=== PATIENT | female | born 1965 | race Caucasian/White ===

== ENCOUNTER → 2016-09-17 | Outpatient (CLI) | payer OTHER ==
[~2016-09-17] MED LIST: AMLO2.5T PO; ASCO500T16 PO; ASPI325T39 PO; ASPI81TA28 PO; BUPR-79 PO; CEPH500C PO; CPR250 PO; CPR500 PO; FERR1TAB23 PO; FOLI1TAB7 PO; FOLI800T PO; FURO-85 PO; LEVO175T3 PO; LISI-729 PO; MULT-610 PO; OXYB15TA12 PO; SERT-234 PO; SERT1TAB92 PO; SIMV20TA5 PO; SNG10 PO; SOLI10TA2 PO; SULF800T23 PO; VSC/10 PO
[2016-09-17 19:59] LABS: URINE APPEARANCE CLOUDY (CLEAR); URINE BILIRUBIN NEG (NEG); URINE COLOR YELLOW; URINE EPITHELIAL CELL AUTO >30 /lpf (0-5); URINE NITRITE POS (NEG); URINE PH 5.5 (4.5-7.5); UROBILINOGEN NEG (NEG)
[2016-09-17 20:01] LABS: MANUAL MICROSCOPIC REQUIRED? NO; REVIEW REQ? YES
== END | disposition home or self-care (01) ==
LOC: C.LABSPEC 17:42
PROVIDERS: ATTEND Family Medicine
DX: Z43.5 Encounter for attention to cystostomy (principal); N31.9 Neuromuscular dysfunction of bladder, unspecified

== ENCOUNTER 2016-11-19 13:43 | Inpatient (IN) | payer OTHER ==
[~2016-11-19] VITALS: Ht 134.6 cm; Wt 94.0 kg
[~2016-11-19 13:43] MED LIST changes: -ASCO500T16 PO; -ASPI81TA28 PO; -BUPR-79 PO; -CEPH500C PO; -CPR250 PO; -CPR500 PO; -FERR1TAB23 PO; -FOLI1TAB7 PO; -FURO-85 PO; -LEVO175T3 PO; -LISI-729 PO; -MULT-610 PO; -OXYB15TA12 PO; -SERT1TAB92 PO; -SIMV20TA5 PO; -SNG10 PO; -SULF800T23 PO; -VSC/10 PO
[2016-11-19] MEDS ORDERED: OXYCODONE HCL IR 5 MG TAB (IMMEDIATE RELEASE) PO STA (15:13)
[2016-11-19] MEDS ORDERED: SODIUM CHLORIDE 0.9% 1000ML 1,000 ML IV STA (15:13)
[2016-11-19] MEDS ORDERED: ONDANSETRON INJ 2 MG/ML 2 ML VIAL IV STA (15:13)
--- NOTE | 2016-11-19 15:15 | EMERGENCY ROOM VISIT NOTE ---
History Report prepared by Peggy: Joan Castro Under the Supervision of: Dr. Olayinka Hart D.O. First contact with patient: 14:57 Chief Complaint: REFERRED BY DOCTOR Stated Complaint: KIDNEY FUNCTION TESTING, SENT BY LINDA FERNANDES History of Present Illness The patient is a 51 year old female who presents to the Emergency Room for worsening swelling of legs bilaterally, with right being greater than left. 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 Per the patient, she was sent to the ED by Dr. Fernandes for kidney function testing. The patient denies chest pain, shortness of breath, urinary symptoms, abdominal pain, or any additional complaints. The patient has a history of DVT. 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 A total of 10 systems reviewed and were otherwise negative. Past Medical & Surgical Medical Problems: (1) Anemia of chronic disease (2) Asthma, Unspecified (3) Depression (4) Depression (5) DVT (deep venous thrombosis) (6) Esophageal Reflux (7) HTN (hypertension) (8) Hx-Venous Thrombosis&Embolism (9) Hypertension (10) Hypothyroidism (11) Hypothyroidism (12) Laceration of left foot (13) MRSA (methicillin resistant Staphylococcus aureus) (14) Neurogenic bladder (15) Paraplegia (16) Spina bifida (17) Spina bifida (18) Suprapubic catheter (19) Ventricular Shunt Status Surgical Problems: (1) H/O foot surgery (2) H/O sinus surgery (3) H/O Spinal surgery (4) History of hip surgery Family History No significant family history Social History Smoking Status: Never Smoker Alcohol Use: none Drug Use: none Marital Status: single Housing Status: assisted living Occupation Status: disabled Current/Historical Medications Scheduled Amlodipine Besylate (Norvasc), 2.5 MG PO QAM Ascorbic Acid (Ascorbic Acid), 500 MG PO BID Aspirin (Aspirin Ec), 81 MG PO QAM Bupropion (Wellbutrin Sr), 150 MG PO BID Ferrous Sulfate (Iron), 325 MG PO BID Folic Acid (Folvite), 1 MG PO QAM Furosemide (Lasix), 20 MG PO QAM Levothyroxine Sodium (Levothyroxine Sodium), 175 MCG PO DAILY Lisinopril (Zestril), 5 MG PO QAM Montelukast Sod (Montelukast Sodium), 10 MG PO HS Oxybutynin Chloride (Ditropan Xl), 15 MG PO QAM Sertraline (Zoloft), 100 MG PO QAM Simvastatin (Zocor), 20 MG PO HS Allergies Coded Allergies: Penicillins (Verified Allergy, Severe, THROAT SWELLS, 07/28/16) Tramadol (Verified Allergy, Severe, Seizure, 07/28/16) Reported by PT and listed in [facility] record. Physical Exam Vital Signs Date Time Temp Pulse Resp B/P Pulse Ox O2 Delivery O2 Flow Rate FiO2 11/19/16 17:46 85 18 146/72 97 Room Air 11/19/16 15:58 88 11/19/16 15:38 88 20 129/78 98 Room Air 11/19/16 13:53 36.7 64 20 132/86 96 Room Air Physical Exam GENERAL: Patient is awake, alert, and in no acute distress. Patient is resting comfortably and showing no signs of anxiety EYES: Esotropia and disconjugate gaze noted to right eye, appears to be chronic. The conjunctivae are clear. The pupils are round and reactive. EARS, NOSE, MOUTH AND THROAT: The nose is without any evidence of any deformity. Mucous membranes are dry tongue is midline NECK: The neck is nontender and supple. RESPIRATORY: Diminished breath sounds throughout all lung kim. No tachypnea or conversational dyspnea. CARDIOVASCULAR: Regular rate and rhythm noted there no murmurs rubs or gallops normal S1 normal S2 GASTROINTESTINAL: The abdomen is soft. Bowel sounds are present in all quadrants. Abdomen is nontender MUSCULOSKELETAL/EXTREMITIES: There is no evidence of gross deformity full range of motion is noted in the hips and shoulders SKIN: Pedal edema noted bilaterally, right greater than left. No erythema. Chronic stasis changes noted. There is no obvious evidence of any rash. There are no petechiae, pallor or cyanosis noted. NEUROLOGIC: Patient is awake alert and oriented x3. Baseline according to caregiver. Medical Decision & Procedures ER Provider Diagnostic Interpretation: Radiology results as stated below per my review and radiologist interpretation: ULTRASOUND RIGHT LOWER EXTREMITY VENOUS CLINICAL HISTORY: Right leg swelling. COMPARISON STUDY: Bilateral lower extremity venous ultrasound dated 06/03/2016. TECHNIQUE: Real-time, grayscale, and color Doppler sonography of the deep veins of the right lower extremity was performed from the inguinal crease to the calf. Compression and augmentation were utilized. The Examination is degraded by large body habitus. FINDINGS: There is no sonographic evidence of deep venous thrombosis identified in the right lower extremity. The common femoral, superficial femoral, and popliteal veins are patent and normally compressible. The greater saphenous vein and the profunda femoris vein at the junction with the common femoral vein are clear. The visualized calf veins are patent. IMPRESSION: There is no sonographic evidence of deep venous thrombosis identified in the right lower extremity. Electronically signed by: Mario Mari M.D. 11/19/2016 5:14 PM Dictated Date/Time: 11/19/2016 5:13 PM CHEST ONE VIEW PORTABLE CLINICAL HISTORY: ABDOMINAL PAIN/GI dyspnea COMPARISON STUDY: 08/21/2012 FINDINGS: Poor film technically. Moderate cardiomegaly. Possible components of congestive failure versus pulmonary edema. IMPRESSION: Poor film technically in part due to patient body habitus. Moderate cardiomegaly. Pulmonary edema versus congestive failure Electronically signed by: Sherif White M.D. 11/19/2016 3:31 PM Dictated Date/Time: 11/19/2016 3:30 PM Laboratory Results 11/19/16 15:42 Red Blood Count 2.80, Mean Corpuscular Volume 94.3, Mean Corpuscular Hemoglobin 30.4, Mean Corpuscular Hemoglobin Concent 32.2, Mean Platelet Volume 9.7, Neutrophils (%) (Auto) 65.2, Lymphocytes (%) (Auto) 20.2, Monocytes (%) (Auto) 5.4, Eosinophils (%) (Auto) 8.1, Basophils (%) (Auto) 0.7, Neutrophils # (Auto) 4.97, Lymphocytes # (Auto) 1.54, Monocytes # (Auto) 0.41, Eosinophils # (Auto) 0.62, Basophils # (Auto) 0.05 11/19/16 15:42 Test 11/19/16 15:42 11/19/16 16:01 White Blood Count 7.62 K/uL (4.8-10.8) Red Blood Count 2.80 M/uL (4.2-5.4) Hemoglobin 8.5 g/dL (12.0-16.0) Hematocrit 26.4 % (37-47) Mean Corpuscular Volume 94.3 fL (80-100) Mean Corpuscular Hemoglobin 30.4 pg (25-34) Mean Corpuscular Hemoglobin Concent 32.2 g/dl (32-36) Platelet Count 311 K/uL (130-400) Mean Platelet Volume 9.7 fL (7.4-10.4) Neutrophils (%) (Auto) 65.2 % Lymphocytes (%) (Auto) 20.2 % Monocytes (%) (Auto) 5.4 % Eosinophils (%) (Auto) 8.1 % Basophils (%) (Auto) 0.7 % Neutrophils # (Auto) 4.97 K/uL (1.4-6.5) Lymphocytes # (Auto) 1.54 K/uL (1.2-3.4) Monocytes # (Auto) 0.41 K/uL (0.11-0.59) Eosinophils # (Auto) 0.62 K/uL (0-0.5) Basophils # (Auto) 0.05 K/uL (0-0.2) RDW Standard Deviation 48.4 fL (36.4-46.3) RDW Coefficient of Variation 14.0 % (11.5-14.5) Immature Granulocyte % (Auto) 0.4 % Immature Granulocyte # (Auto) 0.03 K/uL (0.00-0.02) Red Blood Cell Morphology Unremarkable Prothrombin Time 10.3 SECONDS (9.0-12.0) Prothromb Time International Ratio 1.0 (0.9-1.1) Activated Partial Thromboplast Time 26.0 SECONDS (21.0-31.0) Partial Thromboplastin Ratio 1.0 Anion Gap 8.0 mmol/L (3-11) Est Creatinine Clear Calc Drug Dose 18.3 ml/min Estimated GFR () 19.0 Estimated GFR (Non- 16.4 BUN/Creatinine Ratio 24.1 (10-20) Calcium Level 8.9 mg/dl (8.5-10.1) Magnesium Level 2.4 mg/dl (1.8-2.4) Total Bilirubin 0.3 mg/dl (0.2-1) Direct Bilirubin mg/dl (0-0.2) Aspartate Amino Transf (AST/SGOT) 16 U/L (15-37) Alanine Aminotransferase (ALT/SGPT) 17 U/L (12-78) Alkaline Phosphatase 133 U/L (45-117) Total Creatine Kinase 54 U/L (26-192) Creatine Kinase MB 0.6 ng/ml (0.5-3.6) Creatine Kinase MB Ratio 1.1 (0-3.0) Troponin I < 0.015 ng/ml (0-0.045) Total Protein 7.7 gm/dl (6.4-8.2) Albumin 3.4 gm/dl (3.4-5.0) Lipase 164 U/L (73-393) Chemistry Specimen Hemolysis Urine Color YELLOW Urine Appearance TURBID (CLEAR) Urine pH >= 9.0 (4.5-7.5) Urine Specific [place] 1.012 (1.000-1.030) Urine Protein 1+ (NEG) Urine Glucose (UA) NEG (NEG) Urine Ketones NEG (NEG) Urine Occult Blood 3+ (NEG) Urine Nitrite NEG (NEG) Urine Bilirubin NEG (NEG) Urine Urobilinogen NEG (NEG) Urine Leukocyte Esterase LARGE (NEG) Urine WBC (Auto) >30 /hpf (0-5) Urine RBC (Auto) >30 /hpf (0-4) Urine Hyaline Casts (Auto) 5-10 /lpf (0-5) Urine Epithelial Cells (Auto) >30 /lpf (0-5) Urine Bacteria (Auto) 4+ (NEG) Urine Crystals TRIPLE PHOSPHATE Urine Yeast (Auto) PRESENT (NONE PRSENT) Laboratory results per my review. Medications Administered Medications (Trade) Dose Ordered Sig/Jacky Route Start Time Stop Time Status Last Admin Dose Admin Sodium Chloride (Nss 1000ml) 1,000 ml @ 999 mls/hr Q1H1M STAT IV 11/19/16 15:13 11/19/16 16:13 DC 11/19/16 15:53 999 MLS/HR Ondansetron HCl (Zofran Inj) 4 mg NOW STAT IV 11/19/16 15:13 11/19/16 15:17 DC 11/19/16 15:54 4 MG Oxycodone HCl (Roxicodone Immediate Rel Tab) 5 mg NOW STAT PO 11/19/16 15:13 11/19/16 15:17 DC 11/19/16 15:54 5 MG Ceftriaxone Sodium (Rocephin Inj) 1 gm NOW STAT IV 11/19/16 17:30 11/19/16 17:31 DC 11/19/16 17:48 1 GM ECG Indication: other (Abnormal lab value) Rate (beats per minute): 84 Rhythm: normal sinus Findings: T-wave inversion (Anterior), no ectopy Comparison ECG Date: 08/21/12 Change: no significant change ED Course 1508: The patient was evaluated in room B5. A complete history and physical examination were performed. 1513: Ordered Oxycodone HCL 5 mg PO, Zofran Injection 4 mg IV, Sodium Chloride 1 ,000 ml @ 999 mls/hr IV. 1515: After reviewing the patient's chart, I found that the patient was sent by Dr. Fernandes for a creatinine of 3. 1730: Ordered Rocephin Injection 1 gm IV. 173: I updated the patient of the treatment plan. She is agreeable at this time. 1821: I discussed the patient's case with Dr. Stringer ([facility]). She will evaluate the patient for further management and care. Medical Decision Differential diagnosis: Etiologies such as metabolic, infection, hypo/hyperglycemia, electrolyte abnormalities, cardiac sources, intracerebral event, toxicologic, neurologic, as well as others were entertained. Nursing notes reviewed. Patient's previous electronic medical records and outside laboratory studies were also reviewed. The patient is a 51-year-old female who presented to the emergency department for an evaluation at the request of her primary care physician. The patient's found have an elevated creatinine and was sent to the emergency department. The patient is a history of a chronic suprapubic Hodge catheter. She appears to have signs of urinary tract infection on urinalysis but she does have a chronic indwelling Hodge catheter so this is difficult to decide if it's an acute infection or not. She appears improved had slowly worsening creatinine are since July of 2016. Her creatinine appears to be consistent with her previous recent draws but it appears that her creatinine was normal as of last fall. The patient is treated with IV fluids and IV antibiotics in emergency department. She was also given pain medication. I discussed her case with the on -call [facility] hospitalist group. They've agreed to evaluate the patient in the emergency department for further management and disposition. Consults Time Called: 1818 Consulting Physician: Dr. Stringer ([facility]) Returned Call: 1821 I discussed the patient's case with Dr. Stringer ([facility]). She will evaluate the patient for further management and care. Impression Primary Impression: Acute kidney injury Additional Impressions: UTI (urinary tract infection) Creatinine elevation Scribe Attestation The scribe's documentation has been prepared under my direction and personally reviewed by me in its entirety. I confirm that the note above accurately reflects all work, treatment, procedures, and medical decision making performed by me. Departure Information Dispostion Being Evaluated By Hospitalist Referrals Linda Fernandes D.OMi (PCP) Patient Instructions My [facility] Problem Qualifiers Additional Impressions: UTI (urinary tract infection) Urinary tract infection type: catheter-associated UTI Indwelling urinary catheter type: unspecified Encounter type: initial encounter Qualified Codes : T83.511A - Infection and inflammatory reaction due to indwelling urethral catheter, initial encounter; N39.0 - Urinary tract infection, site not specified
--- NOTE | 2016-11-19 15:33 | DIAGNOSTIC IMAGING REPORT ---
CHEST ONE VIEW PORTABLE CLINICAL HISTORY: ABDOMINAL PAIN/GI dyspnea COMPARISON STUDY: 08/21/2012 FINDINGS: Poor film technically. Moderate cardiomegaly. Possible components of congestive failure versus pulmonary edema. IMPRESSION: Poor film technically in part due to patient body habitus. Moderate cardiomegaly. Pulmonary edema versus congestive failure Electronically signed by: Sherif White M.D. 11/19/2016 3:31 PM Dictated Date/Time: 11/19/2016 3:30 PM
[2016-11-19] MEDS ORDERED: OXYB15TA12 PO (15:46)
[2016-11-19 16:13] LABS: BASO % 0.7 %; BASO ABS # 0.05 K/uL (0-0.2); EOS % 8.1 %; HEMATOCRIT 26.4 % (37-47); IG% 0.4 %; LYMPH % 20.2 %; LYMPH ABS # 1.54 K/uL (1.2-3.4); MEAN CELL VOLUME 94.3 fL (80-100); MEAN CORPUSCULAR HEMOGLOBIN 30.4 pg (25-34); MEAN CORPUSCULAR HGB CONC 32.2 g/dl (32-36); MEAN PLATELET VOLUME 9.7 fL (7.4-10.4); MONO % 5.4 %; NEUT % 65.2 %; PLATELET COUNT 311 K/uL (130-400); WHITE BLOOD COUNT 7.62 K/uL (4.8-10.8)
[2016-11-19 16:27] LABS: PROTHROMBIN TIME (PATIENT) 10.3 SECONDS (9.0-12.0)
[2016-11-19 16:47] LABS: COMPLETE YES
[2016-11-19 16:48] LABS: URINE APPEARANCE TURBID (CLEAR); URINE BILIRUBIN NEG (NEG); URINE COLOR YELLOW; URINE EPITHELIAL CELL AUTO >30 /lpf (0-5); URINE NITRITE NEG (NEG); URINE PH >= 9.0 (4.5-7.5); URINE SPECIFIC GRAVITY 1.012 (1.000-1.030); UROBILINOGEN NEG (NEG)
[2016-11-19 16:51] LABS: ALKALINE PHOSPHATASE 133 U/L (45-117); ALT/SGPT 17 U/L (12-78); AST/SGOT 16 U/L (15-37); BLOOD UREA NITROGEN 75 mg/dl (7-18); BUN/CREATININE RATIO 24.1 (10-20); CALCIUM 8.9 mg/dl (8.5-10.1); CARBON DIOXIDE 25 mmol/L (21-32); CHLORIDE 109 mmol/L (98-107); CKMB/CK RATIO 1.1 (0-3.0); GLUCOSE 91 mg/dl (70-99); MAGNESIUM 2.4 mg/dl (1.8-2.4); POTASSIUM 5.1 mmol/L (3.5-5.1); SODIUM 142 mmol/L (136-145)
[2016-11-19 16:55] LABS: MANUAL MICROSCOPIC REQUIRED? NO; REVIEW REQ? YES
[2016-11-19 16:56] LABS: SULFASALICYLIC ACID POS (NEG)
--- NOTE | 2016-11-19 17:16 | DIAGNOSTIC IMAGING REPORT ---
ULTRASOUND RIGHT LOWER EXTREMITY VENOUS CLINICAL HISTORY: Right leg swelling. COMPARISON STUDY: Bilateral lower extremity venous ultrasound dated 06/03/2016. TECHNIQUE: Real-time, grayscale, and color Doppler sonography of the deep veins of the right lower extremity was performed from the inguinal crease to the calf. Compression and augmentation were utilized. The Examination is degraded by large body habitus. FINDINGS: There is no sonographic evidence of deep venous thrombosis identified in the right lower extremity. The common femoral, superficial femoral, and popliteal veins are patent and normally compressible. The greater saphenous vein and the profunda femoris vein at the junction with the common femoral vein are clear. The visualized calf veins are patent. IMPRESSION: There is no sonographic evidence of deep venous thrombosis identified in the right lower extremity. Electronically signed by: Mario Mari M.D. 11/19/2016 5:14 PM Dictated Date/Time: 11/19/2016 5:13 PM
[2016-11-19] MEDS ORDERED: CEFTRIAXONE SOD INJ 1 GM ADDVIAL IV STA (17:30)
[2016-11-19] MEDS ORDERED: ACETAMINOPHEN 325 MG TAB PO PRN (18:45)
[2016-11-19] MEDS ORDERED: POLYETHYLENE (MIRALAX) 17 GM PACK PO PRN (18:45)
[2016-11-19] MEDS ORDERED: ONDANSETRON INJ 2 MG/ML 2 ML VIAL IV PRN (18:45)
[2016-11-19 20:48] VITALS: BP 136/78; PULSE 92; TEMP 36.9; O2SAT 97; Ht 134.6 cm; Wt 94.0 kg
[2016-11-19] MEDS ORDERED: LISI-729 PO (20:52)
[2016-11-19] MEDS ORDERED: FERROUS SULFATE 325 MG TAB PO SCH (21:00)
[2016-11-19] MEDS: MONTELUKAST SOD 10 MG TAB PO SCH (21:40)
[2016-11-19] MEDS: FERROUS SULFATE 325 MG TAB PO SCH (21:40)
[2016-11-19] MEDS: ASCORBIC ACID 500 MG TAB PO SCH (21:40)
[2016-11-19] MEDS: SIMVASTATIN 20 MG TAB PO SCH (21:41)
[2016-11-19] MEDS: BuPROPion SR 150 MG TABCR PO SCH (21:41)
[2016-11-19] MEDS: HEPARIN SOD 5000 UNIT/0.5 ML CARP SQ SCH (21:43)
--- NOTE | 2016-11-19 21:57 | History and Physical ---
History & Physical Date & Time of Service: Nov 19, 2016 at 21:28 Chief Complaint: Abnormal Kidney Function Primary Care Physician: Reginaldo Adair D.O. History of Present Illness 51 year old female who presents to the ER by recommendation from her PCP for abnormal kidney function. Patient was at her PCP today for routine visit and had routine labs drawn that showed creat 3.1 (noted to be 0.9 03/2016). Patient reports she has been feeling well recently. She has a suprapubic catheter in place that has been draining well. No symptoms of a UTI. She denies fever and chills. No chest pain, shortness of breath, lightheadedness, dizziness, diaphoresis, or syncopal events. She has chronic lower extremity edema which is unchanged. She denies abdominal pain, nausea, vomiting, and diarrhea. She was treated for wounds on her feet a few months ago that have since healed. Patient denies heavy NSAID use. In the ER, creat is 3.1. U/A suggests UTI. She was given IVF and Rocephin. Vitals are stable. Past Medical/Surgical History Medical Problems: (1) Anemia of chronic disease Status: Chronic (2) Asthma, Unspecified Status: Chronic (3) Depression Status: Chronic (4) Depression Status: Chronic (5) DVT (deep venous thrombosis) Status: Chronic completed Coumadin therapy (6) Esophageal Reflux Status: Chronic (7) HTN (hypertension) Status: Chronic (8) Hx-Venous Thrombosis&Embolism Status: Chronic (9) Hypertension Status: Chronic (10) Hypothyroidism Status: Chronic (11) Hypothyroidism Status: Chronic (12) Laceration of left foot Status: Resolved (13) MRSA (methicillin resistant Staphylococcus aureus) Status: Chronic (14) Neurogenic bladder Status: Chronic (15) Paraplegia Status: Chronic (16) Spina bifida Status: Chronic (17) Spina bifida Status: Chronic (18) Suprapubic catheter Status: Chronic (19) Ventricular Shunt Status Status: Chronic Surgical Problems: (1) H/O foot surgery Status: Chronic (2) H/O sinus surgery Status: Chronic (3) H/O Spinal surgery Status: Chronic (4) History of hip surgery Status: Chronic Family History FH: CAD (coronary artery disease) FATHER BROTHER Social History Smoking Status: Never Smoker Alcohol Use: none Housing status: assisted living Immunizations History of Influenza Vaccine: Yes Influenza Vaccine Date: Jun 15, 2016 History of Tetanus Vaccine?: Yes Tetanus Immunization Date: Jun 07, 2007 History of Pneumococcal: Yes Pneumococcal Date: Jun 16, 2015 History of Hepatitis B Vaccine: Yes Hepatitis Immunization Date: Oct 05, 2006 Multi-Drug Resistant Organisms History of MDRO: Yes Type of MDRO: MRSA Allergies Coded Allergies: Penicillins (Verified Allergy, Severe, THROAT SWELLS, 07/28/16) Tramadol (Verified Allergy, Severe, Seizure, 07/28/16) Reported by PT and listed in [facility] record. Home Medications Scheduled Amlodipine Besylate (Norvasc), 2.5 MG PO QAM Ascorbic Acid (Ascorbic Acid), 500 MG PO BID Aspirin (Aspirin Ec), 81 MG PO QAM Bupropion (Wellbutrin Sr), 150 MG PO BID Ferrous Sulfate (Iron), 325 MG PO BID Folic Acid (Folvite), 1 MG PO QAM Furosemide (Lasix), 20 MG PO QAM Levothyroxine Sodium (Levothyroxine Sodium), 175 MCG PO DAILY Lisinopril (Zestril), 5 MG PO QAM Montelukast Sod (Montelukast Sodium), 10 MG PO HS Oxybutynin Chloride (Ditropan Xl), 15 MG PO QAM Sertraline (Zoloft), 100 MG PO QAM Simvastatin (Zocor), 20 MG PO HS Review of Systems 10 point review of systems was completed with the pertinent positives and negatives noted per the HPI Physical Exam Vital Signs Date Time Temp Pulse Resp B/P Pulse Ox O2 Delivery O2 Flow Rate FiO2 11/19/16 17:46 85 18 146/72 97 Room Air 11/19/16 15:58 88 11/19/16 15:38 88 20 129/78 98 Room Air 11/19/16 13:53 36.7 64 20 132/86 96 Room Air General Appearance: no apparent distress Head: normocephalic Eyes: normal inspection ENT: hearing grossly normal Neck: supple, no JVD Respiratory/Chest: lungs clear, normal breath sounds, no respiratory distress Cardiovascular: regular rate, rhythm, + pertinent finding (+ edema BLLE) Abdomen/GI: normal bowel sounds, non tender, soft Genitourinary - Female: + pertinent finding (suprapubic catheter in place, draining clear yellow urine) Extremities/Musculoskelatal: + pertinent finding (underdeveloped extremities due to spina bifida) Neurologic/Psych: no motor/sensory deficits, alert, normal mood/affect, oriented x 3 Skin: normal color, warm/dry, + pertinent finding (excoriated abdominal folds) Diagnostics Laboratory Results Results Past 24 Hours Test 11/19/16 15:42 11/19/16 16:01 Range/Units White Blood Count 7.62 4.8-10.8 K/uL Red Blood Count 2.80 4.2-5.4 M/uL Hemoglobin 8.5 12.0-16.0 g/dL Hematocrit 26.4 37-47 % Mean Corpuscular Volume 94.3 80-100 fL Mean Corpuscular Hemoglobin 30.4 25-34 pg Mean Corpuscular Hemoglobin Concent 32.2 32-36 g/dl Platelet Count 311 130-400 K/uL Mean Platelet Volume 9.7 7.4-10.4 fL Neutrophils (%) (Auto) 65.2 % Lymphocytes (%) (Auto) 20.2 % Monocytes (%) (Auto) 5.4 % Eosinophils (%) (Auto) 8.1 % Basophils (%) (Auto) 0.7 % Neutrophils # (Auto) 4.97 1.4-6.5 K/uL Lymphocytes # (Auto) 1.54 1.2-3.4 K/uL Monocytes # (Auto) 0.41 0.11-0.59 K/uL Eosinophils # (Auto) 0.62 0-0.5 K/uL Basophils # (Auto) 0.05 0-0.2 K/uL RDW Standard Deviation 48.4 36.4-46.3 fL RDW Coefficient of Variation 14.0 11.5-14.5 % Immature Granulocyte % (Auto) 0.4 % Immature Granulocyte # (Auto) 0.03 0.00-0.02 K/uL Red Blood Cell Morphology Unremarkable Prothrombin Time 10.3 9.0-12.0 SECONDS Prothromb Time International Ratio 1.0 0.9-1.1 Activated Partial Thromboplast Time 26.0 21.0-31.0 SECONDS Partial Thromboplastin Ratio 1.0 Sodium Level 142 136-145 mmol/L Potassium Level 5.1 3.5-5.1 mmol/L Chloride Level 109 98-107 mmol/L Carbon Dioxide Level 25 21-32 mmol/L Anion Gap 8.0 3-11 mmol/L Blood Urea Nitrogen 75 7-18 mg/dl Creatinine 3.10 0.60-1.20 mg/dl Est Creatinine Clear Calc Drug Dose 18.3 ml/min Estimated GFR () 19.0 Estimated GFR (Non- 16.4 BUN/Creatinine Ratio 24.1 10-20 Random Glucose 91 70-99 mg/dl Calcium Level 8.9 8.5-10.1 mg/dl Magnesium Level 2.4 1.8-2.4 mg/dl Total Bilirubin 0.3 0.2-1 mg/dl Direct Bilirubin 0-0.2 mg/dl Aspartate Amino Transf (AST/SGOT) 16 15-37 U/L Alanine Aminotransferase (ALT/SGPT) 17 12-78 U/L Alkaline Phosphatase 133 45-117 U/L Total Creatine Kinase 54 26-192 U/L Creatine Kinase MB 0.6 0.5-3.6 ng/ml Creatine Kinase MB Ratio 1.1 0-3.0 Troponin I < 0.015 0-0.045 ng/ml Total Protein 7.7 6.4-8.2 gm/dl Albumin 3.4 3.4-5.0 gm/dl Lipase 164 73-393 U/L Chemistry Specimen Hemolysis Urine Color YELLOW Urine Appearance TURBID CLEAR Urine pH >= 9.0 4.5-7.5 Urine Specific [place] 1.012 1.000-1.030 Urine Protein 1+ NEG Urine Glucose (UA) NEG NEG Urine Ketones NEG NEG Urine Occult Blood 3+ NEG Urine Nitrite NEG NEG Urine Bilirubin NEG NEG Urine Urobilinogen NEG NEG Urine Leukocyte Esterase LARGE NEG Urine WBC (Auto) >30 0-5 /hpf Urine RBC (Auto) >30 0-4 /hpf Urine Hyaline Casts (Auto) 5-10 0-5 /lpf Urine Epithelial Cells (Auto) >30 0-5 /lpf Urine Bacteria (Auto) 4+ NEG Urine Crystals TRIPLE PHOSPHATE NONE PRSENT Urine Yeast (Auto) PRESENT NONE PRSENT Microbiology Results 11/19/16 Urine Culture, Received Pending Diagnostic Radiology RLE DOPPLER IMPRESSION: There is no sonographic evidence of deep venous thrombosis identified in the right lower extremity. CXR IMPRESSION: Poor film technically in part due to patient body habitus. Moderate cardiomegaly. Pulmonary edema versus congestive failure Impression Assessment and Plan ACUTE KIDNEY INJURY - admit to med/surg - on review of old records - noted patient had creats ranging from the high 1's - 4.4 in 07/2016 - noted patient was receiving amikacin and gentamicin for foot wounds at that time; no other lab results until labs done today - ? renal toxicity from aminoglycoside use; patient also on Lasix and Lisinopril - hold both - suprapubic catheter draining well - so do not suspect obstruction - no heavy NSAID use - s/p 1 liter IVF in ED, will hold on further IVF at this time - urine studies and renal US ordered - nephro consult POSSIBLE UTI - U/A suggests UTI, however ? colonization from chronic suprapubic catheter - last culture 09/2016 grew pansensitive klebsiella - empiric Rocephin for now HTN - BP controlled, holding Lisinopril due to NEMESIO - continue amlodipine HYPOTHYROIDISM - continue levothyroxine SPINA BIFIDA CHRONIC LOWER EXTREMITY EDEMA - holding Lasix due to NEMESIO - also uses compression pumps DVT PROPHYLAXIS - SQ Heparin DISPO - In my clinical judgment this beneficiary meets acute admission criteria, established by [facility], that includes being hospitalized through two midnights. I have seen and examined the patient and agree with the assessment and plan as stated above. Myke, DO Level of Care Med/Surg Resuscitation Status DO NOT RESUSCITATE VTE Prophylaxis VTE Risk Assessment Done? Y/N: Yes Risk Level: Moderate Given or contraindicated: Unfractionated heparin SQ
--- NOTE | 2016-11-19 22:50 | DIAGNOSTIC IMAGING REPORT ---
ULTRASOUND KIDNEYS AND BLADDER CLINICAL HISTORY: Acute renal insufficiency. COMPARISON STUDY: Abdominal CT dated 08/17/2012. TECHNIQUE: Real-time, grayscale, and color flow sonography of the kidneys and bladder is performed. Images are reviewed in the transverse and longitudinal planes. The examination is degraded by large body habitus. FINDINGS: Kidneys: The kidneys are atrophic. The right kidney measures 8.9 x 5.0 x 3.9 cm and the left kidney measures 6.8 x 4.8 x 3.5 cm. There is no hydronephrosis. No shadowing renal calculi are identified. There is no sonographic evidence of large contour deforming renal mass lesion. No perinephric fluid is identified. Bladder: The bladder is decompressed and could not be assessed. IMPRESSION: 1. Significantly suboptimal examination due to large body habitus. 2. The kidneys are atrophic an without evidence of hydronephrosis. 3. The bladder was decompressed and could not be assessed. Electronically signed by: Mario Mari M.D. 11/19/2016 10:48 PM Dictated Date/Time: 11/19/2016 10:46 PM
[2016-11-19 23:54] VITALS: BP 120/75; PULSE 102; TEMP 36.7; O2SAT 92
[2016-11-20] VITALS: O2SAT 97
[2016-11-20] MEDS: HEPARIN SOD 5000 UNIT/0.5 ML CARP SQ SCH ×3 (05:45→22:00)
[2016-11-20] MEDS: LEVOTHYROXINE 175 MCG TAB PO SCH (06:10)
[2016-11-20 07:17] LABS: HEMATOCRIT 23.7 % (37-47); MEAN CELL VOLUME 95.2 fL (80-100); MEAN CORPUSCULAR HEMOGLOBIN 29.7 pg (25-34); MEAN CORPUSCULAR HGB CONC 31.2 g/dl (32-36); MEAN PLATELET VOLUME 9.6 fL (7.4-10.4); PLATELET COUNT 274 K/uL (130-400); RED BLOOD COUNT 2.49 M/uL (4.2-5.4); WHITE BLOOD COUNT 7.62 K/uL (4.8-10.8)
[2016-11-20 07:37] LABS: BUN/CREATININE RATIO 25.9 (10-20); CALCIUM 8.4 mg/dl (8.5-10.1); CREATININE 2.9 mg/dl (0.60-1.20); MAGNESIUM 2.3 mg/dl (1.8-2.4); POTASSIUM 5.4 mmol/L (3.5-5.1)
[2016-11-20 07:55] VITALS: BP 137/84; PULSE 94; TEMP 36.8; O2SAT 92
[2016-11-20] MEDS ORDERED: ASPIRIN 81 MG ECTAB PO SCH (08:00)
[2016-11-20] MEDS ORDERED: SODIUM POLYST. SULF SUSP 15G/60ML PO STA (09:33)
[2016-11-20] MEDS: SERTRALINE HCL 100 MG TAB PO SCH (09:48)
[2016-11-20] MEDS: OXYBUTYNIN CHLORIDE 5 MG TABCR PO SCH (09:51)
[2016-11-20] MEDS: BuPROPion SR 150 MG TABCR PO SCH ×2 (09:51→19:40)
[2016-11-20] MEDS: ASCORBIC ACID 500 MG TAB PO SCH ×2 (09:52→19:40)
[2016-11-20] MEDS: AMLODIPINE BESYLATE 5 MG TAB PO SCH (09:52)
[2016-11-20] MEDS: FERROUS SULFATE 325 MG TAB PO SCH ×2 (09:54→19:39)
[2016-11-20] MEDS: SODIUM CHLORIDE 0.9% 1000ML 1,000 ML IV SCH ×2 (10:14→19:38)
[2016-11-20 10:30] LABS: FERRITIN 356.6 ng/ml (8.0-388.0)
[2016-11-20 10:34] VITALS: BP 118/76; PULSE 100; O2SAT 93
[2016-11-20 14:47] LABS: BUN/CREATININE RATIO 24.6 (10-20); CALCIUM 8.4 mg/dl (8.5-10.1); CREATININE 2.8 mg/dl (0.60-1.20); POTASSIUM 5.1 mmol/L (3.5-5.1)
[2016-11-20 15:57] VITALS: BP 127/78; PULSE 92; TEMP 36.9; O2SAT 95
[2016-11-20 16:00] VITALS: O2SAT 95
--- NOTE | 2016-11-20 16:38 | Progress Note ---
Internal Med Progress Note Date of Service: Nov 20, 2016. Provider Documentation: SUBJECTIVE: feels fine, denies of any discomfort, appetite is fair , no nausea /vomiting no fever or chills very pleasant OBJECTIVE: Vital Signs-as noted below Exam: General-very pleasant female , no sign of distress Eyes-sclera non icteric , PERRLA/EOMI Lungs-CTA, no wheeze or rales Heart-regular S1/S2 Abdomen-soft, non tender , supra pubic catheter present Extremities-underdeveloped extremities due to spina bifida Neuro-AAX3 , spina bifida Lab data as noted below. ASSESSMENT & PLAN: ACUTE KIDNEY INJURY - found as an abnormal lab work in office visit during routine check up - on review of old records - noted patient had creatinine ranging from the high 1's - 4.4 in 07/2016 - noted patient was receiving amikacin and gentamicin for foot wounds at that time; no other lab results until labs done today - possible renal toxicity from aminoglycoside use; -patient was also on Lasix and Lisinopril - hold both - suprapubic catheter draining well - so do not suspect obstruction - no heavy NSAID use - cont IVF NSS @ 100 ml /hr Cr gradually improving 3.1 _> 2.8 cont to follow PRP - Renal USG : IMPRESSION: 1. Significantly suboptimal examination due to large body habitus. 2. The kidneys are atrophic an without evidence of hydronephrosis. 3. The bladder was decompressed and could not be assessed. - nephro consult requested -awaiting input HYPERKALEMIA : due to above lisinopril has been on hold since admission Low K /renal diet given Kayexalate repeat PRP in afternoon improvement of K level given presentation with NEMESIO /hyperkalemia -may not be a candidate for ACEI in future POSSIBLE UTI - U/A suggests UTI, however ? colonization from chronic suprapubic catheter - last culture 09/2016 grew pansensitive klebsiella - was started on empiric Rocephin -Urine culture -possible contamination with 3 type of organisms present -repeat culture ordered DEPRESSION ; on Effexor and Zoloft mentions of having crying spell since being in hospital asking if she can see a psychiatrist while in here Psych consult requested Ativan 0.5 mg PO TID PRN for anxiety HTN - BP controlled, holding Lisinopril due to NEMESIO - continue amlodipine HYPOTHYROIDISM - continue levothyroxine SPINA BIFIDA uses Power Chair has Suprapubic catheter for chronic Neurogenic bladder resident at [facility] CHRONIC LOWER EXTREMITY EDEMA - holding Lasix due to NEMESIO - also uses compression pumps DVT PROPHYLAXIS moderate to high risk - SQ Heparin DISPOSITION lives at [facility] return to [facility] when medically stable Social service consulted for discharge assistance Vital Signs: Date Time Temp Pulse Resp B/P Pulse Ox O2 Delivery O2 Flow Rate FiO2 11/20/16 16:00 95 Room Air 11/20/16 15:57 36.9 92 18 127/78 95 Room Air 11/20/16 10:34 100 93 11/20/16 08:00 Room Air 11/20/16 07:55 36.8 94 18 137/84 92 Room Air 11/20/16 00:00 97 Room Air 11/19/16 23:54 36.7 102 20 120/75 92 Room Air 11/19/16 20:48 36.9 92 18 136/78 97 Room Air 11/19/16 17:46 85 18 146/72 97 Room Air Lab Results: Results Past 24 Hours Test 11/19/16 22:15 11/20/16 06:27 11/20/16 14:24 Range/Units Urine Random Creatinine 24.0 mg/dl Urine Random Sodium 77 mEq/L White Blood Count 7.62 4.8-10.8 K/uL Red Blood Count 2.49 4.2-5.4 M/uL Hemoglobin 7.4 12.0-16.0 g/dL Hematocrit 23.7 37-47 % Mean Corpuscular Volume 95.2 80-100 fL Mean Corpuscular Hemoglobin 29.7 25-34 pg Mean Corpuscular Hemoglobin Concent 31.2 32-36 g/dl RDW Standard Deviation 49.2 36.4-46.3 fL RDW Coefficient of Variation 14.1 11.5-14.5 % Platelet Count 274 130-400 K/uL Mean Platelet Volume 9.6 7.4-10.4 fL Sodium Level 143 144 136-145 mmol/L Potassium Level 5.4 5.1 3.5-5.1 mmol/L Chloride Level 112 113 98-107 mmol/L Carbon Dioxide Level 23 24 21-32 mmol/L Anion Gap 8.0 7.0 3-11 mmol/L Blood Urea Nitrogen 75 69 7-18 mg/dl Creatinine 2.90 2.80 0.60-1.20 mg/dl Est Creatinine Clear Calc Drug Dose 19.6 20.3 ml/min Estimated GFR () 20.6 21.5 Estimated GFR (Non- 17.7 18.5 BUN/Creatinine Ratio 25.9 24.6 10-20 Random Glucose 79 113 70-99 mg/dl Calcium Level 8.4 8.4 8.5-10.1 mg/dl Magnesium Level 2.3 1.8-2.4 mg/dl Iron Level 100 35-150 mcg/dl Total Iron Binding Capacity 209 250-450 mcg/dl Ferritin 356.6 8.0-388.0 ng/ml
[2016-11-20] MEDS ORDERED: CEFTRIAXONE SOD INJ 1 GM in DEXTROSE 5% ADD-VANTAGE 50ML 50 ML IV SCH (18:00)
[2016-11-20] MEDS ORDERED: HYDROCODONE/ACETAMOPHEN 5/325MG TAB PO ONE (20:45)
[2016-11-20] MEDS: MONTELUKAST SOD 10 MG TAB PO SCH (21:16)
[2016-11-20] MEDS: SIMVASTATIN 20 MG TAB PO SCH (21:17)
[2016-11-20 23:46] VITALS: BP 107/67; PULSE 93; TEMP 36.7; O2SAT 90
[2016-11-21] MEDS: SODIUM CHLORIDE 0.9% 1000ML 1,000 ML IV SCH (05:30)
[2016-11-21] MEDS: HEPARIN SOD 5000 UNIT/0.5 ML CARP SQ SCH ×3 (05:42→21:59)
[2016-11-21] MEDS: LEVOTHYROXINE 175 MCG TAB PO SCH (06:12)
[2016-11-21 06:52] LABS: HEMATOCRIT 23.2 % (37-47); MEAN CELL VOLUME 96.3 fL (80-100); MEAN CORPUSCULAR HEMOGLOBIN 30.7 pg (25-34); MEAN CORPUSCULAR HGB CONC 31.9 g/dl (32-36); MEAN PLATELET VOLUME 9.5 fL (7.4-10.4); PLATELET COUNT 262 K/uL (130-400); RED BLOOD COUNT 2.41 M/uL (4.2-5.4); WHITE BLOOD COUNT 7.43 K/uL (4.8-10.8)
[2016-11-21 07:25] LABS: CALCIUM 8.3 mg/dl (8.5-10.1); CREATININE 2.5 mg/dl (0.60-1.20); POTASSIUM 4.5 mmol/L (3.5-5.1)
[2016-11-21 07:45] VITALS: BP 110/64; PULSE 86; TEMP 36.9; O2SAT 97
[2016-11-21] MEDS: BuPROPion SR 150 MG TABCR PO SCH ×2 (09:09→19:33)
[2016-11-21] MEDS: ASCORBIC ACID 500 MG TAB PO SCH ×2 (09:10→19:32)
[2016-11-21] MEDS: OXYBUTYNIN CHLORIDE 5 MG TABCR PO SCH (09:10)
[2016-11-21] MEDS: SERTRALINE HCL 100 MG TAB PO SCH (09:11)
[2016-11-21] MEDS: FERROUS SULFATE 325 MG TAB PO SCH ×4 (09:11→19:32)
[2016-11-21] MEDS: AMLODIPINE BESYLATE 5 MG TAB PO SCH (09:12)
[2016-11-21] MEDS: LORAZEPAM 0.5 MG TAB PO PRN ×2 (09:40→21:58)
[2016-11-21] MEDS: DOCUSATE SODIUM 100 MG CAP PO SCH ×2 (12:01→19:32)
--- NOTE | 2016-11-21 12:53 | Psychiatric Progress Notes ---
Psychiatric Progress Note Date of Service Nov 21, 2016. Notes please see dictated consultation Dx: MDD, rec, mild; unspecified anxiety d/o 1. increase zoloft to 150mg daily 2. continue wellbutrin at home dose 3. will facilitate referral to outpatient psychiatry and therapist
--- NOTE | 2016-11-21 14:18 | PSYCHIATRIC CONSULTATION ---
DATE OF CONSULTATION: 11/21/2016 IDENTIFYING INFORMATION: This is a 51-year-old female admitted for acute kidney injury. Consultation is requested for depression. Information obtained from the patient on interview and available medical records and felt to be reliable. CHIEF COMPLAINT: "Pictures can be overwhelming." HISTORY OF PRESENT ILLNESS: The patient is admitted through the ER on recommendation of PCP for abnormal kidney function with a creatinine of 3.1. She does have a suprapubic catheter. No symptoms of UTI. Fluid resuscitated. Lasix and lisinopril held. Creatinine improving. In brief discussion with Dr. Stephens, it sounds like the patient may be discharged back to her jail today with improvement in renal function. The patient describes a history of psychiatric treatment in the past with Dr. Bernstein, who has left the area and felt that she had a good rapport with her. She has also previously been treated at the [facility] for depression and anxiety, but did not feel that that was a good fit for her. It has been a number of years since she was seeing any outpatient psychiatric providers. She believes she was started on the Zoloft several years ago, which was initially helpful for her. She was later augmented with Wellbutrin, which had a modest additional benefit, but she believes that the effect of both of these medications has sort of waned over time. She is unable to recall the last time that she felt in a normal mood in a consistent way; however, she does report that her mood can easily elevate when she is distracted, where she has things to look forward to. She denies suicidal ideation, intent or plan to harm herself or anyone else. She does report that she had some fleeting passive wish about 1 year ago in the setting of acute stressors. She does feel well cared for at the jail and endorses that staff there are her primary emotional support. She feels that her family is disappointing. She describes longstanding fear of abandonment, likely associated with abandonment by her parents at a young age when her parents left her at the hospital. She reports variable levels of anxiety and this seems to be triggered quickly by uncertainty about the future and medical circumstances. She complains that being in the hospital makes her much more anxious and inability to sleep here further amplifies her discomfort. She denies symptoms of psychosis or acute confusion. She reports good compliance with her medications as an outpatient. PAST PSYCHIATRIC HISTORY: The patient denies a history of psychiatric inpatient hospitalization. She has had outpatient therapy and psychiatrist in the past, but not in the recent years as per HPI. She is willing to consider outpatient treatment once again. Prior medications include Prozac, which she felt was not helpful; Zoloft and Wellbutrin, which have been unchanged for the past several years. She denies p.r.n. Ativan use or similar at home. PAST MEDICAL HISTORY: Anemia of chronic disease, asthma, DVT, reflux, DVT, hypertension, hypothyroidism, MRSA, neurogenic bladder, paraplegia, spina bifida suprapubic catheter, ventricular shunt, foot surgery, sinus surgery, spinal surgery, and hip surgery. ALLERGIES: TRAMADOL AND PENICILLIN. HOME MEDICATIONS: Amlodipine, ascorbic acid, aspirin, Wellbutrin-SR 150 mg p.o. b.i.d., iron sulfate, folic acid, Lasix, Synthroid, lisinopril, montelukast sodium, oxybutynin chloride, Zoloft 100 mg q.a.m. and Zocor. FAMILY HISTORY: Mom with depression. Brother with schizophrenia. Denies history of completed suicide or substance abuse in the family. Reports medical family history of cardiovascular disease. SUBSTANCE ABUSE HISTORY: The patient denies alcohol, recreational drug use or tobacco use. PERSONAL HISTORY: Completed high school. No College. Not , no children. Lives at a jail at [facility], which she likes and has been there for many years now. Denies legal problems. REVIEW OF SYSTEMS: Denies confusion. Denies psychosis. Denies suicidal or homicidal ideation. Difficulty sleeping here in the hospital. Denies such at home. MENTAL STATUS EXAMINATION: The patient is an overweight female, appearing stated age, short statured, and obese. Her hair is dyed a purplish color. Makes good eye contact. Gait is somewhat disconjugate. Speech is spontaneous. Articulation adequate. Use of language is appropriate for level of education. Thought process appears logical in response to questions and largely goal directed. Thought content negative for suicidal or homicidal ideation or delusions. No evidence of hallucinations. Affect appears relatively full. She describes her mood as "typically not too good." Insight and judgment appear fair. Impulse control is adequate. VITAL SIGNS: Temperature 36.9, pulse 86, respirations 18, and blood pressure 110/64. LABORATORIES AND STUDIES: No leukocytosis this morning. Chem panel shows a normal sodium. Her BUN is down trending at 67. Creatinine down trending now at 2.5. EGFR 21.2, which is very low. ASSESSMENT: This is a 51-year-old female with a reported history of depression and anxiety, who reports inadequately supported mood state, admixed with a multitude of medical and social stressors, which contribute to her feeling more overwhelmed. DIAGNOSES: Major depressive disorder, recurrent, mild; anxiety disorder, unspecified. PLAN: 1. For her mood and anxiety, we will increase the Zoloft to 150 mg p.o. daily. She does report initial benefit upon starting this medicine and does not believe she has ever been tried on the higher dose and denies tolerability concerns. 2. She will continue the Wellbutrin as scheduled at her outpatient dose. 3. We will attempt to facilitate outpatient psychiatric and psychotherapeutic followup. She is willing to see both a psychiatrist and therapist. It appears [facility] is probably the most appropriate service provider for her at the present time. 4. The patient's questions were answered regarding risks and benefits of medication adjustment as above. 5. The patient responded positively to brief supportive psychotherapeutic intervention at the time of interview regarding feeling overwhelmed by circumstances, appreciating that she is probably vulnerable to feeling alone and benefit from validation and emotional support by staff. PRINCE
--- NOTE | 2016-11-21 14:28 | NEPHROLOGY CONSULTATION ---
DATE OF CONSULTATION: 11/21/2016 REASON FOR CONSULT: Acute renal failure. HISTORY OF PRESENT ILLNESS: The patient is a 51-year-old female with spina bifida who was sent over to the hospital because of abnormal labs. She was at her PCP for routine visit and had routine labs drawn that showed a creatinine of 3.1, previously noted to be 0.9 in 03/2016 in [facility] labs. However, her last creatinine at [facility] on 08/06/2016 was 4.4. That was during the hospital admission for complicated urinary tract infection. At that time, she was treated with amikacin, gentamicin and her kidney function was quite abnormal in the month of July during the time period of her acute illness. I do not know why she did not have any follow up labs after the creat of 4.4 on the day of discharge. She was completely asymptomatic at the time of hospital transfer this time. She has a suprapubic catheter in place and has been draining well. Denies any fever, chills, shortness of breath, chest pain, lightheadedness, dizziness, diaphoresis or any syncopal events. She has chronic lower extremity edema, especially on the right lower extremity, which she attributes to chronic lymphedema and is unchanged. She denies having any nausea, vomiting, diarrhea or any new medicine. She is not on any antibiotics or any NSAIDs at this time. In the Emergency Department, creatinine was 3.1 and with IV fluids for 2 days, it has come down slowly to 2.5 this morning. She is drinking and eating completely normal and she desperately wants to go home for Easter dinner. PAST MEDICAL AND SURGICAL HISTORY: Anemia of chronic disease, asthma, depression, deep vein thrombosis, chronic lymphedema, history of reflux, hypertension, hypothyroidism, laceration of left foot, history of MRSA, neurogenic bladder, paraplegia, spina bifida and suprapubic catheter. FAMILY HISTORY: Positive for coronary artery disease. SOCIAL HISTORY: No smoke, no alcohol. Lives in an assisted living. ALLERGIES: Reviewed. HOME MEDICATIONS: List includes amlodipine, ascorbic acid, aspirin, bupropion, iron sulfate, folic acid, Lasix 20 mg daily, levothyroxine, lisinopril 5 daily, montelukast, oxybutynin, sertraline and Zocor. REVIEW OF SYSTEMS: As already detailed in HPI. A total of 12 systems was reviewed and negative. PHYSICAL EXAMINATION: GENERAL: She is not in any distress. She is obese. HEENT: Normocephalic, atraumatic. NECK: Supple. No jugular venous distention. CHEST: Bilateral clear to auscultation. No respiratory distress. CARDIOVASCULAR: Regular rate and rhythm. She does have chronic lower extremity edema with chronic skin changes in bilateral lower extremity, especially in the right lower leg. ABDOMEN: Soft, nontender, obese. Costovertebral angle tenderness negative. She does have a suprapubic catheter in place, which is draining clear yellow urine. NEUROLOGIC: Awake, alert and oriented. Normal speech. Moving all 4 extremities. No neuro deficit noted. SKIN: Chronic venous stasis changes. LABORATORY DATA: Sodium 145, potassium 4.5, BUN 67 and creatinine 2.5. As stated earlier at the time of admission, it was 3.10, but prior to that back in July 2016, she had a creatinine of 4.4. I do not have the ability to check her labs from July until November. According to the H and P, it was not checked. ASSESSMENT AND PLAN: Acute kidney injury: It is hard to tell this is acute kidney injury, as her creatinine last checked in August 06, 2016 was actually higher at 4.4. That was in the setting of acute infection and antibiotic exposure in the form of amikacin and gentamicin. It is quite possible that she had acute tubular necrosis in July and she is still recovering from it. So this would make it as a subacute/resolving acute renal failure. At this point, she has received enough fluid for almost 48 hours. She is eating and drinking normally. She is not in any distress. I do not think we need to keep her in the hospital and keep hydrating. Current creatinine of 2.5 might as well be her new baseline. This needs to be followed up as an outpatient, but there is nothing acute with the renal problem at this time. I would check some serological tests to be complete, especially to rule out postinfectious glomerulonephritis. I would check a C3 and C4. Her urine is always active with lots of cells and casts, but this is because she has a chronic suprapubic catheter. I would check for CHARLES, ANCA C3, C4, Bence Holly and immunofixation and this can be followed up by Dr. Mary Jo Clark, her real time operator as an outpatient. PRINCE
[2016-11-21 15:30] VITALS: BP 126/77; PULSE 78; TEMP 36.4; O2SAT 95
--- NOTE | 2016-11-21 17:03 | Progress Note ---
Internal Med Progress Note Date of Service: Nov 21, 2016. Provider Documentation: SUBJECTIVE: offers no complain feels fine , no nausea or vomiting appetite normal OBJECTIVE: Vital Signs-as noted below Exam: General-very pleasant female , no sign of distress Eyes-sclera non icteric , PERRLA/EOMI Lungs-CTA, no wheeze or rales Heart-regular S1/S2 Abdomen-soft, non tender , supra pubic catheter present Extremities-underdeveloped extremities due to spina bifida Neuro-AAX3 , spina bifida Lab data as noted below. ASSESSMENT & PLAN: ACUTE KIDNEY INJURY Cr stable at 2.5 - found as an abnormal lab work in office visit during routine check up - on review of old records - noted patient had creatinine ranging from the high 1's - 4.4 in 07/2016 - noted patient was receiving amikacin and gentamicin for foot wounds at that time; no other lab results until labs done today - possible renal toxicity from aminoglycoside use; -patient was also on Lasix and Lisinopril - hold both - suprapubic catheter draining well - so do not suspect obstruction -no report of NSAID use for pain control ( on Aspirin 81 mg PO Daily chronically ) - Renal USG : IMPRESSION: 1. Significantly suboptimal examination due to large body habitus. 2. The kidneys are atrophic an without evidence of hydronephrosis. 3. The bladder was decompressed and could not be assessed. - nephro consult requested -appreciate input -possible CKD stage 3 with approx baseline ~2 pt appears to be euvolemic recommends to D/C IVF will need repeat out pt PRP to be checked , and nephrology follow up as out pt in agreement with to discontinue Lisinopril Lasix can be resumed in AM , if renal function remains stable stable to be discharged with out pt lab work follow up and Nephrology office visit pt follows with Dr Mary Jo Clark has next 6 months follow up visit scheduled on December HYPERKALEMIA : resolved lisinopril discontinued given presentation with NEMESIO /hyperkalemia -may not be a candidate for ACEI in future POSSIBLE UTI - U/A suggests UTI, however ? colonization from chronic suprapubic catheter - last culture 09/2016 grew pansensitive klebsiella - on empiric Rocephin -Urine culture -possible contamination with 3 type of organisms present -repeat culture ordered DEPRESSION ; on Effexor and Zoloft mentions of having crying spell since being in hospital asking if she can see a psychiatrist while in here Psych consult requested appreciate input Zoloft dose increased to 150 mg PO Daily out pt follow up with Psychiatry at [facility] HTN - BP controlled, holding Lisinopril due to NEMESIO - continue amlodipine -Lasix resumed HYPOTHYROIDISM - continue levothyroxine SPINA BIFIDA uses Power Chair has Suprapubic catheter for chronic Neurogenic bladder resident at [facility] CHRONIC LOWER EXTREMITY EDEMA - Lasix will be resumed in AM if cr remains stable DVT PROPHYLAXIS moderate to high risk bed bound paraplegic due to spinal bifida - SQ Heparin DISPOSITION lives at [facility] return to [facility] possible tomorrow AM Social service consulted for discharge assistance Vital Signs: Date Time Temp Pulse Resp B/P Pulse Ox O2 Delivery O2 Flow Rate FiO2 11/22/16 11:34 36.8 90 16 92 Room Air 11/22/16 08:00 Room Air 11/22/16 07:07 36.8 90 16 122/69 92 Room Air 11/22/16 00:21 36.8 103 20 103/65 94 Room Air 11/22/16 00:00 Room Air 11/21/16 20:00 Room Air 11/21/16 16:00 Room Air 11/21/16 15:30 36.4 78 18 126/77 95 Room Air Lab Results: Results Past 24 Hours Test 11/21/16 17:20 11/22/16 06:35 Range/Units Sodium Level 143 136-145 mmol/L Potassium Level 4.2 3.5-5.1 mmol/L Chloride Level 112 98-107 mmol/L Carbon Dioxide Level 23 21-32 mmol/L Anion Gap 8.0 3-11 mmol/L Blood Urea Nitrogen 60 7-18 mg/dl Creatinine 2.50 0.60-1.20 mg/dl Est Creatinine Clear Calc Drug Dose 22.7 ml/min Estimated GFR () 24.6 Estimated GFR (Non- 21.2 BUN/Creatinine Ratio 23.8 10-20 Random Glucose 78 70-99 mg/dl Calcium Level 8.6 8.5-10.1 mg/dl Magnesium Level 1.9 1.8-2.4 mg/dl
[2016-11-21] MEDS ORDERED: NURSING VERBAL MED ORDER ONE (17:15)
[2016-11-21] MEDS: MONTELUKAST SOD 10 MG TAB PO SCH (21:59)
[2016-11-21] MEDS: SIMVASTATIN 20 MG TAB PO SCH (21:59)
[2016-11-22 00:21] VITALS: BP 103/65; PULSE 103; TEMP 36.8; O2SAT 94
[2016-11-22] MEDS: HEPARIN SOD 5000 UNIT/0.5 ML CARP SQ SCH ×2 (06:00→14:00)
[2016-11-22] MEDS: LEVOTHYROXINE 175 MCG TAB PO SCH (06:04)
[2016-11-22 07:07] VITALS: BP 122/69; PULSE 90; TEMP 36.8; O2SAT 92
[2016-11-22 07:24] LABS: BUN/CREATININE RATIO 23.8 (10-20); CALCIUM 8.6 mg/dl (8.5-10.1); CREATININE 2.5 mg/dl (0.60-1.20); MAGNESIUM 1.9 mg/dl (1.8-2.4); POTASSIUM 4.2 mmol/L (3.5-5.1)
[2016-11-22] MEDS ORDERED: SERTRALINE HCL 100 MG TAB PO SCH (08:00)
--- NOTE | 2016-11-22 08:07 | Clinical Documentation Query ---
CLINICAL DOCUMENTATION QUERY Dr. PARMAR, In your clinical opinion is this patient being managed for: ( ) Morbid Obesity with BMI of 51.9 ( ) Other explanation of clinical findings (Please Explain) ( ) Unable to determine (Please Define) ( ) Need to Discuss ( ) Not Agree The medical record reflects the following clinical findings, treatment, and risk factors. BMI: A significantly high (> 40) BMI will impact the severity of illness and risk of mortality of your patient. However, the physician must document a correlating diagnosis in the medical Record. Please clarify and document your clinical opinion in the progress notes and discharge summary. Terms such as "probable", "suspected", "likely", "questionable", "possible", or "still to be ruled out" are acceptable. IF IN AGREEMENT, YOU MUST DOCUMENT ABOVE DIAGNOSTIC STATEMENT IN DAILY PROGRESS NOTES AND DISCHARGE SUMMARY. This document is not part of the patient's record. Thank You, Queta Holly, RN [phone]
[2016-11-22] MEDS: FERROUS SULFATE 325 MG TAB PO SCH ×2 (08:37)
[2016-11-22] MEDS: BuPROPion SR 150 MG TABCR PO SCH (08:38)
[2016-11-22] MEDS: ASCORBIC ACID 500 MG TAB PO SCH (08:39)
[2016-11-22] MEDS: AMLODIPINE BESYLATE 5 MG TAB PO SCH (08:39)
[2016-11-22] MEDS: DOCUSATE SODIUM 100 MG CAP PO SCH (08:39)
[2016-11-22] MEDS: OXYBUTYNIN CHLORIDE 5 MG TABCR PO SCH (08:39)
[2016-11-22] MEDS ORDERED: SERT1TAB92 PO (11:20)
--- NOTE | 2016-11-22 11:21 | Discharge Instructions ---
Discharge Instructions Date of Service Nov 22, 2016. Admission Reason for Admission: Acute Renal Failure Discharge Discharge Diagnosis / Problem: ACUTE KIDNEY INJURY /URINARY TRACT INFECTION Discharge Goals Goal(s): Improve disease control, Diagnostic testing, Therapeutic intervention Activity Recommendations Activity Limitations: resume your previous activity . Instructions / Follow-Up Instructions / Follow-Up HOSPITAL FOLLOW UP ON 11/26/2016 # 11:[address] Lan Spear III, MD [facility] ( DR FERNANDES 'S SCHEDULE IS FULL ) LAB WORK : CBC, BASIC METABOLIC PANEL ON Tuesday11/26/16 DO NOT TAKE ADVIL , MOTRIN , NAPROXEN . IBUPROFEN AVOID NSAID'S FOR PAIN WILL CAUSE WORSENING OF YOUR KIDNEY FUNCTION MEDICATION CHANGES: LISINOPRIL DISCONTINUED NEPHROLOGY FOLLOW UP WITH DR MERLENE IRAHETA IN 2-3 WEEK, OFFICE WILL CALL WITH APPOINTMENT STARTED ON ANTIBIOTIC CIPROFLOXACIN 500 MG ONCE DAILY -FOR URINARY TRACT INFECTION NEED TO TAKE FOR 5 DAYS -SCRIPT SENT TO YOUR PHARMACY DRINK PLENTY OF FLUIDS YOUR ANTIDEPRESSANT -ZOLOFT DOSE INCREASED TO 150 MG DAILY -SCRIPT SENT TO YOUR PHARMACY OUT PATIENT PSYCHIATRY FOLLOW UP AT [facility] ON Tuesday, January 04 at 1000. Current Hospital Diet Patient's current hospital diet: Renal Diet Discharge Diet Recommended Diet: AHA Diet (Heart Healthy) Pending Studies Studies pending at discharge: yes List of pending studies: LAB : BASIC METABOLIC PANEL Medical Emergencies . Who to Call and When: Medical Emergencies: If at any time you feel your situation is an emergency, please call 911 immediately. . Non-Emergent Contact Non-Emergency issues call your: Primary Care Provider . . "Provider Documentation" section prepared by Sarahi Stephens. VTE Core Measure Inpt VTE Proph given/why not?: Unfractionated heparin SQ
[2016-11-22] MEDS ORDERED: CIPR250T5 PO (11:23)
[2016-11-22 11:34] VITALS: BP 122/69; PULSE 90; TEMP 36.8; O2SAT 92
--- NOTE | 2016-11-22 11:56 | Psychiatric Progress Notes ---
Psychiatric Progress Note Date of Service Nov 22, 2016. Notes ID: Patient reviewed with liaison nurse. initial consult completed by Dr. Rome on 11/21/16. MDD in WC bound patient with spina bifida, Zoloft increased to 150 mg CC: "I just don't want to go backwards" HPI: patient was able to share some stressors with regards to her roommate, is amenable to outpatient follow up. Denies any new issues overnight. ROS: some fatigue, no N/V/D, no OCE or tremor MSE: alert, pleasant/calm, eye contact variable, thoughts organized, no SI/HI/ castro. Imp: MDD Plan: TRELL completed for [facility] referral, agreeable to see pcp for refill Zoloft 150 mg in interim as intake not until later in December. States she remains agreeable to in home health.
[2016-11-22] MEDS ORDERED: CPR500 PO (11:59)
[2016-11-22] MEDS ORDERED: CIPROFLOXACIN 500 MG TAB PO ONE (12:00)
--- NOTE | 2016-11-22 15:19 | Discharge Summary ---
Discharge Summary Date of Service Nov 22, 2016. Discharge Summary Admission Date: Nov 19, 2016 at 18:45 Discharge Date: Nov 22, 2016 Discharge Disposition: Home with services Principal Diagnosis: ACUTE KIDNEY INJURY /URINARY TRACT INFECTION Secondary Diagnoses/Problems: Medical Problems: (1) Anemia of chronic disease Status: Chronic (2) Asthma, Unspecified Status: Chronic (3) Depression Status: Chronic (4) Depression Status: Chronic (5) DVT (deep venous thrombosis) Permanent Comment: completed Coumadin therapy Status: Chronic (6) Esophageal Reflux Status: Chronic (7) HTN (hypertension) Status: Chronic (8) Hx-Venous Thrombosis&Embolism Status: Chronic (9) Hypertension Status: Chronic (10) Hypothyroidism Status: Chronic (11) Hypothyroidism Status: Chronic (12) Laceration of left foot Status: Resolved (13) MRSA (methicillin resistant Staphylococcus aureus) Status: Chronic (14) Neurogenic bladder Status: Chronic (15) Paraplegia Status: Chronic (16) Spina bifida Status: Chronic (17) Spina bifida Status: Chronic (18) Suprapubic catheter Status: Chronic (19) Ventricular Shunt Status Status: Chronic Surgical Problems: (1) H/O foot surgery Status: Chronic (2) H/O sinus surgery Status: Chronic (3) H/O Spinal surgery Status: Chronic (4) History of hip surgery Status: Chronic Procedures: ULTRASOUND KIDNEYS AND BLADDER CLINICAL HISTORY: Acute renal insufficiency. IMPRESSION: 1. Significantly suboptimal examination due to large body habitus. 2. The kidneys are atrophic an without evidence of hydronephrosis. 3. The bladder was decompressed and could not be assessed. ULTRASOUND RIGHT LOWER EXTREMITY VENOUS CLINICAL HISTORY: Right leg swelling. IMPRESSION: There is no sonographic evidence of deep venous thrombosis identified in the right lower extremity. Consultations: NEPHROLOGY DR COSTELLO FOR NEMESIO PSYCHIATRY FOR DEPRESSION Pending Studies/Follow-Up: HOSPITAL FOLLOW UP ON 11/26/2016 # 11:[address] Lan Spear III, MD [facility] ( DR FERNANDES 'S SCHEDULE IS FULL ) LAB WORK : CBC, BASIC METABOLIC PANEL ON Tuesday11/26/16 DO NOT TAKE ADVIL , MOTRIN , NAPROXEN . IBUPROFEN AVOID NSAID'S FOR PAIN WILL CAUSE WORSENING OF YOUR KIDNEY FUNCTION MEDICATION CHANGES: LISINOPRIL DISCONTINUED NEPHROLOGY FOLLOW UP WITH DR MERLENE IRAHETA IN 2-3 WEEK, OFFICE WILL CALL WITH APPOINTMENT STARTED ON ANTIBIOTIC CIPROFLOXACIN 500 MG ONCE DAILY -FOR URINARY TRACT INFECTION NEED TO TAKE FOR 5 DAYS -SCRIPT SENT TO YOUR PHARMACY DRINK PLENTY OF FLUIDS YOUR ANTIDEPRESSANT -ZOLOFT DOSE INCREASED TO 150 MG DAILY -SCRIPT SENT TO YOUR PHARMACY OUT PATIENT PSYCHIATRY FOLLOW UP AT [facility] ON January 04 at 1000. Medication Reconciliation New Medications: Ciprofloxacin (Ciprofloxacin HCl) 500 Mg Tab 1 TAB PO DAILY, #4 TAB Sertraline HCl (Sertraline HCl) 100 Mg Tab 150 MG PO QAM for 30 Days, #30 TAB 2 Refills Continued Medications: Amlodipine Besylate (Norvasc) 2.5 Mg Tab 2.5 MG PO QAM, TAB Ascorbic Acid (Ascorbic Acid) 500 Mg Tab 500 MG PO BID, TAB Aspirin (Aspirin Ec) 81 Mg Tab 81 MG PO QAM Bupropion (Wellbutrin Sr) 150 Mg Ertab 150 MG PO BID, TAB Ferrous Sulfate (Iron) 325 Mg Tab 325 MG PO BID Folic Acid (Folvite) 1 Mg Tab 1 MG PO QAM, TAB Furosemide (Lasix) 20 Mg Tab 20 MG PO QAM, TAB Levothyroxine Sodium (Levothyroxine Sodium) 175 Mcg Tab 175 MCG PO DAILY, TAB TAKE THIS MEDICATION AT LEAST 30 MINUTES BEFORE BREAKFAST OR ANY OTHER MEDICATIONS Montelukast Sod (Montelukast Sodium) 10 Mg Tab 10 MG PO HS Oxybutynin Chloride (Ditropan Xl) 15 Mg Tab 15 MG PO QAM, TAB Simvastatin (Zocor) 20 Mg Tab 20 MG PO HS, TAB Discontinued Medications: Lisinopril (Zestril) 5 Mg Tab 5 MG PO QAM, TAB Sertraline (Zoloft) 100 Mg Tab 100 MG PO QAM, TAB Referrals At Discharge Follow up Referrals: [employer] Referral - Within 2 Weeks with Merlene Iraheta MD Physician Referral - 11/26/16 with Lan Spear III, M.D. Admission Information HPI (per Admitting provider): 51 year old female who presents to the ER by recommendation from her PCP for abnormal kidney function. Patient was at her PCP today for routine visit and had routine labs drawn that showed creat 3.1 (noted to be 0.9 03/2016). Patient reports she has been feeling well recently. She has a suprapubic catheter in place that has been draining well. No symptoms of a UTI. She denies fever and chills. No chest pain, shortness of breath, lightheadedness, dizziness, diaphoresis, or syncopal events. She has chronic lower extremity edema which is unchanged. She denies abdominal pain, nausea, vomiting, and diarrhea. She was treated for wounds on her feet a few months ago that have since healed. Patient denies heavy NSAID use. In the ER, creat is 3.1. U/A suggests UTI. She was given IVF and Rocephin. Vitals are stable. Physical Exam (per Admitting): General Appearance: no apparent distress Head: normocephalic Eyes: normal inspection ENT: hearing grossly normal Neck: supple, no JVD Respiratory/Chest: lungs clear, normal breath sounds, no respiratory distress Cardiovascular: regular rate, rhythm, + pertinent finding (+ edema BLLE) Abdomen/GI: normal bowel sounds, non tender, soft Genitourinary - Female: + pertinent finding (suprapubic catheter in place, draining clear yellow urine) Extremities/Musculoskelatal: + pertinent finding (underdeveloped extremities due to spina bifida) Neurologic/Psych: no motor/sensory deficits, alert, normal mood/affect, oriented x 3 Skin: normal color, warm/dry, + pertinent finding (excoriated abdominal folds) Hospital Course ACUTE KIDNEY INJURY with underlying possible CKD Stage 3 Cr improved 3.1 _> 2.9 -> 2.5-. 2.5 Cr stable at 2.5 -possible new baseline - found as an abnormal lab work in office visit during routine check up - on review of old records - noted patient had creatinine ranging from the high 1's - 4.4 in 07/2016 - noted patient was receiving amikacin and gentamicin for foot wounds at that time; no other lab results until labs done today - possible renal toxicity from aminoglycoside use; -patient was also on Lasix and Lisinopril - hold both - suprapubic catheter draining well - so do not suspect obstruction -no report of NSAID use for pain control ( on Aspirin 81 mg PO Daily chronically ) - Renal USG : IMPRESSION: 1. Significantly suboptimal examination due to large body habitus. 2. The kidneys are atrophic an without evidence of hydronephrosis. 3. The bladder was decompressed and could not be assessed. - nephro consult requested -appreciate input -possible CKD stage 3 with approx baseline ~2 .5 pt appears to be euvolemic will need repeat out pt PRP to be checked , and nephrology follow up as out pt in agreement with to discontinue Lisinopril Lasix resumed stable to be discharged with out pt lab work follow up and Nephrology office visit pt follows with Dr Merlene Iraheta in 2 -3 weeks HYPERKALEMIA : resolved lisinopril discontinued given presentation with NEMESIO /hyperkalemia - not be a candidate for ACEI in future ANEMIA OF CHRONIC DISEASE : HB in ~ 7.4 normal MCV , iron study ; Fe 100 -wnl /Ferritin 356 -wnl /TIBC 209 L- suggestive of AOCD possible due to CKD cont Fe supplement repeat CBC as out pt follow up with Nephrology for possible Erythropoietin tx as out pt UTI in a setting of chronic indwelling Hodge catheter with Neurogenic bladder -urine culture -gram negative bacilli PO Ciprofloxacin 500 mg daily ( dose adjusted based on renal clearance GFR < 30 ) complete 5 days course DEPRESSION ; on Effexor and Zoloft mentions of having crying spell since being in hospital asking if she can see a psychiatrist while in here Psych consult requested appreciate input Zoloft dose increased to 150 mg PO Daily out pt follow up scheduled with Psychiatry at [facility] HTN - BP controlled,Lisinopril D/nakia due to Hyperkalemia /NEMESIO - continue amlodipine -Lasix resumed HYPOTHYROIDISM - continue levothyroxine SPINA BIFIDA uses Power Chair has Suprapubic catheter for chronic Neurogenic bladder resident at [facility] CHRONIC LOWER EXTREMITY EDEMA - Lasix will be resumed in AM if cr remains stable DVT PROPHYLAXIS moderate to high risk bed bound paraplegic due to spinal bifida - SQ Heparin DISPOSITION lives at [facility] return to [facility] today Total time spent on discharge = 40 MINS This includes examination of the patient, discharge planning, medication reconciliation, and communication with other providers. Discharge Instructions Discharge Instructions Date of Service Nov 22, 2016. Admission Reason for Admission: Acute Renal Failure Discharge Discharge Diagnosis / Problem: ACUTE KIDNEY INJURY /URINARY TRACT INFECTION Discharge Goals Goal(s): Improve disease control, Diagnostic testing, Therapeutic intervention Activity Recommendations Activity Limitations: resume your previous activity . Instructions / Follow-Up Instructions / Follow-Up HOSPITAL FOLLOW UP ON 11/26/2016 # 11:[address] Lan Spear III, MD [facility] ( DR FERNANDES 'S SCHEDULE IS FULL ) LAB WORK : CBC, BASIC METABOLIC PANEL ON Tuesday11/26/16 DO NOT TAKE ADVIL , MOTRIN , NAPROXEN . IBUPROFEN AVOID NSAID'S FOR PAIN WILL CAUSE WORSENING OF YOUR KIDNEY FUNCTION MEDICATION CHANGES: LISINOPRIL DISCONTINUED NEPHROLOGY FOLLOW UP WITH DR MERLENE IRAHETA IN 2-3 WEEK, OFFICE WILL CALL WITH APPOINTMENT STARTED ON ANTIBIOTIC CIPROFLOXACIN 500 MG ONCE DAILY -FOR URINARY TRACT INFECTION NEED TO TAKE FOR 5 DAYS -SCRIPT SENT TO YOUR PHARMACY DRINK PLENTY OF FLUIDS YOUR ANTIDEPRESSANT -ZOLOFT DOSE INCREASED TO 150 MG DAILY -SCRIPT SENT TO YOUR PHARMACY OUT PATIENT PSYCHIATRY FOLLOW UP AT [facility] ON Tuesday, January 04 at 1000. Current Hospital Diet Patient's current hospital diet: Renal Diet Discharge Diet Recommended Diet: AHA Diet (Heart Healthy) Pending Studies Studies pending at discharge: yes List of pending studies: LAB : BASIC METABOLIC PANEL Medical Emergencies . Who to Call and When: Medical Emergencies: If at any time you feel your situation is an emergency, please call 911 immediately. . Non-Emergent Contact Non-Emergency issues call your: Primary Care Provider . . "Provider Documentation" section prepared by Sarahi Stephens. VTE Core Measure Inpt VTE Proph given/why not?: Unfractionated heparin SQ Additional Copies To Lan Spear III, M.D. Andersen, Stacy L., MD
== END 2016-11-22 14:12 | disposition home health service (06) | DRG 699 ==
LOC: ENRESERVDT → ENRESERVTM → C.EDB 13:44 → C.MS4W 18:45 → EDBEDREQ 19:02
PROVIDERS: ADMIT Hospitalist; ATTEND Hospitalist
DX: T83.518A Infection and inflammatory reaction due to other urinary catheter, initial encounter (principal); G82.20 Paraplegia, unspecified; Z68.43 Body mass index [BMI] 50.0-59.9, adult; N39.0 Urinary tract infection, site not specified; N17.9 Acute kidney failure, unspecified; Y73.2 Prosthetic and other implants, materials and accessory gastroenterology and urology devices associated with adverse incidents; E87.5 Hyperkalemia; I12.9 Hypertensive chronic kidney disease with stage 1 through stage 4 chronic kidney disease, or unspecified chronic kidney disease; N18.3 Chronic kidney disease, stage 3 (moderate); T36.5X5A Adverse effect of aminoglycosides, initial encounter; F32.9 Major depressive disorder, single episode, unspecified; F41.9 Anxiety disorder, unspecified; N31.9 Neuromuscular dysfunction of bladder, unspecified; D63.8 Anemia in other chronic diseases classified elsewhere; Q05.9 Spina bifida, unspecified; J45.909 Unspecified asthma, uncomplicated; E03.9 Hypothyroidism, unspecified; I89.0 Lymphedema, not elsewhere classified; E66.9 Obesity, unspecified; Z66 Do not resuscitate; Z99.3 Dependence on wheelchair; Z74.01 Bed confinement status; Z86.718 Personal history of other venous thrombosis and embolism; Z86.14 Personal history of Methicillin resistant Staphylococcus aureus infection; Z81.8 Family history of other mental and behavioral disorders; Z79.82 Long term (current) use of aspirin; Z79.899 Other long term (current) drug therapy

== ENCOUNTER 2017-01-10 12:56 | Emergency (ER) | payer OTHER ==
[~2017-01-10] VITALS: Ht 134.6 cm; Wt 97.9 kg
[~2017-01-10 12:56] MED LIST changes: -AMLO2.5T PO; -ASPI325T39 PO; +CPR500 PO; -FOLI800T PO; +OXYB15TA12 PO; -SERT-234 PO; +SERT1TAB92 PO; -SOLI10TA2 PO
[2017-01-10 12:59] VITALS: Ht 134.6 cm; Wt 97.9 kg
[2017-01-10 13:38] LABS: BASO % 0.6 %; BASO ABS # 0.04 K/uL (0-0.2); COMPLETE YES; EOS % 5.9 %; HEMATOCRIT 31.2 % (37-47); IG% 0.3 %; LYMPH % 18.8 %; LYMPH ABS # 1.36 K/uL (1.2-3.4); MEAN CELL VOLUME 96.9 fL (80-100); MEAN CORPUSCULAR HEMOGLOBIN 29.2 pg (25-34); MEAN CORPUSCULAR HGB CONC 30.1 g/dl (32-36); MEAN PLATELET VOLUME 8.9 fL (7.4-10.4); MONO % 7.3 %; NEUT % 67.1 %; PLATELET COUNT 287 K/uL (130-400); RED BLOOD COUNT 3.22 M/uL (4.2-5.4); WHITE BLOOD COUNT 7.24 K/uL (4.8-10.8)
[2017-01-10 13:56] LABS: ALT/SGPT 23 U/L (12-78); AST/SGOT 13 U/L (15-37); BLOOD UREA NITROGEN 30 mg/dl (7-18); BUN/CREATININE RATIO 19.9 (10-20); CALCIUM 9.2 mg/dl (8.5-10.1); CARBON DIOXIDE 32 mmol/L (21-32); CHLORIDE 105 mmol/L (98-107); GLUCOSE 75 mg/dl (70-99); SODIUM 142 mmol/L (136-145)
[2017-01-10 13:59] LABS: ALKALINE PHOSPHATASE 148 U/L (45-117)
--- NOTE | 2017-01-10 14:41 | EMERGENCY ROOM VISIT NOTE ---
History Report prepared by Peggy: Montse Olivares Under the Supervision of: Dr. Drew Denise M.D. First contact with patient: 13:21 Chief Complaint: FLANK PAIN Stated Complaint: FLANK PAIN History of Present Illness The patient is a 51 year old female who presents to the Emergency Room with complaints of constant flank pain beginning a few days ago. Girard notes some lower abdominal pain and states that it feels like previous UTIs that she has had. She has had a Hodge catheter in place for the past year. She states that it was recently changed 3 days ago. The patient also notes that she woke up this morning with swelling and redness of her right leg, which she states is new. She rates her current pain as a 10/10 in severity. She denies chest pain, shortness of breath, fever, chills, nausea, and vomiting. Source of History: patient Onset: a few days ago Position: other (flank) Symptom Intensity: 10/10 Timing: constant Associated Symptoms: + abdominal pain, + urinary symptoms, No fevers, No chills, No chest pain, No SOB, No nausea, No vomiting Note: Pt notes swelling and redness of the right leg. Review of Systems See HPI for pertinent positives & negatives. A total of 10 systems reviewed and were otherwise negative. Past Medical & Surgical Medical Problems: (1) Anemia of chronic disease (2) Asthma, Unspecified (3) Depression (4) Depression (5) DVT (deep venous thrombosis) (6) Esophageal Reflux (7) HTN (hypertension) (8) Hx-Venous Thrombosis&Embolism (9) Hypertension (10) Hypothyroidism (11) Hypothyroidism (12) Laceration of left foot (13) MRSA (methicillin resistant Staphylococcus aureus) (14) Neurogenic bladder (15) Paraplegia (16) Spina bifida (17) Spina bifida (18) Suprapubic catheter (19) Ventricular Shunt Status Surgical Problems: (1) H/O foot surgery (2) H/O sinus surgery (3) H/O Spinal surgery (4) History of hip surgery Family History FH: CAD (coronary artery disease) FATHER BROTHER Social History Smoking Status: Never Smoker Alcohol Use: none Housing Status: assisted living Occupation Status: employed Current/Historical Medications Scheduled Amlodipine Besylate (Norvasc), 2.5 MG PO QAM Ascorbic Acid (Ascorbic Acid), 500 MG PO BID Aspirin (Aspirin Ec), 81 MG PO QAM Bupropion (Wellbutrin Sr), 150 MG PO BID Ferrous Sulfate (Iron), 325 MG PO BID Folic Acid (Folvite), 1 MG PO QAM Furosemide (Lasix), 20 MG PO QAM Levothyroxine Sodium (Levothyroxine Sodium), 175 MCG PO DAILY Montelukast Sod (Montelukast Sodium), 10 MG PO HS Multiple Vitamins W/ Minerals (Centrum Adults), 1 TAB PO DAILY Sertraline HCl (Sertraline HCl), 150 MG PO QAM Simvastatin (Zocor), 20 MG PO HS Solifenacin Succinate (Vesicare), 10 MG PO DAILY Sulfa/Trimethoprim (Bactrim Ds 800MG/160MG), 1 TAB PO BID Allergies Coded Allergies: Penicillins (Verified Allergy, Severe, THROAT SWELLS, 01/10/17) Tramadol (Verified Allergy, Severe, Seizure, 01/10/17) Reported by PT and listed in [facility] record. Physical Exam Vital Signs Date Time Temp Pulse Resp B/P (MAP) Pulse Ox O2 Delivery O2 Flow Rate FiO2 01/10/17 18:40 86 16 132/89 98 01/10/17 17:36 36.8 90 14 144/84 99 Room Air 01/10/17 16:27 96 14 159/88 99 01/10/17 15:00 36.8 70 14 184/74 94 Room Air 01/10/17 12:59 36.8 76 20 182/99 94 Room Air Physical Exam GENERAL: Patient is a healthy-appearing well-nourished 51 year old female. HEAD: Normocephalic atraumatic EYES: Ocular movements intact pupils equal and react to light OROPHARYNX mucous membranes are moist no exudates present no erythema or edema present NECK: Supple no nuchal rigidity CHEST: Good equal expansion LUNGS: Clear and equal to auscultation CARDIAC: Normal S1 and S2 ABDOMEN: Soft, suprapubic abdominal tenderness, no guarding. Hodge catheter in place. BACK: No CVA tenderness EXTREMITIES: Chronic venostasis changes to the right lower extremity, no evidence of cellulitis. No pitting edema. NEURO: Patient is following commands is answering questions appropriately. Alert and oriented x3 Cranial Nerves 2-12 grossly intact Medical Decision & Procedures ER Provider Diagnostic Interpretation: Radiology results as stated below per my review and radiologist interpretation: ULTRASOUND RIGHT LOWER EXTREMITY VENOUS CLINICAL HISTORY: Right leg swelling. COMPARISON STUDY: Right lower extremity venous ultrasound dated 11/19/2016. TECHNIQUE: Real-time, grayscale, and color Doppler sonography of the deep veins of the right lower extremity was performed from the inguinal crease to the calf. Compression and augmentation were utilized. FINDINGS: There is no sonographic evidence of deep venous thrombosis identified in the right lower extremity. The common femoral, superficial femoral, and popliteal veins are patent and normally compressible. The greater saphenous vein and the profunda femoris vein at the junction with the common femoral vein are clear. The visualized calf veins are patent. IMPRESSION: There is no sonographic evidence of deep venous thrombosis identified in the right lower extremity. Electronically signed by: Mario Mari M.D. 01/10/2017 4:15 PM Dictated Date/Time: 01/10/2017 4:15 PM ABDOMEN AND PELVIS CT WITHOUT CONTRAST CT DOSE: 909.71 mGycm HISTORY: Pain Pt c/o BL pain TECHNIQUE: Multiaxial CT images of the abdomen and pelvis were performed without the use of intravenous and oral contrast according to the standard department stone protocol. COMPARISON STUDY: None. FINDINGS: Mild bibasilar interstitial change. 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 Evidence for fusion-type procedure of the low thoracic through lumbosacral spine. Resolution is compromised due to patient somatic and respiratory motion. Kidneys demonstrate a nonobstructing calcification lower pole left kidney. No evidence renal hydronephrosis. Liver and spleen are grossly unremarkable. Increased fecal load within the colon. Probable Hodge catheter with evidence for a partial bladder prolapse. The bladder Hodge catheter is within the components of the prolapsed bladder. Increased fecal load within the colon. Considerable fecal material extrinsic to the patient within the gluteal crease. IMPRESSION: 1. Limited study due to patient motion and body habitus. 2. Considerable congenital deformity and postoperative change at the lumbosacral spine and bony pelvis. 3. Increased fecal load within the colon. 4. Partial bladder prolapse 5. Considerable fecal material within the gluteal crease region. 6. Nonobstructing lower pole left renal calcification. Electronically signed by: Sherif White M.D. 01/10/2017 4:35 PM Dictated Date/Time: 01/10/2017 4:27 PM Laboratory Results 01/10/17 13:15 Red Blood Count 3.22, Mean Corpuscular Volume 96.9, Mean Corpuscular Hemoglobin 29.2, Mean Corpuscular Hemoglobin Concent 30.1, Mean Platelet Volume 8.9, Neutrophils (%) (Auto) 67.1, Lymphocytes (%) (Auto) 18.8, Monocytes (%) (Auto) 7.3, Eosinophils (%) (Auto) 5.9, Basophils (%) (Auto) 0.6, Neutrophils # (Auto) 4.86, Lymphocytes # (Auto) 1.36, Monocytes # (Auto) 0.53, Eosinophils # (Auto) 0.43, Basophils # (Auto) 0.04 01/10/17 13:15 Test 01/10/17 13:15 01/10/17 17:00 White Blood Count 7.24 K/uL (4.8-10.8) Red Blood Count 3.22 M/uL (4.2-5.4) Hemoglobin 9.4 g/dL (12.0-16.0) Hematocrit 31.2 % (37-47) Mean Corpuscular Volume 96.9 fL (80-100) Mean Corpuscular Hemoglobin 29.2 pg (25-34) Mean Corpuscular Hemoglobin Concent 30.1 g/dl (32-36) Platelet Count 287 K/uL (130-400) Mean Platelet Volume 8.9 fL (7.4-10.4) Neutrophils (%) (Auto) 67.1 % Lymphocytes (%) (Auto) 18.8 % Monocytes (%) (Auto) 7.3 % Eosinophils (%) (Auto) 5.9 % Basophils (%) (Auto) 0.6 % Neutrophils # (Auto) 4.86 K/uL (1.4-6.5) Lymphocytes # (Auto) 1.36 K/uL (1.2-3.4) Monocytes # (Auto) 0.53 K/uL (0.11-0.59) Eosinophils # (Auto) 0.43 K/uL (0-0.5) Basophils # (Auto) 0.04 K/uL (0-0.2) RDW Standard Deviation 45.1 fL (36.4-46.3) RDW Coefficient of Variation 12.6 % (11.5-14.5) Immature Granulocyte % (Auto) 0.3 % Immature Granulocyte # (Auto) 0.02 K/uL (0.00-0.02) Anion Gap 5.0 mmol/L (3-11) Est Creatinine Clear Calc Drug Dose 38.9 ml/min Estimated GFR () 45.6 Estimated GFR (Non- 39.4 BUN/Creatinine Ratio 19.9 (10-20) Calcium Level 9.2 mg/dl (8.5-10.1) Total Bilirubin 0.3 mg/dl (0.2-1) Direct Bilirubin < 0.1 mg/dl (0-0.2) Aspartate Amino Transf (AST/SGOT) 13 U/L (15-37) Alanine Aminotransferase (ALT/SGPT) 23 U/L (12-78) Alkaline Phosphatase 148 U/L (45-117) Total Protein 7.8 gm/dl (6.4-8.2) Albumin 3.4 gm/dl (3.4-5.0) Lipase 83 U/L (73-393) Urine Color YELLOW Urine Appearance CLOUDY (CLEAR) Urine pH 8.5 (4.5-7.5) Urine Specific Parker 1.010 (1.000-1.030) Urine Protein NEG (NEG) Urine Glucose (UA) NEG (NEG) Urine Ketones NEG (NEG) Urine Occult Blood TRACE (NEG) Urine Nitrite POS (NEG) Urine Bilirubin NEG (NEG) Urine Urobilinogen NEG (NEG) Urine Leukocyte Esterase LARGE (NEG) Urine WBC (Auto) 10-30 /hpf (0-5) Urine RBC (Auto) 0-4 /hpf (0-4) Urine Hyaline Casts (Auto) 1-5 /lpf (0-5) Urine Epithelial Cells (Auto) >30 /lpf (0-5) Urine Bacteria (Auto) 4+ (NEG) Urine Crystals TRIPLE PHOSPHATE Urine Yeast (Auto) (NONE PRSENT) Labs reviewed by ED physician. Medications Administered Medications (Trade) Dose Ordered Sig/Jacky Route Start Time Stop Time Status Last Admin Dose Admin Morphine Sulfate (MoRPHine SULFATE INJ) 6 mg NOW STAT IV 01/10/17 15:31 01/10/17 15:32 DC 01/10/17 16:27 6 MG Ondansetron HCl (Zofran Inj) 4 mg NOW STAT IV 01/10/17 15:31 01/10/17 15:32 DC 01/10/17 16:26 4 MG Ceftriaxone Sodium (Rocephin Inj) 1 gm NOW STAT IV 01/10/17 17:11 01/10/17 17:13 DC 01/10/17 17:32 1 GM Trimethoprim/ Sulfamethoxazole (Septra Ds 800/ 160MG Tab) 1 tab NOW STAT PO 01/10/17 17:11 01/10/17 17:13 DC 01/10/17 17:32 1 TAB Magnesium Citrate (Citrate Of Magnesia Soln) 296 ml NOW STAT PO 01/10/17 17:17 01/10/17 17:19 DC 01/10/17 17:32 296 ML ED Course 1321: Past medical records reviewed. The patient was evaluated in room B3B. A complete history and physical examination was performed. 1531: Zofran 4 mg IV, Morphine sulfate 6 mg IV 1711: Trimethoprim/Sulfamethoxazole 1 tab PO, Rocephin 1 gm IV 1712: I reassessed the patient at this time. She is feeling better and resting comfortably. I discussed the results and treatment plan with the patient. I answered all pertaining questions that she had. She expressed understanding and verbalized agreement. The patient will be discharged home. 1717: Magnesium Citrate 296 ml PO Medical Decision Etiologies such as appendicitis, diverticulitis, PUD, biliary pathology, UTI, pancreatitis, obstruction, mesenteric ischemia, aortic pathology, infections, inflammatory bowel disease, renal colic, as well as others were entertained. Medication Reconciliation: I attest that I have personally reviewed the patient' s current medication list. Blood Pressure Screening: Patient was found to have an elevated blood pressure and was referred to their primary care doctor for recheck and further treatment. This is a 51-year-old female who presents emergency department complaining of right lower 70 swelling. This does not reveal any evidence of a DVT. The patient is also complaining of abdominal pain. She is constipated on CAT scan. She does appear to have urinary tract infection. For this reason the patient was given Bactrim. I believe the patient can be safely sent home on magnesium citrate for follow-up with primary care physician. Patient was in agreement with the treatment plan. Impression Primary Impression: UTI (urinary tract infection) Additional Impressions: Left flank pain Constipation Scribe Attestation The scribe's documentation has been prepared under my direction and personally reviewed by me in its entirety. I confirm that the note above accurately reflects all work, treatment, procedures, and medical decision making performed by me. Departure Information Dispostion Home / Self-Care Prescriptions Sulfa/Trimethoprim (Bactrim Ds 800MG/160MG) Tab 1 TAB PO BID for 10 Days, #20 TAB Prov: Drew Denise MD 01/10/17 Referrals Reginaldo Adair D.Dale (PCP) Forms HOME CARE DOCUMENTATION FORM, IMPORTANT VISIT INFORMATION, School Instructions, Work Instructions Patient Instructions Diet Clear Liquid Dc, ED Constipation, ED UTI Cystitis Female, My [facility] Additional Instructions Take 1/2 bottle of Mag Citrate Repeat second half in six hours Clear liquid diet next 48 hours You were found to have an elevated blood pressure today (>120 sytolic or >90 diastolic). Per medicare guidelines, you need to follow up with this blood pressure screening with your Primary Care Physician (PCP). For a new PCP call [phone]. You received narcotic or benzodiazepene medication while in the emergency room today. Do not drive, operate heavy machinery, or drink alcohol under the influence of this medication. Take 600 mg Ibuprofen every 6 hours Take Percocet for breakthrough pain Culture results are usually available in approx 48 hours You have been examined and treated today on an emergency basis only. This is not a substitute for, or an effort to provide, complete comprehensive medical care. It is impossible to recognize and treat all injuries or illnesses in a single emergency department visit. It is therefore important that you follow up closely with Dr Adair. Call as soon as possible for an appointment. Thank you for your time and consideration. I look forward to speaking with you again soon. Please don't hesitate to call us if you have any questions. Problem Qualifiers Primary Impression: UTI (urinary tract infection) Urinary tract infection type: acute cystitis Hematuria presence: without hematuria Qualified Codes: N30.00 - Acute cystitis without hematuria Additional Impressions: Constipation Constipation type: unspecified constipation type Qualified Codes: K59.00 - Constipation, unspecified
[2017-01-10] MEDS ORDERED: ONDANSETRON INJ 2 MG/ML 2 ML VIAL IV STA (15:31)
[2017-01-10] MEDS ORDERED: MoRPHine SULFATE 10 MG/ML CARP/VIAL IV STA (15:31)
--- NOTE | 2017-01-10 16:17 | DIAGNOSTIC IMAGING REPORT ---
ULTRASOUND RIGHT LOWER EXTREMITY VENOUS CLINICAL HISTORY: Right leg swelling. COMPARISON STUDY: Right lower extremity venous ultrasound dated 11/19/2016. TECHNIQUE: Real-time, grayscale, and color Doppler sonography of the deep veins of the right lower extremity was performed from the inguinal crease to the calf. Compression and augmentation were utilized. FINDINGS: There is no sonographic evidence of deep venous thrombosis identified in the right lower extremity. The common femoral, superficial femoral, and popliteal veins are patent and normally compressible. The greater saphenous vein and the profunda femoris vein at the junction with the common femoral vein are clear. The visualized calf veins are patent. IMPRESSION: There is no sonographic evidence of deep venous thrombosis identified in the right lower extremity. Electronically signed by: Mario Mari M.D. 01/10/2017 4:15 PM Dictated Date/Time: 01/10/2017 4:15 PM
--- NOTE | 2017-01-10 16:36 | DIAGNOSTIC IMAGING REPORT ---
ABDOMEN AND PELVIS CT WITHOUT CONTRAST CT DOSE: 909.71 mGycm HISTORY: Pain Pt c/o BL pain TECHNIQUE: Multiaxial CT images of the abdomen and pelvis were performed without the use of intravenous and oral contrast according to the standard department stone protocol. COMPARISON STUDY: None. FINDINGS: Mild bibasilar interstitial change. 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 Evidence for fusion-type procedure of the low thoracic through lumbosacral spine. Resolution is compromised due to patient somatic and respiratory motion. Kidneys demonstrate a nonobstructing calcification lower pole left kidney. No evidence renal hydronephrosis. Liver and spleen are grossly unremarkable. Increased fecal load within the colon. Probable Hodge catheter with evidence for a partial bladder prolapse. The bladder Hodge catheter is within the components of the prolapsed bladder. Increased fecal load within the colon. Considerable fecal material extrinsic to the patient within the gluteal crease. IMPRESSION: 1. Limited study due to patient motion and body habitus. 2. Considerable congenital deformity and postoperative change at the lumbosacral spine and bony pelvis. 3. Increased fecal load within the colon. 4. Partial bladder prolapse 5. Considerable fecal material within the gluteal crease region. 6. Nonobstructing lower pole left renal calcification. Electronically signed by: Sherif White M.D. 01/10/2017 4:35 PM Dictated Date/Time: 01/10/2017 4:27 PM
[2017-01-10] MEDS ORDERED: CEFTRIAXONE SOD INJ 1 GM ADDVIAL IV STA (17:11)
[2017-01-10] MEDS ORDERED: SULFAMETHOXAZOLE/TRIMETHOPRIM DS 800/160MG TAB PO STA (17:11)
[2017-01-10] MEDS ORDERED: MAGNESIUM CITRATE 296 ML/BTL PO STA (17:17)
[2017-01-10 17:21] LABS: URINE APPEARANCE CLOUDY (CLEAR); URINE BILIRUBIN NEG (NEG); URINE COLOR YELLOW; URINE EPITHELIAL CELL AUTO >30 /lpf (0-5); URINE NITRITE POS (NEG); URINE PH 8.5 (4.5-7.5); UROBILINOGEN NEG (NEG); ZZURINE CULT IF INDIC CATH YES
[2017-01-10] MEDS ORDERED: SULF800T23 PO (17:21)
[2017-01-10 17:31] LABS: MANUAL MICROSCOPIC REQUIRED? NO; REVIEW REQ? YES
[2017-01-10 17:36] VITALS: TEMP 36.8
[2017-01-10 18:40] VITALS: BP 132/89; PULSE 86; O2SAT 98
== END 2017-01-10 18:43 | disposition home or self-care (01) ==
LOC: EDBD 12:56 → C.EDB 12:57
DX: N30.00 Acute cystitis without hematuria (principal); R10.9 Unspecified abdominal pain; K59.00 Constipation, unspecified; J45.909 Unspecified asthma, uncomplicated; F32.9 Major depressive disorder, single episode, unspecified; Z86.718 Personal history of other venous thrombosis and embolism; K21.9 Gastro-esophageal reflux disease without esophagitis; M79.89 Other specified soft tissue disorders; I10 Essential (primary) hypertension; E03.9 Hypothyroidism, unspecified; Z86.14 Personal history of Methicillin resistant Staphylococcus aureus infection; G82.20 Paraplegia, unspecified; Q05.9 Spina bifida, unspecified; Z82.49 Family history of ischemic heart disease and other diseases of the circulatory system; Z79.82 Long term (current) use of aspirin; Z79.899 Other long term (current) drug therapy

== ENCOUNTER 2017-03-29 09:28 | Emergency (ER) | payer OTHER ==
[~2017-03-29] VITALS: Ht 134.6 cm; Wt 94.5 kg
[~2017-03-29 09:28] MED LIST changes: -CPR500 PO; -OXYB15TA12 PO
[2017-03-29 09:45] VITALS: TEMP 36.8; Ht 134.6 cm; Wt 94.5 kg
[2017-03-29] MEDS ORDERED: CEPHALEXIN MONOHYDRATE 250 MG CAP PO STA (10:08)
--- NOTE | 2017-03-29 10:49 | DIAGNOSTIC IMAGING REPORT ---
LEFT TOE(S) MIN 2 VIEWS CLINICAL HISTORY: 51 years-old Female presenting with Left 1st toe trauma with laceration. TECHNIQUE: Frontal, oblique, and lateral views of the left first toe were obtained. COMPARISON: 11/08/2015. 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 No evidence of significant progression in osseous erosion. No acute fracture or subluxation. No radiographic evidence of soft tissue abnormality. IMPRESSION: Chronic changes of the distal phalanx and interphalangeal joint of the first toe. No acute osseous injury. Electronically signed by: Jesus David M.D. 03/29/2017 10:48 AM Dictated Date/Time: 03/29/2017 10:45 AM
--- NOTE | 2017-03-29 12:32 | EMERGENCY ROOM VISIT NOTE ---
ED Visit Note First contact with patient: 10:00 That the 51-year-old female with a laceration to her left great toe was fully evaluated by Atif Katz PA-C. Please see his note. I also independently evaluated the patient. The wound was sutured. The patient was treated with prophylactic antibiotics.
[2017-03-29] MEDS ORDERED: CEPH500C PO (12:43)
--- NOTE | 2017-03-29 12:45 | EMERGENCY ROOM VISIT NOTE ---
ED Visit Note First contact with patient: 10:00 Chief Complaint: "Deep cut on left toe". History of Present Illness: This patient is a 51-year-old female who presents to the Emergency Department via private vehicle accompanied by caregiver for evaluation of their left great toe laceration. Patient sustained the laceration while operating her wheelchair, when she actually struck her toe off of an object. She is unaware that this that happened until today when she noted bleeding from the region. She believed that the injury occurred yesterday around 4:30 to 5 PM. She denies any fevers or chills. She denies any pain. Her tetanus is up-to-date. Medications: As noted below Allergies: Penicillin tramadol PMH: As noted below SHx: Patient lives locally a [place]. ROS: All pertinent positive and negative review of systems are appropriately documented in the History of Present Illness. Physical Exam: VITAL SIGNS - Vital signs and nursing notes were reviewed. Stable. GENERAL -51-year-old female appearing her stated age who is in no acute distress. Communicates well with provider and answers questions appropriately. SKIN - There is a 2.5 cm long laceration noted to the left great toe. The edges gape apart with traction. No foreign bodies appreciated. Upon further examination there are no deep structures including vessel, tendon, or bony structures appreciated. There is no active bleeding noted. MUSCULOSKELETAL - no range of motion. NEUROLOGIC - no sensation. VASCULAR - Capillary refill was brisk. IMAGING: LEFT TOE(S) MIN 2 VIEWS CLINICAL HISTORY: 51 years-old Female presenting with Left 1st toe trauma with laceration. TECHNIQUE: Frontal, oblique, and lateral views of the left first toe were obtained. COMPARISON: 11/08/2015. 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 No evidence of significant progression in osseous erosion. No acute fracture or subluxation. No radiographic evidence of soft tissue abnormality. IMPRESSION: Chronic changes of the distal phalanx and interphalangeal joint of the first toe. No acute osseous injury. Electronically signed by: Jesus David M.D. 03/29/2017 10:48 AM Dictated Date/Time: 03/29/2017 10:45 AM ED Course: Patient was seen and evaluated by myself. Risks and benefits of performing primary wound closure versus no repair were discussed with the patient who verbalizes understanding. Verbal consent was obtained prior to performing the procedure. An x-ray was obtained to rule out fracture. No acute fracture noted as above. Wound was thoroughly irrigated, and there was no need to anesthetized the patient has no sensation in this region. This is chronic for her. At this time I will closed loosely with 2 , 5-0 nylon sutures. This was after the wound was thoroughly irrigated with normal saline and Betadine. She will be discharged home on Keflex, and was given 500 mg times one here. This is to prevent infection. She is to follow-up with guarding today's visit. She is to return with worsening. She was educated upon worrisome symptoms which to return, had questions answered, and was discharged home in good condition. In evaluation treatment this patient the following differential diagnoses entertained: Fracture, laceration, among others. Patient was hypertensive upon her arrival, but this had decreased upon departure. She is to follow-up with her family doctor. Problem List Medical Problems: (1) Anemia of chronic disease Status: Chronic (2) Asthma, Unspecified Status: Chronic (3) Depression Status: Chronic (4) Depression Status: Chronic (5) DVT (deep venous thrombosis) Permanent Comment: completed Coumadin therapy Status: Chronic (6) Esophageal Reflux Status: Chronic (7) HTN (hypertension) Status: Chronic (8) Hx-Venous Thrombosis&Embolism Status: Chronic (9) Hypertension Status: Chronic (10) Hypothyroidism Status: Chronic (11) Hypothyroidism Status: Chronic (12) Laceration of left foot Status: Resolved (13) MRSA (methicillin resistant Staphylococcus aureus) Status: Chronic (14) Neurogenic bladder Status: Chronic (15) Paraplegia Status: Chronic (16) Spina bifida Status: Chronic (17) Spina bifida Status: Chronic (18) Suprapubic catheter Status: Chronic (19) Ventricular Shunt Status Status: Chronic Surgical Problems: (1) H/O foot surgery Status: Chronic (2) H/O sinus surgery Status: Chronic (3) H/O Spinal surgery Status: Chronic (4) History of hip surgery Status: Chronic Current/Historical Medications Scheduled Amlodipine Besylate (Norvasc), 2.5 MG PO QAM Ascorbic Acid (Ascorbic Acid), 500 MG PO BID Aspirin (Aspirin Ec), 81 MG PO QAM Bupropion (Wellbutrin Sr), 150 MG PO BID Cephalexin Monohydrate (Keflex), 500 MG PO TID Ferrous Sulfate (Iron), 325 MG PO BID Folic Acid (Folvite), 1 MG PO QAM Furosemide (Lasix), 20 MG PO QAM Levothyroxine Sodium (Levothyroxine Sodium), 175 MCG PO DAILY Montelukast Sod (Montelukast Sodium), 10 MG PO HS Multiple Vitamins W/ Minerals (Centrum Adults), 1 TAB PO DAILY Sertraline HCl (Sertraline HCl), 150 MG PO QAM Simvastatin (Zocor), 20 MG PO HS Solifenacin Succinate (Vesicare), 10 MG PO DAILY Allergies Coded Allergies: Penicillins (Verified Allergy, Severe, THROAT SWELLS, 01/10/17) Tramadol (Verified Allergy, Severe, Seizure, 01/10/17) Reported by PT and listed in [facility] record. Vital Signs Date Time Temp Pulse Resp B/P (MAP) Pulse Ox O2 Delivery O2 Flow Rate FiO2 03/29/17 13:08 72 18 156/93 97 03/29/17 09:45 36.8 77 18 169/102 95 Room Air Medications Administered Medications (Trade) Dose Ordered Sig/Jacky Route Start Time Stop Time Status Last Admin Dose Admin Cephalexin Monohydrate (Keflex Cap) 500 mg NOW STAT PO 03/29/17 10:08 03/29/17 10:09 DC 03/29/17 10:23 500 MG Departure Information Impression Primary Impression: Laceration Dispostion Home / Self-Care Condition GOOD Prescriptions Cephalexin Monohydrate (Keflex) 500 Mg Cap 500 MG PO TID for 7 Days, #21 CAP Prov: Atif Katz PA-C 03/29/17 Referrals Reginaldo Adair, D.OMi (PCP) Patient Instructions My [facility] Additional Instructions Discharge Instructions: You have received 2 sutures on your toe. These sutures are NOT dissolvable and WILL need to be removed by a health care provider in 12-14 days. You can return to the Emergency Department or contact your Primary Care Provider to have the sutures removed. Because of the amount of time the wound was open to the air, I will recommend Keflex. This is an antibiotic to help prevent infection. This is one tablet every 8 hours. As we discussed you have indicated that you're able to take this medication despite your penicillin allergy. Please take your next dose at bedtime tonight. Proper wound care is essential for adequate wound healing and infection prevention. You can shower and clean the wound with soap and water. Do not scour over the wound, pat dry with a towel. Do not submerse the wound (i.e. bathe or dish wash) until the sutures have been removed. You can use an antibiotic ointment with a dressing over the wound for the next 3-4 days. After this time you may leave the wound dry and open to the air but can also be covered with a dry gauze pad. If crust develops over the wound you can use a Q- tip to apply a 1:1 peroxide:water solution to clean the wound. Look for signs of infection of the wound including: increased pain, swelling, foul discharge, streaking, or increased temperature. If any of these are noticed you should return to the Emergency Department for further assessment and treatment. As with any laceration you may have received nerve damage to the surrounding tissues. This damage may or may not be permanent. You should keep the area covered with sunscreen for the first 6 months to 1 year when at risk for exposure to help minimize scarring. You can also use scar reducing creams or Vitamin E oil to help minimize scarring. If no signs of improvement in healing please follow up with wound care center as we discussed. Return to the emergency department if your symptoms worsen despite treatment course outlined above.
[2017-03-29] MEDS ORDERED: FERR1TAB23 PO (12:49)
[2017-03-29 13:08] VITALS: BP 156/93; PULSE 72; O2SAT 97
[2017-03-29] MEDS ORDERED: BUPR-79 PO (13:17)
[2017-03-29] MEDS ORDERED: MULT-610 PO (14:52)
[2017-03-29] MEDS ORDERED: VSC/10 PO (14:52)
[2017-03-29] MEDS ORDERED: SNG10 PO (15:38)
[2017-03-29] MEDS ORDERED: ASCO500T16 PO (15:43)
[2017-03-29] MEDS ORDERED: FOLI1TAB7 PO (15:46)
[2017-03-29] MEDS ORDERED: ASPI81TA28 PO (15:46)
[2017-03-29] MEDS ORDERED: AMLO2.5T PO (15:46)
[2017-03-29] MEDS ORDERED: FURO-85 PO (15:46)
[2017-03-29] MEDS ORDERED: LEVO175T3 PO (20:44)
[2017-03-29] MEDS ORDERED: SIMV20TA5 PO (20:52)
== END 2017-03-29 13:15 | disposition home or self-care (01) ==
LOC: C.EDA 10:29
DX: S91.112A Laceration without foreign body of left great toe without damage to nail, initial encounter (principal); W22.8XXA Striking against or struck by other objects, initial encounter; D64.9 Anemia, unspecified; J45.909 Unspecified asthma, uncomplicated; F32.9 Major depressive disorder, single episode, unspecified; K21.9 Gastro-esophageal reflux disease without esophagitis; I10 Essential (primary) hypertension; E03.9 Hypothyroidism, unspecified; N31.9 Neuromuscular dysfunction of bladder, unspecified; G82.20 Paraplegia, unspecified; Q05.9 Spina bifida, unspecified; Z98.2 Presence of cerebrospinal fluid drainage device; Z86.14 Personal history of Methicillin resistant Staphylococcus aureus infection; Z86.718 Personal history of other venous thrombosis and embolism; Z79.82 Long term (current) use of aspirin

== ENCOUNTER 2017-09-06 13:11 | Inpatient (IN) | payer OTHER ==
[~2017-09-06] VITALS: Ht 134.6 cm; Wt 114.6 kg
[~2017-09-06 13:11] MED LIST changes: +AMLO2.5T PO; +ASCO500T16 PO; +ASPI81TA28 PO; +BUPR-79 PO; +FERR1TAB23 PO; +FOLI1TAB8 PO; +FURO-85 PO; +LEVO175T3 PO; +MULT-610 PO; +SIMV20TA5 PO; +SNG10 PO; +VSC/10 PO
--- NOTE | 2017-09-06 13:42 | EMERGENCY ROOM VISIT NOTE ---
History Report prepared by Peggy: Josefa Almanzar Under the Supervision of: Dr. Gene Piña M.D. First contact with patient: 13:30 Chief Complaint: SHORTNESS OF BREATH Stated Complaint: BREATHING DIFFICULTY Nursing Triage Summary: Cough, generalized weakness, shortness of breath Pt resides in a group, possibly exposed to the flu. History of Present Illness The patient is a 52 year old female who presents to the Emergency Room brought in by EMS with complaints of persistent shortness of breath SYNCHRONIZER. She also notes a productive cough with sputum and generalized weakness. She currently resides in a intermediate and may have been exposed to the flu. She notes a baseline Hodge catheter, because her bladder will not drain on its own. She notes baseline bilateral leg swelling. She uses a lymphatic pump on her legs. Source of History: patient Onset: SYNCHRONIZER Position: other (global ) Quality: other (shortness of breath) Timing: other (persistent) Associated Symptoms: + cough (productive cough with sputum), + weakness ( general) Note: She notes baseline bilateral leg swelling. Review of Systems See HPI for pertinent positives and negatives. A total of ten systems were reviewed and were otherwise negative. Past Medical & Surgical Medical Problems: (1) Anemia of chronic disease (2) Asthma, Unspecified (3) CKD (chronic kidney disease), stage IV (4) Depression (5) Depression (6) DVT (deep venous thrombosis) (7) Esophageal Reflux (8) HTN (hypertension) (9) Hx-Venous Thrombosis&Embolism (10) Hypertension (11) Hypothyroidism (12) Hypothyroidism (13) Laceration of left foot (14) Lymphedema (15) MRSA (methicillin resistant Staphylococcus aureus) (16) Neurogenic bladder (17) Paraplegia (18) Restrictive airway disease (19) Spina bifida (20) Spina bifida (21) Suprapubic catheter (22) Ventricular Shunt Status Surgical Problems: (1) H/O foot surgery (2) H/O sinus surgery (3) H/O Spinal surgery (4) History of hip surgery Family History FH: CAD (coronary artery disease) FATHER BROTHER Social History Smoking Status: Never Smoker Smokeless Tobacco Use: No Alcohol Use: none Marital Status: single Housing Status: assisted living Occupation Status: employed Current/Historical Medications Scheduled Amlodipine Besylate (Amlodipine Besylate), 5 MG PO DAILY Ascorbic Acid (Ascorbic Acid), 500 MG PO BID Aspirin (Aspirin Ec), 81 MG PO QAM Ferrous Sulfate (Iron), 325 MG PO BID Folic Acid (Folvite), 1 MG PO QAM Furosemide (Lasix), 20 MG PO QAM Levothyroxine Sodium (Levothyroxine Sodium), 200 MCG PO DAILY Montelukast Sod (Montelukast Sodium), 10 MG PO HS Multiple Vitamins W/ Minerals (Centrum Adults), 1 TAB PO DAILY Sennosides (Senna-Lax), 1 TAB PO DAILY Sertraline HCl (Sertraline HCl), 150 MG PO QAM Simvastatin (Zocor), 20 MG PO HS Solifenacin Succinate (Vesicare), 10 MG PO DAILY Vortioxetine HBr (Trintellix), 5 MG PO HS Scheduled PRN Albuterol Sulf (Proventil 0.083% 2.5MG/3ML), 2.5 MG INH QID PRN for SOB/Wheezing Allergies Coded Allergies: Penicillins (Verified Allergy, Severe, THROAT SWELLS, 09/06/17) Tramadol (Verified Allergy, Severe, Seizure, 09/06/17) Reported by PT and listed in [facility] record. Physical Exam Vital Signs Date Time Temp Pulse Resp B/P (MAP) Pulse Ox O2 Delivery O2 Flow Rate FiO2 09/06/17 15:30 97 14 164/77 95 Room Air 09/06/17 14:55 102 20 111/71 100 Nebulizer 09/06/17 14:04 90 95 Diffusion Mask 09/06/17 13:55 85 09/06/17 13:52 94 Nasal Cannula 3.0 09/06/17 13:34 94 Nasal Cannula 2.0 09/06/17 13:25 37.3 90 18 133/79 86 Room Air 09/06/17 13:25 86 Room Air Physical Exam GENERAL: Awake, alert, well-appearing, in no distress HENT: Normocephalic, atraumatic. Oropharynx has dry cracked mucus membranes. EYES: Normal conjunctiva. Sclera non-icteric. NECK: Supple. No nuchal rigidity. FROM. No JVD. RESPIRATORY: Diffuse wheezes and rhonchi throughout. CARDIAC: Regular rate, normal rhythm. Extremities warm and well perfused. Pulses equal. ABDOMEN: Soft, non-distended. No tenderness to palpation. No rebound or guarding. No masses. RECTAL: Deferred. MUSCULOSKELETAL: Chest examination reveals no tenderness. The back is symmetrical on inspection without obvious abnormality. There is no CVA tenderness to palpation. No joint edema. LOWER EXTREMITIES: Calves are equal size bilaterally and non-tender. 2+ bilateral pitting edema. No discoloration. NEURO: Normal sensorium. No sensory or motor deficits noted. SKIN: No rash or jaundice noted. Medical Decision & Procedures ER Provider Diagnostic Interpretation: Radiology results as stated below per my review and radiologist interpretation: CHEST ONE VIEW PORTABLE CLINICAL HISTORY: 52 years-old Female presenting with CHEST PAIN. TECHNIQUE: Portable upright AP view of the chest was obtained. COMPARISON: 11/19/2016. FINDINGS: Evaluation limited by suboptimal image quality 0.24 penetration secondary to the patient's body avid is and portable technique. Persistent prominence of the cardiac silhouette and mediastinum. Pulmonary vascular prominence. Apparent diffuse increased density of the lungs. Evaluation for focal infiltrate is limited. No large pleural effusion or pneumothorax. Degenerative changes of the right glenohumeral joint. An implanted device is noted along the left cervical region, unchanged. IMPRESSION: 1. Cardiomegaly with suggestion of volume overload. Pulmonary edema cannot be excluded. Highly limited examination. Electronically signed by: Jesus David M.D. 09/06/2017 2:05 PM Dictated Date/Time: 09/06/2017 2:03 PM Laboratory Results Test 09/06/17 14:00 09/06/17 14:02 09/06/17 15:10 09/06/17 17:15 Influenza Type A (RT-PCR) Neg for Influ A (NEG) Influenza Type A Antigen Neg for Influ A (NEG) Influenza Type B Antigen Neg for Influ B (NEG) Influenza Type B (RT-PCR) Neg for Influ B (NEG) Immature Granulocyte % (Auto) 0.2 % White Blood Count 4.93 K/uL (4.8-10.8) Red Blood Count 3.23 M/uL (4.2-5.4) Hemoglobin 9.7 g/dL (12.0-16.0) Hematocrit 31.6 % (37-47) Mean Corpuscular Volume 97.8 fL (80-100) Mean Corpuscular Hemoglobin 30.0 pg (25-34) Mean Corpuscular Hemoglobin Concent 30.7 g/dl (32-36) Platelet Count 270 K/uL (130-400) Mean Platelet Volume 9.5 fL (7.4-10.4) Neutrophils (%) (Auto) 61.8 % Lymphocytes (%) (Auto) 21.1 % Monocytes (%) (Auto) 12.8 % Eosinophils (%) (Auto) 3.7 % Basophils (%) (Auto) 0.4 % Neutrophils # (Auto) 3.05 K/uL (1.4-6.5) Lymphocytes # (Auto) 1.04 K/uL (1.2-3.4) Monocytes # (Auto) 0.63 K/uL (0.11-0.59) Eosinophils # (Auto) 0.18 K/uL (0-0.5) Basophils # (Auto) 0.02 K/uL (0-0.2) Immature Granulocyte # (Auto) 0.01 K/uL (0.00-0.02) Total Bilirubin 0.2 mg/dl (0.2-1) Direct Bilirubin < 0.1 mg/dl (0-0.2) Aspartate Amino Transf (AST/SGOT) 15 U/L (15-37) Alanine Aminotransferase (ALT/SGPT) 21 U/L (12-78) Alkaline Phosphatase 129 U/L (45-117) Pro-B-Type Natriuretic Peptide 292 pg/ml (0-900) Total Protein 7.4 gm/dl (6.4-8.2) Albumin 3.1 gm/dl (3.4-5.0) Lipase 133 U/L (73-393) Venous Blood pH 7.31 (7.36-7.41) Venous Blood Partial Pressure CO2 63 mmHg (38.0-50.0) Venous Blood Partial Pressure O2 43 mmHg Venous Blood HCO3 31 mmol/L Venous Blood Oxygen Saturation 73.7 % Venous Blood Base Excess 3.3 mEq/L Urine Color YELLOW Urine Appearance CLEAR (CLEAR) Urine pH 7.0 (4.5-7.5) Urine Specific [place] 1.011 (1.000-1.030) Urine Protein NEG (NEG) Urine Glucose (UA) NEG (NEG) Urine Ketones NEG (NEG) Urine Occult Blood NEG (NEG) Urine Nitrite POS (NEG) Urine Bilirubin NEG (NEG) Urine Urobilinogen NEG (NEG) Urine Leukocyte Esterase LARGE (NEG) Urine WBC (Auto) 10-30 /hpf (0-5) Urine RBC (Auto) 0-4 /hpf (0-4) Urine Hyaline Casts (Auto) 1-5 /lpf (0-5) Urine Epithelial Cells (Auto) 5-10 /lpf (0-5) Urine Bacteria (Auto) 2+ (NEG) Laboratory results reviewed by me Medications Administered Medications (Trade) Dose Ordered Sig/Jacky Route Start Time Stop Time Status Last Admin Dose Admin Albuterol/ Ipratropium (Duoneb) 12 ml ONE ONCE INH 09/06/17 13:45 09/06/17 13:46 DC 09/06/17 14:03 12 ML Methylprednisolone Sodium Succinate (Solu-Medrol IV) 125 mg NOW STAT IV 09/06/17 13:43 09/06/17 13:47 DC 09/06/17 14:29 125 MG Magnesium Sulfate (Magnesium Sulfate) 2 gm NOW STAT IV 09/06/17 13:43 09/06/17 13:47 DC 09/06/17 14:29 2 GM Furosemide (Lasix Inj) 20 mg NOW STAT IV 09/06/17 14:58 09/06/17 15:00 DC 09/06/17 15:26 20 MG Azithromycin 500 mg/Dextrose 255 ml @ 125 mls/hr ONE STAT IV 09/06/17 16:22 09/06/17 18:24 DC 09/06/17 16:43 125 MLS/HR ECG Indication: SOB/dyspnea Rate (beats per minute): 89 Rhythm: normal sinus Findings: T-wave inversion (Anterior), other (Normal axis. ) Change: Patient's electrocardiogram interpreted by me. ED Course 1334: The patient was evaluated in room B4B. A complete history and physical exam was performed. 1620: I reassessed the patient at this time. She is resting. I discussed the results and treatment plan with the patient. I answered all pertaining questions that she had. She expressed understanding and verbalized agreement. The patient will be further evaluated. 1629: I spoke with Daron Barrios PA-C. We discussed the patients case. The patient will be evaluated by the [facility] for further management. Medical Decision I reviewed the patient's past medical history, medications, and the nursing notes as described above. Differential diagnosis: Etiologies such as infections, reactive airway disease, pneumonia, pneumothorax , COPD, CHF, cardiac ischemia, pulmonary embolism, musculoskeletal, gastrointestinal, as well as others were entertained. The patient is a 52-year-old woman with a past medical history of CKD, asthma presents to the emergency Department with worsening cough congestion shortness of breath per hpi. An arrival the patient is uncomfortable but no acute distress, afebrile, with a new oxygen requirement of 2 L but otherwise stable vital signs. Chest x-ray with questionable volume overload. Labs notable for hypercapnia in the 60s and pH of 7.3 WBC within normal limits. Cr at baseline. Patient given steroids, nebs with improvement. The patient's significant exacerbation of her asthma will treat additionally with azithromycin. Flu negative. Given Lasix given mild fluid overload on chest x-ray however BNP within normal limits. UA pending. Case was discussed with Daron Gutierrez, who will admit the patient for further management. Medication Reconcilliation Current Medication List: was personally reviewed by me Blood Pressure Screening Patient's blood pressure: Elevated blood pressure Blood pressure disposition: Elevated BP felt to be situational Consults Time Called: 1622 Consulting Physician: Daron Barrios PA-C Returned Call: 1625 I spoke with Daron Barrios PA-C. We discussed the patients case. The patient will be evaluated by the [facility] for further management. Impression Primary Impression: Asthma exacerbation Additional Impressions: Hypoxia Hypercapnia Scribe Attestation The scribe's documentation has been prepared under my direction and personally reviewed by me in its entirety. I confirm that the note above accurately reflects all work, treatment, procedures, and medical decision making performed by me. Departure Information Dispostion Being Evaluated By Hospitalist Referrals Reginaldo Adair D.O. (PCP) Patient Instructions My [facility] Problem Qualifiers
[2017-09-06] MEDS ORDERED: METHYLPREDNISOLONE 125 MG VIAL IV STA (13:43)
[2017-09-06] MEDS ORDERED: MAGNESIUM SULFATE 1GM / D5W 1 GM BAG IV STA (13:43)
[2017-09-06] MEDS ORDERED: ALBUT/IPRATROP 3MG/0.5MG NEB 3 ML VIAL INH ONE (13:45)
[2017-09-06] MEDS ORDERED: VORT1TAB PO (13:50)
[2017-09-06] MEDS ORDERED: LEVO200T6 PO (13:50)
[2017-09-06 14:04] VITALS: PULSE 90; O2SAT 95
--- NOTE | 2017-09-06 14:06 | DIAGNOSTIC IMAGING REPORT ---
CHEST ONE VIEW PORTABLE CLINICAL HISTORY: 52 years-old Female presenting with CHEST PAIN. TECHNIQUE: Portable upright AP view of the chest was obtained. COMPARISON: 11/19/2016. FINDINGS: Evaluation limited by suboptimal image quality 0.24 penetration secondary to the patient's body avid is and portable technique. Persistent prominence of the cardiac silhouette and mediastinum. Pulmonary vascular prominence. Apparent diffuse increased density of the lungs. Evaluation for focal infiltrate is limited. No large pleural effusion or pneumothorax. Degenerative changes of the right glenohumeral joint. An implanted device is noted along the left cervical region, unchanged. IMPRESSION: 1. Cardiomegaly with suggestion of volume overload. Pulmonary edema cannot be excluded. Highly limited examination. Electronically signed by: Jesus David M.D. 09/06/2017 2:05 PM Dictated Date/Time: 09/06/2017 2:03 PM
[2017-09-06] MEDS ORDERED: WLLSR/200 PO (14:20)
[2017-09-06 14:23] LABS: BASO % 0.4 %; BASO ABS # 0.02 K/uL (0-0.2); EOS % 3.7 %; EOS ABS # 0.18 K/uL (0-0.5); HEMATOCRIT 31.6 % (37-47); HEMOGLOBIN 9.7 g/dL (12.0-16.0); IG# 0.01 K/uL (0.00-0.02); LYMPH % 21.1 %; LYMPH ABS # 1.04 K/uL (1.2-3.4); MEAN CELL VOLUME 97.8 fL (80-100); MEAN CORPUSCULAR HGB CONC 30.7 g/dl (32-36); MEAN PLATELET VOLUME 9.5 fL (7.4-10.4); MONO % 12.8 %; MONO ABS # 0.63 K/uL (0.11-0.59); NEUT % 61.8 %; NEUT ABS # 3.05 K/uL (1.4-6.5); PLATELET COUNT 270 K/uL (130-400); RED CELL DISTRIBUTION WIDTH SD 50.7 fL (36.4-46.3); WHITE BLOOD COUNT 4.93 K/uL (4.8-10.8)
[2017-09-06 14:41] LABS: ALBUMIN 3.1 gm/dl (3.4-5.0); ALT/SGPT 21 U/L (12-78); AST/SGOT 15 U/L (15-37); BLOOD UREA NITROGEN 32 mg/dl (7-18); CALCIUM 8.6 mg/dl (8.5-10.1); CARBON DIOXIDE 33 mmol/L (21-32); CREATININE 1.47 mg/dl (0.60-1.20); GLUCOSE 97 mg/dl (70-99); LIPASE 133 U/L (73-393); POTASSIUM 3.7 mmol/L (3.5-5.1); SODIUM 141 mmol/L (136-145)
[2017-09-06 14:47] LABS: ALKALINE PHOSPHATASE 129 U/L (45-117); TOTAL PROTEIN 7.4 gm/dl (6.4-8.2)
[2017-09-06 14:47] LABS: INFLUENZA B ANTIGEN Neg for Influ B (NEG)
[2017-09-06] MEDS ORDERED: FUROSEMIDE 40 MG/4 ML VIAL IV STA (14:58)
[2017-09-06] MEDS ORDERED: AZITHROMYCIN IV 500 MG in DEXTROSE 5% 250ML 250 ML IV STA (16:22)
[2017-09-06] MEDS ORDERED: ONDANSETRON INJ 2 MG/ML 2 ML VIAL IV PRN (17:30)
[2017-09-06] MEDS ORDERED: ALBINS/ INH (17:40)
[2017-09-06] MEDS ORDERED: NRV5 PO (17:40)
[2017-09-06] MEDS ORDERED: SENN-56 PO (17:40)
[2017-09-06 18:12] LABS: INFLUENZA A PCR Neg for Influ A (NEG); INFLUENZA B PCR Neg for Influ B (NEG)
--- NOTE | 2017-09-06 19:07 | History and Physical ---
History & Physical Date & Time of Service: Sep 06, 2017 ~ 17:00 Chief Complaint: Breathing Difficulty Primary Care Physician: Reginaldo Adair D.O. History of Present Illness 52 year old female who presented to the ED with shortness of breath. Patient reports she woke up around 0300 with shortness of breath and cough. Symptoms have progressed throughout the day. She reports the cough has been non productive. No fevers, chills, body aches, chills, or rigors. She denies chest pain. No lightheadedness, dizziness, diaphoresis, or syncopal events. Patient has history of lymphedema and uses pumps twice a day. She feels like her edema is at baseline. No abdominal pain, nausea, vomiting, or diarrhea. She has a chronic supra pubic catheter in place and reports urine has been clear yellow. In the ED, patient was found to be hypoxic on room air at 88%. This improved with oxygen 2L via NC. She received IV steroids and neb treatment and reports improvement in her symptoms. CXR suggests volume overload. She was also given Lasix 20mg IV. CXR is clear and rapid influenza swab is negative. Past Medical/Surgical History Medical Problems: (1) Anemia of chronic disease Status: Chronic (2) Asthma, Unspecified Status: Chronic (3) CKD (chronic kidney disease), stage IV Status: Chronic (4) Depression Status: Chronic (5) Depression Status: Chronic (6) DVT (deep venous thrombosis) Permanent Comment: completed Coumadin therapy Status: Chronic (7) Esophageal Reflux Status: Chronic (8) HTN (hypertension) Status: Chronic (9) Hx-Venous Thrombosis&Embolism Status: Chronic (10) Hypertension Status: Chronic (11) Hypothyroidism Status: Chronic (12) Hypothyroidism Status: Chronic (13) Laceration of left foot Status: Resolved (14) Lymphedema Status: Chronic (15) MRSA (methicillin resistant Staphylococcus aureus) Status: Chronic (16) Neurogenic bladder Status: Chronic (17) Paraplegia Status: Chronic (18) Restrictive airway disease Status: Chronic (19) Spina bifida Status: Chronic (20) Spina bifida Status: Chronic (21) Suprapubic catheter Status: Chronic (22) Ventricular Shunt Status Status: Chronic Surgical Problems: (1) H/O foot surgery Status: Chronic (2) H/O sinus surgery Status: Chronic (3) H/O Spinal surgery Status: Chronic (4) History of hip surgery Status: Chronic Family History FH: CAD (coronary artery disease) FATHER BROTHER Social History Smoking Status: Never Smoker Alcohol Use: none Housing status: other (longterm) Immunizations History of Influenza Vaccine: Yes Influenza Vaccine Date: May 16, 2017 History of Tetanus Vaccine?: Yes Tetanus Immunization Date: May 18, 2017 History of Pneumococcal: Yes Pneumococcal Date: Jun 16, 2017 History of Hepatitis B Vaccine: Yes Hepatitis Immunization Date: Oct 05, 2006 Multi-Drug Resistant Organisms History of MDRO: Yes Type of MDRO: MRSA Allergies Coded Allergies: Penicillins (Verified Allergy, Severe, THROAT SWELLS, 09/06/17) Tramadol (Verified Allergy, Severe, Seizure, 09/06/17) Reported by PT and listed in [facility] record. Home Medications Scheduled Amlodipine Besylate (Amlodipine Besylate), 5 MG PO DAILY Ascorbic Acid (Ascorbic Acid), 500 MG PO BID Aspirin (Aspirin Ec), 81 MG PO QAM Ferrous Sulfate (Iron), 325 MG PO BID Folic Acid (Folvite), 1 MG PO QAM Furosemide (Lasix), 20 MG PO QAM Levothyroxine Sodium (Levothyroxine Sodium), 200 MCG PO DAILY Montelukast Sod (Montelukast Sodium), 10 MG PO HS Multiple Vitamins W/ Minerals (Centrum Adults), 1 TAB PO DAILY Sennosides (Senna-Lax), 1 TAB PO DAILY Sertraline HCl (Sertraline HCl), 150 MG PO QAM Simvastatin (Zocor), 20 MG PO HS Solifenacin Succinate (Vesicare), 10 MG PO DAILY Vortioxetine HBr (Trintellix), 5 MG PO HS Scheduled PRN Albuterol Sulf (Proventil 0.083% 2.5MG/3ML), 2.5 MG INH QID PRN for SOB/Wheezing Review of Systems ROS per HPI, all other systems reviewed and negative Physical Exam Vital Signs Date Time Temp Pulse Resp B/P (MAP) Pulse Ox O2 Delivery O2 Flow Rate FiO2 09/06/17 17:47 101 09/06/17 17:21 102 24 135/77 96 Oxymask 09/06/17 15:30 97 14 164/77 95 Room Air 09/06/17 14:55 102 20 111/71 100 Nebulizer 09/06/17 14:04 90 95 Diffusion Mask 09/06/17 13:55 85 09/06/17 13:52 94 Nasal Cannula 3.0 09/06/17 13:34 94 Nasal Cannula 2.0 09/06/17 13:25 37.3 90 18 133/79 86 Room Air 09/06/17 13:25 86 Room Air General Appearance: WD/WN, no apparent distress, + obese Head: normocephalic, atraumatic Eyes: normal inspection, EOMI, sclerae normal ENT: hearing grossly normal, + pertinent finding (mucous membranes moist) Neck: supple, no JVD, trachea midline Respiratory/Chest: no respiratory distress, + decreased breath sounds, + wheezing (expiratory throughout all lung kim), + pertinent finding (harsh, dry cough noted) Cardiovascular: normal peripheral pulses, + tachycardia (regular rhythm), + pertinent finding (+4 edema BLLE) Abdomen/GI: normal bowel sounds, non tender, soft, no organomegaly, + distended Genitourinary - Female: + pertinent finding (suprpubic catheter in place draining clear yellow urine) Extremities/Musculoskelatal: no calf tenderness, normal capillary refill, + pertinent finding (shortened BLLE) Neurologic/Psych: no motor/sensory deficits, alert, oriented x 3, + pertinent finding (anxious) Skin: normal color, warm/dry Diagnostics Laboratory Results Results Past 24 Hours Test 09/06/17 14:00 09/06/17 14:02 09/06/17 15:10 09/06/17 17:15 Range/Units Influenza Type A (RT-PCR) Neg for Influ A NEG Influenza Type A Antigen Neg for Influ A NEG Influenza Type B Antigen Neg for Influ B NEG Influenza Type B (RT-PCR) Neg for Influ B NEG White Blood Count 4.93 4.8-10.8 K/uL Red Blood Count 3.23 4.2-5.4 M/uL Hemoglobin 9.7 12.0-16.0 g/dL Hematocrit 31.6 37-47 % Mean Corpuscular Volume 97.8 80-100 fL Mean Corpuscular Hemoglobin 30.0 25-34 pg Mean Corpuscular Hemoglobin Concent 30.7 32-36 g/dl Platelet Count 270 130-400 K/uL Mean Platelet Volume 9.5 7.4-10.4 fL Neutrophils (%) (Auto) 61.8 % Lymphocytes (%) (Auto) 21.1 % Monocytes (%) (Auto) 12.8 % Eosinophils (%) (Auto) 3.7 % Basophils (%) (Auto) 0.4 % Neutrophils # (Auto) 3.05 1.4-6.5 K/uL Lymphocytes # (Auto) 1.04 1.2-3.4 K/uL Monocytes # (Auto) 0.63 0.11-0.59 K/uL Eosinophils # (Auto) 0.18 0-0.5 K/uL Basophils # (Auto) 0.02 0-0.2 K/uL RDW Standard Deviation 50.7 36.4-46.3 fL RDW Coefficient of Variation 14.0 11.5-14.5 % Immature Granulocyte % (Auto) 0.2 % Immature Granulocyte # (Auto) 0.01 0.00-0.02 K/uL Sodium Level 141 136-145 mmol/L Potassium Level 3.7 3.5-5.1 mmol/L Chloride Level 105 98-107 mmol/L Carbon Dioxide Level 33 21-32 mmol/L Anion Gap 3.0 3-11 mmol/L Blood Urea Nitrogen 32 7-18 mg/dl Creatinine 1.47 0.60-1.20 mg/dl Est Creatinine Clear Calc Drug Dose 37.7 ml/min Estimated GFR () 46.4 Estimated GFR (Non- 40.1 BUN/Creatinine Ratio 21.4 10-20 Random Glucose 97 70-99 mg/dl Calcium Level 8.6 8.5-10.1 mg/dl Total Bilirubin 0.2 0.2-1 mg/dl Direct Bilirubin < 0.1 0-0.2 mg/dl Aspartate Amino Transf (AST/SGOT) 15 15-37 U/L Alanine Aminotransferase (ALT/SGPT) 21 12-78 U/L Alkaline Phosphatase 129 45-117 U/L Troponin I < 0.015 0-0.045 ng/ml Pro-B-Type Natriuretic Peptide 292 0-900 pg/ml Total Protein 7.4 6.4-8.2 gm/dl Albumin 3.1 3.4-5.0 gm/dl Lipase 133 73-393 U/L Venous Blood pH 7.31 7.36-7.41 Venous Blood Partial Pressure CO2 63 38.0-50.0 mmHg Venous Blood Partial Pressure O2 43 mmHg Venous Blood HCO3 31 mmol/L Venous Blood Oxygen Saturation 73.7 % Venous Blood Base Excess 3.3 mEq/L Urine Color YELLOW Urine Appearance CLEAR CLEAR Urine pH 7.0 4.5-7.5 Urine Specific [place] 1.011 1.000-1.030 Urine Protein NEG NEG Urine Glucose (UA) NEG NEG Urine Ketones NEG NEG Urine Occult Blood NEG NEG Urine Nitrite POS NEG Urine Bilirubin NEG NEG Urine Urobilinogen NEG NEG Urine Leukocyte Esterase LARGE NEG Urine WBC (Auto) 10-30 0-5 /hpf Urine RBC (Auto) 0-4 0-4 /hpf Urine Hyaline Casts (Auto) 1-5 0-5 /lpf Urine Epithelial Cells (Auto) 5-10 0-5 /lpf Urine Bacteria (Auto) 2+ NEG Test 09/06/17 17:26 Range/Units Microbiology Results 09/06/17 Urine Culture, Received Pending Diagnostic Radiology CXR IMPRESSION: 1. Cardiomegaly with suggestion of volume overload. Pulmonary edema cannot be excluded. Highly limited examination. Impression Assessment and Plan ACUTE HYPOXIC RESPIRATORY FAILURE BRONCHITIS VOLUME OVERLOAD HX RESTRICTIVE LUNG DISEASE - admit to tele - patient presenting with shortness of breath and cough that started around 0300 and was found to be hypoxic on room air at 88% - saturating well on 2L NC - CXR in the ED suggests volume overload - s/p Lasix 20mg IV in the ED, will continue with Lasix 20mg IV BID - update echo, cycle cardiac enzymes, I/Os, daily weights - also has significant wheezing and harsh cough on exam; influenza rapid and PCR negative; ? bronchitis - hx of restrictive lung disease, likely obesity hypoventilation - s/p azithromycin in the ED, will continue with to complete 5 day course - s/p solumedrol 125mg IV in the ED, will start Prednisone 40mg PO tomorrow x 5 days - if patient does not improve with above treatments, could consider PE work up ABNORMAL U/A - patient has chronic suprapubic catheter - urine is clear yellow on exam - ? colonization - no leukocytosis or fever - follow culture, consider ID input HTN - BP controlled, continue amlodipine HYPOTHYROIDISM - continue levothyroxine CKD STAGE IV - baseline creat runs in the mid - high 1's - creat noted to be 1.4 today - continue to monitor, avoid nephrotoxic agents when able ANEMIA - due to CKD - baseline ~ 9.0, noted to be 9.7 today ANXIETY, DEPRESSION - continue Trintellix and sertraline HX SPINA BIFIDA DVT PROPHYLAXIS - SQ Heparin CODE STATUS - Patient is a DNR as per my discussion with her. DISPO - In my clinical judgment this beneficiary meets acute admission criteria, established by [facility], that includes being hospitalized through two midnights. ADDENDUM: I saw the patient in room 234 Presented with shortness of breath/cough, likely acute bronchitis there is some wheezing on exam Plan is for prednisone 40mg x5 days, Azithromycin x 5 days total duonebs There is also volume overload noted on exam, likely secondary to obesity hypoventilation for now, will do IV Lasix 20mg BID and monitor will get an updated echo abnormal UA - she has a chronic suprapubic catheter possibly a colonization will hold off on starting abx. for this; follow cultures, may need ID involved VTE Prophylaxis VTE Risk Assessment Done? Y/N: Yes Risk Level: Moderate
[2017-09-06 19:14] VITALS: BP 171/79; PULSE 106; TEMP 37.4; O2SAT 91
[2017-09-06 19:47] VITALS: BP 147/79; PULSE 97; TEMP 37.4; O2SAT 91; Ht 134.6 cm; Wt 114.6 kg
[2017-09-06 20:00] VITALS: PULSE 97; O2SAT 96
[2017-09-06 20:05] LABS: PTT PATIENT 27.3 SECONDS (21.0-31.0)
[2017-09-06] MEDS ORDERED: VORTIOXETINE HBR PO SCH (21:00)
[2017-09-06] MEDS: SIMVASTATIN 20 MG TAB PO SCH (21:08)
[2017-09-06] MEDS: ASCORBIC ACID 500 MG TAB PO SCH (21:09)
[2017-09-06] MEDS: MONTELUKAST SOD 10 MG TAB PO SCH (21:09)
[2017-09-06] MEDS: ALBUT/IPRATROP 3MG/0.5MG NEB 3 ML VIAL INH SCH (21:09)
[2017-09-06] MEDS: FERROUS SULFATE 325 MG TAB PO SCH (21:09)
[2017-09-06] MEDS: HEPARIN SOD 5000 UNIT/0.5 ML CARP SQ SCH (23:10)
[2017-09-07] VITALS (11 sets, daily range): BP systolic 97–127; BP diastolic 61–78; PULSE 84–97; TEMP 36.7–38.1; O2SAT 88–98
[2017-09-07] MEDS: ALBUT/IPRATROP 3MG/0.5MG NEB 3 ML VIAL INH SCH ×4 (01:20→18:59)
[2017-09-07 06:05] LABS: HEMATOCRIT 29.1 % (37-47); HEMOGLOBIN 9.1 g/dL (12.0-16.0); MEAN CORPUSCULAR HEMOGLOBIN 30.6 pg (25-34); MEAN CORPUSCULAR HGB CONC 31.3 g/dl (32-36); MEAN PLATELET VOLUME 9.5 fL (7.4-10.4); PLATELET COUNT 243 K/uL (130-400); RED CELL DISTRIBUTION WIDTH CV 14.1 % (11.5-14.5); RED CELL DISTRIBUTION WIDTH SD 50.7 fL (36.4-46.3); WHITE BLOOD COUNT 5.25 K/uL (4.8-10.8)
[2017-09-07 06:39] LABS: CREATININE 1.39 mg/dl (0.60-1.20)
[2017-09-07 06:40] LABS: CALCIUM 8.5 mg/dl (8.5-10.1); POTASSIUM 3.5 mmol/L (3.5-5.1)
[2017-09-07] MEDS: LEVOTHYROXINE 200 MCG TAB PO SCH (06:40)
[2017-09-07] MEDS: HEPARIN SOD 5000 UNIT/0.5 ML CARP SQ SCH ×3 (06:47→19:55)
[2017-09-07] MEDS: FUROSEMIDE INJ 20 MG in SYRINGE 0 ML IV SCH ×2 (06:48→18:01)
--- NOTE | 2017-09-07 07:18 | Clinical Documentation Query ---
CLINICAL DOCUMENTATION QUERY 52 year old female who presents to the Emergency Room brought in by EMS with complaints of persistent shortness of breath Query #1/2 In your clinical opinion is this patient being managed for: ( ) Suspected Acute diastolic CHF evidenced by fluid volume overload treated & hypoxia with IV Lasix ( ) Suspected Acute systolic CHF evidenced by fluid volume overload & hypoxia treated with IV Lasix ( X ) Not Agree ( ) Other explanation of clinical findings (Please Explain) ( ) Unable to determine (Please Define) ( ) Need to Discuss The medical record reflects the following clinical findings, treatment, and risk factors. Clinical Indicators: Hypoxia 88%, Tachycardia 102, CXR with cardiomegaly with suggestion of volume overload. Pulmonary edema cannot be excluded. Treatment: IV Lasix, I/O's, daily weights, telemetry, Risk Factors: Age, cardiomegaly, CKD, HTN, obesity, Query #2/2 In your clinical opinion is this patient being managed for: ( X ) Mild persistent asthma with exacerbation ( ) Moderate persistent asthma with exacerbation ( ) Severe persistent asthma with exacerbation ( ) Not Agree ( ) Other explanation of clinical findings (Please Explain) ( ) Unable to determine (Please Define) ( ) Need to Discuss The medical record reflects the following clinical findings, treatment, and risk factors. Clinical Indicators: Per ED physician assessment patient had wheezes and rhonchi throughout all lung kim. Hypoxia of 88% Treatment: O2, IV Solumedrol, IV Azithromycin, Duonebs, Risk Factors: Age, asthma, ?CHF, bronchitis Please clarify and document your clinical opinion in the progress notes and discharge summary. Terms such as "probable", "suspected", "likely", "questionable", "possible", or "still to be ruled out" are acceptable. IF IN AGREEMENT, YOU MUST DOCUMENT ABOVE DIAGNOSTIC STATEMENT IN DAILY PROGRESS NOTES AND DISCHARGE SUMMARY. This document is not part of the patient's record. Mild Persistent Asthma: People with mild persistent asthma typically have asthma symptoms that occur almost weekly, but a single controller medication is usually sufficient to gain control. Asthma severity is classified as mild persistent asthma when: *asthma symptoms occur more than 2 days per week, but not daily *wake up from asthma 3 to 4 nights per month *use rescue inhaler more than 2 days per week, but not daily *have only minor interference with daily activities *have a FEV1 greater than 80% of predicted or normal lung function most of the time Moderate Persistent Asthma: People with moderate persistent asthma typically have asthma symptoms that occur almost daily, but they are able to gain control of the asthma exacerbation with two medications. Asthma severity is classified as moderate persistent asthma when: *have asthma symptoms daily. *wake up from asthma more than one night per week, but not every night. *use rescue inhaler daily. *asthma moderately interferes with daily activities. *have a FEV1 greater than 60% but less than 80% of predicted Severe Persistent Asthma: People with severe persistent asthma typically have daily asthma symptoms despite attempting to gain control with more than 2 controller medications. Asthma severity is classified as severe persistent asthma when: *have asthma symptoms throughout the day *wake up from asthma nightly *use rescue inhaler multiple times per day *have extreme interference with daily activities *have a FEV1 less than 60% of predicted NHLBI Guidelines for the Diagnosis and Management of Asthma Thank You, Jorge Valero, RN [phone]
[2017-09-07] MEDS: SENNA 8.6 MG TAB PO SCH (07:45)
[2017-09-07] MEDS: AZITHROMYCIN 250 MG TAB PO SCH (07:45)
[2017-09-07] MEDS: AMLODIPINE BESYLATE 5 MG TAB PO SCH (07:45)
[2017-09-07] MEDS: SERTRALINE HCL 50 MG TAB PO SCH (07:45)
[2017-09-07] MEDS: ASCORBIC ACID 500 MG TAB PO SCH ×2 (07:46→19:53)
[2017-09-07] MEDS: FERROUS SULFATE 325 MG TAB PO SCH ×2 (07:46→19:51)
[2017-09-07] MEDS: ASPIRIN 81 MG ECTAB PO SCH (07:46)
[2017-09-07] MEDS: CEROVITE ADV FORMULA TAB PO SCH (07:46)
[2017-09-07] MEDS ORDERED: NON-FORMULARY MEDICATION (Solifenacin Succinate (Vesicare) 10 MG) PO SCH (09:00)
[2017-09-07] MEDS: ACETAMINOPHEN 325 MG TAB PO PRN (15:30)
[2017-09-07] MEDS ORDERED: PERFLUTREN LIPID MICROSPHERE (DEFINITY) IV ONE (15:32)
[2017-09-07] MEDS: SIMVASTATIN 20 MG TAB PO SCH (19:52)
[2017-09-07] MEDS: MONTELUKAST SOD 10 MG TAB PO SCH (19:52)
--- NOTE | 2017-09-07 20:17 | Progress Note ---
Medicine Progress Note Date & Time of Visit: Sep 07, 2017 at 18:40 . Subjective CC: Follow-up visit for cough and dyspnea. HPI: Feels a little better. Cough and SOB improved. Low grade fever. ROS: General- as noted above in HPI Resp- as noted above in HPI Cardiac- no chest pain, chronic edema GI- no nausea, no vomiting, no diarrhea - suprapubic catheter . Objective Last 8 Hrs Date Time Temp Pulse Resp B/P (MAP) Pulse Ox O2 Delivery O2 Flow Rate FiO2 09/07/17 20:00 Oxymask 2.0 09/07/17 19:54 37.1 97 20 97/61 (73) 89 Room Air 09/07/17 18:59 85 16 97 Diffusion Mask 1.0 09/07/17 16:00 38.1 93 20 126/68 (87) 90 Oxymask 2.0 09/07/17 16:00 Oxymask 2.0 09/07/17 14:52 85 96 Diffusion Mask 2.0 Physical Exam: General- lying in bed; no distress Lungs- scattered rhonchi; diffuse wheezing; no respiratory distress Cardiovascular- RRR; no gallop; neck veins difficult to assess; chronic- appearing edema lower extremities Abdomen- + bowel sounds, soft, nontender; suprapubic catheter Extremities- no cyanosis; no calf tenderness Neuro- alert, oriented Skin- warm & dry; chronic venous stasis changes lower extremities . Laboratory Results: Last 24 Hours Test 09/07/17 01:52 09/07/17 05:46 Troponin I < 0.015 ng/ml White Blood Count 5.25 K/uL Red Blood Count 2.97 M/uL Hemoglobin 9.1 g/dL Hematocrit 29.1 % Mean Corpuscular Volume 98.0 fL Mean Corpuscular Hemoglobin 30.6 pg Mean Corpuscular Hemoglobin Concent 31.3 g/dl RDW Standard Deviation 50.7 fL RDW Coefficient of Variation 14.1 % Platelet Count 243 K/uL Mean Platelet Volume 9.5 fL Sodium Level 140 mmol/L Potassium Level 3.5 mmol/L Chloride Level 104 mmol/L Carbon Dioxide Level 31 mmol/L Anion Gap 5.0 mmol/L Blood Urea Nitrogen 33 mg/dl Creatinine 1.39 mg/dl Est Creatinine Clear Calc Drug Dose 39.8 ml/min Estimated GFR () 49.7 Estimated GFR (Non- 42.9 BUN/Creatinine Ratio 23.5 Random Glucose 103 mg/dl Calcium Level 8.5 mg/dl Assessment & Plan EXACERBATION ASTHMA / COUGH / SOB Chest x-ray interpreted as possible pulmonary vascular congestion, but BNP normal. Suspect lower respiratory tract infection- bronchitis or interstitial pneumonitis. Continue Rx with azithromycin and steroids. HYPERTENSION Continue amlodipine. CKD III Serum creatine today = 1.39. Follow. HYPOTHYROIDISM Continue levothyroxine. NEUROGENIC BLADDER S/P suprapubic catheter placement. BACTERURIA Probable colonization from suprapubic catheter. Does not require Rx. VTE PROPHYLAXIS SQ heparin. DISPOSITION Expected discharge to home. Family Medicine follow-up with Dr. Reginaldo Adair. . Current Inpatient Medications: Current Inpatient Medications Medications (Trade) Dose Ordered Sig/Jacky Route Start Time Stop Time Status Last Admin Dose Admin Heparin Sodium (Porcine) (Heparin Sq 5000 Unit/0.5ml) 5,000 unit Q8 SQ 09/06/17 22:00 10/06/17 21:59 09/07/17 19:55 5,000 UNIT Acetaminophen (Tylenol Tab) 650 mg Q4H PRN PO 09/06/17 17:30 10/06/17 17:29 09/07/17 15:30 650 MG Ondansetron HCl (Zofran Inj) 4 mg Q6H PRN IV 09/06/17 17:30 10/06/17 17:29 Furosemide 20 mg/ Syringe 2 ml @ 4 mls/min Q12H IV 09/07/17 06:00 10/07/17 05:59 09/07/17 18:01 4 MLS/MIN Prednisone (PredniSONE TAB) 40 mg DAILY PO 09/07/17 09:00 09/11/17 09:01 09/07/17 07:46 40 MG Albuterol/ Ipratropium (Duoneb) 3 ml Q6R INH 09/06/17 21:00 10/06/17 20:59 09/07/17 18:59 3 ML Azithromycin (Zithromax Tab) 250 mg QAM PO 09/07/17 09:00 09/10/17 09:01 09/07/17 07:45 250 MG Amlodipine Besylate (Norvasc Tab) 5 mg DAILY PO 09/07/17 09:00 3/2/18 08:59 09/07/17 07:45 5 MG Ascorbic Acid (Vitamin C Tab) 500 mg BID PO 09/06/17 21:00 10/06/17 20:59 09/07/17 19:53 500 MG Aspirin (Ecotrin Tab) 81 mg QAM PO 09/07/17 09:00 10/07/17 08:59 09/07/17 07:46 81 MG Folic Acid (Folvite Tab) 1 mg QAM PO 09/07/17 09:00 10/07/17 08:59 09/07/17 07:46 1 MG Levothyroxine Sodium (Synthroid Tab) 200 mcg DAILYBB PO 09/07/17 06:00 10/07/17 05:59 09/07/17 06:40 200 MCG Montelukast Sodium (Singulair Tab) 10 mg HS PO 09/06/17 21:00 10/06/17 20:59 09/07/17 19:52 10 MG Multivitamins/ Minerals (Multivitamin W/ Minerals Tab) 1 tab DAILY PO 09/07/17 09:00 10/07/17 08:59 09/07/17 07:46 1 TAB Senna (Senokot Tab) 8.6 mg DAILY PO 09/07/17 09:00 10/07/17 08:59 09/07/17 07:45 8.6 MG Sertraline HCl (Zoloft Tab) 150 mg QAM PO 09/07/17 09:00 10/07/17 08:59 09/07/17 07:45 150 MG Simvastatin (Zocor Tab) 20 mg HS PO 09/06/17 21:00 10/06/17 20:59 09/07/17 19:52 20 MG Ferrous Sulfate (Feosol Tab) 325 mg BID PO 09/06/17 21:00 10/06/17 20:59 09/07/17 19:51 325 MG Miscellaneous Information (Order Awaiting Action) 1 ea QS N/A 09/07/17 00:00 10/07/17 00:00 Miscellaneous Information (Order Awaiting Action) 1 ea QS N/A 09/07/17 00:00 10/07/17 00:00
[2017-09-08] VITALS (15 sets, daily range): BP systolic 102–154; BP diastolic 64–85; PULSE 73–87; TEMP 36.8–37.2; O2SAT 89–100
[2017-09-08] MEDS: ALBUT/IPRATROP 3MG/0.5MG NEB 3 ML VIAL INH SCH ×4 (02:31→19:20)
--- NOTE | 2017-09-08 05:33 | Clinical Documentation Query ---
CLINICAL DOCUMENTATION QUERY In your clinical opinion is this patient being managed for: ( ) Mild persistent asthma with exacerbation ( ) Moderate persistent asthma with exacerbation ( ) Severe persistent asthma with exacerbation ( ) Not Agree ( ) Other explanation of clinical findings (Please Explain) ( ) Unable to determine (Please Define) ( ) Need to Discuss UNCERTAIN. WILL TRY TO CLARIFY AND DOCUMENT INDICATED. THANKS. The medical record reflects the following clinical findings, treatment, and risk factors. Clinical Indicators: Per ED physician assessment patient had wheezes and rhonchi throughout all lung kim. Hypoxia of 88% Treatment: O2, IV Solumedrol, IV Azithromycin, Duonebs, Risk Factors: Age, asthma, ?CHF, bronchitis Please clarify and document your clinical opinion in the progress notes and discharge summary. Terms such as "probable", "suspected", "likely", "questionable", "possible", or "still to be ruled out" are acceptable. IF IN AGREEMENT, YOU MUST DOCUMENT ABOVE DIAGNOSTIC STATEMENT IN DAILY PROGRESS NOTES AND DISCHARGE SUMMARY. This document is not part of the patient's record. The addition of the type of asthma will not only lend specificity to the patient's diagnosis, but may qualify as a reimbursable diagnosis for an [facility] assignment. Mild Persistent Asthma: People with mild persistent asthma typically have asthma symptoms that occur almost weekly, but a single controller medication is usually sufficient to gain control. Asthma severity is classified as mild persistent asthma when: *asthma symptoms occur more than 2 days per week, but not daily *wake up from asthma 3 to 4 nights per month *use rescue inhaler more than 2 days per week, but not daily *have only minor interference with daily activities *have a FEV1 greater than 80% of predicted or normal lung function most of the time Moderate Persistent Asthma: People with moderate persistent asthma typically have asthma symptoms that occur almost daily, but they are able to gain control of the asthma exacerbation with two medications. Asthma severity is classified as moderate persistent asthma when: *have asthma symptoms daily. *wake up from asthma more than one night per week, but not every night. *use rescue inhaler daily. *asthma moderately interferes with daily activities. *have a FEV1 greater than 60% but less than 80% of predicted Severe Persistent Asthma: People with severe persistent asthma typically have daily asthma symptoms despite attempting to gain control with more than 2 controller medications. Asthma severity is classified as severe persistent asthma when: *have asthma symptoms throughout the day *wake up from asthma nightly *use rescue inhaler multiple times per day *have extreme interference with daily activities *have a FEV1 less than 60% of predicted NHLBI Guidelines for the Diagnosis and Management of Asthma Thank You, Jorge Valero RN [phone]
[2017-09-08] MEDS: LEVOTHYROXINE 200 MCG TAB PO SCH (06:23)
[2017-09-08] MEDS: HEPARIN SOD 5000 UNIT/0.5 ML CARP SQ SCH ×3 (06:25→22:11)
[2017-09-08] MEDS: FUROSEMIDE INJ 20 MG in SYRINGE 0 ML IV SCH ×2 (06:26→19:19)
[2017-09-08 06:40] LABS: HEMATOCRIT 29.7 % (37-47); HEMOGLOBIN 9.2 g/dL (12.0-16.0); MEAN CELL VOLUME 98.7 fL (80-100); MEAN CORPUSCULAR HEMOGLOBIN 30.6 pg (25-34); MEAN PLATELET VOLUME 9.4 fL (7.4-10.4); PLATELET COUNT 247 K/uL (130-400); RED CELL DISTRIBUTION WIDTH CV 14.3 % (11.5-14.5); RED CELL DISTRIBUTION WIDTH SD 51.5 fL (36.4-46.3); WHITE BLOOD COUNT 5.65 K/uL (4.8-10.8)
[2017-09-08 07:09] LABS: CALCIUM 8.5 mg/dl (8.5-10.1); CREATININE 1.62 mg/dl (0.60-1.20); POTASSIUM 3.7 mmol/L (3.5-5.1)
--- NOTE | 2017-09-08 07:31 | DIAGNOSTIC IMAGING REPORT ---
CHEST ONE VIEW PORTABLE CLINICAL HISTORY: cough, SOB COMPARISON STUDY: 09/06/2017 FINDINGS: The heart is mildly enlarged. There is diffuse elevation of the interstitium, consistent with pulmonary vascular congestion. There is no focal pulmonary consolidation. There are calcifications within the left neck, likely secondary to a prior ventriculoperitoneal shunt.[ IMPRESSION: 1. Technically limited study. 2. Diffuse elevation of the interstitium, likely secondary to pulmonary vascular congestion. Electronically signed by: Jamshid Palmer M.D. 09/08/2017 7:30 AM Dictated Date/Time: 09/08/2017 7:28 AM
[2017-09-08] MEDS ORDERED: SODIUM CHLORIDE 0.9% 1000ML 1,000 ML IV SCH (07:45)
[2017-09-08] MEDS: CEROVITE ADV FORMULA TAB PO SCH (08:09)
[2017-09-08] MEDS: AMLODIPINE BESYLATE 5 MG TAB PO SCH (08:10)
[2017-09-08] MEDS: SENNA 8.6 MG TAB PO SCH (08:10)
[2017-09-08] MEDS: ASCORBIC ACID 500 MG TAB PO SCH ×2 (08:10→20:34)
[2017-09-08] MEDS: SERTRALINE HCL 50 MG TAB PO SCH (08:10)
[2017-09-08] MEDS: ASPIRIN 81 MG ECTAB PO SCH (08:11)
[2017-09-08] MEDS: AZITHROMYCIN 250 MG TAB PO SCH (08:11)
[2017-09-08] MEDS: FERROUS SULFATE 325 MG TAB PO SCH ×2 (08:11→20:34)
[2017-09-08] MEDS: ACETAMINOPHEN 325 MG TAB PO PRN (14:10)
--- NOTE | 2017-09-08 15:15 | ECHOCARDIOGRAM REPORT ---
*NOTICE TO RECEIVING [facility] This information is strictly Confidential and protected under [place] law. [place] law prohibits you from making any further disclosure of this information unless further disclosure is expressly permitted by the written consent of the person to whom it pertains or is authorized by law. A general authorization for the release of medical or other information is not sufficient for this purpose. Hospital accepts no responsibility if the information is made available to any other person, INCLUDING THE PATIENT. Interpretation Summary * Name: RONNELL CALDERON Study Date: 09/07/2017 03:10 PM BP: 125/76 mmHg * Patient Location: S234 HR: 94 * : 1965 (M/d/yyyy) Gender: Female Height: 53 in * Age: 52 yrs Ethnicity: CA Weight: 203 lb * Ordering Physician: JULIANNE PAYNE CRNP * Performed By: Comfort Amaral RCS * * Reason For Study: VOLUME OVERLOAD * BSA: 1.7 m2 * The study was technically limited. * Grossly normal valvular structure and function. * -- Conclusions -- * The study was technically limited. * The left ventricle is not well visualized. * The left ventricular ejection fraction is grossly normal. * Grossly normal valvular structure and function. Procedure Details * A complete two-dimensional transthoracic echocardiogram was performed (2D, M-mode, Doppler and color flow Doppler). * The study was technically difficult. * There were technical limitations due to patient'sPoor acoustic windows secondary to severe lung disease. * A contrast injection of Definity was performed to improve assessment of LV function. * Contrast was injected into an intravenous site in the right arm. * One vial of Definity ultrasound contrast was diluted in normal saline to a total volume of 10 ml. A total of '2' ml of solution was administered during imaging. * Lot # [id number] of Definity utilized for procedure. * Expiration date AUG 26. * The attending nurse who injected the contrast agent was VISH NASCIMENTO RN. Left Ventricle * The left ventricle is not well visualized. * The left ventricle is grossly normal size. * The left ventricular ejection fraction is grossly normal. Right Ventricle * The right ventricle is not well visualized. Atria * The left atrium is not well visualized. * Right atrium not well visualized. Mitral Valve * The mitral valve is not well visualized. * The mitral valve is grossly normal. * Significant mitral regurgitation is absent. Tricuspid Valve * The tricuspid valve is not well visualized. * Significant tricuspid regurgitation is absent. Pulmonic Valve * The pulmonic valve is not well visualized. Great Vessels * The aortic root and proximal ascending aorta are normal sized. MMode 2D Measurements and Calculations IVSd 0.93 cm IVSs 1.2 cm LVIDd 4.9 cm LVIDs 3.8 cm LVPWd 0.98 cm LVPWs 1.2 cm IVS/LVPW 0.95 FS 21.4 % EDV(Teich) 112.2 ml ESV(Teich) 63.6 ml EF(Teich) 43.3 % EDV(cubed) 116.8 ml ESV(cubed) 56.7 ml EF(cubed) 51.4 % % IVS thick 25.0 % % LVPW thick 27.9 % LV mass(C)d 163.7 grams LV mass(C)dI 95.3 grams/m\S\2 LV mass(C)s 156.1 grams LV mass(C)sI 90.9 grams/m\S\2 SV(Teich) 48.5 ml SI(Teich) 28.3 ml/m\S\2 SV(cubed) 60.0 ml SI(cubed) 35.0 ml/m\S\2 Ao root diam 2.6 cm Ao root area 5.4 cm\S\2 LA dimension 2.4 cm LA/Ao 0.91 Doppler Measurements and Calculations MV E max esperanza 83.6 cm/sec MV A max esperanza 96.5 cm/sec MV E/A 0.87 MV P1/2t max esperanza 103.5 cm/sec MV P1/2t 71.7 msec MVA(P1/2t) 3.1 cm\S\2 MV dec slope 422.9 cm/sec\S\2 MV dec time 0.22 sec Ao V2 max 168.2 cm/sec Ao max PG 11.3 mmHg Ao max PG (full) 5.5 mmHg LV V1 max PG 5.9 mmHg LV V1 max 121.0 cm/sec PA V2 max 105.3 cm/sec PA max PG 4.4 mmHg
[2017-09-08] MEDS: LEVALBUTEROL 0.63MG/3 ML NEB INH PRN (17:55)
[2017-09-08] MEDS: MONTELUKAST SOD 10 MG TAB PO SCH (20:34)
[2017-09-08] MEDS: SIMVASTATIN 20 MG TAB PO SCH (20:34)
--- NOTE | 2017-09-08 20:42 | Progress Note ---
Medicine Progress Note Date & Time of Visit: Sep 08, 2017 at 19:40 . Subjective CC: Follow-up visit for cough and dyspnea. HPI: Paroxysms of coughing, but overall feeling a little better. Tires easily. Last fever yesterday afternoon. ROS: General- as noted above in HPI Resp- as noted above in HPI Cardiac- no chest pain GI- no nausea, no vomiting, no diarrhea - suprapubic cath . Objective Last 8 Hrs Date Time Temp Pulse Resp B/P (MAP) Pulse Ox O2 Delivery O2 Flow Rate FiO2 09/08/17 19:32 37.0 80 20 110/69 (83) 97 Oxymask 3.0 09/08/17 17:56 84 16 98 Mask 3.0 09/08/17 16:00 95 Oxymask 3.0 09/08/17 15:51 37.2 87 20 134/76 (95) 95 Oxymask 3.0 09/08/17 14:28 81 16 98 Mask 3.0 Physical Exam: General- lying in bed; no distress Lungs- scattered rhonchi; diffuse wheezing; no respiratory distress Cardiovascular- RRR; no gallop; neck veins difficult to assess; chronic- appearing 3+ edema lower extremities Abdomen- + bowel sounds, soft, nontender; suprapubic catheter Extremities- no cyanosis; no calf tenderness Neuro- alert, oriented Skin- warm & dry; chronic venous stasis changes lower extremities . Laboratory Results: Last 24 Hours Test 09/08/17 06:01 White Blood Count 5.65 K/uL Red Blood Count 3.01 M/uL Hemoglobin 9.2 g/dL Hematocrit 29.7 % Mean Corpuscular Volume 98.7 fL Mean Corpuscular Hemoglobin 30.6 pg Mean Corpuscular Hemoglobin Concent 31.0 g/dl RDW Standard Deviation 51.5 fL RDW Coefficient of Variation 14.3 % Platelet Count 247 K/uL Mean Platelet Volume 9.4 fL Sodium Level 139 mmol/L Potassium Level 3.7 mmol/L Chloride Level 103 mmol/L Carbon Dioxide Level 32 mmol/L Anion Gap 4.0 mmol/L Blood Urea Nitrogen 39 mg/dl Creatinine 1.62 mg/dl Est Creatinine Clear Calc Drug Dose 37.8 ml/min Estimated GFR () 41.3 Estimated GFR (Non- 35.6 BUN/Creatinine Ratio 23.9 Random Glucose 80 mg/dl Calcium Level 8.5 mg/dl Assessment & Plan EXACERBATION ASTHMA / COUGH / SOB Chest x-ray interpreted as possible pulmonary vascular congestion, but BNP normal. Echo limited study. Suspect lower respiratory tract infection- bronchitis or interstitial pneumonitis. CT discussed- patient does not feel that she could tolerate it due to back discomfort. Continue Rx with azithromycin and steroids. Add nebs. Add guaifenesin syrup during the day + Hycodan syrup HS. HYPERTENSION Continue amlodipine. CKD III Serum creatine today = 1.62. Follow. HYPOTHYROIDISM Continue levothyroxine. NEUROGENIC BLADDER S/P suprapubic catheter placement. BACTERURIA Probable colonization from suprapubic catheter. Does not require Rx. VTE PROPHYLAXIS SQ heparin. DISPOSITION Expected discharge to home. Family Medicine follow-up with Dr. Reginaldo Adair. . Current Inpatient Medications: Current Inpatient Medications Medications (Trade) Dose Ordered Sig/Jacky Route Start Time Stop Time Status Last Admin Dose Admin Heparin Sodium (Porcine) (Heparin Sq 5000 Unit/0.5ml) 5,000 unit Q8 SQ 09/06/17 22:00 10/06/17 21:59 09/08/17 14:10 5,000 UNIT Acetaminophen (Tylenol Tab) 650 mg Q4H PRN PO 09/06/17 17:30 10/06/17 17:29 09/08/17 14:10 650 MG Ondansetron HCl (Zofran Inj) 4 mg Q6H PRN IV 09/06/17 17:30 10/06/17 17:29 Furosemide 20 mg/ Syringe 2 ml @ 4 mls/min Q12H IV 09/07/17 06:00 10/07/17 05:59 09/08/17 19:19 4 MLS/MIN Prednisone (PredniSONE TAB) 40 mg DAILY PO 09/07/17 09:00 09/11/17 09:01 09/08/17 08:10 40 MG Albuterol/ Ipratropium (Duoneb) 3 ml Q6R INH 09/06/17 21:00 10/06/17 20:59 09/08/17 19:20 3 ML Azithromycin (Zithromax Tab) 250 mg QAM PO 09/07/17 09:00 09/10/17 09:01 09/08/17 08:11 250 MG Amlodipine Besylate (Norvasc Tab) 5 mg DAILY PO 09/07/17 09:00 10/07/17 08:59 09/08/17 08:10 5 MG Ascorbic Acid (Vitamin C Tab) 500 mg BID PO 09/06/17 21:00 10/06/17 20:59 09/08/17 20:34 500 MG Aspirin (Ecotrin Tab) 81 mg QAM PO 09/07/17 09:00 10/07/17 08:59 09/08/17 08:11 81 MG Folic Acid (Folvite Tab) 1 mg QAM PO 09/07/17 09:00 10/07/17 08:59 09/08/17 08:11 1 MG Levothyroxine Sodium (Synthroid Tab) 200 mcg DAILYBB PO 09/07/17 06:00 10/07/17 05:59 09/08/17 06:23 200 MCG Montelukast Sodium (Singulair Tab) 10 mg HS PO 09/06/17 21:00 10/06/17 20:59 09/08/17 20:34 10 MG Multivitamins/ Minerals (Multivitamin W/ Minerals Tab) 1 tab DAILY PO 09/07/17 09:00 10/07/17 08:59 09/08/17 08:09 1 TAB Senna (Senokot Tab) 8.6 mg DAILY PO 09/07/17 09:00 10/07/17 08:59 09/08/17 08:10 8.6 MG Sertraline HCl (Zoloft Tab) 150 mg QAM PO 09/07/17 09:00 10/07/17 08:59 09/08/17 08:10 150 MG Simvastatin (Zocor Tab) 20 mg HS PO 09/06/17 21:00 10/06/17 20:59 09/08/17 20:34 20 MG Ferrous Sulfate (Feosol Tab) 325 mg BID PO 09/06/17 21:00 10/06/17 20:59 09/08/17 20:34 325 MG Miscellaneous Information (Order Awaiting Action) 1 ea QS N/A 09/07/17 00:00 10/07/17 00:00 Miscellaneous Information (Order Awaiting Action) 1 ea QS N/A 09/07/17 00:00 10/07/17 00:00 Levalbuterol (Xopenex 0.63 Mg/ 3 Ml Neb) 0.63 mg Q4R PRN INH 09/08/17 18:00 10/08/17 17:59 09/08/17 17:55 0.63 MG Hydrocodone Bit/ Homatropine Methylb (Hycodan Syrup) 5 ml HS PO 09/08/17 21:00 09/22/17 20:59 UNV Guaifenesin (Robitussin Sugar Free Syrup) 100 mg TID@0700,1100,1600 PRN PO 09/08/17 20:45 10/08/17 20:44 UNV
[2017-09-08] MEDS: HYDROCODONE/HOMATROPINE SYRUP 5MG/1.5MG 5ML UDP PO SCH (22:10)
[2017-09-09] VITALS (10 sets, daily range): BP systolic 112–145; BP diastolic 66–81; PULSE 72–98; TEMP 36.7–37.4; O2SAT 93–98
[2017-09-09] MEDS: ALBUT/IPRATROP 3MG/0.5MG NEB 3 ML VIAL INH SCH ×4 (01:40→16:14)
[2017-09-09] MEDS: GUAIFENESIN SUGAR FREE 100 MG/5 ML UDC PO PRN ×2 (03:55→12:23)
[2017-09-09] MEDS: LEVOTHYROXINE 200 MCG TAB PO SCH (06:10)
[2017-09-09] MEDS: FUROSEMIDE INJ 20 MG in SYRINGE 0 ML IV SCH ×2 (06:10→17:45)
[2017-09-09] MEDS: HEPARIN SOD 5000 UNIT/0.5 ML CARP SQ SCH ×3 (06:12→21:06)
[2017-09-09 06:14] LABS: HEMATOCRIT 29.9 % (37-47); HEMOGLOBIN 9.1 g/dL (12.0-16.0); MEAN CORPUSCULAR HEMOGLOBIN 30.4 pg (25-34); MEAN CORPUSCULAR HGB CONC 30.4 g/dl (32-36); MEAN PLATELET VOLUME 9.4 fL (7.4-10.4); PLATELET COUNT 222 K/uL (130-400); RED CELL DISTRIBUTION WIDTH CV 14.1 % (11.5-14.5); RED CELL DISTRIBUTION WIDTH SD 51.7 fL (36.4-46.3); WHITE BLOOD COUNT 6.01 K/uL (4.8-10.8)
[2017-09-09 06:55] LABS: CALCIUM 8.5 mg/dl (8.5-10.1); CREATININE 1.7 mg/dl (0.60-1.20); POTASSIUM 3.8 mmol/L (3.5-5.1)
[2017-09-09] MEDS ORDERED: NSS + 20MEQ KCL 1000ML 1,000 ML IV SCH (07:30)
[2017-09-09] MEDS: FERROUS SULFATE 325 MG TAB PO SCH ×2 (09:20→21:03)
[2017-09-09] MEDS: ASCORBIC ACID 500 MG TAB PO SCH ×2 (09:22→21:04)
[2017-09-09] MEDS: ASPIRIN 81 MG ECTAB PO SCH (09:22)
[2017-09-09] MEDS: CEROVITE ADV FORMULA TAB PO SCH (09:22)
[2017-09-09] MEDS: AZITHROMYCIN 250 MG TAB PO SCH (09:22)
[2017-09-09] MEDS: AMLODIPINE BESYLATE 5 MG TAB PO SCH (09:22)
[2017-09-09] MEDS: SENNA 8.6 MG TAB PO SCH (09:23)
[2017-09-09] MEDS: SERTRALINE HCL 50 MG TAB PO SCH (09:23)
[2017-09-09] MEDS: ACETAMINOPHEN 325 MG TAB PO PRN (12:23)
--- NOTE | 2017-09-09 20:37 | Progress Note ---
Medicine Progress Note Date & Time of Visit: Sep 09, 2017 at 16:30 . Subjective CC: Follow-up visit for cough and dyspnea. HPI: Feeling better, but still coughing. Still requiring O2. Afebrile. ROS: General- as noted above in HPI Resp- as noted above in HPI Cardiac- no chest pain GI- no nausea, no vomiting, no diarrhea - suprapubic cath . Objective Last 8 Hrs Date Time Temp Pulse Resp B/P (MAP) Pulse Ox O2 Delivery O2 Flow Rate FiO2 09/09/17 20:24 Oxymask 3.0 09/09/17 19:48 37.2 98 20 121/66 (84) 93 Nasal Cannula 3.0 09/09/17 16:15 86 16 97 Mask 4.0 09/09/17 16:00 Oxymask 3.0 09/09/17 15:17 37.4 88 20 134/80 (98) 94 Oxymask Physical Exam: General- lying in bed; no distress Lungs- scattered rhonchi; diffuse wheezing; no respiratory distress Cardiovascular- RRR; no gallop; neck veins difficult to assess; chronic- appearing 3+ edema lower extremities Abdomen- + bowel sounds, soft, nontender; suprapubic catheter Extremities- no cyanosis; no calf tenderness Neuro- alert, oriented Skin- warm & dry; chronic venous stasis changes lower extremities . Laboratory Results: Last 24 Hours Test 09/09/17 05:47 White Blood Count 6.01 K/uL Red Blood Count 2.99 M/uL Hemoglobin 9.1 g/dL Hematocrit 29.9 % Mean Corpuscular Volume 100.0 fL Mean Corpuscular Hemoglobin 30.4 pg Mean Corpuscular Hemoglobin Concent 30.4 g/dl RDW Standard Deviation 51.7 fL RDW Coefficient of Variation 14.1 % Platelet Count 222 K/uL Mean Platelet Volume 9.4 fL Sodium Level 140 mmol/L Potassium Level 3.8 mmol/L Chloride Level 104 mmol/L Carbon Dioxide Level 32 mmol/L Anion Gap 4.0 mmol/L Blood Urea Nitrogen 46 mg/dl Creatinine 1.70 mg/dl Est Creatinine Clear Calc Drug Dose 36.6 ml/min Estimated GFR () 38.9 Estimated GFR (Non- 33.6 BUN/Creatinine Ratio 26.8 Random Glucose 81 mg/dl Calcium Level 8.5 mg/dl Assessment & Plan EXACERBATION ASTHMA / COUGH / SOB Chest x-ray interpreted as possible pulmonary vascular congestion, but BNP normal. Echo limited study. Suspect lower respiratory tract infection- bronchitis or interstitial pneumonitis. CT discussed- patient does not feel that she could tolerate it due to back discomfort. Continue Rx with azithromycin and steroids. Add nebs. Add guaifenesin syrup during the day + Hycodan syrup HS. HYPERTENSION Continue amlodipine. CKD III Serum creatine today = 1.7. Hold furosemide. IV fluids. Follow. HYPOTHYROIDISM Continue levothyroxine. NEUROGENIC BLADDER S/P suprapubic catheter placement. BACTERURIA Probable colonization from suprapubic catheter. Does not require Rx. VTE PROPHYLAXIS SQ heparin. DISPOSITION Expected discharge to home. Family Medicine follow-up with Dr. Reginaldo Adair. . Current Inpatient Medications: Current Inpatient Medications Medications (Trade) Dose Ordered Sig/Jacky Route Start Time Stop Time Status Last Admin Dose Admin Heparin Sodium (Porcine) (Heparin Sq 5000 Unit/0.5ml) 5,000 unit Q8 SQ 09/06/17 22:00 10/06/17 21:59 09/09/17 15:30 5,000 UNIT Acetaminophen (Tylenol Tab) 650 mg Q4H PRN PO 09/06/17 17:30 10/06/17 17:29 09/09/17 12:23 650 MG Ondansetron HCl (Zofran Inj) 4 mg Q6H PRN IV 09/06/17 17:30 10/06/17 17:29 Furosemide 20 mg/ Syringe 2 ml @ 4 mls/min Q12H IV 09/07/17 06:00 10/07/17 05:59 09/09/17 17:45 4 MLS/MIN Prednisone (PredniSONE TAB) 40 mg DAILY PO 09/07/17 09:00 09/11/17 09:01 09/09/17 09:22 40 MG Albuterol/ Ipratropium (Duoneb) 3 ml Q6R INH 09/06/17 21:00 10/06/17 20:59 09/09/17 16:14 3 ML Azithromycin (Zithromax Tab) 250 mg QAM PO 09/07/17 09:00 09/10/17 09:01 09/09/17 09:22 250 MG Amlodipine Besylate (Norvasc Tab) 5 mg DAILY PO 09/07/17 09:00 10/07/17 08:59 09/09/17 09:22 5 MG Ascorbic Acid (Vitamin C Tab) 500 mg BID PO 09/06/17 21:00 10/06/17 20:59 09/09/17 09:22 500 MG Aspirin (Ecotrin Tab) 81 mg QAM PO 09/07/17 09:00 10/07/17 08:59 09/09/17 09:22 81 MG Folic Acid (Folvite Tab) 1 mg QAM PO 09/07/17 09:00 10/07/17 08:59 09/09/17 09:21 1 MG Levothyroxine Sodium (Synthroid Tab) 200 mcg DAILYBB PO 09/07/17 06:00 10/07/17 05:59 09/09/17 06:10 200 MCG Montelukast Sodium (Singulair Tab) 10 mg HS PO 09/06/17 21:00 10/06/17 20:59 09/08/17 20:34 10 MG Multivitamins/ Minerals (Multivitamin W/ Minerals Tab) 1 tab DAILY PO 09/07/17 09:00 10/07/17 08:59 09/09/17 09:22 1 TAB Senna (Senokot Tab) 8.6 mg DAILY PO 09/07/17 09:00 10/07/17 08:59 09/09/17 09:23 8.6 MG Sertraline HCl (Zoloft Tab) 150 mg QAM PO 09/07/17 09:00 10/07/17 08:59 09/09/17 09:23 150 MG Simvastatin (Zocor Tab) 20 mg HS PO 09/06/17 21:00 10/06/17 20:59 09/08/17 20:34 20 MG Ferrous Sulfate (Feosol Tab) 325 mg BID PO 09/06/17 21:00 10/06/17 20:59 09/09/17 09:20 325 MG Miscellaneous Information (Order Awaiting Action) 1 ea QS N/A 09/07/17 00:00 10/07/17 00:00 Miscellaneous Information (Order Awaiting Action) 1 ea QS N/A 09/07/17 00:00 10/07/17 00:00 Levalbuterol (Xopenex 0.63 Mg/ 3 Ml Neb) 0.63 mg Q4R PRN INH 09/08/17 18:00 10/08/17 17:59 09/08/17 17:55 0.63 MG Hydrocodone Bit/ Homatropine Methylb (Hycodan Syrup) 5 ml HS PO 09/08/17 21:00 09/22/17 20:59 09/08/17 22:10 5 ML Guaifenesin (Robitussin Sugar Free Syrup) 100 mg TID@0700,1100,1600 PRN PO 09/08/17 20:45 10/08/17 20:44 09/09/17 12:23 100 MG
[2017-09-09] MEDS: MONTELUKAST SOD 10 MG TAB PO SCH (21:03)
[2017-09-09] MEDS: SIMVASTATIN 20 MG TAB PO SCH (21:03)
[2017-09-09] MEDS: HYDROCODONE/HOMATROPINE SYRUP 5MG/1.5MG 5ML UDP PO SCH (21:08)
[2017-09-10] VITALS (11 sets, daily range): BP systolic 100–134; BP diastolic 59–78; PULSE 71–105; TEMP 35.4–37.1; O2SAT 88–99
[2017-09-10] MEDS: ALBUT/IPRATROP 3MG/0.5MG NEB 3 ML VIAL INH SCH ×6 (02:03→23:06)
[2017-09-10] MEDS: LEVOTHYROXINE 200 MCG TAB PO SCH (06:24)
[2017-09-10] MEDS: HEPARIN SOD 5000 UNIT/0.5 ML CARP SQ SCH ×3 (06:25→21:20)
[2017-09-10 07:21] LABS: CALCIUM 8.2 mg/dl (8.5-10.1); CREATININE 1.71 mg/dl (0.60-1.20); POTASSIUM 3.9 mmol/L (3.5-5.1)
[2017-09-10] MEDS: SENNA 8.6 MG TAB PO SCH (08:00)
[2017-09-10] MEDS ORDERED: METHYLPREDNISOLONE IV 40 MG in SYRINGE 0 ML IV ONE (08:00)
[2017-09-10] MEDS: ASCORBIC ACID 500 MG TAB PO SCH ×2 (08:30→21:13)
[2017-09-10] MEDS: AZITHROMYCIN 250 MG TAB PO SCH (08:36)
[2017-09-10] MEDS: AMLODIPINE BESYLATE 5 MG TAB PO SCH (08:37)
[2017-09-10] MEDS: CEROVITE ADV FORMULA TAB PO SCH (08:38)
[2017-09-10] MEDS: SERTRALINE HCL 50 MG TAB PO SCH (08:38)
[2017-09-10] MEDS: FERROUS SULFATE 325 MG TAB PO SCH ×2 (08:38→21:12)
[2017-09-10] MEDS: ASPIRIN 81 MG ECTAB PO SCH (08:41)
[2017-09-10] MEDS: GUAIFENESIN SUGAR FREE 100 MG/5 ML UDC PO PRN (08:49)
[2017-09-10] MEDS: GUAIFENESIN SUGAR FREE 200 MG/10 ML UDC PO PRN ×2 (12:40→18:11)
[2017-09-10] MEDS: METHYLPREDNISOLONE IV 40 MG in SYRINGE 0 ML IV SCH ×2 (14:01→21:13)
[2017-09-10] MEDS ORDERED: NSS + 20MEQ KCL 1000ML 1,000 ML IV SCH (16:00)
--- NOTE | 2017-09-10 18:55 | Progress Note ---
Medicine Progress Note Date & Time of Visit: Sep 10, 2017 at 14:20 . Subjective CC: Follow-up visit for cough and dyspnea. HPI: Persistent cough, sometimes severe paroxysms. Still requiring O2. No fever, chills. ROS: General- as noted above in HPI Resp- as noted above in HPI Cardiac- no chest pain GI- no nausea, no vomiting, no diarrhea - suprapubic cath . Objective Last 8 Hrs Date Time Temp Pulse Resp B/P (MAP) Pulse Ox O2 Delivery O2 Flow Rate FiO2 09/10/17 16:00 97 Mask 3.0 09/10/17 15:57 37.1 105 20 116/73 (87) 97 Nasal Cannula 4.0 09/10/17 14:28 96 16 99 Mask 6.0 09/10/17 12:24 71 16 97 Mask 3.0 Physical Exam: General- lying in bed; no distress Lungs- scattered rhonchi; diffuse wheezing; no respiratory distress Cardiovascular- RRR; no gallop; neck veins difficult to assess; chronic- appearing 3+ edema lower extremities Abdomen- + bowel sounds, soft, nontender; suprapubic catheter Extremities- no cyanosis; no calf tenderness Neuro- alert, oriented Skin- warm & dry; chronic venous stasis changes lower extremities . Laboratory Results: Last 24 Hours Test 09/10/17 06:09 Sodium Level 141 mmol/L Potassium Level 3.9 mmol/L Chloride Level 105 mmol/L Carbon Dioxide Level 31 mmol/L Anion Gap 5.0 mmol/L Blood Urea Nitrogen 46 mg/dl Creatinine 1.71 mg/dl Est Creatinine Clear Calc Drug Dose 36.9 ml/min Estimated GFR () 38.7 Estimated GFR (Non- 33.4 BUN/Creatinine Ratio 27.1 Random Glucose 79 mg/dl Calcium Level 8.2 mg/dl Assessment & Plan EXACERBATION ASTHMA / COUGH / SOB Chest x-ray interpreted as possible pulmonary vascular congestion, but BNP normal. Echo limited study. Suspect lower respiratory tract infection- bronchitis or interstitial pneumonitis. CT discussed- patient does not feel that she could tolerate it due to back discomfort. Treated with course of azithromycin without improvement. Try doxycycline. IV methylprednisolone. Continue nebs. Continue guaifenesin syrup during the day + Hycodan syrup HS. Flutter valve. HYPERTENSION Continue amlodipine. CKD III Serum creatine today = 1.7. Holding furosemide. IV fluids. Follow. HYPOTHYROIDISM Continue levothyroxine. NEUROGENIC BLADDER S/P suprapubic catheter placement. BACTERURIA Probable colonization from suprapubic catheter. Does not require Rx. VTE PROPHYLAXIS SQ heparin. DISPOSITION Expected discharge to home. Family Medicine follow-up with Dr. Reginaldo Adair. . Current Inpatient Medications: Current Inpatient Medications Medications (Trade) Dose Ordered Sig/Jacky Route Start Time Stop Time Status Last Admin Dose Admin Heparin Sodium (Porcine) (Heparin Sq 5000 Unit/0.5ml) 5,000 unit Q8 SQ 09/06/17 22:00 10/06/17 21:59 09/10/17 14:01 5,000 UNIT Acetaminophen (Tylenol Tab) 650 mg Q4H PRN PO 09/06/17 17:30 10/06/17 17:29 09/09/17 12:23 650 MG Ondansetron HCl (Zofran Inj) 4 mg Q6H PRN IV 09/06/17 17:30 10/06/17 17:29 Albuterol/ Ipratropium (Duoneb) 3 ml Q6R INH 09/06/17 21:00 10/06/17 20:59 09/10/17 14:12 3 ML Amlodipine Besylate (Norvasc Tab) 5 mg DAILY PO 09/07/17 09:00 10/07/17 08:59 09/10/17 08:37 5 MG Ascorbic Acid (Vitamin C Tab) 500 mg BID PO 09/06/17 21:00 10/06/17 20:59 09/10/17 08:30 500 MG Aspirin (Ecotrin Tab) 81 mg QAM PO 09/07/17 09:00 10/07/17 08:59 09/10/17 08:41 81 MG Folic Acid (Folvite Tab) 1 mg QAM PO 09/07/17 09:00 10/07/17 08:59 09/10/17 08:36 1 MG Levothyroxine Sodium (Synthroid Tab) 200 mcg DAILYBB PO 09/07/17 06:00 10/07/17 05:59 09/10/17 06:24 200 MCG Montelukast Sodium (Singulair Tab) 10 mg HS PO 09/06/17 21:00 10/06/17 20:59 09/09/17 21:03 10 MG Multivitamins/ Minerals (Multivitamin W/ Minerals Tab) 1 tab DAILY PO 09/07/17 09:00 10/07/17 08:59 09/10/17 08:38 1 TAB Senna (Senokot Tab) 8.6 mg DAILY PO 09/07/17 09:00 10/07/17 08:59 09/09/17 09:23 8.6 MG Sertraline HCl (Zoloft Tab) 150 mg QAM PO 09/07/17 09:00 10/07/17 08:59 09/10/17 08:38 150 MG Simvastatin (Zocor Tab) 20 mg HS PO 09/06/17 21:00 10/06/17 20:59 09/09/17 21:03 20 MG Ferrous Sulfate (Feosol Tab) 325 mg BID PO 09/06/17 21:00 10/06/17 20:59 09/10/17 08:38 325 MG Miscellaneous Information (Order Awaiting Action) 1 ea QS N/A 09/07/17 00:00 10/07/17 00:00 Miscellaneous Information (Order Awaiting Action) 1 ea QS N/A 09/07/17 00:00 10/07/17 00:00 Levalbuterol (Xopenex 0.63 Mg/ 3 Ml Neb) 0.63 mg Q4R PRN INH 09/08/17 18:00 10/08/17 17:59 09/08/17 17:55 0.63 MG Hydrocodone Bit/ Homatropine Methylb (Hycodan Syrup) 5 ml HS PO 09/08/17 21:00 09/22/17 20:59 09/09/17 21:08 5 ML Methylprednisolone Sodium Succinate 40 mg/Syringe 0.64 ml @ 1.5 mls/min Q8H IV 09/10/17 14:00 10/10/17 13:59 09/10/17 14:01 1.5 MLS/MIN Guaifenesin (Robitussin Sugar Free Syrup) 200 mg TID@0700,1100,1600 PRN PO 09/10/17 11:45 10/08/17 20:44 09/10/17 18:11 200 MG Doxycycline Hyclate (Vibramycin Cap) 100 mg BID PO 09/10/17 20:00 09/17/17 19:59 Potassium Chloride/Sodium Chloride 1,000 ml @ 125 mls/hr Q8H IV 09/10/17 16:00 09/10/17 23:59 09/10/17 18:25 125 MLS/HR
[2017-09-10] MEDS: MONTELUKAST SOD 10 MG TAB PO SCH (21:13)
[2017-09-10] MEDS: DOXYCYCLINE HYCLATE 100 MG CAP PO SCH (21:13)
[2017-09-10] MEDS: SIMVASTATIN 20 MG TAB PO SCH (21:13)
[2017-09-10] MEDS: HYDROCODONE/HOMATROPINE SYRUP 5MG/1.5MG 5ML UDP PO SCH (21:13)
[2017-09-11] VITALS (12 sets, daily range): BP systolic 135–159; BP diastolic 70–84; PULSE 71–100; TEMP 36.3–36.8; O2SAT 96–99
[2017-09-11] MEDS: ALBUT/IPRATROP 3MG/0.5MG NEB 3 ML VIAL INH SCH ×6 (01:41→23:16)
[2017-09-11] MEDS: METHYLPREDNISOLONE IV 40 MG in SYRINGE 0 ML IV SCH ×3 (05:45→21:04)
[2017-09-11] MEDS: LEVOTHYROXINE 200 MCG TAB PO SCH (05:45)
[2017-09-11] MEDS: HEPARIN SOD 5000 UNIT/0.5 ML CARP SQ SCH (06:00)
--- NOTE | 2017-09-11 06:23 | Progress Note ---
Internal Med Progress Note Date of Service: Sep 11, 2017. Provider Documentation: Made aware by RN of bloody spot on patient gown from heparin injection site from last night. Currently no active bleeding as per RN. Hold heparin subcutaneous, aspirin for now until CBC results known. SCDs interim for DVT prophylaxis . Will relay to AM provider. Vital Signs: Date Time Temp Pulse Resp B/P (MAP) Pulse Ox O2 Delivery O2 Flow Rate FiO2 09/11/17 07:42 36.3 86 20 147/80 (102) 97 Oxymask 2.0 09/11/17 07:02 71 16 98 Mask 2.0 09/11/17 06:20 36.6 87 20 135/84 (101) 98 Nasal Cannula 3.0 09/11/17 01:43 73 16 98 Mask 3.0 09/11/17 00:10 Oxymask 3.0 09/10/17 23:48 35.4 85 20 134/78 (96) 98 Nasal Cannula 3.0 09/10/17 23:07 84 16 98 Mask 3.0 09/10/17 19:28 90 16 99 Mask 3.0 09/10/17 19:15 Oxymask 3.0 09/10/17 16:00 97 Mask 3.0 09/10/17 15:57 37.1 105 20 116/73 (87) 97 Nasal Cannula 4.0 09/10/17 14:28 96 16 99 Mask 6.0 09/10/17 12:24 71 16 97 Mask 3.0 Lab Results: Results Past 24 Hours Test 09/11/17 05:31 09/11/17 06:55 Range/Units Sodium Level 140 136-145 mmol/L Potassium Level 4.8 3.5-5.1 mmol/L Chloride Level 106 98-107 mmol/L Carbon Dioxide Level 30 21-32 mmol/L Anion Gap 4.0 3-11 mmol/L Blood Urea Nitrogen 47 7-18 mg/dl Creatinine 1.65 0.60-1.20 mg/dl Est Creatinine Clear Calc Drug Dose 38.3 ml/min Estimated GFR () 40.4 Estimated GFR (Non- 34.8 BUN/Creatinine Ratio 28.2 10-20 Random Glucose 130 70-99 mg/dl Calcium Level 8.2 8.5-10.1 mg/dl White Blood Count 5.01 4.8-10.8 K/uL Red Blood Count 3.00 4.2-5.4 M/uL Hemoglobin 9.2 12.0-16.0 g/dL Hematocrit 30.3 37-47 % Mean Corpuscular Volume 101.0 80-100 fL Mean Corpuscular Hemoglobin 30.7 25-34 pg Mean Corpuscular Hemoglobin Concent 30.4 32-36 g/dl Platelet Count 220 130-400 K/uL Mean Platelet Volume 9.5 7.4-10.4 fL Neutrophils (%) (Auto) 64.5 % Lymphocytes (%) (Auto) 25.1 % Monocytes (%) (Auto) 9.4 % Eosinophils (%) (Auto) 0.0 % Basophils (%) (Auto) 0.2 % Neutrophils # (Auto) 3.23 1.4-6.5 K/uL Lymphocytes # (Auto) 1.26 1.2-3.4 K/uL Monocytes # (Auto) 0.47 0.11-0.59 K/uL Eosinophils # (Auto) 0.00 0-0.5 K/uL Basophils # (Auto) 0.01 0-0.2 K/uL RDW Standard Deviation 52.4 36.4-46.3 fL RDW Coefficient of Variation 14.2 11.5-14.5 % Immature Granulocyte % (Auto) 0.8 % Immature Granulocyte # (Auto) 0.04 0.00-0.02 K/uL
[2017-09-11 06:41] LABS: CALCIUM 8.2 mg/dl (8.5-10.1); CREATININE 1.65 mg/dl (0.60-1.20); POTASSIUM 4.8 mmol/L (3.5-5.1)
[2017-09-11 07:04] LABS: BASO % 0.2 %; BASO ABS # 0.01 K/uL (0-0.2); HEMATOCRIT 30.3 % (37-47); HEMOGLOBIN 9.2 g/dL (12.0-16.0); IG# 0.04 K/uL (0.00-0.02); LYMPH % 25.1 %; LYMPH ABS # 1.26 K/uL (1.2-3.4); MEAN CORPUSCULAR HEMOGLOBIN 30.7 pg (25-34); MEAN CORPUSCULAR HGB CONC 30.4 g/dl (32-36); MEAN PLATELET VOLUME 9.5 fL (7.4-10.4); MONO % 9.4 %; MONO ABS # 0.47 K/uL (0.11-0.59); NEUT % 64.5 %; NEUT ABS # 3.23 K/uL (1.4-6.5); PLATELET COUNT 220 K/uL (130-400); RED CELL DISTRIBUTION WIDTH CV 14.2 % (11.5-14.5); RED CELL DISTRIBUTION WIDTH SD 52.4 fL (36.4-46.3); WHITE BLOOD COUNT 5.01 K/uL (4.8-10.8)
[2017-09-11] MEDS: SENNA 8.6 MG TAB PO SCH (08:00)
[2017-09-11] MEDS: GUAIFENESIN SUGAR FREE 200 MG/10 ML UDC PO PRN ×2 (09:08→12:41)
[2017-09-11] MEDS: DOXYCYCLINE HYCLATE 100 MG CAP PO SCH ×2 (09:09→21:00)
[2017-09-11] MEDS: SERTRALINE HCL 50 MG TAB PO SCH (09:10)
[2017-09-11] MEDS: CEROVITE ADV FORMULA TAB PO SCH (09:11)
[2017-09-11] MEDS: FERROUS SULFATE 325 MG TAB PO SCH ×2 (09:12→21:01)
[2017-09-11] MEDS: AMLODIPINE BESYLATE 5 MG TAB PO SCH (09:12)
[2017-09-11] MEDS: ASCORBIC ACID 500 MG TAB PO SCH ×2 (09:12→21:02)
[2017-09-11] MEDS ORDERED: NURSING VERBAL MED ORDER ONE (09:30)
[2017-09-11] MEDS ORDERED: MICONAZOLE NITRATE POWDER 43 GM EXT PRN (09:30)
--- NOTE | 2017-09-11 19:50 | Progress Note ---
Medicine Progress Note Date & Time of Visit: Sep 11, 2017 at 16:30 . Subjective CC: Follow-up visit for cough and dyspnea. HPI: Cough somewhat better. No fever, chills. Had some bleeding at SQ heparin site this morning. ROS: General- as noted above in HPI Resp- as noted above in HPI Cardiac- no chest pain GI- no nausea, no vomiting, no diarrhea - suprapubic cath . Objective Last 8 Hrs Date Time Temp Pulse Resp B/P (MAP) Pulse Ox O2 Delivery O2 Flow Rate FiO2 09/11/17 19:49 96 16 99 Mask 6.0 09/11/17 16:35 36.8 93 20 159/70 (99) 96 Nasal Cannula 6.0 09/11/17 16:00 96 Oxymask 3.0 09/11/17 14:23 96 16 99 Mask 6.0 Physical Exam: General- lying in bed; no distress Lungs- scattered rhonchi; diffuse wheezing; no respiratory distress Cardiovascular- RRR; no gallop; neck veins difficult to assess; chronic- appearing 3+ edema lower extremities Abdomen- + bowel sounds, soft, nontender; suprapubic catheter Extremities- no cyanosis; no calf tenderness Neuro- alert, oriented Skin- warm & dry; chronic venous stasis changes lower extremities . Laboratory Results: Last 24 Hours Test 09/11/17 05:31 09/11/17 06:55 Sodium Level 140 mmol/L Potassium Level 4.8 mmol/L Chloride Level 106 mmol/L Carbon Dioxide Level 30 mmol/L Anion Gap 4.0 mmol/L Blood Urea Nitrogen 47 mg/dl Creatinine 1.65 mg/dl Est Creatinine Clear Calc Drug Dose 38.3 ml/min Estimated GFR () 40.4 Estimated GFR (Non- 34.8 BUN/Creatinine Ratio 28.2 Random Glucose 130 mg/dl Calcium Level 8.2 mg/dl White Blood Count 5.01 K/uL Red Blood Count 3.00 M/uL Hemoglobin 9.2 g/dL Hematocrit 30.3 % Mean Corpuscular Volume 101.0 fL Mean Corpuscular Hemoglobin 30.7 pg Mean Corpuscular Hemoglobin Concent 30.4 g/dl Platelet Count 220 K/uL Mean Platelet Volume 9.5 fL Neutrophils (%) (Auto) 64.5 % Lymphocytes (%) (Auto) 25.1 % Monocytes (%) (Auto) 9.4 % Eosinophils (%) (Auto) 0.0 % Basophils (%) (Auto) 0.2 % Neutrophils # (Auto) 3.23 K/uL Lymphocytes # (Auto) 1.26 K/uL Monocytes # (Auto) 0.47 K/uL Eosinophils # (Auto) 0.00 K/uL Basophils # (Auto) 0.01 K/uL RDW Standard Deviation 52.4 fL RDW Coefficient of Variation 14.2 % Immature Granulocyte % (Auto) 0.8 % Immature Granulocyte # (Auto) 0.04 K/uL Assessment & Plan EXACERBATION ASTHMA / COUGH / SOB Chest x-ray interpreted as possible pulmonary vascular congestion, but BNP normal. Echo limited study. Suspect lower respiratory tract infection- bronchitis or interstitial pneumonitis. CT discussed- patient does not feel that she could tolerate it due to back discomfort. Treated with course of azithromycin without improvement. Antibiotic therapy changed to doxycycline. Changed from prednisone to IV methylprednisolone. Continue nebs. Continue guaifenesin syrup during the day + Hycodan syrup HS. Flutter valve. HYPERTENSION Continue amlodipine. CKD III Serum creatine today = 1.65. Holding furosemide. IV fluids. Follow. HYPOTHYROIDISM Continue levothyroxine. NEUROGENIC BLADDER S/P suprapubic catheter placement. BACTERURIA Probable colonization from suprapubic catheter. Does not require Rx. VTE PROPHYLAXIS Change from SQ heparin to SQ enoxaparin. DISPOSITION Expected discharge to home. Family Medicine follow-up with Dr. Reginaldo Adair. . Current Inpatient Medications: Current Inpatient Medications Medications (Trade) Dose Ordered Sig/Jacky Route Start Time Stop Time Status Last Admin Dose Admin Acetaminophen (Tylenol Tab) 650 mg Q4H PRN PO 09/06/17 17:30 10/06/17 17:29 09/09/17 12:23 650 MG Ondansetron HCl (Zofran Inj) 4 mg Q6H PRN IV 09/06/17 17:30 10/06/17 17:29 Albuterol/ Ipratropium (Duoneb) 3 ml Q6R INH 09/06/17 21:00 10/06/17 20:59 09/11/17 19:46 3 ML Amlodipine Besylate (Norvasc Tab) 5 mg DAILY PO 09/07/17 09:00 10/07/17 08:59 09/11/17 09:12 5 MG Ascorbic Acid (Vitamin C Tab) 500 mg BID PO 09/06/17 21:00 10/06/17 20:59 09/11/17 09:12 500 MG Aspirin (Ecotrin Tab) 81 mg QAM PO 09/07/17 09:00 10/07/17 08:59 Future Hold 09/10/17 08:41 81 MG Folic Acid (Folvite Tab) 1 mg QAM PO 09/07/17 09:00 10/07/17 08:59 09/11/17 09:11 1 MG Levothyroxine Sodium (Synthroid Tab) 200 mcg DAILYBB PO 09/07/17 06:00 10/07/17 05:59 09/11/17 05:45 200 MCG Montelukast Sodium (Singulair Tab) 10 mg HS PO 09/06/17 21:00 10/06/17 20:59 09/10/17 21:13 10 MG Multivitamins/ Minerals (Multivitamin W/ Minerals Tab) 1 tab DAILY PO 09/07/17 09:00 10/07/17 08:59 09/11/17 09:11 1 TAB Senna (Senokot Tab) 8.6 mg DAILY PO 09/07/17 09:00 10/07/17 08:59 09/09/17 09:23 8.6 MG Sertraline HCl (Zoloft Tab) 150 mg QAM PO 09/07/17 09:00 10/07/17 08:59 09/11/17 09:10 150 MG Simvastatin (Zocor Tab) 20 mg HS PO 09/06/17 21:00 10/06/17 20:59 09/10/17 21:13 20 MG Ferrous Sulfate (Feosol Tab) 325 mg BID PO 09/06/17 21:00 10/06/17 20:59 09/11/17 09:12 325 MG Miscellaneous Information (Order Awaiting Action) 1 ea QS N/A 09/07/17 00:00 10/07/17 00:00 Miscellaneous Information (Order Awaiting Action) 1 ea QS N/A 09/07/17 00:00 10/07/17 00:00 Levalbuterol (Xopenex 0.63 Mg/ 3 Ml Neb) 0.63 mg Q4R PRN INH 09/08/17 18:00 3/3/18 17:59 09/08/17 17:55 0.63 MG Hydrocodone Bit/ Homatropine Methylb (Hycodan Syrup) 5 ml HS PO 09/08/17 21:00 09/22/17 20:59 09/10/17 21:13 5 ML Methylprednisolone Sodium Succinate 40 mg/Syringe 0.64 ml @ 1.5 mls/min Q8H IV 09/10/17 14:00 10/10/17 13:59 09/11/17 15:17 1.5 MLS/MIN Guaifenesin (Robitussin Sugar Free Syrup) 200 mg TID@0700,1100,1600 PRN PO 09/10/17 11:45 10/08/17 20:44 09/11/17 12:41 200 MG Doxycycline Hyclate (Vibramycin Cap) 100 mg BID PO 09/10/17 20:00 09/17/17 19:59 09/11/17 09:09 100 MG Miconazole Nitrate (Desenex Powder) 1 appln UD PRN EXT 09/11/17 09:30 10/11/17 09:29 Enoxaparin Sodium (Lovenox Inj) 30 mg QAM SQ 09/12/17 08:00 10/12/17 07:59
[2017-09-11] MEDS: HYDROCODONE/HOMATROPINE SYRUP 5MG/1.5MG 5ML UDP PO SCH (20:59)
[2017-09-11] MEDS: MONTELUKAST SOD 10 MG TAB PO SCH (21:02)
[2017-09-11] MEDS: SIMVASTATIN 20 MG TAB PO SCH (21:03)
[2017-09-12] VITALS (7 sets, daily range): BP systolic 131–148; BP diastolic 75–85; PULSE 88–107; TEMP 36.5–36.8; O2SAT 92–98
[2017-09-12] MEDS: ALBUT/IPRATROP 3MG/0.5MG NEB 3 ML VIAL INH SCH ×4 (01:50→19:35)
[2017-09-12] MEDS: METHYLPREDNISOLONE IV 40 MG in SYRINGE 0 ML IV SCH ×3 (06:26→22:48)
[2017-09-12] MEDS: LEVOTHYROXINE 200 MCG TAB PO SCH (06:27)
[2017-09-12 06:38] LABS: HEMATOCRIT 30.6 % (37-47); HEMOGLOBIN 9.3 g/dL (12.0-16.0); MEAN CORPUSCULAR HEMOGLOBIN 30.7 pg (25-34); MEAN CORPUSCULAR HGB CONC 30.4 g/dl (32-36); MEAN PLATELET VOLUME 9.9 fL (7.4-10.4); PLATELET COUNT 238 K/uL (130-400); RED CELL DISTRIBUTION WIDTH SD 51.3 fL (36.4-46.3); WHITE BLOOD COUNT 7.53 K/uL (4.8-10.8)
[2017-09-12 07:21] LABS: CALCIUM 8.5 mg/dl (8.5-10.1); CREATININE 1.49 mg/dl (0.60-1.20); POTASSIUM 4.6 mmol/L (3.5-5.1)
[2017-09-12] MEDS: FERROUS SULFATE 325 MG TAB PO SCH ×2 (08:33→20:34)
[2017-09-12] MEDS: AMLODIPINE BESYLATE 5 MG TAB PO SCH (08:33)
[2017-09-12] MEDS: DOXYCYCLINE HYCLATE 100 MG CAP PO SCH ×2 (08:33→20:35)
[2017-09-12] MEDS: ASCORBIC ACID 500 MG TAB PO SCH ×2 (08:34→20:34)
[2017-09-12] MEDS: SERTRALINE HCL 50 MG TAB PO SCH (08:34)
[2017-09-12] MEDS: CEROVITE ADV FORMULA TAB PO SCH (08:34)
[2017-09-12] MEDS: SENNA 8.6 MG TAB PO SCH ×2 (08:34→08:40)
[2017-09-12] MEDS: GUAIFENESIN SUGAR FREE 200 MG/10 ML UDC PO PRN (08:35)
[2017-09-12] MEDS: ENOXAPARIN 30 MG/0.3 ML SYR SQ SCH (08:45)
--- NOTE | 2017-09-12 16:22 | Pulmonary Consultation ---
History General Date of Service: Sep 12, 2017. Chief Complaint: SHortness of breath with hypoxia Stated Complaint: Shortness Of Breath HPI The patient is a 52 year old female who presents to [facility] with complaints of Shortness Of Breath. The patient's primary care provider is Reginaldo Adair D.O.. Patient with hx of spina bifida and asthma. Presented with bronchitis type symptoms. Was started on Azithromycin and due to no significant improvement, was changed to Doxycycline 100 mg PO BID. Patient has no hx of tobacco abuse. Urine is growing pansensitive pseudomonas. Patient lives in a detention and is restricted to bed and transfers to an electric wheel chair. She does have a history of LE DVT but that was many years ago. She is unaware of any coagulopathy or genetic hx of thrombotic disease. She is not on chronic anticoagulation as an outpatient. She is on 6 L/min via nasal cannula. She is starting to have some clear sputum but in limited quantities. She denies hemoptysis. She denies fever, chills, sweats, rigors. Historian: patient Review of Systems A total of 12 systems was reviewed and is negative other than as listed above in the HPI All Other Symptoms All Other Systems: Reviewed and Negative Past Medical History Past Medical History: Medical Problems: Anemia of chronic disease Asthma, Unspecified CKD (chronic kidney disease), stage IV Depression DVT (deep venous thrombosis) many years ago Esophageal Reflux HTN (hypertension) Hx-Venous Thrombosis&Embolism Hypertension Hypothyroidism Hypothyroidism Laceration of left foot Lymphedema MRSA (methicillin resistant Staphylococcus aureus) Neurogenic bladder Paraplegia Restrictive airway disease Spina bifida Suprapubic catheter Ventricular Shunt Status Past Surgical History: Surgical Problems: H/O foot surgery H/O sinus surgery H/O Spinal surgery History of hip surgery Family History FH: CAD (coronary artery disease) FATHER BROTHER Social History Hx Tobacco Use In Past Year?: No Smoking Status: Never Smoker Alcohol: never Drug Use: none Marital status: single Housing status: other (detention) Immunizations History of Influenza Vaccine: Yes Influenza Vaccine Date: May 16, 2017 History of Tetanus Vaccine?: Yes Tetanus Immunization Date: May 18, 2017 History of Pneumococcal: Yes Pneumococcal Date: Jun 16, 2017 History of Hepatitis B Vaccine: Yes Hepatitis Immunization Date: Oct 05, 2006 History of MDRO History of MDRO: Yes Type of MDRO: MRSA Allergies Coded Allergies: Penicillins (Verified Allergy, Severe, THROAT SWELLS, 09/06/17) Tramadol (Verified Allergy, Severe, Seizure, 09/06/17) Reported by PT and listed in [facility] record. Current Medications Reported Home Medications Medications Dose Route/Sig Max Daily Dose Days Date Category Senna-Lax (Sennosides) 8.6 Mg Tab 1 Tab PO DAILY 09/06/17 Reported Proventil 0.083% 2.5MG/3ML (Albuterol Sulf) 2.5 Mg/3 Ml Nebu 2.5 Mg INH QID PRN 09/06/17 Reported Amlodipine Besylate 5 Mg Tab 5 Mg PO DAILY 09/06/17 Reported Trintellix (Vortioxetine HBr) 5 Mg Tab 5 Mg PO HS 09/06/17 Reported Levothyroxine Sodium 200 Mcg Tab 200 Mcg PO DAILY 09/06/17 Reported Centrum Adults (Multiple Vitamins W/ Minerals) 1 Tab Tab 1 Tab PO DAILY 01/10/17 Reported Vesicare (Solifenacin Succinate) 10 Mg Tab 10 Mg PO DAILY 01/10/17 Reported Sertraline HCl 100 Mg Tab 150 Mg PO QAM 30 11/22/16 Rx Lasix (Furosemide) 20 Mg Tab 20 Mg PO QAM 11/19/16 Reported Folvite (Folic Acid) 1 Mg Tab 1 Mg PO QAM 11/19/16 Reported Aspirin Ec (Aspirin) 81 Mg Tab 81 Mg PO QAM 11/19/16 Reported Zocor (Simvastatin) 20 Mg Tab 20 Mg PO HS 06/03/16 Reported Iron (Ferrous Sulfate) 325 Mg Tab 325 Mg PO BID 03/24/16 Reported Ascorbic Acid 500 Mg Tab 500 Mg PO BID 07/22/14 Reported Montelukast Sodium (Montelukast Sod) 10 Mg Tab 10 Mg PO HS 07/22/14 Reported Physical Physical Exam Vital Signs: Date Time Temp Pulse Resp B/P (MAP) Pulse Ox O2 Delivery O2 Flow Rate FiO2 09/12/17 16:13 36.6 88 18 143/79 (100) 95 Nasal Cannula 3.0 09/12/17 14:33 92 16 97 Mask 6.0 09/12/17 08:41 36.5 88 20 148/85 (106) 96 Oxymask 3.0 09/12/17 08:40 Oxymask 3.0 09/12/17 07:03 88 16 92 Mask 4.0 09/12/17 00:00 Oxymask 3.0 09/11/17 23:18 87 16 98 Mask 4.0 09/11/17 23:00 36.7 89 22 154/71 (98) 96 Nasal Cannula 3.0 09/11/17 20:00 Oxymask 3.0 09/11/17 19:49 96 16 99 Mask 6.0 09/11/17 16:35 36.8 93 20 159/70 (99) 96 Nasal Cannula 6.0 Weight in Kilograms: 114.2 GENERAL : No acute distress EYES: No icterus, gaze conjugate NOSE: No evidence of epistaxis MOUTH: No lesions or candidiasis NECK: Supple LUNGS: Decreased breath sounds at the bases. Otherwise, generally clear to auscultation HEART: Regular, rate controlled ABDOMEN: Soft, NT, ND, BS Present EXTREMITIES: No LE edema, pedal pulses intact. Paraplegia of the lower extremities NEURO: [facility] Labs Results Past 24 Hours Test 09/12/17 05:57 Range/Units White Blood Count 7.53 4.8-10.8 K/uL Red Blood Count 3.03 4.2-5.4 M/uL Hemoglobin 9.3 12.0-16.0 g/dL Hematocrit 30.6 37-47 % Mean Corpuscular Volume 101.0 80-100 fL Mean Corpuscular Hemoglobin 30.7 25-34 pg Mean Corpuscular Hemoglobin Concent 30.4 32-36 g/dl RDW Standard Deviation 51.3 36.4-46.3 fL RDW Coefficient of Variation 14.0 11.5-14.5 % Platelet Count 238 130-400 K/uL Mean Platelet Volume 9.9 7.4-10.4 fL Sodium Level 139 136-145 mmol/L Potassium Level 4.6 3.5-5.1 mmol/L Chloride Level 104 98-107 mmol/L Carbon Dioxide Level 31 21-32 mmol/L Anion Gap 4.0 3-11 mmol/L Blood Urea Nitrogen 51 7-18 mg/dl Creatinine 1.49 0.60-1.20 mg/dl Est Creatinine Clear Calc Drug Dose 43.1 ml/min Estimated GFR () 45.7 Estimated GFR (Non- 39.4 BUN/Creatinine Ratio 34.4 10-20 Random Glucose 118 70-99 mg/dl Calcium Level 8.5 8.5-10.1 mg/dl Diagnostic Radiology CHEST ONE VIEW PORTABLE CLINICAL HISTORY: cough, SOB COMPARISON STUDY: 09/06/2017 FINDINGS: The heart is mildly enlarged. There is diffuse elevation of the interstitium, consistent with pulmonary vascular congestion. There is no focal pulmonary consolidation. There are calcifications within the left neck, likely secondary to a prior ventriculoperitoneal shunt.[ IMPRESSION: 1. Technically limited study. 2. Diffuse elevation of the interstitium, likely secondary to pulmonary vascular congestion. Impression Assessment and Plan HYPOXIA * Chest x-ray with limited evaluation due to motion artifact and positioning * No apparent infiltrate * Negative for influenza A and B with antigen as well as PCR studies * Patient does have hypoxia and has had increased supplemental oxygen needs * Currently patient is on 4 L/m via nasal cannula and saturating the low to mid 90s * No chest pain or tightness patient does feel as if she has difficulty expectorating sputum * Patient with little benefit from flutter valve * Continue with bronchodilators * Add percussion module to bed * Obtain sputum culture * Urine culture with pseudomonas aeruginosa and Escherichia coli * We will check a Pro calcitonin level with a.m. labs * Follow clinically ASTHMA * Treating for asthma exacerbation with no status asthmaticus * Changed from prednisone to methylprednisolone due to increased hypoxia * No bronchospasms on exam * Aeration in all lung kim but decreased at the bases * Continue Singulair * Continue bronchodilators every 6 scheduled and when necessary DVT PROPHYLAXIS * Enoxaparin at renal dose of 30 mg subcutaneous daily * Patient is nonambulatory or many years Thank you for including us in the care of this patient. Please refer to Dr. Gutierrez's addendum for further recommendations Physician Supervision Note: I was present with Dr. Mario Garg PA-C during the history and exam. I discussed the case with him and agree with the findings and plan as documented in the note. Any exceptions or clarifications are listed here: Continue steroids, bronchodilators Chest PT to mobilize the secretions Body habitus is a major obstacle DVT prophylaxis Documented By: Carlos Gutierrez MD
[2017-09-12] MEDS: HYDROCODONE/HOMATROPINE SYRUP 5MG/1.5MG 5ML UDP PO SCH (20:33)
[2017-09-12] MEDS: MONTELUKAST SOD 10 MG TAB PO SCH (20:36)
[2017-09-12] MEDS: SIMVASTATIN 20 MG TAB PO SCH (20:36)
--- NOTE | 2017-09-12 20:37 | Progress Note ---
Medicine Progress Note Date & Time of Visit: Sep 12, 2017 at 10:00 . Subjective CC: Follow-up visit for cough and dyspnea. HPI: Persistent congested cough. Dyspneic with minimal exertion. No fever, chills. ROS: General- as noted above in HPI Resp- as noted above in HPI Cardiac- no chest pain GI- no nausea, no vomiting, no diarrhea - suprapubic cath . Objective Last 8 Hrs Date Time Temp Pulse Resp B/P (MAP) Pulse Ox O2 Delivery O2 Flow Rate FiO2 09/12/17 19:36 107 20 93 Room Air 09/12/17 16:13 36.6 88 18 143/79 (100) 95 Nasal Cannula 3.0 09/12/17 16:00 97 Oxymask 3.0 09/12/17 14:33 92 16 97 Mask 6.0 Physical Exam: General- lying in bed; no distress Lungs- scattered rhonchi; diffuse moderate wheezing; no respiratory distress Cardiovascular- RRR; no gallop; neck veins difficult to assess; chronic- appearing 3+ edema lower extremities Abdomen- + bowel sounds, soft, nontender; suprapubic catheter Extremities- no cyanosis; no calf tenderness Neuro- alert, oriented Skin- warm & dry; chronic venous stasis changes lower extremities . Laboratory Results: Last 24 Hours Test 09/12/17 05:57 White Blood Count 7.53 K/uL Red Blood Count 3.03 M/uL Hemoglobin 9.3 g/dL Hematocrit 30.6 % Mean Corpuscular Volume 101.0 fL Mean Corpuscular Hemoglobin 30.7 pg Mean Corpuscular Hemoglobin Concent 30.4 g/dl RDW Standard Deviation 51.3 fL RDW Coefficient of Variation 14.0 % Platelet Count 238 K/uL Mean Platelet Volume 9.9 fL Sodium Level 139 mmol/L Potassium Level 4.6 mmol/L Chloride Level 104 mmol/L Carbon Dioxide Level 31 mmol/L Anion Gap 4.0 mmol/L Blood Urea Nitrogen 51 mg/dl Creatinine 1.49 mg/dl Est Creatinine Clear Calc Drug Dose 43.1 ml/min Estimated GFR () 45.7 Estimated GFR (Non- 39.4 BUN/Creatinine Ratio 34.4 Random Glucose 118 mg/dl Calcium Level 8.5 mg/dl Assessment & Plan EXACERBATION ASTHMA / COUGH / SOB Chest x-ray interpreted as possible pulmonary vascular congestion, but BNP normal. Echo limited study. Suspect lower respiratory tract infection- bronchitis or interstitial pneumonitis. CT discussed- patient does not feel that she could tolerate it due to back discomfort. Treated with course of azithromycin without improvement. Antibiotic therapy changed to doxycycline. Changed from prednisone to IV methylprednisolone. Continue nebs. Continue guaifenesin syrup during the day + Hycodan syrup HS. Flutter valve. Ongoing chest congestion and dyspnea. Consult Pulmonary Medicine. HYPERTENSION Continue amlodipine. CKD III Serum creatine today = 1.49. Holding furosemide. IV fluids. Follow. HYPOTHYROIDISM Continue levothyroxine. NEUROGENIC BLADDER S/P suprapubic catheter placement. BACTERURIA Probable colonization from suprapubic catheter. Does not require Rx. VTE PROPHYLAXIS Changed from SQ heparin to SQ enoxaparin. DISPOSITION Expected discharge to home. Family Medicine follow-up with Dr. Reginaldo Adair. . Current Inpatient Medications: Current Inpatient Medications Medications (Trade) Dose Ordered Sig/Jacky Route Start Time Stop Time Status Last Admin Dose Admin Acetaminophen (Tylenol Tab) 650 mg Q4H PRN PO 09/06/17 17:30 10/06/17 17:29 09/09/17 12:23 650 MG Ondansetron HCl (Zofran Inj) 4 mg Q6H PRN IV 09/06/17 17:30 10/06/17 17:29 Albuterol/ Ipratropium (Duoneb) 3 ml Q6R INH 09/06/17 21:00 10/06/17 20:59 09/12/17 19:35 3 ML Amlodipine Besylate (Norvasc Tab) 5 mg DAILY PO 09/07/17 09:00 10/07/17 08:59 09/12/17 08:33 5 MG Ascorbic Acid (Vitamin C Tab) 500 mg BID PO 09/06/17 21:00 10/06/17 20:59 09/12/17 08:34 500 MG Aspirin (Ecotrin Tab) 81 mg QAM PO 09/07/17 09:00 10/07/17 08:59 Future Hold 09/10/17 08:41 81 MG Folic Acid (Folvite Tab) 1 mg QAM PO 09/07/17 09:00 10/07/17 08:59 09/12/17 08:34 1 MG Levothyroxine Sodium (Synthroid Tab) 200 mcg DAILYBB PO 09/07/17 06:00 10/07/17 05:59 09/12/17 06:27 200 MCG Montelukast Sodium (Singulair Tab) 10 mg HS PO 09/06/17 21:00 10/06/17 20:59 09/11/17 21:02 10 MG Multivitamins/ Minerals (Multivitamin W/ Minerals Tab) 1 tab DAILY PO 09/07/17 09:00 10/07/17 08:59 09/12/17 08:34 1 TAB Senna (Senokot Tab) 8.6 mg DAILY PO 09/07/17 09:00 10/07/17 08:59 09/09/17 09:23 8.6 MG Sertraline HCl (Zoloft Tab) 150 mg QAM PO 09/07/17 09:00 10/07/17 08:59 09/12/17 08:34 150 MG Simvastatin (Zocor Tab) 20 mg HS PO 09/06/17 21:00 10/06/17 20:59 09/11/17 21:03 20 MG Ferrous Sulfate (Feosol Tab) 325 mg BID PO 09/06/17 21:00 10/06/17 20:59 09/12/17 08:33 325 MG Miscellaneous Information (Order Awaiting Action) 1 ea QS N/A 09/07/17 00:00 10/07/17 00:00 Miscellaneous Information (Order Awaiting Action) 1 ea QS N/A 09/07/17 00:00 10/07/17 00:00 Levalbuterol (Xopenex 0.63 Mg/ 3 Ml Neb) 0.63 mg Q4R PRN INH 09/08/17 18:00 10/08/17 17:59 09/08/17 17:55 0.63 MG Hydrocodone Bit/ Homatropine Methylb (Hycodan Syrup) 5 ml HS PO 09/08/17 21:00 09/22/17 20:59 09/11/17 20:59 5 ML Methylprednisolone Sodium Succinate 40 mg/Syringe 0.64 ml @ 1.5 mls/min Q8H IV 09/10/17 14:00 10/10/17 13:59 09/12/17 14:06 1.5 MLS/MIN Guaifenesin (Robitussin Sugar Free Syrup) 200 mg TID@0700,1100,1600 PRN PO 09/10/17 11:45 10/08/17 20:44 09/12/17 08:35 200 MG Doxycycline Hyclate (Vibramycin Cap) 100 mg BID PO 09/10/17 20:00 09/17/17 19:59 09/12/17 08:33 100 MG Miconazole Nitrate (Desenex Powder) 1 appln UD PRN EXT 09/11/17 09:30 10/11/17 09:29 Enoxaparin Sodium (Lovenox Inj) 30 mg QAM SQ 09/12/17 08:00 10/12/17 07:59 09/12/17 08:45 30 MG
[2017-09-13] VITALS (10 sets, daily range): BP systolic 134–175; BP diastolic 75–112; PULSE 85–98; TEMP 36.8–37; O2SAT 95–100
[2017-09-13] MEDS: ALBUT/IPRATROP 3MG/0.5MG NEB 3 ML VIAL INH SCH ×5 (01:48→19:10)
[2017-09-13] MEDS: GUAIFENESIN SUGAR FREE 200 MG/10 ML UDC PO PRN ×3 (02:20→23:23)
[2017-09-13] MEDS: LEVOTHYROXINE 200 MCG TAB PO SCH (06:27)
[2017-09-13] MEDS: METHYLPREDNISOLONE IV 40 MG in SYRINGE 0 ML IV SCH ×3 (06:27→21:12)
[2017-09-13 07:13] LABS: HEMATOCRIT 31.6 % (37-47); HEMOGLOBIN 9.5 g/dL (12.0-16.0); MEAN CORPUSCULAR HEMOGLOBIN 30.1 pg (25-34); MEAN CORPUSCULAR HGB CONC 30.1 g/dl (32-36); PLATELET COUNT 252 K/uL (130-400); RED CELL DISTRIBUTION WIDTH CV 13.8 % (11.5-14.5); RED CELL DISTRIBUTION WIDTH SD 50.7 fL (36.4-46.3); WHITE BLOOD COUNT 6.71 K/uL (4.8-10.8)
--- NOTE | 2017-09-13 07:19 | Pulmonology Progress Note ---
Pulmonary Progress Note Date of Service Sep 13, 2017. Attending Dr. Gutierrez Subjective Patient seen and examined at bedside. She continues with expiratory wheezes throughout. She is using her flutter valve with minimal sputum production. Nursing unable to collect any sputum samples overnight. Patient has refused percussion module and is currently refusing other modalities of pulmonary toilet. Saturating 96% on 3 L/m by nasal cannula. Will titrate to 2 L and monitor clinically. Discussed with respiratory therapy. They will monitor as well. Patient denies any fever or chills. No chest pain or tightness. She states that she slept okay last night. No nausea vomiting or diarrhea. Objective Vital Signs - as noted below Laboratory Data - as noted below Physical Exam: General - NAD. Grumpy Eyes - No icterus, gaze conjugate ENT - Mucosa moist, no lesions or candidiasis. Oxymask in place at 3 L/m Neck - Supple, no stridor Lungs - bibasilar rales. No rhonchi appreciated. Diffuse wheezes in all lung kim. Heart - Regular, rate controlled. No appreciation of murmur gallop or rub Abdomen - Soft, NT, ND, BS present Neuro - A&OX3 Assessment & Plan HYPOXIA * Chest x-ray with limited evaluation due to motion artifact and positioning. No apparent infiltrate * Negative for influenza A and B with antigen as well as PCR studies - last checked 09/06/17 * Patient does have hypoxia and has had increased supplemental oxygen needs - was able to titrate from 4 L/m yesterday to 2 L/m today * Still with difficulty expectorating sputum * Patient with little benefit from flutter valve. Patient refused percussion module for bed. * Continue with bronchodilators or pulmonary toileting * Unable to obtain sputum culture and patient other she indicates that she is having clear sputum production * Urine culture with pseudomonas aeruginosa and Escherichia coli * Pro calcitonin level is negative. Patient received five days of azithromycin. Currently on day four of doxycycline * Consider rechecking PCR for influenza as patient continues with flulike symptoms ASTHMA * Treating for asthma exacerbation with no status asthmaticus * Changed from prednisone to methylprednisolone due to increased hypoxia * No bronchospasms on exam * Aeration in all lung kim but decreased at the bases. Poor effort this morning * Continue Singulair * Continue bronchodilators every 6 scheduled and when necessary * Pro calcitonin level is negative DVT PROPHYLAXIS * Enoxaparin at renal dose of 30 mg subcutaneous daily * Patient is nonambulatory or many years Thank you for including us in the care of this patient. We will continue to follow along with you Data Medications: Current Inpatient Medications Medications (Trade) Dose Ordered Sig/Jacky Route Start Time Stop Time Status Last Admin Dose Admin Acetaminophen (Tylenol Tab) 650 mg Q4H PRN PO 09/06/17 17:30 10/06/17 17:29 09/09/17 12:23 650 MG Ondansetron HCl (Zofran Inj) 4 mg Q6H PRN IV 09/06/17 17:30 10/06/17 17:29 Albuterol/ Ipratropium (Duoneb) 3 ml Q6R INH 09/06/17 21:00 10/06/17 20:59 09/13/17 07:12 3 ML Amlodipine Besylate (Norvasc Tab) 5 mg DAILY PO 09/07/17 09:00 10/07/17 08:59 09/12/17 08:33 5 MG Ascorbic Acid (Vitamin C Tab) 500 mg BID PO 09/06/17 21:00 10/06/17 20:59 09/12/17 20:34 500 MG Aspirin (Ecotrin Tab) 81 mg QAM PO 09/07/17 09:00 10/07/17 08:59 Future Hold 09/10/17 08:41 81 MG Folic Acid (Folvite Tab) 1 mg QAM PO 09/07/17 09:00 10/07/17 08:59 09/12/17 08:34 1 MG Levothyroxine Sodium (Synthroid Tab) 200 mcg DAILYBB PO 09/07/17 06:00 10/07/17 05:59 09/13/17 06:27 200 MCG Montelukast Sodium (Singulair Tab) 10 mg HS PO 09/06/17 21:00 10/06/17 20:59 09/12/17 20:36 10 MG Multivitamins/ Minerals (Multivitamin W/ Minerals Tab) 1 tab DAILY PO 09/07/17 09:00 10/07/17 08:59 09/12/17 08:34 1 TAB Senna (Senokot Tab) 8.6 mg DAILY PO 09/07/17 09:00 10/07/17 08:59 09/09/17 09:23 8.6 MG Sertraline HCl (Zoloft Tab) 150 mg QAM PO 09/07/17 09:00 10/07/17 08:59 09/12/17 08:34 150 MG Simvastatin (Zocor Tab) 20 mg HS PO 09/06/17 21:00 10/06/17 20:59 09/12/17 20:36 20 MG Ferrous Sulfate (Feosol Tab) 325 mg BID PO 09/06/17 21:00 10/06/17 20:59 09/12/17 20:34 325 MG Miscellaneous Information (Order Awaiting Action) 1 ea QS N/A 09/07/17 00:00 10/07/17 00:00 Miscellaneous Information (Order Awaiting Action) 1 ea QS N/A 09/07/17 00:00 10/07/17 00:00 Levalbuterol (Xopenex 0.63 Mg/ 3 Ml Neb) 0.63 mg Q4R PRN INH 09/08/17 18:00 10/08/17 17:59 09/08/17 17:55 0.63 MG Hydrocodone Bit/ Homatropine Methylb (Hycodan Syrup) 5 ml HS PO 09/08/17 21:00 09/22/17 20:59 09/12/17 20:33 5 ML Methylprednisolone Sodium Succinate 40 mg/Syringe 0.64 ml @ 1.5 mls/min Q8H IV 09/10/17 14:00 10/10/17 13:59 09/13/17 06:27 1.5 MLS/MIN Guaifenesin (Robitussin Sugar Free Syrup) 200 mg TID@0700,1100,1600 PRN PO 09/10/17 11:45 10/08/17 20:44 09/13/17 02:20 200 MG Doxycycline Hyclate (Vibramycin Cap) 100 mg BID PO 09/10/17 20:00 09/17/17 19:59 09/12/17 20:35 100 MG Miconazole Nitrate (Desenex Powder) 1 appln UD PRN EXT 09/11/17 09:30 10/11/17 09:29 Enoxaparin Sodium (Lovenox Inj) 30 mg QAM SQ 09/12/17 08:00 10/12/17 07:59 09/12/17 08:45 30 MG Vital Signs: Date Time Temp Pulse Resp B/P (MAP) Pulse Ox O2 Delivery O2 Flow Rate FiO2 09/13/17 00:00 Oxymask 09/12/17 23:43 36.8 97 18 131/75 (93) 98 Oxymask 4.0 09/12/17 19:36 107 20 93 Room Air 09/12/17 16:13 36.6 88 18 143/79 (100) 95 Oxymask 3.0 09/12/17 16:00 97 Oxymask 3.0 09/12/17 14:33 92 16 97 Mask 6.0 09/12/17 08:41 36.5 88 20 148/85 (106) 96 Oxymask 3.0 09/12/17 08:40 Oxymask 3.0 Laboratory Results: Last 24 Hours Test 09/13/17 06:44 White Blood Count 6.71 K/uL Red Blood Count 3.16 M/uL Hemoglobin 9.5 g/dL Hematocrit 31.6 % Mean Corpuscular Volume 100.0 fL Mean Corpuscular Hemoglobin 30.1 pg Mean Corpuscular Hemoglobin Concent 30.1 g/dl Platelet Count 252 K/uL Mean Platelet Volume 10.0 fL RDW Standard Deviation 50.7 fL RDW Coefficient of Variation 13.8 %
[2017-09-13 07:35] LABS: BASO % 0.1 %; BASO ABS # 0.01 K/uL (0-0.2); IG# 0.12 K/uL (0.00-0.02); LYMPH % 19.7 %; LYMPH ABS # 1.32 K/uL (1.2-3.4); MONO % 4.9 %; MONO ABS # 0.33 K/uL (0.11-0.59); NEUT % 73.5 %; NEUT ABS # 4.93 K/uL (1.4-6.5)
[2017-09-13 07:42] LABS: CALCIUM 8.5 mg/dl (8.5-10.1); CREATININE 1.48 mg/dl (0.60-1.20); POTASSIUM 4.7 mmol/L (3.5-5.1)
[2017-09-13] MEDS: FERROUS SULFATE 325 MG TAB PO SCH ×2 (08:27→20:15)
[2017-09-13] MEDS: SENNA 8.6 MG TAB PO SCH (08:29)
[2017-09-13] MEDS: SERTRALINE HCL 50 MG TAB PO SCH (08:29)
[2017-09-13] MEDS: CEROVITE ADV FORMULA TAB PO SCH (08:30)
[2017-09-13] MEDS: DOXYCYCLINE HYCLATE 100 MG CAP PO SCH ×2 (08:31→20:15)
[2017-09-13] MEDS: AMLODIPINE BESYLATE 5 MG TAB PO SCH (08:32)
[2017-09-13] MEDS: ASCORBIC ACID 500 MG TAB PO SCH ×2 (08:33→20:17)
[2017-09-13] MEDS: ENOXAPARIN 30 MG/0.3 ML SYR SQ SCH (08:35)
[2017-09-13] MEDS: SIMVASTATIN 20 MG TAB PO SCH (20:16)
[2017-09-13] MEDS: MONTELUKAST SOD 10 MG TAB PO SCH (20:16)
--- NOTE | 2017-09-13 20:37 | Progress Note ---
Medicine Progress Note Date & Time of Visit: Sep 13, 2017 at 20:37. Subjective CC: Follow-up visit for cough and dyspnea. HPI: Persistent chest congestion and nonproductive cough. Using flutter valve. No fever, chills. ROS: General- as noted above in HPI Resp- as noted above in HPI Cardiac- no chest pain GI- no nausea, no vomiting, no diarrhea - suprapubic cath . Objective Last 8 Hrs Date Time Temp Pulse Resp B/P (MAP) Pulse Ox O2 Delivery O2 Flow Rate FiO2 09/13/17 19:10 88 16 98 Mask 1.0 09/13/17 16:35 90 16 98 Mask 1.0 09/13/17 16:00 96 Oxymask 2.0 09/13/17 15:59 36.9 90 14 144/84 (104) 96 Room Air 09/13/17 14:20 92 16 98 Mask 2.0 Physical Exam: General- sitting in bed; no distress Lungs- scattered rhonchi; diffuse moderate wheezing; no respiratory distress Cardiovascular- RRR; no gallop; neck veins difficult to assess; chronic- appearing 3+ edema lower extremities Abdomen- + bowel sounds, soft, nontender; suprapubic catheter Extremities- no cyanosis; no calf tenderness Neuro- alert, oriented Skin- warm & dry; chronic venous stasis changes lower extremities Psych- seems to be discouraged . Laboratory Results: Last 24 Hours Test 09/13/17 06:44 White Blood Count 6.71 K/uL Red Blood Count 3.16 M/uL Hemoglobin 9.5 g/dL Hematocrit 31.6 % Mean Corpuscular Volume 100.0 fL Mean Corpuscular Hemoglobin 30.1 pg Mean Corpuscular Hemoglobin Concent 30.1 g/dl Platelet Count 252 K/uL Mean Platelet Volume 10.0 fL Neutrophils (%) (Auto) 73.5 % Lymphocytes (%) (Auto) 19.7 % Monocytes (%) (Auto) 4.9 % Eosinophils (%) (Auto) 0.0 % Basophils (%) (Auto) 0.1 % Neutrophils # (Auto) 4.93 K/uL Lymphocytes # (Auto) 1.32 K/uL Monocytes # (Auto) 0.33 K/uL Eosinophils # (Auto) 0.00 K/uL Basophils # (Auto) 0.01 K/uL RDW Standard Deviation 50.7 fL RDW Coefficient of Variation 13.8 % Immature Granulocyte % (Auto) 1.8 % Immature Granulocyte # (Auto) 0.12 K/uL Sodium Level 140 mmol/L Potassium Level 4.7 mmol/L Chloride Level 105 mmol/L Carbon Dioxide Level 29 mmol/L Anion Gap 6.0 mmol/L Blood Urea Nitrogen 56 mg/dl Creatinine 1.48 mg/dl Est Creatinine Clear Calc Drug Dose 43.5 ml/min Estimated GFR () 46.0 Estimated GFR (Non- 39.7 BUN/Creatinine Ratio 37.8 Random Glucose 108 mg/dl Calcium Level 8.5 mg/dl Procalcitonin 0.13 ng/ml Assessment & Plan EXACERBATION ASTHMA / COUGH / SOB Chest x-ray interpreted as possible pulmonary vascular congestion, but BNP normal. Echo limited study. Suspect lower respiratory tract infection- bronchitis or interstitial pneumonitis. CT discussed- patient does not feel that she could tolerate it due to back discomfort. Treated with course of azithromycin without improvement. Antibiotic therapy changed to doxycycline. Changed from prednisone to IV methylprednisolone. Continue nebs. Continue guaifenesin syrup during the day + Hycodan syrup HS. Flutter valve. Ongoing chest congestion and dyspnea. Pulmonary Medicine consulted for their input. Chest PT / percussion recommended, but patient refused. Procalcitonin normal. No sputum produced for gram stain, C&S. HYPERTENSION Continue amlodipine. CKD III Serum creatine today = 1.48. Holding furosemide. IV fluids. Follow. HYPOTHYROIDISM Continue levothyroxine. NEUROGENIC BLADDER S/P suprapubic catheter placement. BACTERURIA Probable colonization from suprapubic catheter. Does not require Rx. VTE PROPHYLAXIS Changed from SQ heparin to SQ enoxaparin. DISPOSITION Expected discharge to home. Family Medicine follow-up with Dr. Reginaldo Adair. . Current Inpatient Medications: Current Inpatient Medications Medications (Trade) Dose Ordered Sig/Jacky Route Start Time Stop Time Status Last Admin Dose Admin Acetaminophen (Tylenol Tab) 650 mg Q4H PRN PO 09/06/17 17:30 10/06/17 17:29 09/09/17 12:23 650 MG Ondansetron HCl (Zofran Inj) 4 mg Q6H PRN IV 09/06/17 17:30 10/06/17 17:29 Albuterol/ Ipratropium (Duoneb) 3 ml Q6R INH 09/06/17 21:00 10/06/17 20:59 09/13/17 19:10 3 ML Amlodipine Besylate (Norvasc Tab) 5 mg DAILY PO 09/07/17 09:00 10/07/17 08:59 09/13/17 08:32 5 MG Ascorbic Acid (Vitamin C Tab) 500 mg BID PO 09/06/17 21:00 10/06/17 20:59 09/13/17 20:17 500 MG Aspirin (Ecotrin Tab) 81 mg QAM PO 09/07/17 09:00 10/07/17 08:59 Future Hold 09/10/17 08:41 81 MG Folic Acid (Folvite Tab) 1 mg QAM PO 09/07/17 09:00 10/07/17 08:59 09/13/17 08:33 1 MG Levothyroxine Sodium (Synthroid Tab) 200 mcg DAILYBB PO 09/07/17 06:00 10/07/17 05:59 09/13/17 06:27 200 MCG Montelukast Sodium (Singulair Tab) 10 mg HS PO 09/06/17 21:00 10/06/17 20:59 09/13/17 20:16 10 MG Multivitamins/ Minerals (Multivitamin W/ Minerals Tab) 1 tab DAILY PO 09/07/17 09:00 10/07/17 08:59 09/13/17 08:30 1 TAB Senna (Senokot Tab) 8.6 mg DAILY PO 09/07/17 09:00 10/07/17 08:59 09/13/17 08:29 8.6 MG Sertraline HCl (Zoloft Tab) 150 mg QAM PO 09/07/17 09:00 10/07/17 08:59 09/13/17 08:29 150 MG Simvastatin (Zocor Tab) 20 mg HS PO 09/06/17 21:00 10/06/17 20:59 09/13/17 20:16 20 MG Ferrous Sulfate (Feosol Tab) 325 mg BID PO 09/06/17 21:00 10/06/17 20:59 09/13/17 20:15 325 MG Miscellaneous Information (Order Awaiting Action) 1 ea QS N/A 09/07/17 00:00 10/07/17 00:00 Miscellaneous Information (Order Awaiting Action) 1 ea QS N/A 09/07/17 00:00 10/07/17 00:00 Levalbuterol (Xopenex 0.63 Mg/ 3 Ml Neb) 0.63 mg Q4R PRN INH 09/08/17 18:00 10/08/17 17:59 09/08/17 17:55 0.63 MG Hydrocodone Bit/ Homatropine Methylb (Hycodan Syrup) 5 ml HS PO 09/08/17 21:00 09/22/17 20:59 09/12/17 20:33 5 ML Methylprednisolone Sodium Succinate 40 mg/Syringe 0.64 ml @ 1.5 mls/min Q8H IV 09/10/17 14:00 10/10/17 13:59 09/13/17 14:16 1.5 MLS/MIN Guaifenesin (Robitussin Sugar Free Syrup) 200 mg TID@0700,1100,1600 PRN PO 09/10/17 11:45 10/08/17 20:44 09/13/17 09:00 200 MG Doxycycline Hyclate (Vibramycin Cap) 100 mg BID PO 09/10/17 20:00 09/17/17 19:59 09/13/17 20:15 100 MG Miconazole Nitrate (Desenex Powder) 1 appln UD PRN EXT 09/11/17 09:30 10/11/17 09:29 Enoxaparin Sodium (Lovenox Inj) 30 mg QAM SQ 09/12/17 08:00 10/12/17 07:59 09/13/17 08:35 30 MG
[2017-09-13] MEDS: HYDROCODONE/HOMATROPINE SYRUP 5MG/1.5MG 5ML UDP PO SCH (21:11)
[2017-09-14] VITALS (10 sets, daily range): BP systolic 126–149; BP diastolic 70–76; PULSE 10–100; TEMP 36.5–36.8; O2SAT 92–98
[2017-09-14] MEDS: ALBUT/IPRATROP 3MG/0.5MG NEB 3 ML VIAL INH SCH ×4 (01:13→18:57)
[2017-09-14] MEDS: METHYLPREDNISOLONE IV 40 MG in SYRINGE 0 ML IV SCH (05:47)
[2017-09-14] MEDS: LEVOTHYROXINE 200 MCG TAB PO SCH (05:47)
[2017-09-14] MEDS: CEROVITE ADV FORMULA TAB PO SCH (08:29)
[2017-09-14] MEDS: AMLODIPINE BESYLATE 5 MG TAB PO SCH (08:30)
[2017-09-14] MEDS: FERROUS SULFATE 325 MG TAB PO SCH ×2 (08:30→20:48)
[2017-09-14] MEDS: SERTRALINE HCL 50 MG TAB PO SCH (08:30)
[2017-09-14] MEDS: DOXYCYCLINE HYCLATE 100 MG CAP PO SCH ×2 (08:30→22:09)
[2017-09-14] MEDS: SENNA 8.6 MG TAB PO SCH (08:30)
[2017-09-14] MEDS: GUAIFENESIN SUGAR FREE 200 MG/10 ML UDC PO PRN (08:31)
[2017-09-14] MEDS: ASCORBIC ACID 500 MG TAB PO SCH ×2 (08:31→20:50)
[2017-09-14] MEDS: ENOXAPARIN 30 MG/0.3 ML SYR SQ SCH (09:17)
[2017-09-14] MEDS: ACETAMINOPHEN 325 MG TAB PO PRN (13:00)
[2017-09-14 13:12] LABS: INFLUENZA A PCR Neg for Influ A (NEG); INFLUENZA B PCR Neg for Influ B (NEG)
[2017-09-14] MEDS: METHYLPREDNISOLONE 20 MG in SYRINGE 0 ML IV SCH ×2 (13:44→20:49)
[2017-09-14] MEDS ORDERED: METHYLPREDNISOLONE 1000 MG/16 ML IV SCH (14:00)
[2017-09-14] MEDS: MONTELUKAST SOD 10 MG TAB PO SCH (20:48)
[2017-09-14] MEDS: HYDROCODONE/HOMATROPINE SYRUP 5MG/1.5MG 5ML UDP PO SCH (20:48)
[2017-09-14] MEDS: SIMVASTATIN 20 MG TAB PO SCH (20:49)
--- NOTE | 2017-09-14 20:58 | Progress Note ---
Medicine Progress Note Date & Time of Visit: Sep 14, 2017 at 09:30 . Subjective CC: Follow-up visit for cough and dyspnea. HPI: Intermittent chest congestion. No CP or SOB. No fever, chills. ROS: General- as noted above in HPI Resp- as noted above in HPI Cardiac- no chest pain GI- no nausea, no vomiting, no diarrhea - suprapubic cath . Objective Last 8 Hrs Date Time Temp Pulse Resp B/P (MAP) Pulse Ox O2 Delivery O2 Flow Rate FiO2 09/14/17 18:57 92 16 92 Room Air 09/14/17 17:15 92 Room Air 09/14/17 15:12 36.8 100 16 126/70 (88) 92 Room Air 09/14/17 14:00 10 16 97 Mask 2.0 09/14/17 13:50 93 Room Air Physical Exam: General- sitting in bed; no distress Lungs- scattered rhonchi; diffuse mild-moderate wheezing; no respiratory distress Cardiovascular- RRR; no gallop; neck veins difficult to assess; chronic- appearing 3+ edema lower extremities Abdomen- + bowel sounds, soft, nontender; suprapubic catheter Extremities- no cyanosis; no calf tenderness Neuro- alert, oriented Skin- warm & dry; chronic venous stasis changes lower extremities . Laboratory Results: Last 24 Hours Test 09/14/17 11:00 Influenza Type A (RT-PCR) Neg for Influ A Influenza Type B (RT-PCR) Neg for Influ B Assessment & Plan EXACERBATION ASTHMA / COUGH / SOB Chest x-ray interpreted as possible pulmonary vascular congestion, but BNP normal. Echo limited study. Suspect lower respiratory tract infection- bronchitis or interstitial pneumonitis. CT discussed- patient does not feel that she could tolerate it due to back discomfort. Treated with course of azithromycin without improvement. Antibiotic therapy changed to doxycycline. Changed from prednisone to IV methylprednisolone. Continue nebs. Continue guaifenesin syrup during the day + Hycodan syrup HS. Flutter valve ordered. Ongoing chest congestion and dyspnea. Pulmonary Medicine consulted for their input. Chest PT / percussion recommended, but patient refused. Procalcitonin normal. No sputum produced for gram stain, C&S. Repeat M[employer] BREAKER swab for influenza negative. Tapering steroids. HYPERTENSION Continue amlodipine. CKD III Serum yesterday was 1.48. Holding furosemide. IV fluids. Follow. HYPOTHYROIDISM Continue levothyroxine. NEUROGENIC BLADDER S/P suprapubic catheter placement. BACTERURIA Probable colonization from suprapubic catheter. Does not require Rx. VTE PROPHYLAXIS Changed from SQ heparin to SQ enoxaparin. DISPOSITION Expected discharge to home. Family Medicine follow-up with Dr. Reginaldo Adair. . Current Inpatient Medications: Current Inpatient Medications Medications (Trade) Dose Ordered Sig/Jacky Route Start Time Stop Time Status Last Admin Dose Admin Acetaminophen (Tylenol Tab) 650 mg Q4H PRN PO 09/06/17 17:30 10/06/17 17:29 09/14/17 13:00 650 MG Ondansetron HCl (Zofran Inj) 4 mg Q6H PRN IV 09/06/17 17:30 10/06/17 17:29 Albuterol/ Ipratropium (Duoneb) 3 ml Q6R INH 09/06/17 21:00 10/06/17 20:59 09/14/17 18:57 3 ML Amlodipine Besylate (Norvasc Tab) 5 mg DAILY PO 09/07/17 09:00 10/07/17 08:59 09/14/17 08:30 5 MG Ascorbic Acid (Vitamin C Tab) 500 mg BID PO 09/06/17 21:00 10/06/17 20:59 09/14/17 20:50 500 MG Aspirin (Ecotrin Tab) 81 mg QAM PO 09/07/17 09:00 10/07/17 08:59 Future Hold 09/10/17 08:41 81 MG Folic Acid (Folvite Tab) 1 mg QAM PO 09/07/17 09:00 10/07/17 08:59 09/14/17 08:31 1 MG Levothyroxine Sodium (Synthroid Tab) 200 mcg DAILYBB PO 09/07/17 06:00 10/07/17 05:59 09/14/17 05:47 200 MCG Montelukast Sodium (Singulair Tab) 10 mg HS PO 09/06/17 21:00 10/06/17 20:59 09/14/17 20:48 10 MG Multivitamins/ Minerals (Multivitamin W/ Minerals Tab) 1 tab DAILY PO 09/07/17 09:00 10/07/17 08:59 09/14/17 08:29 1 TAB Senna (Senokot Tab) 8.6 mg DAILY PO 09/07/17 09:00 10/07/17 08:59 09/13/17 08:29 8.6 MG Sertraline HCl (Zoloft Tab) 150 mg QAM PO 09/07/17 09:00 10/07/17 08:59 09/14/17 08:30 150 MG Simvastatin (Zocor Tab) 20 mg HS PO 09/06/17 21:00 10/06/17 20:59 09/14/17 20:49 20 MG Ferrous Sulfate (Feosol Tab) 325 mg BID PO 09/06/17 21:00 10/06/17 20:59 09/14/17 20:48 325 MG Miscellaneous Information (Order Awaiting Action) 1 ea QS N/A 09/07/17 00:00 10/07/17 00:00 Miscellaneous Information (Order Awaiting Action) 1 ea QS N/A 09/07/17 00:00 10/07/17 00:00 Levalbuterol (Xopenex 0.63 Mg/ 3 Ml Neb) 0.63 mg Q4R PRN INH 09/08/17 18:00 10/08/17 17:59 09/08/17 17:55 0.63 MG Hydrocodone Bit/ Homatropine Methylb (Hycodan Syrup) 5 ml HS PO 09/08/17 21:00 09/22/17 20:59 09/14/17 20:48 5 ML Guaifenesin (Robitussin Sugar Free Syrup) 200 mg TID@0700,1100,1600 PRN PO 09/10/17 11:45 10/08/17 20:44 09/14/17 08:31 200 MG Doxycycline Hyclate (Vibramycin Cap) 100 mg BID PO 09/10/17 20:00 09/17/17 19:59 09/14/17 08:30 100 MG Miconazole Nitrate (Desenex Powder) 1 appln UD PRN EXT 09/11/17 09:30 10/11/17 09:29 Enoxaparin Sodium (Lovenox Inj) 30 mg QAM SQ 09/12/17 08:00 10/12/17 07:59 09/14/17 09:17 30 MG Prednisone (PredniSONE TAB) 40 mg DAILY PO 09/15/17 08:00 10/15/17 07:59 Methylprednisolone Sodium Succinate 20 mg/Syringe 0.32 ml @ 1.5 mls/min Q8H IV 09/14/17 14:00 09/14/17 22:01 09/14/17 20:49 1.5 MLS/MIN
[2017-09-15] VITALS (10 sets, daily range): BP systolic 139–150; BP diastolic 76; PULSE 77–94; TEMP 36.5–36.6; O2SAT 90–98
[2017-09-15] MEDS: LEVALBUTEROL 0.63MG/3 ML NEB INH PRN (00:53)
[2017-09-15] MEDS: ALBUT/IPRATROP 3MG/0.5MG NEB 3 ML VIAL INH SCH ×5 (02:08→23:55)
[2017-09-15] MEDS: LEVOTHYROXINE 200 MCG TAB PO SCH (06:25)
[2017-09-15] MEDS: AMLODIPINE BESYLATE 5 MG TAB PO SCH (07:55)
[2017-09-15] MEDS: FERROUS SULFATE 325 MG TAB PO SCH ×2 (07:55→20:31)
[2017-09-15] MEDS: CEROVITE ADV FORMULA TAB PO SCH (07:55)
[2017-09-15] MEDS: SERTRALINE HCL 50 MG TAB PO SCH (07:55)
[2017-09-15] MEDS: DOXYCYCLINE HYCLATE 100 MG CAP PO SCH ×2 (07:55→20:31)
[2017-09-15] MEDS: SENNA 8.6 MG TAB PO SCH (07:56)
[2017-09-15] MEDS: ASCORBIC ACID 500 MG TAB PO SCH ×2 (07:56→20:34)
[2017-09-15] MEDS: ENOXAPARIN 30 MG/0.3 ML SYR SQ SCH (07:56)
--- NOTE | 2017-09-15 19:48 | Progress Note ---
Medicine Progress Note Date & Time of Visit: Sep 15, 2017 at 12:10 . Subjective CC: Follow-up visit for cough and dyspnea. HPI: Intermittent chest congestion. Wearing oxymask most of the time even though O2 sats have been OK. No CP or SOB. No fever, chills. Doesn't feel like she is ready for DC today. ROS: General- as noted above in HPI Resp- as noted above in HPI Cardiac- no chest pain GI- no nausea, no vomiting, no diarrhea - suprapubic cath . Objective Last 8 Hrs Date Time Temp Pulse Resp B/P (MAP) Pulse Ox O2 Delivery O2 Flow Rate FiO2 09/15/17 19:01 92 18 92 Room Air 09/15/17 16:00 Room Air 09/15/17 15:33 36.6 94 18 150/76 (100) 90 Room Air 09/15/17 14:07 88 16 93 Room Air 09/15/17 13:57 92 Room Air Physical Exam: General- sitting in bed; no distress Lungs- few scattered rhonchi; diffuse mildheezing; no respiratory distress Cardiovascular- RRR; no gallop; neck veins difficult to assess; chronic- appearing 3+ edema lower extremities Abdomen- + bowel sounds, soft, nontender; suprapubic catheter Extremities- no cyanosis; no calf tenderness Neuro- alert, oriented Skin- warm & dry; chronic venous stasis changes lower extremities . Laboratory Results: Date/Time Source Procedure Growth Status 09/14/17 21:00 Sputum Expectorated Sputum Gram Stain - Final Resulted 09/14/17 21:00 Sputum Expectorated Sputum Sputum Culture - Preliminary MODERATE NORMAL JUJU Present, Final ... Resulted Assessment & Plan EXACERBATION ASTHMA / COUGH / SOB Chest x-ray interpreted as possible pulmonary vascular congestion, but BNP normal. Echo limited study. Suspect lower respiratory tract infection- bronchitis or interstitial pneumonitis. CT discussed- patient does not feel that she could tolerate it due to back discomfort. Treated with course of azithromycin without improvement. Antibiotic therapy changed to doxycycline. Changed from prednisone to IV methylprednisolone. Continue nebs. Continue guaifenesin syrup during the day + Hycodan syrup HS. Flutter valve ordered. Ongoing chest congestion and dyspnea. Pulmonary Medicine consulted for their input. Chest PT / percussion recommended, but patient refused. Procalcitonin normal. No sputum produced for gram stain, C&S. Repeat [employer] swab for influenza negative. Tapering steroids. Appears that supplemental O2 no longer necessary, but pt feels that she needs it. Wean O2 as tolerated. HYPERTENSION Continue amlodipine. CKD III Serum 09/13 was 1.48. Holding furosemide. IV fluids. Follow. HYPOTHYROIDISM Continue levothyroxine. NEUROGENIC BLADDER S/P suprapubic catheter placement. BACTERURIA Probable colonization from suprapubic catheter. Does not require Rx. VTE PROPHYLAXIS Changed from SQ heparin to SQ enoxaparin. DISPOSITION Expected discharge to home. Family Medicine follow-up with Dr. Reginaldo Adair. . Current Inpatient Medications: Current Inpatient Medications Medications (Trade) Dose Ordered Sig/Jacky Route Start Time Stop Time Status Last Admin Dose Admin Acetaminophen (Tylenol Tab) 650 mg Q4H PRN PO 09/06/17 17:30 10/06/17 17:29 09/14/17 13:00 650 MG Ondansetron HCl (Zofran Inj) 4 mg Q6H PRN IV 09/06/17 17:30 10/06/17 17:29 Albuterol/ Ipratropium (Duoneb) 3 ml Q6R INH 09/06/17 21:00 10/06/17 20:59 09/15/17 19:00 3 ML Amlodipine Besylate (Norvasc Tab) 5 mg DAILY PO 09/07/17 09:00 10/07/17 08:59 09/15/17 07:55 5 MG Ascorbic Acid (Vitamin C Tab) 500 mg BID PO 09/06/17 21:00 10/06/17 20:59 09/15/17 07:56 500 MG Aspirin (Ecotrin Tab) 81 mg QAM PO 09/07/17 09:00 10/07/17 08:59 Future Hold 09/10/17 08:41 81 MG Folic Acid (Folvite Tab) 1 mg QAM PO 09/07/17 09:00 10/07/17 08:59 09/15/17 07:56 1 MG Levothyroxine Sodium (Synthroid Tab) 200 mcg DAILYBB PO 09/07/17 06:00 10/07/17 05:59 09/15/17 06:25 200 MCG Montelukast Sodium (Singulair Tab) 10 mg HS PO 09/06/17 21:00 10/06/17 20:59 09/14/17 20:48 10 MG Multivitamins/ Minerals (Multivitamin W/ Minerals Tab) 1 tab DAILY PO 09/07/17 09:00 10/07/17 08:59 09/15/17 07:55 1 TAB Senna (Senokot Tab) 8.6 mg DAILY PO 09/07/17 09:00 10/07/17 08:59 09/13/17 08:29 8.6 MG Sertraline HCl (Zoloft Tab) 150 mg QAM PO 09/07/17 09:00 10/07/17 08:59 09/15/17 07:55 150 MG Simvastatin (Zocor Tab) 20 mg HS PO 09/06/17 21:00 10/06/17 20:59 09/14/17 20:49 20 MG Ferrous Sulfate (Feosol Tab) 325 mg BID PO 09/06/17 21:00 10/06/17 20:59 09/15/17 07:55 325 MG Miscellaneous Information (Order Awaiting Action) 1 ea QS N/A 09/07/17 00:00 10/07/17 00:00 Miscellaneous Information (Order Awaiting Action) 1 ea QS N/A 09/07/17 00:00 10/07/17 00:00 Levalbuterol (Xopenex 0.63 Mg/ 3 Ml Neb) 0.63 mg Q4R PRN INH 09/08/17 18:00 10/08/17 17:59 09/15/17 00:53 0.63 MG Hydrocodone Bit/ Homatropine Methylb (Hycodan Syrup) 5 ml HS PO 09/08/17 21:00 09/22/17 20:59 09/14/17 20:48 5 ML Guaifenesin (Robitussin Sugar Free Syrup) 200 mg TID@0700,1100,1600 PRN PO 09/10/17 11:45 10/08/17 20:44 09/14/17 08:31 200 MG Doxycycline Hyclate (Vibramycin Cap) 100 mg BID PO 09/10/17 20:00 09/17/17 19:59 09/15/17 07:55 100 MG Miconazole Nitrate (Desenex Powder) 1 appln UD PRN EXT 09/11/17 09:30 10/11/17 09:29 Enoxaparin Sodium (Lovenox Inj) 30 mg QAM SQ 09/12/17 08:00 10/12/17 07:59 09/15/17 07:56 30 MG Prednisone (PredniSONE TAB) 40 mg DAILY PO 09/15/17 08:00 10/15/17 07:59 09/15/17 08:32 40 MG
[2017-09-15] MEDS: HYDROCODONE/HOMATROPINE SYRUP 5MG/1.5MG 5ML UDP PO SCH (20:31)
[2017-09-15] MEDS: MONTELUKAST SOD 10 MG TAB PO SCH (20:32)
[2017-09-15] MEDS: SIMVASTATIN 20 MG TAB PO SCH (20:33)
[2017-09-16] VITALS (7 sets, daily range): BP systolic 128–149; BP diastolic 70–78; PULSE 3–100; TEMP 36.6–36.8; O2SAT 90–99
[2017-09-16] MEDS: LEVALBUTEROL 0.63MG/3 ML NEB INH PRN ×2 (02:08→09:32)
[2017-09-16] MEDS: LEVOTHYROXINE 200 MCG TAB PO SCH (06:02)
[2017-09-16] MEDS: ALBUT/IPRATROP 3MG/0.5MG NEB 3 ML VIAL INH SCH (06:52)
[2017-09-16] MEDS: SENNA 8.6 MG TAB PO SCH (08:00)
--- NOTE | 2017-09-16 08:00 | Progress Note ---
Medicine Progress Note Date & Time of Visit: Sep 16, 2017 at 07:45 . Subjective CC: Follow-up visit for cough and dyspnea. HPI: Intermittent cough, no worse. O2 sats good on RA. No CP or SOB. No fever, chills. Ready for DC. ROS: General- as noted above in HPI Resp- as noted above in HPI Cardiac- no chest pain GI- no nausea, no vomiting, no diarrhea - suprapubic cath . Objective Last 8 Hrs Date Time Temp Pulse Resp B/P (MAP) Pulse Ox O2 Delivery O2 Flow Rate FiO2 09/16/17 06:54 100 18 95 Room Air 09/16/17 02:09 90 18 94 Room Air 09/16/17 00:00 36.8 92 20 149/78 (101) 92 Room Air 09/16/17 00:00 Room Air Physical Exam: General- sitting in bed; no distress Lungs- diffuse mild wheezing; no respiratory distress Cardiovascular- RRR; no gallop; neck veins difficult to assess; chronic- appearing 3+ edema lower extremities Abdomen- + bowel sounds, soft, nontender; suprapubic catheter Extremities- no cyanosis; no calf tenderness Neuro- alert, oriented Skin- warm & dry; chronic venous stasis changes lower extremities . Assessment & Plan EXACERBATION ASTHMA / COUGH / SOB Chest x-ray interpreted as possible pulmonary vascular congestion, but BNP normal. Echo limited study. Suspect lower respiratory tract infection- bronchitis or interstitial pneumonitis. CT discussed- patient does not feel that she could tolerate it due to back discomfort. Treated with course of azithromycin without improvement. Antibiotic therapy changed to doxycycline. Changed from prednisone to IV methylprednisolone. Continue nebs. Continue guaifenesin syrup during the day + Hycodan syrup HS. Flutter valve ordered. Ongoing chest congestion and dyspnea. Pulmonary Medicine consulted for their input. Chest PT / percussion recommended, but patient refused. Procalcitonin normal. No sputum produced for gram stain, C&S. 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 Tapering steroids. Weaned off O2. Sats good on RA. HYPERTENSION Continue amlodipine. CKD III Serum 2/ was 1.48. Held furosemide. IV fluids. Follow. HYPOTHYROIDISM Continue levothyroxine. NEUROGENIC BLADDER S/P suprapubic catheter placement. BACTERURIA Probable colonization from suprapubic catheter. Does not require Rx. VTE PROPHYLAXIS Changed from SQ heparin to SQ enoxaparin. DISPOSITION Discharge to home. Family Medicine follow-up with Dr. Reginaldo Adair. . Current Inpatient Medications: Current Inpatient Medications Medications (Trade) Dose Ordered Sig/Jacky Route Start Time Stop Time Status Last Admin Dose Admin Acetaminophen (Tylenol Tab) 650 mg Q4H PRN PO 09/06/17 17:30 10/06/17 17:29 09/14/17 13:00 650 MG Ondansetron HCl (Zofran Inj) 4 mg Q6H PRN IV 09/06/17 17:30 10/06/17 17:29 Albuterol/ Ipratropium (Duoneb) 3 ml Q6R INH 09/06/17 21:00 10/06/17 20:59 09/16/17 06:52 3 ML Amlodipine Besylate (Norvasc Tab) 5 mg DAILY PO 09/07/17 09:00 10/07/17 08:59 09/15/17 07:55 5 MG Ascorbic Acid (Vitamin C Tab) 500 mg BID PO 09/06/17 21:00 10/06/17 20:59 09/15/17 20:34 500 MG Aspirin (Ecotrin Tab) 81 mg QAM PO 09/07/17 09:00 10/07/17 08:59 Future Hold 09/10/17 08:41 81 MG Folic Acid (Folvite Tab) 1 mg QAM PO 09/07/17 09:00 10/07/17 08:59 09/15/17 07:56 1 MG Levothyroxine Sodium (Synthroid Tab) 200 mcg DAILYBB PO 09/07/17 06:00 10/07/17 05:59 09/16/17 06:02 200 MCG Montelukast Sodium (Singulair Tab) 10 mg HS PO 09/06/17 21:00 10/06/17 20:59 09/15/17 20:32 10 MG Multivitamins/ Minerals (Multivitamin W/ Minerals Tab) 1 tab DAILY PO 09/07/17 09:00 10/07/17 08:59 09/15/17 07:55 1 TAB Senna (Senokot Tab) 8.6 mg DAILY PO 09/07/17 09:00 10/07/17 08:59 09/13/17 08:29 8.6 MG Sertraline HCl (Zoloft Tab) 150 mg QAM PO 09/07/17 09:00 10/07/17 08:59 09/15/17 07:55 150 MG Simvastatin (Zocor Tab) 20 mg HS PO 09/06/17 21:00 10/06/17 20:59 09/15/17 20:33 20 MG Ferrous Sulfate (Feosol Tab) 325 mg BID PO 09/06/17 21:00 10/06/17 20:59 09/15/17 20:31 325 MG Miscellaneous Information (Order Awaiting Action) 1 ea QS N/A 09/07/17 00:00 10/07/17 00:00 Miscellaneous Information (Order Awaiting Action) 1 ea QS N/A 09/07/17 00:00 10/07/17 00:00 Levalbuterol (Xopenex 0.63 Mg/ 3 Ml Neb) 0.63 mg Q4R PRN INH 09/08/17 18:00 10/08/17 17:59 09/16/17 02:08 0.63 MG Hydrocodone Bit/ Homatropine Methylb (Hycodan Syrup) 5 ml HS PO 09/08/17 21:00 09/22/17 20:59 09/15/17 20:31 5 ML Guaifenesin (Robitussin Sugar Free Syrup) 200 mg TID@0700,1100,1600 PRN PO 09/10/17 11:45 10/08/17 20:44 09/14/17 08:31 200 MG Doxycycline Hyclate (Vibramycin Cap) 100 mg BID PO 09/10/17 20:00 09/17/17 19:59 09/15/17 20:31 100 MG Miconazole Nitrate (Desenex Powder) 1 appln UD PRN EXT 09/11/17 09:30 10/11/17 09:29 Enoxaparin Sodium (Lovenox Inj) 30 mg QAM SQ 09/12/17 08:00 10/12/17 07:59 09/15/17 07:56 30 MG Prednisone (PredniSONE TAB) 40 mg DAILY PO 09/15/17 08:00 10/15/17 07:59 09/15/17 08:32 40 MG
[2017-09-16] MEDS ORDERED: PRED10TA PO (08:04)
[2017-09-16] MEDS ORDERED: RBTUDL5 PO (08:04)
[2017-09-16] MEDS ORDERED: DXY100 PO (08:05)
[2017-09-16] MEDS: ASCORBIC ACID 500 MG TAB PO SCH (08:08)
[2017-09-16] MEDS: FERROUS SULFATE 325 MG TAB PO SCH (08:09)
[2017-09-16] MEDS: DOXYCYCLINE HYCLATE 100 MG CAP PO SCH (08:09)
[2017-09-16] MEDS: AMLODIPINE BESYLATE 5 MG TAB PO SCH (08:09)
[2017-09-16] MEDS: ENOXAPARIN 30 MG/0.3 ML SYR SQ SCH (08:09)
[2017-09-16] MEDS: SERTRALINE HCL 50 MG TAB PO SCH (08:09)
[2017-09-16] MEDS: CEROVITE ADV FORMULA TAB PO SCH (08:09)
--- NOTE | 2017-09-16 08:50 | Discharge Summary ---
Discharge Summary Date of Service Sep 16, 2017. Discharge Summary Admission Date: Sep 06, 2017 at 17:20 Discharge Date: Sep 16, 2017 Discharge Disposition: Home with services Principal Diagnosis: asthmatic bronchitis . Secondary Diagnoses/Problems: Chronic and Resolved Medical Problems: (1) Anemia of chronic disease Status: Chronic (2) Asthma, Unspecified Status: Chronic (3) CKD (chronic kidney disease), stage III Status: Chronic (4) Depression Status: Chronic (6) Esophageal Reflux Status: Chronic (7) History of DVT (deep vein thrombosis) Status: Chronic (8) History of MRSA infection Permanent Comment: wound infection 2009 Status: Chronic (9) HTN (hypertension) Status: Chronic (11) Hypertension Status: Chronic (12) Hypothyroidism Status: Chronic (15) Lymphedema Status: Chronic (16) Neurogenic bladder Status: Chronic (17) Paraplegia Status: Chronic (18) Restrictive airway disease Status: Chronic (19) Spina bifida Status: Chronic (21) Suprapubic catheter Status: Chronic (22) Ventricular Shunt Status Status: Chronic Surgical Problems: (1) H/O foot surgery Status: Chronic (2) H/O sinus surgery Status: Chronic (3) H/O Spinal surgery Status: Chronic (4) History of hip surgery Status: Chronic . Consultations: Pulmonary Medicine . Medication Reconciliation New Medications: Guaifenesin (Robitussin) 100 Mg/5 Ml Rufina 5 ML PO Q6H PRN for chest congestion, #1 BTL no prescription necessary Prednisone Tab (Prednisone) 10 Mg Tab 0 PO UD, #20 TAB Taper [id number] Doxycycline Hyclate (Doxycycline Hyclate) 100 Mg Cap 100 MG PO BID, #2 CAP Continued Medications: Albuterol Sulf (Proventil 0.083% 2.5MG/3ML) 2.5 Mg/3 Ml Nebu 2.5 MG INH QID PRN for SOB/Wheezing, EA Amlodipine Besylate (Amlodipine Besylate) 5 Mg Tab 5 MG PO DAILY, TAB Ascorbic Acid (Ascorbic Acid) 500 Mg Tab 500 MG PO BID, TAB Aspirin (Aspirin Ec) 81 Mg Tab 81 MG PO QAM Ferrous Sulfate (Iron) 325 Mg Tab 325 MG PO BID Folic Acid (Folvite) 1 Mg Tab 1 MG PO QAM, TAB Furosemide (Lasix) 20 Mg Tab 20 MG PO QAM, TAB Levothyroxine Sodium (Levothyroxine Sodium) 200 Mcg Tab 200 MCG PO DAILY Montelukast Sod (Montelukast Sodium) 10 Mg Tab 10 MG PO HS Multiple Vitamins W/ Minerals (Centrum Adults) 1 Tab Tab 1 TAB PO DAILY Sennosides (Senna-Lax) 8.6 Mg Tab 1 TAB PO DAILY Sertraline HCl (Sertraline HCl) 100 Mg Tab 150 MG PO QAM for 30 Days, #30 TAB 2 Refills Simvastatin (Zocor) 20 Mg Tab 20 MG PO HS, TAB Solifenacin Succinate (Vesicare) 10 Mg Tab 10 MG PO DAILY, TAB Vortioxetine HBr (Trintellix) 5 Mg Tab 5 MG PO HS Admission Information HPI (per Admitting provider): 52 year old female who presented to the ED with shortness of breath. Patient reports she woke up around 0300 with shortness of breath and cough. Symptoms have progressed throughout the day. She reports the cough has been non productive. No fevers, chills, body aches, chills, or rigors. She denies chest pain. No lightheadedness, dizziness, diaphoresis, or syncopal events. Patient has history of lymphedema and uses pumps twice a day. She feels like her edema is at baseline. No abdominal pain, nausea, vomiting, or diarrhea. She has a chronic supra pubic catheter in place and reports urine has been clear yellow. In the ED, patient was found to be hypoxic on room air at 88%. This improved with oxygen 2L via NC. She received IV steroids and neb treatment and reports improvement in her symptoms. CXR suggests volume overload. She was also given Lasix 20mg IV. CXR is clear and rapid influenza swab is negative. Physical Exam (per Admitting): General Appearance: WD/WN, no apparent distress, + obese Head: normocephalic, atraumatic Eyes: normal inspection, EOMI, sclerae normal ENT: hearing grossly normal, + pertinent finding (mucous membranes moist) Neck: supple, no JVD, trachea midline Respiratory/Chest: no respiratory distress, + decreased breath sounds, + wheezing (expiratory throughout all lung kim), + pertinent finding (harsh, dry cough noted) Cardiovascular: normal peripheral pulses, + tachycardia (regular rhythm), + pertinent finding (+4 edema BLLE) Abdomen/GI: normal bowel sounds, non tender, soft, no organomegaly, + distended Genitourinary - Female: + pertinent finding (suprpubic catheter in place draining clear yellow urine) Extremities/Musculoskelatal: no calf tenderness, normal capillary refill, + pertinent finding (shortened BLLE) Neurologic/Psych: no motor/sensory deficits, alert, oriented x 3, + pertinent finding (anxious) Skin: normal color, warm/dry Hospital Course EXACERBATION ASTHMA / COUGH / SOB Chest x-ray at time of admission interpreted as possible pulmonary vascular congestion, but BNP normal. Echo limited study. Suspected lower respiratory tract infection- bronchitis or possible pneumonia. CT discussed- patient does not feel that she could tolerate it due to back discomfort. Treated with course of azithromycin without improvement. Antibiotic therapy changed to doxycycline. Received steroids and nebs. Flutter valve ordered. Ongoing chest congestion and dyspnea. Pulmonary Medicine consulted for their input. Chest PT / percussion recommended, but patient refused. Procalcitonin normal. No sputum produced for gram stain, C&S. 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 Tapering steroids. Weaned off O2. Sats good on RA. Discharged on doxycycline to complete 7 day course of therapy, prednisone taper , nebs. HYPERTENSION Continue amlodipine. CKD III Serum 09/13 was 1.48. Follow. HYPOTHYROIDISM Continue levothyroxine. NEUROGENIC BLADDER S/P suprapubic catheter placement. BACTERURIA Probable colonization from suprapubic catheter. Does not require treatment at this time. VTE PROPHYLAXIS Initially received SQ heparin, then changed to SQ enoxaparin. DISPOSITION Discharged to home. Family Medicine follow-up with Dr. Reginaldo Adair. . Total time spent on discharge = 40 min. This includes examination of the patient, discharge planning, medication reconciliation, and communication with other providers. . Discharge Instructions Date of Service Sep 16, 2017. Admission Reason for Admission: bronchitis . Discharge Discharge Diagnosis / Problem: bronchitis Discharge Goals Goal(s): Improve disease control Activity Recommendations Activity Limitations: resume your previous activity . Instructions / Follow-Up Instructions / Follow-Up APPOINTMENTS: FAMILY MEDICINE 09/22/2017 1:10 PM Reginaldo Adair, DO OTHER INSTRUCTIONS: Take doxycycline 100 mg twice a day for 2 more doses. Use Robitussin (plain) 1 tsp every 6 hours as needed for cough. Take prednisone as instructed: 40 mg for 2 days 30 mg for 2 days 20 mg for 2 days 10 mg for 2 days then stop Seek medical attention if you have: * temperature above 101 * chest pain or trouble breathing * abdominal pain, nausea, vomiting * diarrhea, dark stools or bloody stools * any unanswered questions or concerns Call 911 if symptoms are severe. Call if you have any questions or problems. My cell # is [phone]. You can also reach a [facility] hospitalist on duty at [facility] 24 hours a day by calling [phone]. Please take good care of yourself. Lan Ferrera . Current Hospital Diet Patient's current hospital diet: AHA Diet (Heart Healthy), Low Sodium Diet (2gm Na) Discharge Diet Recommended Diet: AHA Diet (Heart Healthy) Pending Studies Studies pending at discharge: no Medical Emergencies . Who to Call and When: Medical Emergencies: If at any time you feel your situation is an emergency, please call 911 immediately. . Non-Emergent Contact Non-Emergency issues call your: Primary Care Provider, Hospital Doctor . . "Provider Documentation" section prepared by Lan Ferrera. . VTE Core Measure Inpt VTE Proph given/why not?: Enoxaparin (Lovenox)SQ <Electronically signed by Lan Ferrera M.D.> Signed: 09/16/17 0848 Signed: The status of this report is Signed * If report status is Draft, the document has not been finalized by the responsible provider. .
--- NOTE | 2017-09-19 11:02 | EDITING REQUIRED CODING QUERY ---
CODING QUERY To promote full compliance with coding requirements relating to patient care, provider participation is requested in all cases of medical coder uncertainty. Please assist us with the question(s) below: Coding Question(s): The H&P documents Acute Hypoxic Respiratory Failure,however, there is no documentation of this diagnosis in the remainder of the record or on the Discharge Summary. Please clarify below, in your clinical opinion. ( ) Acute Hypoxic Respiratory Failure ( x) There was NO Acute Hypoxic Respiratory Failure PATIENT HAD HYPOXIA WITH SATS LOW 86%, BUT RR WAS 18 AND SHE WAS DESCRIBED IN NO DISTRESS. DID NOT MEET CRITERIA PER MY UNDERSTANDING OF CODING TERMINOLOGY. Physician's Response(s): Thank you Clari Diaz Principal Diagnosis: "_that condition established after study, to be chiefly responsible for occasioning the admission of the patient to the hospital for care." Co-Existing Principal Diagnosis: "_when two or more diagnoses equally meet the criteria for principal diagnosis as determined by the circumstances of admission, diagnostic work up, and/or therapy provided, and the Alphabetic Index, Tabular List, or another coding guideline does not provide sequencing direction, any one of the diagnoses may be sequenced first." "When the physician has documented what appears to be a current diagnosis in the body of the record, but has not included the diagnosis in the final diagnostic statement, the physician should be asked whether the diagnosis should be added." ([facility] 2 QTR90. p3-4)
--- NOTE | 2017-09-19 11:06 | EDITING REQUIRED CODING QUERY ---
CODING QUERY To promote full compliance with coding requirements relating to patient care, provider participation is requested in all cases of grant manager uncertainty. Please assist us with the question(s) below: Coding Question(s): The Discharge Summary documents possible pneumonia. Please clarify below, in your clinical opinion, regarding the possible pneumonia. ( ) Pneumonia, unspecified ( ) Pneumonia, interstitial ( X) Pneumonia, Other: Specify___possible TREATED FOR LOWER RESPIRATORY TRACT INFECTION, POSSIBLE PNEUMONIA. CHEST X-RAY WAS VERY DIFFICULT TO INTERPRET. APOLOGIES FOR THE AMBIGUITY, BUT IT IS IMPOSSIBLE TO SAY WITH CERTAINTY. Physician's Response(s): Thank you Clari Diaz Principal Diagnosis: "_that condition established after study, to be chiefly responsible for occasioning the admission of the patient to the hospital for care." Co-Existing Principal Diagnosis: "_when two or more diagnoses equally meet the criteria for principal diagnosis as determined by the circumstances of admission, diagnostic work up, and/or therapy provided, and the Alphabetic Index, Tabular List, or another coding guideline does not provide sequencing direction, any one of the diagnoses may be sequenced first." "When the physician has documented what appears to be a current diagnosis in the body of the record, but has not included the diagnosis in the final diagnostic statement, the physician should be asked whether the diagnosis should be added." ([facility] 2 QTR90. p3-4)
== END 2017-09-16 13:30 | disposition home or self-care (01) | DRG 202 ==
LOC: EDBD 13:11 → C.EDB 13:13 → C.2T 17:20 → ENRESERV 18:01 → C.4E 09-09 22:31
PROVIDERS: ADMIT Family Medicine; ATTEND Internal Medicine
DX: J45.901 Unspecified asthma with (acute) exacerbation (principal); J18.9 Pneumonia, unspecified organism; G82.20 Paraplegia, unspecified; E66.2 Morbid (severe) obesity with alveolar hypoventilation; Z68.44 Body mass index [BMI] 60.0-69.9, adult; R09.02 Hypoxemia; J20.9 Acute bronchitis, unspecified; R82.71 Bacteriuria; N31.9 Neuromuscular dysfunction of bladder, unspecified; I12.9 Hypertensive chronic kidney disease with stage 1 through stage 4 chronic kidney disease, or unspecified chronic kidney disease; I89.0 Lymphedema, not elsewhere classified; N18.3 Chronic kidney disease, stage 3 (moderate); D63.1 Anemia in chronic kidney disease; F32.9 Major depressive disorder, single episode, unspecified; Q05.9 Spina bifida, unspecified; F41.9 Anxiety disorder, unspecified; Z66 Do not resuscitate; K21.9 Gastro-esophageal reflux disease without esophagitis; E03.9 Hypothyroidism, unspecified; Z51.81 Encounter for therapeutic drug level monitoring; Z79.899 Other long term (current) drug therapy; Z79.82 Long term (current) use of aspirin; Z86.14 Personal history of Methicillin resistant Staphylococcus aureus infection; Z86.718 Personal history of other venous thrombosis and embolism; Z82.49 Family history of ischemic heart disease and other diseases of the circulatory system; Z88.0 Allergy status to penicillin; Z88.5 Allergy status to narcotic agent

== ENCOUNTER 2018-02-25 19:37 | Inpatient (IN) | payer OTHER ==
[~2018-02-25] VITALS: Ht 134.6 cm; Wt 105.7 kg
[~2018-02-25 19:37] MED LIST changes: +ACET-1256 PO; -AMLO2.5T PO; +FLM4 PO; -LEVO175T3 PO; +LEVO200T6 PO; +NRV5 PO; +SENN-56 PO; +SERT-234 PO; -SERT1TAB92 PO; +TAMS0.4C38 PO; +VORT1TAB PO
[2018-02-25] MEDS ORDERED: SODIUM CHLORIDE 0.9% 1000ML 1,000 ML IV ONE (20:15)
--- NOTE | 2018-02-25 20:24 | EMERGENCY ROOM VISIT NOTE ---
History First contact with patient: 19:47 Chief Complaint: URINARY SYMPTOMS Stated Complaint: urinary symptoms Nursing Triage Summary: Patient is a resident at [facility]. Patient has a suprapubic catheter. Patient was here a few days ago for bloody urine and kidney stones in the right kidney. After her visit, patient reports that she was unable to eat and drink well due to nausea. Patient reports that the nausea and pain have passed. She has been "fine" today. Patient has no complaints. History of Present Illness The patient is a 52 year old female who presents to the Emergency Room with complaints of possible dehydration. The patient has a history of spina bifida. Some of the history was taken from the patient's sister and caregiver. The patient was reportedly discharged from the hospital 3 days ago for a ureteral stone and sepsis. The patient, who makes her own medical decisions, refused care from urology. A PICC line was placed. She was sent home on Invanz. Since returning to [facility], she has not been eating or drinking well. The patient currently has no complaints. She denies any nausea or pain. No fever or chills. The patient has a history of a chronic indwelling catheter Review of Systems 10 system review performed and negative unless noted in HPI or below Past Medical/Surgical History Medical Problems: (1) Anemia of chronic disease (2) Asthma, Unspecified (3) CKD (chronic kidney disease), stage IV (4) Complicated UTI (urinary tract infection) (5) Depression (6) Depression (7) Esophageal Reflux (8) History of DVT (deep vein thrombosis) (9) History of MRSA infection (10) HTN (hypertension) (11) Hx-Venous Thrombosis&Embolism (12) Hypertension (13) Hypothyroidism (14) Hypothyroidism (15) Laceration of left foot (16) Lymphedema (17) Neurogenic bladder (18) Paraplegia (19) Restrictive airway disease (20) Spina bifida (21) Spina bifida (22) Suprapubic catheter (23) Ureteral calculus (24) Ventricular Shunt Status Surgical Problems: (1) H/O foot surgery (2) H/O sinus surgery (3) H/O Spinal surgery (4) History of hip surgery Family History FH: CAD (coronary artery disease) FATHER BROTHER Social History Smoking Status: Never Smoker Alcohol Use: none Marital Status: single Housing Status: assisted living Occupation Status: disabled Current/Historical Medications Scheduled Acetaminophen (Tylenol), 2 TAB PO Q6 Amlodipine Besylate (Amlodipine Besylate), 5 MG PO DAILY Ascorbic Acid (Ascorbic Acid), 500 MG PO BID Aspirin (Aspirin Ec), 81 MG PO QAM Bupropion (Wellbutrin Sr), 150 MG PO DAILY Ferrous Sulfate (Iron), 325 MG PO BID Folic Acid (Folvite), 1 MG PO QAM Furosemide (Lasix), 20 MG PO QAM Levothyroxine Sodium (Levothyroxine Sodium), 1 TAB PO DAILY Montelukast Sod (Montelukast Sodium), 10 MG PO HS Multiple Vitamins W/ Minerals (Centrum Adults), 1 TAB PO DAILY Sennosides (Senna-Lax), 1 TAB PO DAILY Sertraline (Zoloft), 150 MG PO DAILY Simvastatin (Zocor), 20 MG PO HS Solifenacin Succinate (Vesicare), 10 MG PO DAILY Tamsulosin Hcl (Flomax), 0.4 MG PO DAILY Vortioxetine HBr (Trintellix), 5 MG PO DAILY Physical Exam Vital Signs Date Time Temp Pulse Resp B/P (MAP) Pulse Ox O2 Delivery O2 Flow Rate FiO2 02/25/18 22:07 92 18 161/106 93 Room Air 02/25/18 21:23 90 20 176/87 91 Room Air 02/25/18 19:40 37.2 94 20 156/85 89 Room Air Physical Exam VITALS: Vitals are noted on the nurse's note and reviewed by myself. Vital signs stable. GENERAL: 52-year-old female, in no acute distress, nondiaphoretic, well- developed well-nourished. SKIN: The skin was without rashes, erythema, edema, or bruising. There is no tenting of the skin. HEAD: Normocephalic atraumatic. EYES:. Conjunctivae without injection, sclerae without icterus. Extraocular movements intact. MOUTH: Mucous membranes slightly dry NECK: Supple without nuchal rigidity. No lymphadenopathy. Cervical spine is nontender. No JVD. HEART: Systolic murmur, regular rhythm LUNGS: Clear to auscultation bilaterally without wheezes, rales or rhonchi. No accessory muscle use. ABDOMEN: Positive bowel sounds x 4.Soft, nontender, without organomegaly. No guarding or rebound tenderness. No CVA tenderness noted bilaterally. MUSCULOSKELETAL: No pitting edema or erythema/warmth appreciated in the legs bilaterally. NEURO: Patient was alert and oriented to person place and time. Normal sensation to touch. No focal neurological deficits. Medical Decision & Procedures ER Provider Diagnostic Interpretation: The patient refused a KUB Laboratory Results Test 02/25/18 19:45 02/25/18 20:29 Urine Color YELLOW Urine Appearance TURBID (CLEAR) Urine pH 5.5 (4.5-7.5) Urine Specific [place] 1.014 (1.000-1.030) Urine Protein 1+ (NEG) Urine Glucose (UA) NEG (NEG) Urine Ketones NEG (NEG) Urine Occult Blood 3+ (NEG) Urine Nitrite NEG (NEG) Urine Bilirubin NEG (NEG) Urine Urobilinogen NEG (NEG) Urine Leukocyte Esterase LARGE (NEG) Urine WBC (Auto) >30 /hpf (0-5) Urine RBC (Auto) 10-30 /hpf (0-4) Urine Hyaline Casts (Auto) 0 /lpf (0-5) Urine Epithelial Cells (Auto) >30 /lpf (0-5) Urine Bacteria (Auto) NEG (NEG) Urine Pathogenic Casts /lpf (0) Urine Yeast (Auto) (NONE PRSENT) Magnesium Level 2.1 mg/dl (1.8-2.4) Total Bilirubin 0.2 mg/dl (0.2-1) Direct Bilirubin 0.1 mg/dl (0-0.2) Aspartate Amino Transf (AST/SGOT) 19 U/L (15-37) Alanine Aminotransferase (ALT/SGPT) 16 U/L (12-78) Alkaline Phosphatase 101 U/L (45-117) Troponin I < 0.015 ng/ml (0-0.045) Total Protein 7.3 gm/dl (6.4-8.2) Albumin 2.4 gm/dl (3.4-5.0) Lipase 49 U/L (73-393) Thyroid Stimulating Hormone (TSH) 21.600 uIu/ml (0.300-4.500) Free Thyroxine 1.02 ng/dl (0.80-1.60) Medications Administered Medications (Trade) Dose Ordered Sig/Jacky Route Start Time Stop Time Status Last Admin Dose Admin Sodium Chloride 1,000 ml @ 999 mls/hr Q1H1M ONCE IV 02/25/18 20:15 02/25/18 21:15 DC 02/25/18 20:12 999 MLS/HR Potassium Chloride (Klor-Con M10) 40 meq NOW STAT PO 02/25/18 21:35 02/25/18 21:36 DC 02/25/18 21:53 40 MEQ ED Course The patient was seen and examined Labs were drawn She declined pain medication or nausea medication She was hydrated with 1 L of normal saline Upon reevaluation, the patient was resting comfortably. We discussed her workup. She voiced understanding. We had a lengthy discussion regarding the need for urologic intervention for this kidney stone. We thoroughly reviewed the risks of not proceeding with treatment. She voiced understanding. After approximately 30 minutes worth of discussion, the patient agreed to urologic intervention/admission to the hospital The case was discussed with case management and the [facility] service. They kindly agreed to admit the patient for further treatment Medical Decision Differential diagnosis: Dehydration, electrolyte imbalance, sepsis, ureteral stone, refusal of care This patient is a 52-year-old female presents to the emergency department from [facility] for possible dehydration as she has not been eating well. She has a known ureteral kidney stone and was recently admitted for sepsis. The patient refused urologic intervention; therefore, the patient was discharged home on IV antibiotics. The patient, after a lengthy discussion tonight, is in agreement to proceed with admission to the hospital and urologic intervention. This chart was completed in part utilizing [employer] Speech Voice Recognition software. Attempts were made to minimize the grammatical errors, random word insertions, pronoun errors and incomplete sentences. Any formal questions or concerns about the content, text or information contained within the body of this dictation should be directly addressed to the provider for clarification. Impression Primary Impression: Dehydration Additional Impression: Urinary tract infection Departure Information Dispostion Other ([facility]) Condition FAIR Referrals Reginaldo Adair D.O. (PCP) Lew Reich MD Patient Instructions My [facility] Additional Instructions You were evaluated in the emergency department for possible dehydration and infection. We have recommended that you be admitted to the hospital for a urologic procedure. You have a kidney stone that needs to be removed. You also have an infection that is serious. At this time, you have declined admission to the hospital and surgical intervention It is VERY important to follow-up with urology as soon as possible. Please call Tuesday morning for a follow-up appointment. A number has been provided. Please continue current IV antibiotics. Please do not hesitate to return to the emergency department with any new or concerning symptoms or if you change your mind about care Problem Qualifiers
--- NOTE | 2018-02-25 20:42 | EMERGENCY ROOM VISIT NOTE ---
ED Visit Note First contact with patient: 19:47 I have personally seen and evaluated the patient with the physician front desk assistant. I agree with the diagnostic/management decisions and have personally been involved in these decisions and agree with the diagnosis.
[2018-02-25 21:00] LABS: BASO % 0.4 %; BASO ABS # 0.05 K/uL (0-0.2); EOS % 2.8 %; EOS ABS # 0.39 K/uL (0-0.5); HEMOGLOBIN 9.2 g/dL (12.0-16.0); IG# 0.66 K/uL (0.00-0.02); LYMPH % 12.3 %; LYMPH ABS # 1.74 K/uL (1.2-3.4); MEAN CELL VOLUME 92.1 fL (80-100); MEAN CORPUSCULAR HEMOGLOBIN 29.2 pg (25-34); MEAN CORPUSCULAR HGB CONC 31.7 g/dl (32-36); MEAN PLATELET VOLUME 9.3 fL (7.4-10.4); MONO % 5.9 %; MONO ABS # 0.83 K/uL (0.11-0.59); NEUT % 73.9 %; NEUT ABS # 10.45 K/uL (1.4-6.5); PLATELET COUNT 459 K/uL (130-400); RED CELL DISTRIBUTION WIDTH CV 15.3 % (11.5-14.5); RED CELL DISTRIBUTION WIDTH SD 51.5 fL (36.4-46.3); WHITE BLOOD COUNT 14.12 K/uL (4.8-10.8)
[2018-02-25 21:09] LABS: BLOOD UREA NITROGEN 29 mg/dl (7-18); CALCIUM 8.6 mg/dl (8.5-10.1); CARBON DIOXIDE 26 mmol/L (21-32); CREATININE 2.17 mg/dl (0.60-1.20); GLUCOSE 89 mg/dl (70-99); POTASSIUM 3.3 mmol/L (3.5-5.1); SODIUM 137 mmol/L (136-145)
[2018-02-25] MEDS ORDERED: POTASSIUM CHLORIDE 10 MEQ TABCR PO STA (21:35)
--- NOTE | 2018-02-25 22:47 | DIAGNOSTIC IMAGING REPORT ---
CHEST ONE VIEW PORTABLE HISTORY: 52 years-old Female low o2 acute hypoxia COMPARISON: Chest radiograph 02/20/2018 TECHNIQUE: Portable AP view of the chest FINDINGS: Cardiac silhouette is enlarged. Pulmonary vascular congestion with bilateral interstitial coarsening. Segmental left basilar opacities favor atelectasis. Lungs are hypoinflated. No pneumothorax or large pleural effusion. Degenerative changes of the shoulders and spine. Unchanged linear calcification of the left neck suggesting vascular calcification. Fusion changes about the spine. IMPRESSION: Cardiomegaly with pulmonary vascular congestion and unchanged interstitial coarsening suggesting pulmonary edema. The above report was generated using voice recognition software. It may contain grammatical, syntax or spelling errors. Electronically signed by: Forrest Armstrong M.D. 02/25/2018 10:45 PM Dictated Date/Time: 02/25/2018 10:43 PM
[2018-02-25 23:14] LABS: ALBUMIN 2.4 gm/dl (3.4-5.0); ALKALINE PHOSPHATASE 101 U/L (45-117); ALT/SGPT 16 U/L (12-78); AST/SGOT 19 U/L (15-37); LIPASE 49 U/L (73-393); TOTAL PROTEIN 7.3 gm/dl (6.4-8.2)
[2018-02-25] MEDS ORDERED: AMLODIPINE BESYLATE 5 MG TAB PO ONE (23:29)
[2018-02-25] MEDS ORDERED: LEVALBUTEROL/IPRATROPIUM NEB INH PRN (23:30)
[2018-02-25] MEDS ORDERED: PROCHLORPERAZINE INJ 5 MG in SYRINGE 4 ML IV PRN (23:30)
[2018-02-25] MEDS ORDERED: OXYCODONE/ACETAMINOPHEN 5-325 TAB PO PRN (23:30)
[2018-02-25] MEDS ORDERED: ACETAMINOPHEN 325 MG TAB PO PRN (23:30)
[2018-02-25] MEDS ORDERED: LORAZEPAM 2 MG/ML 1 ML VIAL IV PRN (23:30)
[2018-02-25] MEDS ORDERED: HYDROmorphone INJ 0.5 MG/0.5 ML SYR IV PRN (23:30)
[2018-02-26] VITALS (12 sets, daily range): BP systolic 134–162; BP diastolic 80–106; PULSE 73–100; TEMP 36.6–37; O2SAT 91–98; Ht 134.6 cm; Wt 105.7 kg
[2018-02-26] MEDS ORDERED: LEVALBUTEROL/IPRATROPIUM NEB INH STA (00:54)
[2018-02-26] MEDS ORDERED: FUROSEMIDE INJ 40 MG in SYRINGE 0 ML IV STA (01:12)
[2018-02-26] MEDS ORDERED: IPRATROPIUM BROMIDE NEB SOLN 0.02% 2.5 ML VIAL INH STA (01:29)
[2018-02-26] MEDS ORDERED: LEVALBUTEROL 1.25MG/0.5ML NEB INH STA (01:29)
[2018-02-26] MEDS ORDERED: LEVALBUTEROL 1.25MG/0.5ML NEB INH PRN (01:30)
[2018-02-26] MEDS ORDERED: IPRATROPIUM BROMIDE NEB SOLN 0.02% 2.5 ML VIAL INH PRN (01:30)
--- NOTE | 2018-02-26 01:40 | HISTORY & PHYSICAL EXAMINATION ---
DATE OF ADMISSION: 02/25/[address] Adair. CHIEF COMPLAINT: Nausea. HISTORY OF PRESENT ILLNESS: Medical history significant for hypertension, hypothyroidism, pseudoseizures as per records, history of MRSA, chronic indwelling Hodge catheter secondary to neurogenic bladder, spina bifida, hx DVT as per records, history of MRSA as per records. CRI (baseline crea 2) Recent confinement 02/16/2018 to 02/23/2018 for complicated UTI secondary to obstructive uropathy, 11 mm calculus proximal right ureter. Patient refused urologic procedure. Cultures grew Proteus. Patient discharged on IV Ertapenem course as per ID recommendation being given at [facility]. Patient also noted to have congestion on x-ray and an elevated D-dimer. PE workup could not be completed secondary to inability to tolerate procedures. Patient was on IV heparin temporarily, later discontinued. Home Lasix continued for congestion symptoms. At home, patient not eating as much. Intermittent right-sided lower achy abdominal pain. No hematuria. Patient denies chest pain, shortness of breath, fever, chills. Bronchitis cough symptoms improving as per patient. PCP recommended bringing patient to the ER. MEDICAL HISTORY: As above. 2D echo from August 2017 showed grossly normal EF. SURGICAL HISTORY: Foot surgery, sinus surgery, spinal surgery, hip surgery, urologic procedures. HOME MEDICATIONS: Include ertapenem course, Zocor, VESIcare, Zoloft, Flomax, Trintellix, Folvite, Lasix, levothyroxine, montelukast, aspirin, Tylenol, amlodipine, Wellbutrin, iron. ALLERGIES: TO TRAMADOL, PENICILLIN. FAMILY HISTORY: heart disease, schizophrenia. PERSONAL SOCIAL HISTORY: Nonsmoker. No chronic intake of alcoholic beverages. Disabled. REVIEW OF SYSTEMS: As per HPI. All 10 systems reviewed. All other ROS negative. PHYSICAL EXAMINATION: VITAL SIGNS: Blood pressure was noted to be 156/85, pulse rate 94, RR 20, T 37 O2 sats 89 on room air later 92 RA. GENERAL: Noted to be obese, uncomfortable, no respiratory distress. Covered with blankets. SKIN: Pallor, warm. HEENT: Pale palpebral conjunctivae. No ptosis. Dry mucosa. NECK: Short, supple. CHEST: Decreased effort. No tenderness. HEART: RRR. No murmur. ABDOMEN: Some distention, nontender. EXTREMITIES: Minimal LE edema, no tenderness. NEUROLOGIC: Coherent. No gross focality except for absent strength in lower extremities. LABORATORY DATA: Hemoglobin 9.2, white cell count 14, platelets 200. Sodium 137, K 3.3 potassium 4, chloride 102, creatinine 2.17, glucose was noted to be 89. TSH 21.6. Troponin negative UA occult blood large WBC esterase. Chest x-ray as per my interpretation showed congestion ASSESSMENT: 1. Complicated urinary tract infection secondary to obstructive uropathy. hx neurogenic bladder, chronic indwelling Hodge catheter Persistent symptoms. Patient not septic. hx Proteus mirabilis on recent urine cultures, ongoing IV Ertapenem Rx Patient refused surgery last visit. Patient amenable to undergoing surgery now, but would like further explanation as to nature of procedure, anesthesia, etc. 2. Hypertension, elevated secondary to discomfort/anxiety. 3. Pulmonary congestion on CXR Present since 09/08/17 CXR Intermittent hypoxemia noted at the ER sans patient dyspnea/fluid retention complaints 4. chronic renal insufficiency. Creatinine at baseline. 5. Chronic anemia, baseline hemoglobin 8-9 hemoglobin at baseline. 6. History pseudoseizures as per records. 7. Hypothyroidism, elevated TSH 8. Hx MRSA. PLAN: [facility] repeat urine cultures Continue Ertapenem for now. Urology consult. RE renal colic IV Lasix 1 dose now PT and OT eval. Check other TFTs. May need adjustment of Levothyroxine dose. DVT prophylaxis, Heparin subQ. DNR. MTDD
[2018-02-26] MEDS ORDERED: NURSING VERBAL MED ORDER ONE ×2 (02:15→18:00)
[2018-02-26] MEDS ORDERED: LORAZEPAM INJ 0.5 MG in SYRINGE 0.75 ML IV PRN (03:00)
[2018-02-26] MEDS ORDERED: LEVOTHYROXINE 200 MCG TAB PO SCH (06:00)
[2018-02-26] MEDS: HEPARIN SOD 5000 UNIT/0.5 ML CARP SQ SCH ×3 (06:08→21:09)
[2018-02-26 07:18] LABS: BASO % 0.2 %; BASO ABS # 0.03 K/uL (0-0.2); EOS % 2.6 %; EOS ABS # 0.36 K/uL (0-0.5); HEMATOCRIT 28.9 % (37-47); HEMOGLOBIN 9.1 g/dL (12.0-16.0); IG# 0.51 K/uL (0.00-0.02); LYMPH % 8.9 %; LYMPH ABS # 1.22 K/uL (1.2-3.4); MEAN CELL VOLUME 92.9 fL (80-100); MEAN CORPUSCULAR HEMOGLOBIN 29.3 pg (25-34); MEAN CORPUSCULAR HGB CONC 31.5 g/dl (32-36); MEAN PLATELET VOLUME 9.2 fL (7.4-10.4); MONO % 5.4 %; MONO ABS # 0.74 K/uL (0.11-0.59); NEUT % 79.2 %; NEUT ABS # 10.81 K/uL (1.4-6.5); PLATELET COUNT 423 K/uL (130-400); RED CELL DISTRIBUTION WIDTH CV 15.4 % (11.5-14.5); RED CELL DISTRIBUTION WIDTH SD 52.2 fL (36.4-46.3); WHITE BLOOD COUNT 13.67 K/uL (4.8-10.8)
[2018-02-26 07:56] LABS: CALCIUM 8.4 mg/dl (8.5-10.1); CREATININE 2.17 mg/dl (0.60-1.20); POTASSIUM 3.9 mmol/L (3.5-5.1)
[2018-02-26] MEDS: ASPIRIN 81 MG ECTAB PO SCH (08:39)
[2018-02-26] MEDS: BuPROPion SR 150 MG TABCR PO SCH (08:39)
[2018-02-26] MEDS: CEROVITE ADV FORMULA TAB PO SCH (08:39)
[2018-02-26] MEDS: SENNA 8.6 MG TAB PO SCH (08:40)
[2018-02-26] MEDS: SERTRALINE HCL 100 MG TAB PO SCH (08:40)
[2018-02-26] MEDS: TAMSULOSIN HCL 0.4 MG CAP PO SCH (08:40)
[2018-02-26] MEDS: FERROUS SULFATE 325 MG TAB PO SCH ×2 (08:40→20:34)
[2018-02-26] MEDS: ERTAPENEM IV 500 MG in SODIUM CHLORIDE 0.9% 50 ML IV SCH (08:48)
[2018-02-26] MEDS ORDERED: CEFTRIAXONE SOD INJ 1 GM in DEXTROSE 5% ADD-VANTAGE 50ML 50 ML IV SCH (09:00)
[2018-02-26] MEDS ORDERED: AMLODIPINE BESYLATE 5 MG TAB PO SCH (09:00)
[2018-02-26] MEDS ORDERED: ERTAPENEM CONSULT ACTIVE PRN (09:00)
--- NOTE | 2018-02-26 11:23 | Urology Consultation ---
History General Date of Service: Feb 26, 2018. Chief Complaint: right ureteral stone Primary Care Physician: Reginaldo Adair D.O. Pt seen a urologist before?: Yes If yes, why?: urinary incontinence and ureteral stone History of Present Illness I am asked by Dr Arthur to evaluate and treat patient for right ureteral stone. She bounced back after an admission for the same issue. She refused surgery at that time. She has continued to have poor appetite and nausea. She is willing to consider surgery now with several restrictions. She will not consent to any airway, LMA or GET. SHe has had surgery in the past. Imaging Imaging: CT Laboratory Results Past 24 Hours Test 02/25/18 19:45 02/25/18 20:29 02/26/18 07:00 Range/Units Urine Color YELLOW Urine Appearance TURBID CLEAR Urine pH 5.5 4.5-7.5 Urine Specific [place] 1.014 1.000-1.030 Urine Protein 1+ NEG Urine Glucose (UA) NEG NEG Urine Ketones NEG NEG Urine Occult Blood 3+ NEG Urine Nitrite NEG NEG Urine Bilirubin NEG NEG Urine Urobilinogen NEG NEG Urine Leukocyte Esterase LARGE NEG Urine WBC (Auto) >30 0-5 /hpf Urine RBC (Auto) 10-30 0-4 /hpf Urine Hyaline Casts (Auto) 0 0-5 /lpf Urine Epithelial Cells (Auto) >30 0-5 /lpf Urine Bacteria (Auto) NEG NEG Urine Pathogenic Casts 0 /lpf Urine Yeast (Auto) NONE PRSENT White Blood Count 14.12 13.67 4.8-10.8 K/uL Red Blood Count 3.15 3.11 4.2-5.4 M/uL Hemoglobin 9.2 9.1 12.0-16.0 g/dL Hematocrit 29.0 28.9 37-47 % Mean Corpuscular Volume 92.1 92.9 80-100 fL Mean Corpuscular Hemoglobin 29.2 29.3 25-34 pg Mean Corpuscular Hemoglobin Concent 31.7 31.5 32-36 g/dl Platelet Count 459 423 130-400 K/uL Mean Platelet Volume 9.3 9.2 7.4-10.4 fL Neutrophils (%) (Auto) 73.9 79.2 % Lymphocytes (%) (Auto) 12.3 8.9 % Monocytes (%) (Auto) 5.9 5.4 % Eosinophils (%) (Auto) 2.8 2.6 % Basophils (%) (Auto) 0.4 0.2 % Neutrophils # (Auto) 10.45 10.81 1.4-6.5 K/uL Lymphocytes # (Auto) 1.74 1.22 1.2-3.4 K/uL Monocytes # (Auto) 0.83 0.74 0.11-0.59 K/uL Eosinophils # (Auto) 0.39 0.36 0-0.5 K/uL Basophils # (Auto) 0.05 0.03 0-0.2 K/uL RDW Standard Deviation 51.5 52.2 36.4-46.3 fL RDW Coefficient of Variation 15.3 15.4 11.5-14.5 % Immature Granulocyte % (Auto) 4.7 3.7 % Immature Granulocyte # (Auto) 0.66 0.51 0.00-0.02 K/uL Sodium Level 137 138 136-145 mmol/L Potassium Level 3.3 3.9 3.5-5.1 mmol/L Chloride Level 102 104 98-107 mmol/L Carbon Dioxide Level 26 25 21-32 mmol/L Anion Gap 9.0 9.0 3-11 mmol/L Blood Urea Nitrogen 29 27 7-18 mg/dl Creatinine 2.17 2.17 0.60-1.20 mg/dl Est Creatinine Clear Calc Drug Dose 28.3 28.0 ml/min Estimated GFR () 29.0 29.0 Estimated GFR (Non- 25.0 25.0 BUN/Creatinine Ratio 13.5 12.6 10-20 Random Glucose 89 92 70-99 mg/dl Calcium Level 8.6 8.4 8.5-10.1 mg/dl Magnesium Level 2.1 1.8-2.4 mg/dl Total Bilirubin 0.2 0.2-1 mg/dl Direct Bilirubin 0.1 0-0.2 mg/dl Aspartate Amino Transf (AST/SGOT) 19 15-37 U/L Alanine Aminotransferase (ALT/SGPT) 16 12-78 U/L Alkaline Phosphatase 101 45-117 U/L Troponin I < 0.015 0-0.045 ng/ml Total Protein 7.3 6.4-8.2 gm/dl Albumin 2.4 3.4-5.0 gm/dl Lipase 49 73-393 U/L Thyroid Stimulating Hormone (TSH) 21.600 0.300-4.500 uIu/ml Free Thyroxine 1.02 0.80-1.60 ng/dl Total Triiodothyronine 0.21 0.60-1.81 ng/ml Microbiology Results 02/25/18 Urine Culture, Received Pending Labs were reviewed and are within normal limits unless listed below. Labs are available in the chart and at [facility] Problem List Medical Problems: (1) Acute kidney injury Status: Acute (2) NEMESIO (acute kidney injury) Status: Acute (3) Asthma, Unspecified Status: Chronic (4) Constipation Status: Acute (5) Creatinine elevation Status: Acute (6) Dehydration Status: Acute (7) Depression Status: Chronic (8) Encounter for suprapubic catheter care Status: Acute (9) Esophageal Reflux Status: Chronic (10) Hx-Venous Thrombosis&Embolism Status: Chronic (11) Hypertension Status: Chronic (12) Hypothyroidism Status: Chronic (13) Laceration Status: Acute (14) Left flank pain Status: Acute (15) Right thigh pain Status: Acute (16) Spina bifida Status: Chronic (17) UTI (urinary tract infection) Status: Acute (18) UTI (urinary tract infection) Status: Acute (19) Ventricular Shunt Status Status: Chronic Past History seizure, other (spina bifida, acute on chronic renal insufficiency, othro surgeries, [facility] general counsel- shunt ) Family History FH: CAD (coronary artery disease) FATHER BROTHER Social History Hx Tobacco Use In Past Year?: No Smoking: non-smoker Alcohol: never Drug use: none Marital status: single Housing status: lives alone, other Occupation status: disabled Immunizations History of Influenza Vaccine: Yes Influenza Vaccine Date: May 16, 2017 History of Tetanus Vaccine?: Yes Tetanus Immunization Date: May 18, 2017 History of Pneumococcal: Yes Pneumococcal Date: Jun 16, 2017 History of Hepatitis B Vaccine: Yes Hepatitis Immunization Date: Oct 05, 2006 History of MDRO Yes Type of MDRO: MRSA Allergies Coded Allergies: Penicillins (Verified Allergy, Severe, THROAT SWELLS, 02/25/18) Tramadol (Verified Allergy, Severe, Seizure, 02/25/18) Reported by PT and listed in [facility] record. Medications Home Medications: Home Meds and Scripts Medications Dose Route/Sig Max Daily Dose Days Date Category Dose Instructions Flomax (Tamsulosin Hcl) 0.4 Mg Cap 0.4 Mg PO DAILY 02/24/18 Reported Amlodipine Besylate 5 Mg Tab 5 Mg PO DAILY 02/16/18 Reported Trintellix (Vortioxetine HBr) 5 Mg Tab 5 Mg PO DAILY 02/16/18 Reported Tylenol (Acetaminophen) 500 Mg Tab 2 Tab PO Q6 2 02/16/18 Reported Wellbutrin Sr (Bupropion HCl) 150 Mg Ertab 150 Mg PO DAILY 02/16/18 Reported Levothyroxine Sodium 200 Mcg Tab 1 Tab PO DAILY 90 02/16/18 Reported 30 MINUTES BEFORE BREAKFAST OR OTHER MEDS Centrum Adults (Multiple Vitamins W/ Minerals) 1 Tab Tab 1 Tab PO DAILY 01/15/18 Reported Zoloft (Sertraline HCl) 100 Mg Tab 150 Mg PO DAILY 01/15/18 Reported Senna-Lax (Sennosides) 8.6 Mg Tab 1 Tab PO DAILY 09/06/17 Reported Vesicare (Solifenacin Succinate) 10 Mg Tab 10 Mg PO DAILY 01/10/17 Reported Lasix (Furosemide) 20 Mg Tab 20 Mg PO QAM 11/19/16 Reported Folvite (Folic Acid) 1 Mg Tab 1 Mg PO QAM 11/19/16 Reported Aspirin Ec (Aspirin) 81 Mg Tab 81 Mg PO QAM 11/19/16 Reported Zocor (Simvastatin) 20 Mg Tab 20 Mg PO HS 06/03/16 Reported Iron (Ferrous Sulfate) 325 Mg Tab 325 Mg PO BID 03/24/16 Reported Ascorbic Acid 500 Mg Tab 500 Mg PO BID 07/22/14 Reported Montelukast Sodium (Montelukast Sod) 10 Mg Tab 10 Mg PO HS 07/22/14 Reported Inpatient Medications: Current Inpatient Medications Medications (Trade) Dose Ordered Sig/Jacky Route Start Time Stop Time Status Last Admin Dose Admin Heparin Sodium (Porcine) (Heparin Sq 5000 Unit/0.5ml) 5,000 unit Q8H SQ 02/26/18 06:00 03/28/18 05:59 02/26/18 06:08 5,000 UNIT Acetaminophen (Tylenol Tab) 650 mg Q4H PRN PO 02/25/18 23:30 03/27/18 23:29 Oxycodone/ Acetaminophen (Percocet 5-325mg Tab) 1 tab Q6H PRN PO 02/25/18 23:30 03/11/18 23:29 Hydromorphone HCl (Dilaudid Inj) 0.5 mg Q3H PRN IV 02/25/18 23:30 03/11/18 23:29 Prochlorperazine Edisylate 5 mg/ Syringe 5 ml @ 5 mls/min Q6H PRN IV 02/25/18 23:30 03/27/18 23:29 Lorazepam (Ativan Inj) 0.5 mg Q4H PRN IV 02/25/18 23:30 03/27/18 23:29 Amlodipine Besylate (Norvasc Tab) 5 mg DAILY PO 02/26/18 09:00 03/28/18 08:59 02/26/18 08:40 5 MG Aspirin (Ecotrin Tab) 81 mg QAM PO 02/26/18 09:00 03/28/18 08:59 02/26/18 08:39 81 MG Bupropion HCl (Wellbutrin-Sr Tab) 150 mg DAILY PO 02/26/18 09:00 03/28/18 08:59 02/26/18 08:39 150 MG Folic Acid (Folvite Tab) 1 mg QAM PO 02/26/18 09:00 03/28/18 08:59 02/26/18 08:40 1 MG Levothyroxine Sodium (Synthroid Tab) 200 mcg DAILYBB PO 02/26/18 06:00 03/28/18 05:59 02/26/18 06:02 200 MCG Montelukast Sodium (Singulair Tab) 10 mg HS PO 02/26/18 21:00 03/28/18 20:59 Multivitamins/ Minerals (Multivitamin W/ Minerals Tab) 1 tab DAILY PO 02/26/18 09:00 03/28/18 08:59 02/26/18 08:39 1 TAB Senna (Senokot Tab) 8.6 mg DAILY PO 02/26/18 09:00 03/28/18 08:59 02/26/18 08:40 8.6 MG Sertraline HCl (Zoloft Tab) 150 mg DAILY PO 02/26/18 09:00 03/28/18 08:59 02/26/18 08:40 150 MG Simvastatin (Zocor Tab) 20 mg HS PO 02/26/18 21:00 03/28/18 20:59 Tamsulosin HCl (Flomax Cap) 0.4 mg DAILY PO 02/26/18 09:00 03/28/18 08:59 02/26/18 08:40 0.4 MG Ferrous Sulfate (Feosol Tab) 325 mg BID PO 02/26/18 09:00 03/28/18 08:59 02/26/18 08:40 325 MG Ertapenem (Consult) 1 ea UD PRN N/A 02/26/18 09:00 03/28/18 08:59 Ipratropium Nitro (Atrovent 0.02% 0.5MG/2.5ML Neb) 0.5 mg Q4H PRN INH 02/26/18 01:30 03/28/18 01:29 Levalbuterol (Xopenex 1.25MG/ 0.5ML Neb) 1.25 mg Q4H PRN INH 02/26/18 01:30 03/28/18 01:29 Heparin Sodium (Porcine) (Heparin 10 Unit/ ml 5 ml Flush) 5 ml PRN PRN FLUSH 02/26/18 02:15 03/28/18 02:14 02/26/18 09:33 5 ML Lorazepam 0.5 mg/ Syringe 1 ml @ 1 mls/min Q4H PRN IV 02/26/18 03:00 03/28/18 02:59 Ertapenem 500 mg/ Sodium Chloride 55 ml @ 110 mls/hr Q24H IV 02/26/18 08:00 03/08/18 07:59 02/26/18 08:48 110 MLS/HR Solifenacin (Vesicare) 10 mg DAILY PO 02/26/18 10:30 03/28/18 10:29 Vortioxetine (Trintellix) 5 mg QDD PO 02/26/18 17:45 03/28/18 17:44 Review of Systems Review of Systems Constitutional: No fever, No chills Endocrine: + tired/sluggish, No excessive thirst, No too hot, No too cold Gastrointestinal: + abdominal pain, + nausea, No vomiting, No constipation, No diarrhea Respiratory: + shortness of breath, + chronic cough, No coughing up blood Female : + leaking urine, + infections, + kidney stones, No frequent urination, No painful urination, No urinary retention Physical Exam Vital Signs: Vital Signs Past 12 Hours Date Time Temp Pulse Resp B/P (MAP) Pulse Ox O2 Delivery O2 Flow Rate FiO2 02/26/18 08:30 Room Air 02/26/18 07:50 36.9 97 16 140/89 (106) 98 Oxymask 2.0 02/26/18 06:00 97 134/80 (98) 02/26/18 02:20 153/87 (109) 02/26/18 02:04 73 16 97 Mask 2.0 02/26/18 00:25 37.0 98 16 160/81 96 Mask 2.0 02/26/18 00:10 Oxymask 02/26/18 00:04 98 18 166/95 89 Physical Exam: General Appearance: WD/WN, no apparent distress, + obese Eyes: bilateral eyes normal inspection ENT: hearing grossly normal Neck: no adenopathy, trachea midline Respiratory/Chest: no accessory muscle use, + decreased breath sounds Cardiovascular: regular rate, rhythm, no edema Neurologic/Psychiatric: alert, oriented x 3 Skin: normal color, warm/dry, no rash Assessment & Plan Assessment & Plan 11mm right ureteral stone unlikely to pass, but clinically seems to have moved lower since original ct scan over a week ago. Plan cysto right stent and possibly a ureteroscopy laser litho basket stone extraction She refuses any oral tube air management so this will be a very light anesthetic. As she tolerated lying flat in ER a month ago for her suprapubic tube placement I suspect she will not tolerate this well and will have a lot of pain from surgery and positioning and have clearly communicated that to her. She considered her options and opt to proceed for attempt under light sedation.
--- NOTE | 2018-02-26 11:28 | Progress Note ---
Internal Med Progress Note Date of Service: Feb 26, 2018. Provider Documentation: SUBJECTIVE: Seen and examined at bedside Patient had Cystoscopy, right ureteroscopy and stent placement earlier today States feeling well after the procedure Denies chest pain, SOB, dizziness, nausea, flank pain No complains OBJECTIVE: Vital Signs-as noted below General Appearance:Moderately built and nourished, no apparent distress Head: normocephalic, Atraumatic Eyes: normal inspection, EOMI, PERRL Neck: supple, Trachea midline Respiratory/Chest: Normal breath sounds, CTA Cardiovascular: S1, S2, No murmur Abdomen/GI:Soft, Non tender, Bowel sounds present :Suprapubic catheter Extremities/Musculoskelatal:normal inspection, 2+ b/l edema Neurologic/Psych:AAOX3, +Paraplegia Skin: normal color, warm Lab data as noted below. ASSESSMENT & PLAN: Complicated UTI (Chronic indwelling suprapubic catheter last changed 01/15/18 ) Obstructive Uropathy Spina bifida, neurogenic bladder Prior admission::CT abd: obstructing 11 mm calculus in the proximal right ureter with moderate right hydronephrosis; Additional large calculus at the lower pole the right kidney extending into the renal pelvis Refused Urological procedure during prior admission S/P Cystoscopy, right ureteroscopy and stent placement POD # 0 Appreciate Urology Input Continue IV Ertapenem for now Prior admission Urine Culture: Proteus Renal stone could not be extracted May need prolonged course of antibiotics and follow up with ID and Urology upon discharge Acute kidney injury in setting of CKD IV 2/2 Obstructive Uropathy Monitor renal function Consider Nephrology consult if no improvement Transient Hypoxia CXR: suggestive of vascular congestion H/O Asthma Received IV Lasix Continue home Nebs, Singular Resume Lasix as able Oxygen PRN Spina bifida, with paraplegia re-positioning frequently to prevent bed ulcers Depression Continue Wellbutrin, Zoloft, Trintellix HTN Continue amlodipine Hypothyroidism Continue levothyroxine HLD Continue statin Hypothyroidism TSH elevated, Normal Free T4 Needs repeat Thyroid function tests as outpatient once infection is controlled Continue levothyroxine DVT Px: SQ heparin Code status: DNR/DNI Disposition: Plan to discharge to [facility] when medically stable Vital Signs: Date Time Temp Pulse Resp B/P (MAP) Pulse Ox O2 Delivery O2 Flow Rate FiO2 02/26/18 13:59 89 16 162/84 (110) 93 Room Air 02/26/18 13:29 92 18 157/90 (112) 93 Room Air 02/26/18 13:04 36.7 88 20 156/106 (123) 92 Room Air 02/26/18 13:03 92 Room Air 02/26/18 12:45 36.5 90 16 157/92 96 Room Air 02/26/18 12:35 96 16 139/102 96 Room Air 02/26/18 12:27 36.5 101 16 135/109 100 Oxymask 10 02/26/18 08:30 Room Air 02/26/18 07:50 36.9 97 16 140/89 (106) 98 Oxymask 2.0 02/26/18 06:00 97 134/80 (98) 02/26/18 02:20 153/87 (109) 02/26/18 02:04 73 16 97 Mask 2.0 02/26/18 00:25 37.0 98 16 160/81 96 Mask 2.0 02/26/18 00:10 Oxymask 02/26/18 00:04 98 18 166/95 89 02/25/18 22:07 92 18 161/106 93 Room Air 02/25/18 21:23 90 20 176/87 91 Room Air 02/25/18 19:40 37.2 94 20 156/85 89 Room Air Lab Results: Results Past 24 Hours Test 02/25/18 19:45 02/25/18 20:29 02/26/18 07:00 Range/Units Urine Color YELLOW Urine Appearance TURBID CLEAR Urine pH 5.5 4.5-7.5 Urine Specific [place] 1.014 1.000-1.030 Urine Protein 1+ NEG Urine Glucose (UA) NEG NEG Urine Ketones NEG NEG Urine Occult Blood 3+ NEG Urine Nitrite NEG NEG Urine Bilirubin NEG NEG Urine Urobilinogen NEG NEG Urine Leukocyte Esterase LARGE NEG Urine WBC (Auto) >30 0-5 /hpf Urine RBC (Auto) 10-30 0-4 /hpf Urine Hyaline Casts (Auto) 0 0-5 /lpf Urine Epithelial Cells (Auto) >30 0-5 /lpf Urine Bacteria (Auto) NEG NEG Urine Pathogenic Casts 0 /lpf Urine Yeast (Auto) NONE PRSENT White Blood Count 14.12 13.67 4.8-10.8 K/uL Red Blood Count 3.15 3.11 4.2-5.4 M/uL Hemoglobin 9.2 9.1 12.0-16.0 g/dL Hematocrit 29.0 28.9 37-47 % Mean Corpuscular Volume 92.1 92.9 80-100 fL Mean Corpuscular Hemoglobin 29.2 29.3 25-34 pg Mean Corpuscular Hemoglobin Concent 31.7 31.5 32-36 g/dl Platelet Count 459 423 130-400 K/uL Mean Platelet Volume 9.3 9.2 7.4-10.4 fL Neutrophils (%) (Auto) 73.9 79.2 % Lymphocytes (%) (Auto) 12.3 8.9 % Monocytes (%) (Auto) 5.9 5.4 % Eosinophils (%) (Auto) 2.8 2.6 % Basophils (%) (Auto) 0.4 0.2 % Neutrophils # (Auto) 10.45 10.81 1.4-6.5 K/uL Lymphocytes # (Auto) 1.74 1.22 1.2-3.4 K/uL Monocytes # (Auto) 0.83 0.74 0.11-0.59 K/uL Eosinophils # (Auto) 0.39 0.36 0-0.5 K/uL Basophils # (Auto) 0.05 0.03 0-0.2 K/uL RDW Standard Deviation 51.5 52.2 36.4-46.3 fL RDW Coefficient of Variation 15.3 15.4 11.5-14.5 % Immature Granulocyte % (Auto) 4.7 3.7 % Immature Granulocyte # (Auto) 0.66 0.51 0.00-0.02 K/uL Sodium Level 137 138 136-145 mmol/L Potassium Level 3.3 3.9 3.5-5.1 mmol/L Chloride Level 102 104 98-107 mmol/L Carbon Dioxide Level 26 25 21-32 mmol/L Anion Gap 9.0 9.0 3-11 mmol/L Blood Urea Nitrogen 29 27 7-18 mg/dl Creatinine 2.17 2.17 0.60-1.20 mg/dl Est Creatinine Clear Calc Drug Dose 28.3 28.0 ml/min Estimated GFR () 29.0 29.0 Estimated GFR (Non- 25.0 25.0 BUN/Creatinine Ratio 13.5 12.6 10-20 Random Glucose 89 92 70-99 mg/dl Calcium Level 8.6 8.4 8.5-10.1 mg/dl Magnesium Level 2.1 1.8-2.4 mg/dl Total Bilirubin 0.2 0.2-1 mg/dl Direct Bilirubin 0.1 0-0.2 mg/dl Aspartate Amino Transf (AST/SGOT) 19 15-37 U/L Alanine Aminotransferase (ALT/SGPT) 16 12-78 U/L Alkaline Phosphatase 101 45-117 U/L Troponin I < 0.015 0-0.045 ng/ml Total Protein 7.3 6.4-8.2 gm/dl Albumin 2.4 3.4-5.0 gm/dl Lipase 49 73-393 U/L Thyroid Stimulating Hormone (TSH) 21.600 0.300-4.500 uIu/ml Free Thyroxine 1.02 0.80-1.60 ng/dl Total Triiodothyronine 0.21 0.60-1.81 ng/ml Microbiology Results 02/25/18 Urine Culture - Preliminary, Resulted NO GROWTH - LESS THAN 1,000 COLONIES/...
[2018-02-26] MEDS ORDERED: LABETALOL HCL IV 5 MG/ML 20ML IV PRN (11:30)
[2018-02-26] MEDS ORDERED: EpHEDrine SULFATE INJ 50 MG/ML AMP IV PRN (11:30)
[2018-02-26] MEDS ORDERED: PHENYLEPHRINE 100MCG/ML 5ML SYR IV PRN (11:30)
[2018-02-26] MEDS ORDERED: ONDANSETRON INJ 2 MG/ML 2 ML VIAL IV PRN (11:30)
[2018-02-26] MEDS ORDERED: FENTANYL CITRATE INJ 50 MCG/1 ML 2 ML VIAL IV PRN (11:30)
[2018-02-26] MEDS ORDERED: ACETAMINOPHEN 1000 MG/100 ML IV IV ONE (11:30)
[2018-02-26] MEDS ORDERED: ATROPINE SULFATE 0.1 MG/ML 5ML SYR IV PRN (11:30)
--- NOTE | 2018-02-26 12:37 | [facility] Operative Report ---
Operative Report Operative Date Feb 26, 2018. Pre-Operative Diagnosis 11mm right ureteral stone and urinary tract infection Post-Operative Diagnosis Same as preoperative diagnosis plus pyonephrosis Procedure(s) Performed Cystoscopy, right ureteroscopy and stent placement Surgeon Dr. Zamarripa Weasand Trimmer Surgeon(s) None Estimated Blood Loss None Findings small capacity bladder, no evidence of cystitis, right pyonephrosis Fluids 500mL Specimens No Specimen Drains 6 fr 24 centimeter double J stent Anesthesia Type MAC Complication(s) none Disposition yes Recovery Room / PACU (icu on weekends ) Indications obstructing right upper ureteral stone with uti Description of Procedure Patient was sedated and placed in modified lithotomy position. Her left leg was placed into a stirrup positioned in the midline because her hips have no adduction. Her right leg was placed on 2 yellow foam pads on a garrett stand, also in the midline. Her genitals were prepped and draped in sterile fashion. Time out held with team. I placed a 21 fr rigid cystoscope to bladder. The urethra is unremarkable. but angles sharply anteriorly. The UOs are a bit more proximal than expected and slit shaped. There is no active cystitis. I placed a road runner wire up right ureter and there was resistance at the top of the SI joint. With manipulation the wire went onto kidney. I used a 5 fr open ended cath to switche to a stiff wire. I used a dual lumen to calibrate the UO and place a second wire. I passed the flexible ureteroscope over the second wire. It passes with just a little tightness. Her ureter angles several times and at the hardware int he spine I cannot drive the scope to see. There is also very thick secretions coming from the kidney. I cannot drive the scope nor see enough to find stone for lasering. The procedure will have to be staged. I placed a 24 centimeter 6 Fr double J stent easily. There is brisk cloudy efflux after placement. I left bladder empty via her freely draining suprapubic tube and concluded case. She transferred to recovery under my escort, in stable condition. Plan: continue iv antibiotics. will need to discuss follow up surgery best would be PCNL to remove both ureteral and renal stones. ASA 3e clean contaminated case 20 seconds fluoro ertapenem antibiotic at 8:30am I attest to the content of the Intraoperative Record and any orders documented therein. Any exceptions are noted below.
--- NOTE | 2018-02-26 12:49 | Anesthesiology Progress Note ---
Anesthesia Post Op Note Date & Time Feb 26, 2018 at 12:49 Vital Signs Pain Intensity: 0 Vital Signs Past 12 Hours Date Time Temp Pulse Resp B/P (MAP) Pulse Ox O2 Delivery O2 Flow Rate FiO2 02/26/18 12:45 36.5 90 16 157/92 96 Room Air 02/26/18 12:35 96 16 139/102 96 Room Air 02/26/18 12:27 36.5 101 16 135/109 100 Oxymask 10 02/26/18 08:30 Room Air 02/26/18 07:50 36.9 97 16 140/89 (106) 98 Oxymask 2.0 02/26/18 06:00 97 134/80 (98) 02/26/18 02:20 153/87 (109) 02/26/18 02:04 73 16 97 Mask 2.0 Notes Mental Status: alert / awake / arousable, participated in evaluation Pt Amnestic to Procedure: Yes Nausea / Vomiting: adequately controlled Pain: adequately controlled Airway Patency, RR, SpO2: stable & adequate BP & HR: stable & adequate Hydration State: stable & adequate Anesthetic Complications: no major complications apparent
[2018-02-26] MEDS: SOLIFENACIN 10 MG TAB PO SCH (13:08)
--- NOTE | 2018-02-26 16:00 | DIAGNOSTIC IMAGING REPORT ---
KUB HISTORY: RIGHT SIDE STENT FLUOROSCOPY TIME: 111 seconds FINDINGS: 2 fluoroscopic spot images were submitted for review. There is a right ureteral stent. This appears to be in good position. IMPRESSION: Fluoroscopy provided for a right ureteral stent placement. Electronically signed by: Thierno Hines M.D. 02/26/2018 3:59 PM Dictated Date/Time: 02/26/2018 3:58 PM
[2018-02-26] MEDS ORDERED: VORTIOXETINE HBR 5 MG TAB PO SCH (17:45)
[2018-02-26] MEDS: SIMVASTATIN 20 MG TAB PO SCH (20:33)
[2018-02-26] MEDS: MONTELUKAST SOD 10 MG TAB PO SCH (20:34)
[2018-02-26] MEDS: VORTIOXETINE HBR 5 MG TAB PO SCH (23:31)
[2018-02-27] VITALS (10 sets, daily range): BP systolic 133–163; BP diastolic 80–95; PULSE 92–98; TEMP 36.5–37.2; O2SAT 74–96
[2018-02-27] MEDS ORDERED: AMLODIPINE BESYLATE 5 MG TAB PO ONE ×2 (01:22→07:05)
[2018-02-27] MEDS: LEVOTHYROXINE 200 MCG TAB PO SCH (06:00)
[2018-02-27] MEDS: HEPARIN SOD 5000 UNIT/0.5 ML CARP SQ SCH ×3 (06:02→21:58)
[2018-02-27] MEDS: LEVOTHYROXINE 25 MCG TAB PO SCH (06:33)
--- NOTE | 2018-02-27 06:59 | Clinical Documentation Query ---
CLINICAL DOCUMENTATION QUERY 52-y/o female with ureteral stone, pyonephrosis, and NEMESIO. Patient was treated with IV Lasix for hypoxia and vascular congestion via CXR. In your clinical opinion is this patient being managed for: ( ) Acute preserved EF CHF treated and resolved with IV Lasix ( X ) Not Agree ( ) Other explanation of clinical findings (No explanation is considered a No Response) ( ) Unable to determine ( ) Need to Discuss (Phone CDS or qliq) (No discussion is considered a No Response) The medical record reflects the following clinical findings, treatment, and risk factors. Clinical Indicators: As above. Echo from 09/08/17 showed grossly normal LV function. Study was very limited. Treatment: IV Lasix, Risk Factors: Age, home diuretic therapy, Please clarify and document your clinical opinion in the progress notes and discharge summary. Terms such as "probable", "suspected", "likely", "questionable", "possible", or "still to be ruled out" are acceptable. IF IN AGREEMENT, YOU MUST DOCUMENT ABOVE DIAGNOSTIC STATEMENT IN DAILY PROGRESS NOTES AND DISCHARGE SUMMARY. This document is not part of the patient's record. Thank You, Jorge Valero, RN [phone] & via [email or web address]
[2018-02-27] MEDS: ERTAPENEM IV 500 MG in SODIUM CHLORIDE 0.9% 50 ML IV SCH (07:39)
[2018-02-27 07:53] LABS: HEMATOCRIT 29.4 % (37-47); MEAN CELL VOLUME 94.2 fL (80-100); MEAN CORPUSCULAR HEMOGLOBIN 28.8 pg (25-34); MEAN CORPUSCULAR HGB CONC 30.6 g/dl (32-36); MEAN PLATELET VOLUME 9.3 fL (7.4-10.4); NUCLEATED RED BLOOD CELL ABS 0.02 K/uL (0-0); PLATELET COUNT 456 K/uL (130-400); RED CELL DISTRIBUTION WIDTH CV 15.7 % (11.5-14.5); RED CELL DISTRIBUTION WIDTH SD 53.9 fL (36.4-46.3); WHITE BLOOD COUNT 12.21 K/uL (4.8-10.8)
[2018-02-27 08:25] LABS: CALCIUM 8.8 mg/dl (8.5-10.1); CREATININE 1.93 mg/dl (0.60-1.20); POTASSIUM 3.9 mmol/L (3.5-5.1)
[2018-02-27] MEDS: SOLIFENACIN 10 MG TAB PO SCH (09:05)
[2018-02-27] MEDS: CEROVITE ADV FORMULA TAB PO SCH (09:05)
[2018-02-27] MEDS: TAMSULOSIN HCL 0.4 MG CAP PO SCH (09:05)
[2018-02-27] MEDS: ASPIRIN 81 MG ECTAB PO SCH (09:05)
[2018-02-27] MEDS: SERTRALINE HCL 100 MG TAB PO SCH (09:06)
[2018-02-27] MEDS: SENNA 8.6 MG TAB PO SCH (09:06)
[2018-02-27] MEDS: BuPROPion SR 150 MG TABCR PO SCH (09:06)
[2018-02-27] MEDS: FUROSEMIDE 20 MG TAB PO SCH (09:07)
[2018-02-27] MEDS: FERROUS SULFATE 325 MG TAB PO SCH ×2 (09:07→20:42)
--- NOTE | 2018-02-27 11:46 | Progress Note ---
Internal Med Progress Note Date of Service: Feb 27, 2018. Provider Documentation: SUBJECTIVE: Seen and examined at bedside Doing well today Had right ureteral stent placement yesterday Denies pain Has mild hematuria which is expected, Hb stable Denies chest pain, SOB, dizziness, nausea, flank pain No complains OBJECTIVE: Vital Signs-as noted below General Appearance:Moderately built and nourished, no apparent distress Head: normocephalic, Atraumatic Eyes: normal inspection, EOMI, PERRL Neck: supple, Trachea midline Respiratory/Chest: Normal breath sounds, CTA Cardiovascular: S1, S2, No murmur Abdomen/GI:Soft, Non tender, Bowel sounds present :Suprapubic catheter Extremities/Musculoskelatal:normal inspection, 2+ b/l edema Neurologic/Psych:AAOX3, +Paraplegia Skin: normal color, warm Lab data as noted below. ASSESSMENT & PLAN: Complicated UTI (Chronic indwelling suprapubic catheter last changed 01/15/18 ) Obstructive Uropathy Spina bifida, neurogenic bladder Prior admission::CT abd: obstructing 11 mm calculus in the proximal right ureter with moderate right hydronephrosis; Additional large calculus at the lower pole the right kidney extending into the renal pelvis Refused Urological procedure during prior admission S/P Cystoscopy, right ureteroscopy and stent placement POD # 2 Appreciate Urology Input Continue IV Ertapenem Prior admission Urine Culture: Proteus Renal stone could not be extracted May need prolonged course of antibiotics and follow up with ID and Urology upon discharge Leukocytosis trending down Discussed with today, Advised to complete the total 14 day course of Ertapenem which was started on prior admission Day # 10/ Acute kidney injury in setting of CKD IV 2/2 Obstructive Uropathy Monitor renal function Consider Nephrology consult if no improvement Renal function is slowly improving Cr:2.17>>1.93 Hypoxia CXR: suggestive of vascular congestion H/O Asthma Received IV Lasix Continue home Nebs, Singular continue Lasix Oxygen PRN Spina bifida, with paraplegia re-positioning frequently to prevent bed ulcers Depression Continue Wellbutrin, Zoloft, Trintellix HTN Continue amlodipine Hypothyroidism Continue levothyroxine HLD Continue statin Hypothyroidism TSH elevated, Normal Free T4 Needs repeat Thyroid function tests as outpatient once infection is controlled Continue levothyroxine DVT Px: SQ heparin Code status: DNR/DNI Disposition: Plan to discharge to [facility] when medically stable Vital Signs: Date Time Temp Pulse Resp B/P (MAP) Pulse Ox O2 Delivery O2 Flow Rate FiO2 02/27/18 11:32 36.9 92 17 142/88 (106) 90 Room Air 02/27/18 07:48 Room Air 02/27/18 07:25 36.9 92 18 147/84 (105) 94 Oxymask 2.0 02/27/18 07:11 136/86 (103) 02/27/18 05:46 159/81 (107) 02/27/18 03:39 36.5 94 18 163/95 (117) 95 Oxymask 1.0 02/27/18 01:56 96 Oxymask 2.0 02/27/18 01:50 98 148/87 (107) 74 Room Air 02/26/18 23:32 Oxymask 2.0 02/26/18 23:16 37.0 96 18 160/84 (109) 95 Oxymask 1.0 02/26/18 16:12 Room Air 02/26/18 16:06 36.6 97 18 154/95 (114) 92 Room Air 02/26/18 15:07 36.8 100 18 146/88 (107) 91 Room Air 02/26/18 13:59 89 16 162/84 (110) 93 Room Air Lab Results: Results Past 24 Hours Test 02/27/18 07:23 Range/Units White Blood Count 12.21 4.8-10.8 K/uL Red Blood Count 3.12 4.2-5.4 M/uL Hemoglobin 9.0 12.0-16.0 g/dL Hematocrit 29.4 37-47 % Mean Corpuscular Volume 94.2 80-100 fL Mean Corpuscular Hemoglobin 28.8 25-34 pg Mean Corpuscular Hemoglobin Concent 30.6 32-36 g/dl RDW Standard Deviation 53.9 36.4-46.3 fL RDW Coefficient of Variation 15.7 11.5-14.5 % Platelet Count 456 130-400 K/uL Mean Platelet Volume 9.3 7.4-10.4 fL Nucleated RBC Absolute Count (auto) 0.02 0-0 K/uL Nucleated Red Blood Cells % 0.2 % Sodium Level 140 136-145 mmol/L Potassium Level 3.9 3.5-5.1 mmol/L Chloride Level 105 98-107 mmol/L Carbon Dioxide Level 26 21-32 mmol/L Anion Gap 9.0 3-11 mmol/L Blood Urea Nitrogen 24 7-18 mg/dl Creatinine 1.93 0.60-1.20 mg/dl Est Creatinine Clear Calc Drug Dose 31.5 ml/min Estimated GFR () 33.4 Estimated GFR (Non- 28.8 BUN/Creatinine Ratio 12.4 10-20 Random Glucose 86 70-99 mg/dl Calcium Level 8.8 8.5-10.1 mg/dl Chemistry Specimen Hemolysis
[2018-02-27] MEDS: VORTIOXETINE HBR 5 MG TAB PO SCH (20:42)
[2018-02-27] MEDS: SIMVASTATIN 20 MG TAB PO SCH (20:42)
[2018-02-27] MEDS: MONTELUKAST SOD 10 MG TAB PO SCH (20:42)
[2018-02-28] MEDS: HEPARIN SOD 5000 UNIT/0.5 ML CARP SQ SCH ×2 (05:20→13:45)
[2018-02-28] MEDS: LEVOTHYROXINE 200 MCG TAB PO SCH (05:21)
[2018-02-28] MEDS: LEVOTHYROXINE 25 MCG TAB PO SCH (05:21)
[2018-02-28 06:48] LABS: HEMATOCRIT 28.7 % (37-47); MEAN CELL VOLUME 93.8 fL (80-100); MEAN CORPUSCULAR HEMOGLOBIN 29.4 pg (25-34); MEAN CORPUSCULAR HGB CONC 31.4 g/dl (32-36); MEAN PLATELET VOLUME 9.1 fL (7.4-10.4); PLATELET COUNT 409 K/uL (130-400); RED CELL DISTRIBUTION WIDTH CV 15.5 % (11.5-14.5); WHITE BLOOD COUNT 12.49 K/uL (4.8-10.8)
[2018-02-28 07:03] VITALS: BP 130/85; PULSE 89; TEMP 36.9; O2SAT 90
[2018-02-28 07:31] LABS: CALCIUM 8.4 mg/dl (8.5-10.1); CREATININE 1.79 mg/dl (0.60-1.20); POTASSIUM 3.3 mmol/L (3.5-5.1)
[2018-02-28] MEDS ORDERED: POTASSIUM CHLORIDE 20 MEQ TABCR PO STA (07:54)
[2018-02-28] MEDS: ERTAPENEM IV 500 MG in SODIUM CHLORIDE 0.9% 50 ML IV SCH (08:09)
[2018-02-28] MEDS ORDERED: AMLODIPINE BESYLATE 5 MG TAB PO SCH ×2 (09:00)
[2018-02-28] MEDS: ASPIRIN 81 MG ECTAB PO SCH (09:06)
[2018-02-28] MEDS: FERROUS SULFATE 325 MG TAB PO SCH (09:06)
[2018-02-28] MEDS: TAMSULOSIN HCL 0.4 MG CAP PO SCH (09:07)
[2018-02-28] MEDS: FUROSEMIDE 20 MG TAB PO SCH (09:08)
[2018-02-28] MEDS: CEROVITE ADV FORMULA TAB PO SCH (09:08)
[2018-02-28] MEDS: SENNA 8.6 MG TAB PO SCH (09:08)
[2018-02-28] MEDS: BuPROPion SR 150 MG TABCR PO SCH (09:09)
[2018-02-28] MEDS: SOLIFENACIN 10 MG TAB PO SCH (09:09)
[2018-02-28] MEDS: SERTRALINE HCL 100 MG TAB PO SCH (09:10)
--- NOTE | 2018-02-28 14:51 | Progress Note ---
Internal Med Progress Note Date of Service: Feb 28, 2018. Provider Documentation: SUBJECTIVE: Patient denies acute pain. Patient denies shortness of breath. Patient denies vomiting. Patient's creatinine downtrending today. She reports of not wanting to have any further invasive urology procedures OBJECTIVE: General Appearance:Moderately built and nourished, no apparent distress Head: normocephalic, Atraumatic Eyes: normal inspection, EOMI Neck: supple, Trachea midline Respiratory/Chest: Normal breath sounds, CTA Cardiovascular: S1, S2, No murmur Abdomen/GI:Soft, Non tender, Bowel sounds present :Suprapubic catheter Extremities/Musculoskelatal:normal inspection, 2+ b/l edema Neurologic/Psych:AAOX3, +Paraplegia ASSESSMENT & PLAN: Hospital Course and Plans This is a patient with Spina bifida, neurogenic bladder and prior hospital admission and discharge for Complicated UTI with a Chronic indwelling suprapubic catheter last changed; and Obstructive Uropathy. Prior admission:CT abd: obstructing 11 mm calculus in the proximal right ureter with moderate right hydronephrosis; Additional large calculus at the lower pole the right kidney extending into the renal pelvis. Patient had declined urological procedure on prior admission. She was found at that time to have urine culture for proteus. Was started then on Ertapenem Patient returns to the hospital on this admission. Is status post Cystoscopy, right ureteroscopy and stent placement on 02/26/18 Patient's Acute kidney injury in setting of CKD IV (secondary to Obstructive Uropathy) is resolving as creatinine downtrended from 2.17 to 1.93 to 1.79 Continue Tamsulosin To complete the total 14 day course of Ertapenem which was started on prior admission. Day # 11 of 14. Patient should continue getting Ertapenem IV antibiotics 500 mg IV daily on 03/01/18, 03/02/18, and 03/03/18 at the [facility] Hypothyroidism TSH elevated as 21.6, Normal Free T4 The elevated TSH suggestive of changes in thyroid function during recent acute illness. Patient has been continued on current home levothyroxine medication but should follow up with primary care doctor and likely needs repeat thyroid function tests in 2 to 3 weeks Hypoxia (resolved) CXR: suggestive of vascular congestion H/O Asthma Received IV Lasix continue oral Lasix Continue home Singular, continue home albuterol inhalers or nebulizer treatments as needed for shortness of breath of wheezing Spina bifida, with paraplegia re-positioning frequently to prevent bed ulcers Depression Continue Wellbutrin, Zoloft, Trintellix HTN Continue amlodipine HLD Continue statin Discharge Instructions Patient should continue getting Ertapenem IV antibiotics 500 mg IV daily on 03/01, 03/02/18, and 03/03/18 at the [facility] Upcoming appointments 03/01/2018 1:20 PM Reginaldo Adair DO [facility] 05/17/2018 2:00 PM Prema Zamarripa MD Urology, [facility] Vital Signs: Date Time Temp Pulse Resp B/P (MAP) Pulse Ox O2 Delivery O2 Flow Rate FiO2 02/28/18 09:42 Room Air 02/28/18 07:03 36.9 89 18 130/85 (100) 90 Room Air 02/28/18 00:05 Oxymask 2.0 02/27/18 22:57 95 Oxymask 2.0 02/27/18 22:56 37.2 92 16 138/82 (100) 83 Room Air 02/27/18 15:40 Room Air Lab Results: Results Past 24 Hours Test 02/28/18 06:33 Range/Units White Blood Count 12.49 4.8-10.8 K/uL Red Blood Count 3.06 4.2-5.4 M/uL Hemoglobin 9.0 12.0-16.0 g/dL Hematocrit 28.7 37-47 % Mean Corpuscular Volume 93.8 80-100 fL Mean Corpuscular Hemoglobin 29.4 25-34 pg Mean Corpuscular Hemoglobin Concent 31.4 32-36 g/dl RDW Standard Deviation 53.0 36.4-46.3 fL RDW Coefficient of Variation 15.5 11.5-14.5 % Platelet Count 409 130-400 K/uL Mean Platelet Volume 9.1 7.4-10.4 fL Sodium Level 139 136-145 mmol/L Potassium Level 3.3 3.5-5.1 mmol/L Chloride Level 104 98-107 mmol/L Carbon Dioxide Level 28 21-32 mmol/L Anion Gap 7.0 3-11 mmol/L Blood Urea Nitrogen 23 7-18 mg/dl Creatinine 1.79 0.60-1.20 mg/dl Est Creatinine Clear Calc Drug Dose 34.0 ml/min Estimated GFR () 36.6 Estimated GFR (Non- 31.6 BUN/Creatinine Ratio 12.6 10-20 Random Glucose 93 70-99 mg/dl Calcium Level 8.4 8.5-10.1 mg/dl Magnesium Level 2.1 1.8-2.4 mg/dl
[2018-02-28 15:02] VITALS: BP 124/79; PULSE 90; TEMP 36.9; O2SAT 90
[2018-02-28] MEDS ORDERED: PRVHFAIN INH ×2 (15:18)
[2018-02-28] MEDS ORDERED: ALBINS/ INH ×2 (15:21)
--- NOTE | 2018-02-28 15:32 | Discharge Instructions ---
Discharge Instructions Date of Service Feb 28, 2018. Admission Reason for Admission: Complicated Uti Discharge Discharge Diagnosis / Problem: Complicated UTI, Obstructive uropathy, Acute kidney Injury, HTN Discharge Goals Goal(s): Improve disease control Activity Recommendations Activity Limitations: per Instructions/Follow-up section . Instructions / Follow-Up Instructions / Follow-Up Hospital Course and Plans This is a patient with Spina bifida, neurogenic bladder and prior hospital admission and discharge for Complicated UTI with a Chronic indwelling suprapubic catheter last changed; and Obstructive Uropathy. Prior admission:CT abd: obstructing 11 mm calculus in the proximal right ureter with moderate right hydronephrosis; Additional large calculus at the lower pole the right kidney extending into the renal pelvis. Patient had declined urological procedure on prior admission. She was found at that time to have urine culture for proteus. Was started then on Ertapenem Patient returns to the hospital on this admission. Is status post Cystoscopy, right ureteroscopy and stent placement on 02/26/18 Patient's Acute kidney injury in setting of CKD IV (secondary to Obstructive Uropathy) is resolving as creatinine downtrended from 2.17 to 1.93 to 1.79 Continue Tamsulosin To complete the total 14 day course of Ertapenem which was started on prior admission. Day # 11 of 14. Patient should continue getting Ertapenem IV antibiotics 500 mg IV daily on 03/01/18, 03/02/18, and 03/03/[address] [facility] Hypothyroidism TSH elevated as 21.6, Normal Free T4 The elevated TSH suggestive of changes in thyroid function during recent acute illness. Patient has been continued on current home levothyroxine medication but should follow up with primary care doctor and likely needs repeat thyroid function tests in 2 to 3 weeks Hypoxia (resolved) CXR: suggestive of vascular congestion H/O Asthma Received IV Lasix continue oral Lasix Continue home Singular, continue home albuterol inhalers or nebulizer treatments as needed for shortness of breath of wheezing Spina bifida, with paraplegia re-positioning frequently to prevent bed ulcers Depression Continue Wellbutrin, Zoloft, Trintellix HTN Continue amlodipine HLD Continue statin Discharge Instructions Patient should continue getting Ertapenem IV antibiotics 500 mg IV daily on 03/01, 03/02/18, and 03/03/18 at the [facility] Upcoming appointments 03/01/2018 1:20 PM Reginaldo Adair DO [facility] 05/17/2018 2:00 PM Prema Zamarripa MD Urology, [facility] Current Hospital Diet Patient's current hospital diet: AHA Diet (Heart Healthy) Discharge Diet Recommended Diet: AHA Diet (Heart Healthy) Procedures Procedures Performed: Cystoscopy, right ureteroscopy and stent placement Pending Studies Studies pending at discharge: no Laboratory Results 02/28/18 06:33 02/28/18 06:33 Test 02/25/18 19:45 02/25/18 20:29 02/26/18 07:00 02/27/18 07:23 Urine Color YELLOW Urine Appearance TURBID (CLEAR) Urine pH 5.5 (4.5-7.5) Urine Specific [place] 1.014 (1.000-1.030) Urine Protein 1+ (NEG) Urine Glucose (UA) NEG (NEG) Urine Ketones NEG (NEG) Urine Occult Blood 3+ (NEG) Urine Nitrite NEG (NEG) Urine Bilirubin NEG (NEG) Urine Urobilinogen NEG (NEG) Urine Leukocyte Esterase LARGE (NEG) Urine WBC (Auto) >30 /hpf (0-5) Urine RBC (Auto) 10-30 /hpf (0-4) Urine Hyaline Casts (Auto) 0 /lpf (0-5) Urine Epithelial Cells (Auto) >30 /lpf (0-5) Urine Bacteria (Auto) NEG (NEG) Urine Pathogenic Casts /lpf (0) Urine Yeast (Auto) (NONE PRSENT) Total Bilirubin 0.2 mg/dl (0.2-1) Direct Bilirubin 0.1 mg/dl (0-0.2) Aspartate Amino Transf (AST/SGOT) 19 U/L (15-37) Alanine Aminotransferase (ALT/SGPT) 16 U/L (12-78) Alkaline Phosphatase 101 U/L (45-117) Troponin I < 0.015 ng/ml (0-0.045) Total Protein 7.3 gm/dl (6.4-8.2) Albumin 2.4 gm/dl (3.4-5.0) Lipase 49 U/L (73-393) Thyroid Stimulating Hormone (TSH) 21.600 uIu/ml (0.300-4.500) Free Thyroxine 1.02 ng/dl (0.80-1.60) Immature Granulocyte % (Auto) 3.7 % White Blood Count 13.67 K/uL (4.8-10.8) Red Blood Count 3.11 M/uL (4.2-5.4) Hemoglobin 9.1 g/dL (12.0-16.0) Hematocrit 28.9 % (37-47) Mean Corpuscular Volume 92.9 fL (80-100) Mean Corpuscular Hemoglobin 29.3 pg (25-34) Mean Corpuscular Hemoglobin Concent 31.5 g/dl (32-36) Platelet Count 423 K/uL (130-400) Mean Platelet Volume 9.2 fL (7.4-10.4) Neutrophils (%) (Auto) 79.2 % Lymphocytes (%) (Auto) 8.9 % Monocytes (%) (Auto) 5.4 % Eosinophils (%) (Auto) 2.6 % Basophils (%) (Auto) 0.2 % Neutrophils # (Auto) 10.81 K/uL (1.4-6.5) Lymphocytes # (Auto) 1.22 K/uL (1.2-3.4) Monocytes # (Auto) 0.74 K/uL (0.11-0.59) Eosinophils # (Auto) 0.36 K/uL (0-0.5) Basophils # (Auto) 0.03 K/uL (0-0.2) Immature Granulocyte # (Auto) 0.51 K/uL (0.00-0.02) Total Triiodothyronine 0.21 ng/ml (0.60-1.81) Nucleated RBC Absolute Count (auto) 0.02 K/uL (0-0) Nucleated Red Blood Cells % 0.2 % Chemistry Specimen Hemolysis Test 02/28/18 06:33 Red Blood Count 3.06 M/uL (4.2-5.4) Mean Corpuscular Volume 93.8 fL (80-100) Mean Corpuscular Hemoglobin 29.4 pg (25-34) Mean Corpuscular Hemoglobin Concent 31.4 g/dl (32-36) RDW Standard Deviation 53.0 fL (36.4-46.3) RDW Coefficient of Variation 15.5 % (11.5-14.5) Mean Platelet Volume 9.1 fL (7.4-10.4) Anion Gap 7.0 mmol/L (3-11) Est Creatinine Clear Calc Drug Dose 34.0 ml/min Estimated GFR () 36.6 Estimated GFR (Non- 31.6 BUN/Creatinine Ratio 12.6 (10-20) Calcium Level 8.4 mg/dl (8.5-10.1) Magnesium Level 2.1 mg/dl (1.8-2.4) Date/Time Source Procedure Growth Status 02/25/18 19:45 Urine,Catheterized Urine Culture - Final NO GROWTH - LESS THAN 1,000 COLONIES/ML Complete Medical Emergencies . Who to Call and When: Medical Emergencies: If at any time you feel your situation is an emergency, please call 911 immediately. . Non-Emergent Contact Non-Emergency issues call your: Primary Care Provider, Urologist Call Non-Emergent contact if: you have any medication questions . . "Provider Documentation" section prepared by Tenzin Ansari. .
--- NOTE | 2018-02-28 15:35 | Discharge Summary ---
Discharge Summary Date of Service Feb 28, 2018. Discharge Summary Admission Date: Feb 25, 2018 at 23:23 Discharge Date: Feb 28, 2018 Discharge Disposition: Personal care Principal Diagnosis: Obstructive uropathy, complicated Urinary tract infection, obstructive uropathy , acute kidney injury Secondary Diagnoses/Problems: Hypertension, spina bifida, neurogenic bladder, paraplegia Admission Information HPI (per Admitting provider): CHIEF COMPLAINT: Nausea. HISTORY OF PRESENT ILLNESS: Medical history significant for hypertension, hypothyroidism, pseudoseizures as per records, history of MRSA, chronic indwelling Hodge catheter secondary to neurogenic bladder, spina bifida, hx DVT as per records, history of MRSA as per records. CRI (baseline crea 2) Recent confinement 02/16/2018 to 02/23/2018 for complicated UTI secondary to obstructive uropathy, 11 mm calculus proximal right ureter. Patient refused urologic procedure. Cultures grew Proteus. Patient discharged on IV Ertapenem course as per ID recommendation being given at [facility]. Patient also noted to have congestion on x-ray and an elevated D-dimer. PE workup could not be completed secondary to inability to tolerate procedures. Patient was on IV heparin temporarily, later discontinued. Home Lasix continued for congestion symptoms. At home, patient not eating as much. Intermittent right-sided lower achy abdominal pain. No hematuria. Patient denies chest pain, shortness of breath, fever, chills. Bronchitis cough symptoms improving as per patient. PCP recommended bringing patient to the ER. MEDICAL HISTORY: As above. 2D echo from August 2017 showed grossly normal EF. SURGICAL HISTORY: Foot surgery, sinus surgery, spinal surgery, hip surgery, urologic procedures. HOME MEDICATIONS: Include ertapenem course, Zocor, VESIcare, Zoloft, Flomax, Trintellix, Folvite, Lasix, levothyroxine, montelukast, aspirin, Tylenol, amlodipine, Wellbutrin, iron. ALLERGIES: TO TRAMADOL, PENICILLIN. FAMILY HISTORY: heart disease, schizophrenia. PERSONAL SOCIAL HISTORY: Nonsmoker. No chronic intake of alcoholic beverages. Disabled. REVIEW OF SYSTEMS: As per HPI. All 10 systems reviewed. All other ROS negative. Physical Exam (per Admitting): PHYSICAL EXAMINATION: VITAL SIGNS: Blood pressure was noted to be 156/85, pulse rate 94, RR 20, T 37 O2 sats 89 on room air later 92 RA. GENERAL: Noted to be obese, uncomfortable, no respiratory distress. Covered with blankets. SKIN: Pallor, warm. HEENT: Pale palpebral conjunctivae. No ptosis. Dry mucosa. NECK: Short, supple. CHEST: Decreased effort. No tenderness. HEART: RRR. No murmur. ABDOMEN: Some distention, nontender. EXTREMITIES: Minimal LE edema, no tenderness. NEUROLOGIC: Coherent. No gross focality except for absent strength in lower extremities. Hospital Course Hospital Course and Plans This is a patient with Spina bifida, neurogenic bladder and prior hospital admission and discharge for Complicated UTI with a Chronic indwelling suprapubic catheter last changed; and Obstructive Uropathy. Prior admission:CT abd: obstructing 11 mm calculus in the proximal right ureter with moderate right hydronephrosis; Additional large calculus at the lower pole the right kidney extending into the renal pelvis. Patient had declined urological procedure on prior admission. She was found at that time to have urine culture for proteus. Was started then on Ertapenem Patient returns to the hospital on this admission. Is status post Cystoscopy, right ureteroscopy and stent placement on 02/26/18 Patient's Acute kidney injury in setting of CKD IV (secondary to Obstructive Uropathy) is resolving as creatinine downtrended from 2.17 to 1.93 to 1.79 Continue Tamsulosin To complete the total 14 day course of Ertapenem which was started on prior admission. Day # 11 of 14. Patient should continue getting Ertapenem IV antibiotics 500 mg IV daily on 03/01/18, 03/02/18, and [facility] Hypothyroidism TSH elevated as 21.6, Normal Free T4 The elevated TSH suggestive of changes in thyroid function during recent acute illness. Patient has been continued on current home levothyroxine medication but should follow up with primary care doctor and likely needs repeat thyroid function tests in 2 to 3 weeks Hypoxia (resolved) CXR: suggestive of vascular congestion H/O Asthma Received IV Lasix continue oral Lasix Continue home Singular, continue home albuterol inhalers or nebulizer treatments as needed for shortness of breath of wheezing Spina bifida, with paraplegia re-positioning frequently to prevent bed ulcers Depression Continue Wellbutrin, Zoloft, Trintellix HTN Continue amlodipine HLD Continue statin Discharge Instructions Patient should continue getting Ertapenem IV antibiotics 500 mg IV daily on 03/01, 03/02/18, and 03/03/18 at the [facility] Upcoming appointments 03/01/2018 1:20 PM Reginaldo Adair DO [facility] 05/17/2018 2:00 PM Prema Zamarripa MD Urology, [facility] Total time spent on discharge = 40 minutes This includes examination of the patient, discharge planning, medication reconciliation, and communication with other providers. Discharge Instructions see above
[2018-02-28 15:42] VITALS: BP 124/79; PULSE 90; TEMP 36.9; O2SAT 90
[2018-03-01] MEDS ORDERED: ERTAPENEM IV 1 GM in SODIUM CHLOR 0.9% AD-VAN 50ML IV SCH (08:00)
== END 2018-02-28 19:15 | disposition home or self-care (01) | DRG 690 ==
LOC: EDBD 19:37 → C.EDC 19:38 → C.3E 23:23 → ENRESERV 23:50
PROVIDERS: ADMIT Internal Medicine; ATTEND Hospitalist
PROC: 0T768DZ Dilation of Right Ureter with Intraluminal Device, Via Natural or Artificial Opening Endoscopic (ICD-10-PCS; principal; 2018-02-26 11:15)
DX: N13.6 Pyonephrosis (principal); G82.20 Paraplegia, unspecified; Z68.43 Body mass index [BMI] 50.0-59.9, adult; N17.9 Acute kidney failure, unspecified; N18.4 Chronic kidney disease, stage 4 (severe); N13.9 Obstructive and reflux uropathy, unspecified; N31.9 Neuromuscular dysfunction of bladder, unspecified; Z96.0 Presence of urogenital implants; R09.02 Hypoxemia; R91.8 Other nonspecific abnormal finding of lung field; J45.909 Unspecified asthma, uncomplicated; I12.9 Hypertensive chronic kidney disease with stage 1 through stage 4 chronic kidney disease, or unspecified chronic kidney disease; D64.9 Anemia, unspecified; E03.9 Hypothyroidism, unspecified; E78.5 Hyperlipidemia, unspecified; F32.9 Major depressive disorder, single episode, unspecified; E66.9 Obesity, unspecified; Z66 Do not resuscitate; Q05.9 Spina bifida, unspecified; Z98.2 Presence of cerebrospinal fluid drainage device; Z87.442 Personal history of urinary calculi; Z87.440 Personal history of urinary (tract) infections; Z86.14 Personal history of Methicillin resistant Staphylococcus aureus infection; Z86.69 Personal history of other diseases of the nervous system and sense organs; Z86.718 Personal history of other venous thrombosis and embolism; Z79.1 Long term (current) use of non-steroidal anti-inflammatories (NSAID); Z79.82 Long term (current) use of aspirin; Z79.899 Other long term (current) drug therapy; Z88.0 Allergy status to penicillin; Z88.5 Allergy status to narcotic agent

== ENCOUNTER 2018-03-03 11:50 | Inpatient (IN) | payer OTHER ==
[~2018-03-03] VITALS: Ht 132.1 cm; Wt 108.4 kg
[~2018-03-03 11:50] MED LIST changes: +ALBINS/ INH; +PRVHFAIN INH; +RAPID SEQUENCE INDUCTION BAG ONE
[2018-03-03 11:53] VITALS: TEMP 37.2; O2SAT 100
[2018-03-03] MEDS ORDERED: SENN-83 PO (12:05)
[2018-03-03] MEDS ORDERED: LORAZEPAM 2 MG/ML 1 ML VIAL IV STA ×2 (12:07→12:55)
[2018-03-03] MEDS ORDERED: VANCOMYCIN 1GM ED/ASU OMNICELL IV STA (12:07)
[2018-03-03] MEDS ORDERED: SODIUM CHLORIDE 0.9% 1000ML 1,000 ML IV ONE (12:07)
[2018-03-03 12:33] LABS: BASO % 0.4 %; BASO ABS # 0.07 K/uL (0-0.2); EOS % 2.1 %; EOS ABS # 0.37 K/uL (0-0.5); HEMATOCRIT 33.6 % (37-47); HEMOGLOBIN 10.2 g/dL (12.0-16.0); IG# 0.78 K/uL (0.00-0.02); LYMPH % 20.5 %; LYMPH ABS # 3.58 K/uL (1.2-3.4); MEAN CORPUSCULAR HEMOGLOBIN 29.1 pg (25-34); MEAN CORPUSCULAR HGB CONC 30.4 g/dl (32-36); MEAN PLATELET VOLUME 9.7 fL (7.4-10.4); MONO % 3.5 %; MONO ABS # 0.61 K/uL (0.11-0.59); NEUT ABS # 12.03 K/uL (1.4-6.5); NUCLEATED RED BLOOD CELL ABS 0.05 K/uL (0-0); PLATELET COUNT 618 K/uL (130-400); RED CELL DISTRIBUTION WIDTH CV 15.7 % (11.5-14.5); RED CELL DISTRIBUTION WIDTH SD 54.8 fL (36.4-46.3); WHITE BLOOD COUNT 17.44 K/uL (4.8-10.8)
[2018-03-03 12:34] LABS: ISTAT POTASSIUM 4.8 mEq/L (3.3-5.0); ISTAT SODIUM 140 mEq/L (135-144)
[2018-03-03 12:45] LABS: PTT PATIENT 23.7 SECONDS (21.0-31.0)
--- NOTE | 2018-03-03 12:49 | DIAGNOSTIC IMAGING REPORT ---
CHEST ONE VIEW PORTABLE CLINICAL HISTORY: Sepsis dyspnea COMPARISON STUDY: 02/25/2018 FINDINGS: Cardia megaly. Pulmonary edema. Diaphragms are smooth. No focal regions of true consolidation. IMPRESSION: Cardiomegaly. Pulmonary edema. The above report was generated using voice recognition software. It may contain grammatical, syntax or spelling errors. Electronically signed by: Sherif White M.D. 03/03/2018 12:47 PM Dictated Date/Time: 03/03/2018 12:47 PM
[2018-03-03 12:57] LABS: CALCIUM 10.1 mg/dl (8.5-10.1); CREATININE 1.72 mg/dl (0.60-1.20); POTASSIUM 5.5 mmol/L (3.5-5.1); TOTAL PROTEIN 9.1 gm/dl (6.4-8.2)
[2018-03-03] MEDS ORDERED: ERTAPENEM IV 500 MG in SODIUM CHLORIDE 0.9% 50 ML IV ONE (13:00)
--- NOTE | 2018-03-03 13:54 | EMERGENCY ROOM VISIT NOTE ---
History Report prepared by Peggy: Wyatt Pedroza Under the Supervision of: Dr. Maxim Polk M.D. First contact with patient: 12:01 Chief Complaint: CARDIAC ARREST Stated Complaint: CARDIAC ARREST History of Present Illness This HPI is limited secondary to the unresponsive status of the patient. The patient is a 52 year old white female with a past medical history of anemia, asthma, CKD, UTI, HTN, MRSA, Hypothyroidism, Paraplegia, ureteral calculus, ventricular shunt, and DVT who presents to the Emergency Room after passing out in the [facility] shortly prior to arrival. Rapid Response team arrived on scene and state that there was no pulse. Chest compressions and respiratory bagging was started. The pulse did return after a minute of compressions, per those on scene. Upon arrival to the trauma bay the patient is unresponsive and has a pulse. Previous records were obtained and show that the patient is a DNR. The family arrived to the department and were updated on the situation. The family confirms the DNR and adds that the patient is a DNI and does not want any heroic measures performed. Source of History: other (Rapid response team witnesses) History Limited By: cardiac arrest Onset: shortly MEDICAL RECORDS ASSISTANT Position: chest Quality: other ([place] Arrest, unresponsive) Review of Systems See HPI for pertinent positives and negatives. A total of ten systems were reviewed and were otherwise negative. Past Medical & Surgical Medical Problems: (1) Anemia of chronic disease (2) Asthma, Unspecified (3) CKD (chronic kidney disease), stage IV (4) Depression (5) Depression (6) Esophageal Reflux (7) History of DVT (deep vein thrombosis) (8) History of MRSA infection (9) HTN (hypertension) (10) Hx-Venous Thrombosis&Embolism (11) Hypertension (12) Hypothyroidism (13) Hypothyroidism (14) Laceration of left foot (15) Lymphedema (16) Neurogenic bladder (17) Paraplegia (18) Restrictive airway disease (19) Spina bifida (20) Spina bifida (21) Suprapubic catheter (22) Ventricular Shunt Status Surgical Problems: (1) H/O foot surgery (2) H/O sinus surgery (3) H/O Spinal surgery (4) History of hip surgery Family History FH: CAD (coronary artery disease) FATHER BROTHER Social History Smoking Status: Unknown if Ever Smoked Alcohol Use: none Marital Status: single Housing Status: assisted living Occupation Status: disabled Current/Historical Medications Scheduled Amlodipine Besylate (Amlodipine Besylate), 5 MG PO QAM Ascorbic Acid (Ascorbic Acid), 500 MG PO BID Aspirin (Aspirin Ec), 81 MG PO QAM Bupropion (Wellbutrin Sr), 150 MG PO QAM Ferrous Sulfate (Iron), 325 MG PO BID Folic Acid (Folvite), 1 MG PO QAM Furosemide (Lasix), 20 MG PO QAM Levothyroxine Sodium (Levothyroxine Sodium), 200 MCG PO QAM Montelukast Sod (Montelukast Sodium), 10 MG PO HS Sennosides-Docusate Sodium (Senexon-S), 1 TAB PO DAILY Sertraline (Zoloft), 150 MG PO QAM Simvastatin (Zocor), 20 MG PO HS Solifenacin Succinate (Vesicare), 10 MG PO DAILY Vortioxetine HBr (Trintellix), 5 MG PO HS Scheduled PRN Acetaminophen (Tylenol), 1,000 MG PO Q6 PRN for Pain or Fever Albuterol (Ventolin Hfa), 2 PUFFS INH Q6H PRN for SOB/Wheezing Albuterol Sulf (Proventil 0.083% 2.5MG/3ML), 2.5 MG INH Q4H PRN for SOB/Wheezing Allergies Coded Allergies: Penicillins (Verified Allergy, Severe, THROAT SWELLS, 03/03/18) Tramadol (Verified Allergy, Severe, Seizure, 03/03/18) Reported by PT and listed in [facility] record. Physical Exam Vital Signs Date Time Temp Pulse Resp B/P (MAP) Pulse Ox O2 Delivery O2 Flow Rate FiO2 03/03/18 13:52 123 20 137/102 99 Non-Rebreather 15.0 03/03/18 12:05 161 03/03/18 11:53 100 Ambu-Bag 03/03/18 11:53 37.2 161 129/81 100 Ambu-Bag Physical Exam LIMITED EXAM SECONDARY TO STATUS: GENERAL: Severe distress. HENT: Nasal trumpet in place, bag valve mask in place. Trace blood from oropharynx. EYES: Normal conjunctiva. Sclera non-icteric. PERRL. No anisocoria. NECK: Supple. No nuchal rigidity. FROM. RESPIRATORY: CARDIAC: RRR, no MRG ABDOMEN: Soft, NTND, BS+, Obese MSK: No chest wall TTP, Contractures in the bilateral lower extremities. NEURO: GCS 4. Decerebrate posturing. SKIN: : Indexing Hodge placed. Draining straw colored urine. Medical Decision & Procedures ER Provider Diagnostic Interpretation: Radiology results as stated below per my review and radiologist interpretation: CHEST ONE VIEW PORTABLE CLINICAL HISTORY: Sepsis dyspnea COMPARISON STUDY: 02/25/2018 FINDINGS: Cardia megaly. Pulmonary edema. Diaphragms are smooth. No focal regions of true consolidation. IMPRESSION: Cardiomegaly. Pulmonary edema. The above report was generated using voice recognition software. It may contain grammatical, syntax or spelling errors. Electronically signed by: Sherif White M.D. 03/03/2018 12:47 PM Dictated Date/Time: 03/03/2018 12:47 PM Laboratory Results 03/03/18 12:08 Red Blood Count 3.50, Mean Corpuscular Volume 96.0, Mean Corpuscular Hemoglobin 29.1, Mean Corpuscular Hemoglobin Concent 30.4, Mean Platelet Volume 9.7, Neutrophils (%) (Auto) 69.0, Lymphocytes (%) (Auto) 20.5, Monocytes (%) (Auto) 3.5, Eosinophils (%) (Auto) 2.1, Basophils (%) (Auto) 0.4, Neutrophils # (Auto) 12.03, Lymphocytes # (Auto) 3.58, Monocytes # (Auto) 0.61, Eosinophils # (Auto) 0.37, Basophils # (Auto) 0.07 03/03/18 12:08 Test 03/03/18 11:53 03/03/18 12:08 03/03/18 12:20 03/03/18 12:26 Bedside Glucose 131 mg/dl (70-90) White Blood Count 17.44 K/uL (4.8-10.8) Red Blood Count 3.50 M/uL (4.2-5.4) Hemoglobin 10.2 g/dL (12.0-16.0) Hematocrit 33.6 % (37-47) Mean Corpuscular Volume 96.0 fL (80-100) Mean Corpuscular Hemoglobin 29.1 pg (25-34) Mean Corpuscular Hemoglobin Concent 30.4 g/dl (32-36) Platelet Count 618 K/uL (130-400) Mean Platelet Volume 9.7 fL (7.4-10.4) Neutrophils (%) (Auto) 69.0 % Lymphocytes (%) (Auto) 20.5 % Monocytes (%) (Auto) 3.5 % Eosinophils (%) (Auto) 2.1 % Basophils (%) (Auto) 0.4 % Neutrophils # (Auto) 12.03 K/uL (1.4-6.5) Lymphocytes # (Auto) 3.58 K/uL (1.2-3.4) Monocytes # (Auto) 0.61 K/uL (0.11-0.59) Eosinophils # (Auto) 0.37 K/uL (0-0.5) Basophils # (Auto) 0.07 K/uL (0-0.2) RDW Standard Deviation 54.8 fL (36.4-46.3) RDW Coefficient of Variation 15.7 % (11.5-14.5) Immature Granulocyte % (Auto) 4.5 % Immature Granulocyte # (Auto) 0.78 K/uL (0.00-0.02) Nucleated RBC Absolute Count (auto) 0.05 K/uL (0-0) Nucleated Red Blood Cells % 0.3 % Prothrombin Time 10.6 SECONDS (9.0-12.0) Prothromb Time International Ratio 1.0 (0.9-1.1) Activated Partial Thromboplast Time 23.7 SECONDS (21.0-31.0) Partial Thromboplastin Ratio 0.9 Anion Gap 8.0 mmol/L (3-11) Est Creatinine Clear Calc Drug Dose 35.2 ml/min Estimated GFR () 38.4 Estimated GFR (Non- 33.1 BUN/Creatinine Ratio 14.5 (10-20) Calcium Level 10.1 mg/dl (8.5-10.1) Total Bilirubin 0.2 mg/dl (0.2-1) Aspartate Amino Transf (AST/SGOT) 47 U/L (15-37) Alanine Aminotransferase (ALT/SGPT) 36 U/L (12-78) Alkaline Phosphatase 130 U/L (45-117) Total Protein 9.1 gm/dl (6.4-8.2) Albumin 3.0 gm/dl (3.4-5.0) Globulin 6.1 gm/dl (2.5-4.0) Albumin/Globulin Ratio 0.5 (0.9-2) Chemistry Specimen Hemolysis Bedside Hemoglobin 10.9 g/dl (12.0-16.0) Bedside Hematocrit 32 % (37-47) Bedside Blood Gas pH (LAB) 7.40 (7.35-7.45) Bedside Blood Gas pCO2 (LAB) 48 mmHg (35-46) Bedside Blood Gas pO2 (LAB) 352 mmHg (80-95) Bedside Blood Gas HCO3 (LAB) 30 meq/L (19-24) Bedside Blood Gas Total CO2 31 mEq/l (24-31) Bedside Blood Gas Base Excess (LAB) 5.0 meq/L (-9-1.8) Bedside Blood Gas O2 Saturation 100.0 % (90-95) Bedside Sodium 140 mEq/L (135-144) Bedside Potassium 4.8 mEq/L (3.3-5.0) Bedside Lactic Acid Arterial 3.82 mmol/L (0.36-1.25) Laboratory results reviewed by me Medications Administered Medications (Trade) Dose Ordered Sig/Jacky Route Start Time Stop Time Status Last Admin Dose Admin Sodium Chloride 1,000 ml @ 999 mls/hr Q1H1M ONCE IV 03/03/18 12:07 03/03/18 13:07 DC 03/03/18 12:56 999 MLS/HR Vancomycin HCl (Vancomycin 1gm Ed/Asu Omnicell) 1 gm ONE STAT IV 03/03/18 12:07 03/03/18 12:10 DC 03/03/18 12:59 1 GM Lorazepam (Ativan Inj) 1 mg NOW STAT IV 03/03/18 12:07 03/03/18 12:10 DC 03/03/18 12:10 1 MG Ertapenem 500 mg/ Sodium Chloride 55 ml @ 110 mls/hr TODAY@1300 ONCE IV 03/03/18 13:00 03/03/18 13:29 DC 03/03/18 14:01 110 MLS/HR Lorazepam (Ativan Inj) 1 mg NOW STAT IV 03/03/18 12:55 03/03/18 12:56 DC 03/03/18 13:08 1 MG ED Course 1150: The patient was evaluated in room B1. A complete history and physical exam was performed. 1152: Records were obtained, shows DNR status. 1155: Situation was discussed with family members. They confirm patient is DNR/ DNI, no heroic measures wanted. 1305: I discussed the case with Payton JARAMILLO. Suggests ICU admission. 1307: I discussed the case with Dr. Mike - ICU. He will take patient to ICU. Medical Decision This HPI is limited secondary to the unresponsive status of the patient. The patient is a 52 year old white female with a past medical history of anemia, asthma, CKD, UTI, HTN, MRSA, Hypothyroidism, Paraplegia, ureteral calculus, ventricular shunt, and DVT who presents to the Emergency Room after passing out in the [facility] shortly prior to arrival. Nursing notes reviewed. Ancillary studies and prior records reviewed. Differential diagnosis: Etiologies such as cardiac ischemia, aortic dissection, pulmonary embolism, pneumonia, pneumothorax, musculoskeletal, infections, pericarditis, myocarditis , esophageal rupture, gastrointestinal, as well as others were entertained. Patient was seen and evaluated the bedside. I did receive report from 1 the hospitalist to did respond to a code purple in the parking lot. The patient was a recent discharge for a UTI related sepsis. The patient does have history of obstructive uropathy. Patient does have an indwelling Hodge catheter. Patient reportedly had become apneic and lost pulses in the parking lot. There was some brief resuscitation that was given including bag valve mask breaths and chest compressions. The patient did have return of circulation and pulses were present and the patient presented in the emergency department. Upon review after obtaining the patient's information the patient is of note a DNR. I did discuss briefly with family while respiratory is maintaining the patient' s airway she was not spontaneous breathing breathing initially. The family was stating that the stated that the patient would not want to be intubated nor placed on a breathing machine. I did discuss with the family that I did not know how the patient would do given that we are not protecting her airway. Upon reassessment of the patient the patient was noted to be breathing on her own. A nasal trumpet was placed and the patient was suctioned. Patient did have trace amounts of blood from the oropharynx and was posturing. There was concern for possible seizures the patient was given Ativan 2 subsequent doses. The patient was also had blood work completed blood cultures and I did speak with pharmacy in order to reinitiate her antibiotic treatment. I did discuss the case again with the family members. I did discuss case with the hospitalist who agreed to further evaluate and treat the patient. I did speak with the processing rep who also evaluated the patient. Patient was admitted to the medicine service. Medication Reconcilliation Current Medication List: was personally reviewed by me Blood Pressure Screening Patient's blood pressure: Normal blood pressure Consults Time Called: 1300 Consulting Physician: Payton JARAMILLO Returned Call: 1305 I discussed the case with Payton JARAMILLO. Suggests ICU admission. Additional Consults: Time Called: 1305 Consulted Physician: Dr. Mike - ICU Returned Call: 1307 Additional Comments: I discussed the case with Dr. Cee NOLASCO. He will take patient to ICU. Impression Primary Impression: Cardiac arrest Additional Impressions: Seizure-like activity UTI (urinary tract infection) Critical Care I have personally spent greater than 52 minutes of critical care time in the direct management of this patient. This includes bedside care, interpretation of diagnostic studies, and testing, discussion with consultants, patient, and family members, and other required patient management activities. This 52 minutes is in excess of all separately billable procedures. Scribe Attestation The scribe's documentation has been prepared under my direction and personally reviewed by me in its entirety. I confirm that the note above accurately reflects all work, treatment, procedures, and medical decision making performed by me. Departure Information Dispostion Being Evaluated By Hospitalist (Dr. Mike ICU) Referrals Reginaldo Adair, D.O. (PCP) Patient Instructions [facility] Problem Qualifiers Additional Impressions: UTI (urinary tract infection) Urinary tract infection type: catheter-associated UTI Indwelling urinary catheter type: indwelling urethral catheter Encounter type: subsequent encounter Qualified Codes: T83.511D - Infection and inflammatory reaction due to indwelling urethral catheter, subsequent encounter; N39.0 - Urinary tract infection, site not specified
--- NOTE | 2018-03-03 14:16 | Critical Care Consultation ---
Critical Care Consultation Date of Consultation: Mar 03, 2018. Attending Physician: Dr. Marie Reason for Consultation: Possible cardiac arrest versus seizure History of Present Illness History is obtained from ED physician as well as prior records and additional history is received from the patient's sister who is present at the bedside. Patient unable to participate secondary to medical condition. Patient is a 52-year-old female with a significant past medical history for spina bifida with history of paraplegia, recent complicated urinary tract infection requiring long-term IV antibiotics with the assistance of an indwelling peripherally inserted central catheter, chronic anemia, history suprapubic catheter, history of MRSA infections, history of DVT, chronic kidney disease stage IV, restrictive airway disease, hypothyroidism. Patient was receiving a long-term IV antibiotic in the [facility] secondary to a complicated urinary tract infection with urinary obstruction, the patient did not want to undergo surgical correction of the urinary obstruction. The patient was reportedly about to enter the hospital and suffered a period of unresponsiveness. Per report the patient received chest compressions and had reported return of spontaneous circulation. She was transported to the emergency department and was maintaining an airway and stabilized by providing simple blow-by oxygen. I reviewed prior visit records including a palliative care consultation dated February 22, 2018. Patient's sister was available at the bedside to provide additional history. The patient reportedly does not carry a formal diagnosis of seizures but her sister reported that after brain surgery she would have episodes of unresponsiveness. Caregivers from [facility] also report that she has been previously worked up and has not been formally diagnosed with seizures during episodes of unresponsiveness. I reiterated to the patient's sister that it is difficult to determine whether the patient suffered a true cardiac arrest versus his post ictal from a seizure type events or this could be a spectrum of both with a period of unresponsiveness leading to a low ventilatory state ultimately leading to a cardiac event. I emphasized this may be a potentially treatable process however there is a high possibility that the patient's functional status will decline further. The patient's sister reported she would not want to undergo heroic nor escalate level of interventions requiring pokes prawns and diagnostic modalities. The patient's sister emphasized that she would be willing to undergo medication administration through the PICC line however she would not want to undergo additional advanced access procedures, intubation, CPR regardless of the treatability of the underlying conditions given her present state of health. Accordingly and compliance with the patient's wishes she will be a DNR/DNI and admitted to the hospital. If the patient does further clarify her status and if she is actively dying we will transition from treatment to a comfort care scenario. Past Medical/Surgical History As noted above Family History FH: CAD (coronary artery disease) FATHER BROTHER Social History Smoking Status: Unknown if Ever Smoked Marital Status: single Housing Status: assisted living Occupation Status: disabled Allergies Coded Allergies: Penicillins (Verified Allergy, Severe, THROAT SWELLS, 03/03/18) Tramadol (Verified Allergy, Severe, Seizure, 03/03/18) Reported by PT and listed in [facility] record. Home Medications Scheduled Amlodipine Besylate (Amlodipine Besylate), 5 MG PO QAM Ascorbic Acid (Ascorbic Acid), 500 MG PO BID Aspirin (Aspirin Ec), 81 MG PO QAM Bupropion (Wellbutrin Sr), 150 MG PO QAM Ferrous Sulfate (Iron), 325 MG PO BID Folic Acid (Folvite), 1 MG PO QAM Furosemide (Lasix), 20 MG PO QAM Levothyroxine Sodium (Levothyroxine Sodium), 200 MCG PO QAM Montelukast Sod (Montelukast Sodium), 10 MG PO HS Sennosides-Docusate Sodium (Senexon-S), 1 TAB PO DAILY Sertraline (Zoloft), 150 MG PO QAM Simvastatin (Zocor), 20 MG PO HS Solifenacin Succinate (Vesicare), 10 MG PO DAILY Vortioxetine HBr (Trintellix), 5 MG PO HS Scheduled PRN Acetaminophen (Tylenol), 1,000 MG PO Q6 PRN for Pain or Fever Albuterol (Ventolin Hfa), 2 PUFFS INH Q6H PRN for SOB/Wheezing Albuterol Sulf (Proventil 0.083% 2.5MG/3ML), 2.5 MG INH Q4H PRN for SOB/Wheezing Review of Systems Unable to be obtained due to patient condition Physical Exam Date Time Temp Pulse Resp B/P (MAP) Pulse Ox O2 Delivery O2 Flow Rate FiO2 03/03/18 12:05 161 03/03/18 11:53 100 Ambu-Bag 03/03/18 11:53 37.2 161 129/81 100 Ambu-Bag General: Glascow Coma Scale: Eyes: 1: None, Verbal 2: Sounds, Motor 2: decerebrate, Total 5 Skin: Warm, dry, Head: Atraumatic Ears, nose, mouth and throat: Nasal airway in right naris, examined oropharynx no obvious abrasion to tongue no obvious dental fractures difficult exam. Cardiovascular: Normal peripheral perfusion Respiratory: Sonorous respirations Gastrointestinal: Non distended Laboratory Results Last 24 Hours Test 03/03/18 12:08 03/03/18 12:20 03/03/18 12:26 White Blood Count 17.44 K/uL Red Blood Count 3.50 M/uL Hemoglobin 10.2 g/dL Hematocrit 33.6 % Mean Corpuscular Volume 96.0 fL Mean Corpuscular Hemoglobin 29.1 pg Mean Corpuscular Hemoglobin Concent 30.4 g/dl Platelet Count 618 K/uL Mean Platelet Volume 9.7 fL Neutrophils (%) (Auto) 69.0 % Lymphocytes (%) (Auto) 20.5 % Monocytes (%) (Auto) 3.5 % Eosinophils (%) (Auto) 2.1 % Basophils (%) (Auto) 0.4 % Neutrophils # (Auto) 12.03 K/uL Lymphocytes # (Auto) 3.58 K/uL Monocytes # (Auto) 0.61 K/uL Eosinophils # (Auto) 0.37 K/uL Basophils # (Auto) 0.07 K/uL RDW Standard Deviation 54.8 fL RDW Coefficient of Variation 15.7 % Immature Granulocyte % (Auto) 4.5 % Immature Granulocyte # (Auto) 0.78 K/uL Nucleated RBC Absolute Count (auto) 0.05 K/uL Nucleated Red Blood Cells % 0.3 % Prothrombin Time 10.6 SECONDS Prothromb Time International Ratio 1.0 Activated Partial Thromboplast Time 23.7 SECONDS Partial Thromboplastin Ratio 0.9 Sodium Level 140 mmol/L Potassium Level 5.5 mmol/L Chloride Level 103 mmol/L Carbon Dioxide Level 29 mmol/L Anion Gap 8.0 mmol/L Blood Urea Nitrogen 25 mg/dl Creatinine 1.72 mg/dl Est Creatinine Clear Calc Drug Dose 35.2 ml/min Estimated GFR () 38.4 Estimated GFR (Non- 33.1 BUN/Creatinine Ratio 14.5 Random Glucose 153 mg/dl Calcium Level 10.1 mg/dl Total Bilirubin 0.2 mg/dl Aspartate Amino Transf (AST/SGOT) 47 U/L Alanine Aminotransferase (ALT/SGPT) 36 U/L Alkaline Phosphatase 130 U/L Total Protein 9.1 gm/dl Albumin 3.0 gm/dl Globulin 6.1 gm/dl Albumin/Globulin Ratio 0.5 Chemistry Specimen Hemolysis Bedside Hemoglobin 10.9 g/dl Bedside Hematocrit 32 % Bedside Blood Gas pH (LAB) 7.40 Bedside Blood Gas pCO2 (LAB) 48 mmHg Bedside Blood Gas pO2 (LAB) 352 mmHg Bedside Blood Gas HCO3 (LAB) 30 meq/L Bedside Blood Gas Total CO2 31 mEq/l Bedside Blood Gas Base Excess (LAB) 5.0 meq/L Bedside Blood Gas O2 Saturation 100.0 % Bedside Sodium 140 mEq/L Bedside Potassium 4.8 mEq/L Bedside Lactic Acid Arterial 3.82 mmol/L Assessment & Plan PLAN: Neuro: Acute encephalopathy Possible seizure disorder History spina bifida -Obtain noncontrast head CT CV: Possible syncope versus cardiac arrest -Unclear etiology -Trend troponins, would monitor on telemetry Fluids/Renal: History AK I in the setting of urinary tract obstruction History chronic kidney disease -Creatinine 1.72 today improved from previous ID: History complicated urinary tract infection -Was to receive last dose of IV antibiotics today GI/Nutrition: Elevation in AST -Unclear etiology Heme: Chronic anemia Endocrine: Elevated blood sugar Vascular access: Peripheral IV Code Status: DNR/DNI Placed consult for palliative care Discussed with Dr. Marie and hospitalist service
--- NOTE | 2018-03-03 14:21 | DIAGNOSTIC IMAGING REPORT ---
HEAD CT NONCONTRAST CT DOSE: 691.05 mGy.cm HISTORY: Altered mental status. TECHNIQUE: Multiaxial CT images of the head were performed without the use of intravenous contrast. Automated exposure control was utilized for this study. A dose lowering technique was utilized adhering to the principles of ALARA. Comparison: Head CT 08/21/2012. Findings: Partially visualized right nasopharyngeal tube. The mastoid air cells are clear. No calvarial fractures. Bilateral parietal approach ventriculostomy catheters are again noted. These are unchanged in position and terminates at the atrium of the bilateral lateral ventricles. Mild motion artifact. There is no definite mass, hematoma, midline shift, acute infarct. The ventricles are stable in size. Stable mild hydrocephalus of the lateral ventricles. Stable opacified left ethmoid air cell. Impression: 1. No change compared to the prior study. No acute intracranial abnormality. 2. Stable mild ventriculomegaly. 3. Bilateral ventriculostomy catheters remain unchanged in position. Electronically signed by: Thierno Hines M.D. 03/03/2018 2:19 PM Dictated Date/Time: 03/03/2018 2:14 PM
[2018-03-03] MEDS ORDERED: LORAZEPAM 2 MG/ML 1 ML VIAL IV PRN (14:45)
[2018-03-03 16:04] VITALS: Ht 132.1 cm; Wt 108.4 kg
[2018-03-03] MEDS: MoRPHine SULFATE 4 MG/ML 1 ML CARP\\VIAL IV PRN ×2 (16:17→17:26)
[2018-03-03 16:19] VITALS: BP 124/81; PULSE 123
--- NOTE | 2018-03-03 16:49 | History and Physical ---
History & Physical Date & Time of Service: Mar 03, 2018 ~ 14:45 Chief Complaint: Cardiac Arrest Primary Care Physician: Reginaldo Adair D.O. History of Present Illness 52-year-old female who presents to the ED after a cardiac arrest. Patient was recently admitted to [facility] 02/25 was 02/28 for complicated UTI and obstructive right ureteral stone. Patient had an admission prior to in which she was diagnosed the Proteus UTI and receiving IV ertapenem. During the last admission , patient underwent cystoscopy with right ureteral stent placement however stone was unable to be removed. Patient was discharged and was to [facility]. [facility] today to receive her last dose of IV antibiotics. While her aide was taken her out of the van, the patient apparently had a shaking episode and then slumped over. 911 was called. Patient was found to be pulseless. CPR was initiated and pulse was regained however after review of prior records it was noted the patient wished to be a DNR/DNI. The staff at [facility] reports the patient had complained of some nausea and some mild abdominal pain this morning. They report they are planning on having the patient evaluated in the ED after her IV antibiotic infusion. In the ER, patient remains obtunded. She is tachycardic and blood pressure is stable. Head CT is negative for acute findings. Patient was given IVF, IV vancomycin, IV ertapenem, IV Ativan. The patient's condition was discussed with patient's sister who is the bedside who expresses that the patient wanted to be a DNR/DNI and to have no heroic measures. It was decided to make the patient comfort measures only. Past Medical/Surgical History Medical Problems: (1) Anemia of chronic disease Status: Chronic (2) Asthma, Unspecified Status: Chronic (3) CKD (chronic kidney disease), stage IV Status: Chronic (4) Depression Status: Chronic (5) Depression Status: Chronic (6) Esophageal Reflux Status: Chronic (7) History of DVT (deep vein thrombosis) Status: Chronic (8) History of MRSA infection Permanent Comment: wound infection 2009 Status: Chronic (9) HTN (hypertension) Status: Chronic (10) Hx-Venous Thrombosis&Embolism Status: Chronic (11) Hypertension Status: Chronic (12) Hypothyroidism Status: Chronic (13) Hypothyroidism Status: Chronic (14) Laceration of left foot Status: Resolved (15) Lymphedema Status: Chronic (16) Neurogenic bladder Status: Chronic (17) Paraplegia Status: Chronic (18) Restrictive airway disease Status: Chronic (19) Spina bifida Status: Chronic (20) Spina bifida Status: Chronic (21) Suprapubic catheter Status: Chronic (22) Ventricular Shunt Status Status: Chronic Surgical Problems: (1) H/O foot surgery Status: Chronic (2) H/O sinus surgery Status: Chronic (3) H/O Spinal surgery Status: Chronic (4) History of hip surgery Status: Chronic Family History FH: CAD (coronary artery disease) FATHER BROTHER Social History Smoking Status: Never Smoker Alcohol Use: none Immunizations History of Influenza Vaccine: Yes Influenza Vaccine Date: May 16, 2017 History of Tetanus Vaccine?: Yes Tetanus Immunization Date: May 18, 2017 History of Pneumococcal: Yes Pneumococcal Date: Jun 16, 2017 History of Hepatitis B Vaccine: Yes Hepatitis Immunization Date: Oct 05, 2006 Allergies Coded Allergies: Penicillins (Verified Allergy, Severe, THROAT SWELLS, 03/03/18) Tramadol (Verified Allergy, Severe, Seizure, 03/03/18) Reported by PT and listed in [facility] record. Home Medications Scheduled Amlodipine Besylate (Amlodipine Besylate), 5 MG PO QAM Ascorbic Acid (Ascorbic Acid), 500 MG PO BID Aspirin (Aspirin Ec), 81 MG PO QAM Bupropion (Wellbutrin Sr), 150 MG PO QAM Ferrous Sulfate (Iron), 325 MG PO BID Folic Acid (Folvite), 1 MG PO QAM Furosemide (Lasix), 20 MG PO QAM Levothyroxine Sodium (Levothyroxine Sodium), 200 MCG PO QAM Montelukast Sod (Montelukast Sodium), 10 MG PO HS Sennosides-Docusate Sodium (Senexon-S), 1 TAB PO DAILY Sertraline (Zoloft), 150 MG PO QAM Simvastatin (Zocor), 20 MG PO HS Solifenacin Succinate (Vesicare), 10 MG PO DAILY Vortioxetine HBr (Trintellix), 5 MG PO HS Scheduled PRN Acetaminophen (Tylenol), 1,000 MG PO Q6 PRN for Pain or Fever Albuterol (Ventolin Hfa), 2 PUFFS INH Q6H PRN for SOB/Wheezing Albuterol Sulf (Proventil 0.083% 2.5MG/3ML), 2.5 MG INH Q4H PRN for SOB/Wheezing Review of Systems Unobtainable, patient unresponsive Physical Exam Vital Signs Date Time Temp Pulse Resp B/P (MAP) Pulse Ox O2 Delivery O2 Flow Rate FiO2 03/03/18 15:51 123 20 124/81 100 Non-Rebreather 15.0 03/03/18 13:52 123 20 137/102 99 Non-Rebreather 15.0 03/03/18 12:05 161 03/03/18 11:53 100 Ambu-Bag 03/03/18 11:53 37.2 161 129/81 100 Ambu-Bag General Appearance: + pertinent finding (Obtunded) Head: normocephalic, atraumatic Eyes: normal inspection, PERRL, sclerae normal, + pertinent finding (No intentional movements, patient not tracking) ENT: + pertinent finding (Nasal airway in place, small amount of dried blood noted from left nares and around the mouth) Neck: supple, no JVD, trachea midline Respiratory/Chest: + decreased breath sounds, + pertinent finding (Mild tachypnea, taking deep breaths, sonorous respirations) Cardiovascular: normal peripheral pulses, + tachycardia (Regular rhythm) Abdomen/GI: normal bowel sounds, non tender, soft, no organomegaly Genitourinary - Female: + pertinent finding (Suprapubic catheter) Neurologic/Psych: + pertinent finding (Obtunded) Skin: normal color, warm/dry Diagnostics Laboratory Results Results Past 24 Hours Test 03/03/18 12:08 03/03/18 12:20 03/03/18 12:26 Range/Units White Blood Count 17.44 4.8-10.8 K/uL Red Blood Count 3.50 4.2-5.4 M/uL Hemoglobin 10.2 12.0-16.0 g/dL Hematocrit 33.6 37-47 % Mean Corpuscular Volume 96.0 80-100 fL Mean Corpuscular Hemoglobin 29.1 25-34 pg Mean Corpuscular Hemoglobin Concent 30.4 32-36 g/dl Platelet Count 618 130-400 K/uL Mean Platelet Volume 9.7 7.4-10.4 fL Neutrophils (%) (Auto) 69.0 % Lymphocytes (%) (Auto) 20.5 % Monocytes (%) (Auto) 3.5 % Eosinophils (%) (Auto) 2.1 % Basophils (%) (Auto) 0.4 % Neutrophils # (Auto) 12.03 1.4-6.5 K/uL Lymphocytes # (Auto) 3.58 1.2-3.4 K/uL Monocytes # (Auto) 0.61 0.11-0.59 K/uL Eosinophils # (Auto) 0.37 0-0.5 K/uL Basophils # (Auto) 0.07 0-0.2 K/uL RDW Standard Deviation 54.8 36.4-46.3 fL RDW Coefficient of Variation 15.7 11.5-14.5 % Immature Granulocyte % (Auto) 4.5 % Immature Granulocyte # (Auto) 0.78 0.00-0.02 K/uL Nucleated RBC Absolute Count (auto) 0.05 0-0 K/uL Nucleated Red Blood Cells % 0.3 % Prothrombin Time 10.6 9.0-12.0 SECONDS Prothromb Time International Ratio 1.0 0.9-1.1 Activated Partial Thromboplast Time 23.7 21.0-31.0 SECONDS Partial Thromboplastin Ratio 0.9 Sodium Level 140 136-145 mmol/L Potassium Level 5.5 3.5-5.1 mmol/L Chloride Level 103 98-107 mmol/L Carbon Dioxide Level 29 21-32 mmol/L Anion Gap 8.0 3-11 mmol/L Blood Urea Nitrogen 25 7-18 mg/dl Creatinine 1.72 0.60-1.20 mg/dl Est Creatinine Clear Calc Drug Dose 35.2 ml/min Estimated GFR () 38.4 Estimated GFR (Non- 33.1 BUN/Creatinine Ratio 14.5 10-20 Random Glucose 153 70-99 mg/dl Calcium Level 10.1 8.5-10.1 mg/dl Total Bilirubin 0.2 0.2-1 mg/dl Aspartate Amino Transf (AST/SGOT) 47 15-37 U/L Alanine Aminotransferase (ALT/SGPT) 36 12-78 U/L Alkaline Phosphatase 130 45-117 U/L Total Protein 9.1 6.4-8.2 gm/dl Albumin 3.0 3.4-5.0 gm/dl Globulin 6.1 2.5-4.0 gm/dl Albumin/Globulin Ratio 0.5 0.9-2 Chemistry Specimen Hemolysis Bedside Hemoglobin 10.9 12.0-16.0 g/dl Bedside Hematocrit 32 37-47 % Bedside Blood Gas pH (LAB) 7.40 7.35-7.45 Bedside Blood Gas pCO2 (LAB) 48 35-46 mmHg Bedside Blood Gas pO2 (LAB) 352 80-95 mmHg Bedside Blood Gas HCO3 (LAB) 30 19-24 meq/L Bedside Blood Gas Total CO2 31 24-31 mEq/l Bedside Blood Gas Base Excess (LAB) 5.0 -9-1.8 meq/L Bedside Blood Gas O2 Saturation 100.0 90-95 % Bedside Sodium 140 135-144 mEq/L Bedside Potassium 4.8 3.3-5.0 mEq/L Bedside Lactic Acid Arterial 3.82 0.36-1.25 mmol/L Microbiology Results 03/03/18 Blood Culture, Received Pending 03/03/18 Blood Culture, Received Pending Diagnostic Radiology CXR IMPRESSION: Cardiomegaly. Pulmonary edema. Head CT impression: 1. No change compared to the prior study. No acute intracranial abnormality. 2. Stable mild ventriculomegaly. 3. Bilateral ventriculostomy catheters remain unchanged in position. Impression Assessment and Plan 52-year-old female who presented to the ED after experiencing a cardiac arrest. Pulses were regained after initiation of CPR. However after review of prior records, it was determined the patient wished to be DNR/DNI. Etiology of patient's cardiac arrest is unclear. Question possible seizure leading to hypoxia. Patient currently obtunded. Patient's condition was discussed with her sister who is the bedside. She expressed that the patient wishes to be a DNR/DNI and did not want any heroic measures performed. It was then decided to make the patient comfort measures only. Patient will be admitted to the fourth floor. Palliative care will be consulted. As needed morphine, Ativan, atropine drops have been ordered. ADDENDUM: This is a 52 year old female who presented to the ED after a possible cardiac arrest. Dakota lisset was called in the parking lot of the [facility]; patient felt sick in the morning and found to have had seizure-like movements before becoming unresponsive. She presented to the ED and found to be unresponsive. Previous admission suggested that patient is a DNR/DNI. Sister is at bedside who stated that no heroic measures should be performed. Patient initially was going to be treated with antibiotics and antiepileptics, but her condition was not getting better and her breathing was worsening. Sister and family decided on comfort measures only. Will admit to 4E; IV morphine and IV Ativan ordered. Palliative care consulted. May need to transition to Fentanyl patch. Consider adding Scopolamine patch in the near future. Resuscitation Status VTE Prophylaxis Will order VTE Prophylaxis: Yes
[2018-03-03] MEDS ORDERED: LORAZEPAM INJ 1 MG in SYRINGE 0.5 ML IV PRN (17:00)
[2018-03-03] MEDS ORDERED: NURSING VERBAL MED ORDER ONE (17:26)
[2018-03-03] MEDS ORDERED: MoRPHine SULFATE 4 MG/ML 1 ML CARP\\VIAL IV ONE (18:00)
[2018-03-03 20:00] VITALS: O2SAT 100
[2018-03-04] VITALS: O2SAT 100
[2018-03-04] MEDS: MoRPHine SULFATE 4 MG/ML 1 ML CARP\\VIAL IV PRN ×3 (00:08→14:32)
[2018-03-04 08:00] VITALS: O2SAT 100
[2018-03-04] MEDS ORDERED: LORAZEPAM 2 MG/ML 1 ML VIAL IV PRN ×2 (12:30→13:00)
[2018-03-04] MEDS ORDERED: LORAZEPAM INJ 1 MG in SYRINGE 0.5 ML IV PRN ×2 (13:00→14:00)
--- NOTE | 2018-03-04 13:01 | Progress Note ---
Medicine Progress Note Date & Time of Visit: Mar 04, 2018 at 13:01. Subjective Called by RN as patient had a witnessed seizure given Ativan 1 mg IV Evaluated patient with the sister and caregivers at the bedside confirmed generalized tonic-clonic seizures for about 40 seconds Prior to that the patient has been appearing comfortable overall On exam the patient is unresponsive, on nonrebreather, not in distress no signs of pain Objective Last 8 Hrs Date Time Temp Pulse Resp B/P (MAP) Pulse Ox O2 Delivery O2 Flow Rate FiO2 03/04/18 08:00 100 Non-Rebreather 15.0 Physical Exam: General-unresponsive, not in distress, no accessory muscle use, Lungs-mild rhonchi bilaterally Heart- regular rhythm; no murmur, normal rate Abdomen-obese, nondistended Extremities- no pretibial edema Neuro-unresponsive Skin- warm & dry Assessment & Plan Cardiac arrest, unclear etiology possibly secondary to hypoxia secondary to seizure -Patient has been placed on comfort measures -Seizure episode this morning Possibly from anoxic brain injury, underlying seizure disorder Ativan increased to 1 mg every 6 hours as needed Morphine continued Scopolamine and atropine as needed ordered Discussed at length with patient's sister Jeanine at the bedside Discussed regarding continuation of nonrebreather mask, after discussion with patient's caregivers, we have decided to discontinue the breathing mask Patient's history was agreeable and comfortable with the plan of care At around 1530, the patient has Try to call the patient's sister on the phone expressed my condolences but there was no answer. Current Inpatient Medications: Current Inpatient Medications Medications (Trade) Dose Ordered Sig/Jacky Route Start Time Stop Time Status Last Admin Dose Admin Morphine Sulfate (MoRPHine SULFATE INJ) 4 mg Q4H PRN IV 03/03/18 14:45 03/17/18 14:44 03/04/18 07:39 4 MG Heparin Sodium (Porcine) (Heparin 10 Unit/ ml 5 ml Flush) 5 ml PRN PRN FLUSH 03/04/18 01:15 04/03/18 01:14 03/04/18 07:38 5 ML Lorazepam (Ativan Inj) 1 mg Q15M PRN IV 03/04/18 12:30 04/03/18 12:29 Lorazepam 1 mg/ Syringe 1 ml @ 1 mls/min Q15M PRN IV 03/04/18 13:00 04/03/18 12:59 Lorazepam (Ativan Inj) 1 mg Q6H IV 03/04/18 18:00 04/03/18 17:59 UNV Lorazepam (Ativan Inj) 1 mg Q1H PRN IV 03/04/18 13:00 04/03/18 12:59 UNV
[2018-03-04] MEDS ORDERED: SCOPOLAMINE 1.5 MG TDSY TD PRN (15:15)
[2018-03-04] MEDS ORDERED: ATROPINE SULFATE 1% OP SOLN 5 ML BTL SL PRN (15:15)
[2018-03-04] MEDS ORDERED: LORAZEPAM 2 MG/ML 1 ML VIAL IV SCH (18:00)
[2018-03-04] MEDS ORDERED: LORAZEPAM INJ 1 MG in SYRINGE 0.5 ML IV SCH (18:00)
--- NOTE | 2018-03-04 21:01 | Discharge Summary ---
Discharge Summary Date of Service Mar 04, 2018. Discharge Summary Admission Date: Mar 03, 2018 at 14:31 Discharge Date: Mar 04, 2018 Discharge Disposition: Principal Diagnosis: Cardiac arrest, unclear etiology possibly secondary to hypoxia secondary to seizure Procedures: CT head and chest xray Consultations: Lean Engineer Admission Information HPI (per Admitting provider): 52-year-old female who presents to the ED after a cardiac arrest. Patient was recently admitted to [facility] 02/25 was 02/28 for complicated UTI and obstructive right ureteral stone. Patient had an admission prior to in which she was diagnosed the Proteus UTI and receiving IV ertapenem. During the last admission , patient underwent cystoscopy with right ureteral stent placement however stone was unable to be removed. Patient was discharged and was to [facility] to [facility]. [facility] today to receive her last dose of IV antibiotics. While her aide was taken her out of the van, the patient apparently had a shaking episode and then slumped over. 911 was called. Patient was found to be pulseless. CPR was initiated and pulse was regained however after review of prior records it was noted the patient wished to be a DNR/DNI. The staff at [facility] reports the patient had complained of some nausea and some mild abdominal pain this morning. They report they are planning on having the patient evaluated in the ED after her IV antibiotic infusion. In the ER, patient remains obtunded. She is tachycardic and blood pressure is stable. Head CT is negative for acute findings. Patient was given IVF, IV vancomycin, IV ertapenem, IV Ativan. The patient's condition was discussed with patient's sister who is the bedside who expresses that the patient wanted to be a DNR/DNI and to have no heroic measures. It was decided to make the patient comfort measures only. Physical Exam (per Admitting): General Appearance: + pertinent finding (Obtunded) Head: normocephalic, atraumatic Eyes: normal inspection, PERRL, sclerae normal, + pertinent finding (No intentional movements, patient not tracking) ENT: + pertinent finding (Nasal airway in place, small amount of dried blood noted from left nares and around the mouth) Neck: supple, no JVD, trachea midline Respiratory/Chest: + decreased breath sounds, + pertinent finding (Mild tachypnea, taking deep breaths, sonorous respirations) Cardiovascular: normal peripheral pulses, + tachycardia (Regular rhythm) Abdomen/GI: normal bowel sounds, non tender, soft, no organomegaly Genitourinary - Female: + pertinent finding (Suprapubic catheter) Neurologic/Psych: + pertinent finding (Obtunded) Skin: normal color, warm/dry Hospital Course Cardiac arrest, unclear etiology possibly secondary to hypoxia secondary to seizure Patient was evaluated by telephone messenger After discussion with the patient's sister, Patient has been placed on comfort measures -Seizure episode morning of 03/04 Possibly from anoxic brain injury, underlying seizure disorder Ativan increased to 1 mg every 6 hours as needed Morphine continued Scopolamine and atropine as needed ordered Discussed at length with patient's sister Jeanine at the bedside Discussed regarding continuation of nonrebreather mask, after discussion with patient's caregivers, we have decided to discontinue the breathing mask Patient's history was agreeable and comfortable with the plan of care At around 1530, the patient has been pronounced Tried to call the patient's sister on the phone expressed my condolences but there was no answer. Total time spent on discharge = 40 minutes This includes examination of the patient, discharge planning, medication reconciliation, and communication with other providers. Discharge Instructions patient
== END 2018-03-04 17:10 | disposition expired | DRG 296 ==
LOC: EDBD 11:50 → EDSEX 11:50 → C.EDB 11:54 → C.4E 14:31 → ENRESERV 15:08 → C.4E 16:20
PROVIDERS: ADMIT Family Medicine; ATTEND Internal Medicine
DX: I46.9 Cardiac arrest, cause unspecified (principal); G93.40 Encephalopathy, unspecified; G93.1 Anoxic brain damage, not elsewhere classified; D64.9 Anemia, unspecified; J45.909 Unspecified asthma, uncomplicated; N18.9 Chronic kidney disease, unspecified; I10 Essential (primary) hypertension; Z86.14 Personal history of Methicillin resistant Staphylococcus aureus infection; E03.9 Hypothyroidism, unspecified; Z98.2 Presence of cerebrospinal fluid drainage device; Z79.82 Long term (current) use of aspirin; Z82.49 Family history of ischemic heart disease and other diseases of the circulatory system; Z88.0 Allergy status to penicillin; Z88.6 Allergy status to analgesic agent; R09.02 Hypoxemia; R56.9 Unspecified convulsions